=== PATIENT | female | born 1945 | race Caucasian/White ===

== ENCOUNTER 2017-11-27 10:54 | Inpatient (IN) | payer MEDICARE, MEDICAID ==
[2017-11-27] MEDS ORDERED: IPRATROPIUM/ALBUTEROL 0.5-2.5 MG/3 ML AMPUL NEB ONE (11:25)
--- NOTE | 2017-11-27 11:29 | ER Document Report ---
ED Respiratory Problem - General Chief Complaint: Breathing Difficulty Stated Complaint: TROUBLE BREATHING Time Seen by Provider: 11/27/17 11:10 Mode of Arrival: Ambulatory Information source: Patient Notes: HPI-72 years old female with a history of smoking in the past quit 7 years ago, presents today with difficulty in breathing wheezing coughing up yellow sputum for the last 1 week. Denies any chest pain left arm numbness tingling sensation nausea vomiting palpitation or diaphoresis. Denies any dysuria frequency urgency. REVIEW OF SYSTEMS: CONSTITUTIONAL : Denies fever, chills, or sweats. Denies recent illness. EENT: Denies eye, ear, throat, or mouth pain or symptoms. Denies nasal or sinus congestion or discharge. Denies throat, tongue, or mouth swelling or difficulty swallowing. CARDIOVASCULAR: Denies chest pain. Denies palpitations or racing or irregular heart beat. Denies ankle edema. RESPIRATORY: GASTROINTESTINAL: Denies abdominal pain or distention. Denies nausea, vomiting , or diarrhea. Denies blood in vomitus, stools, or per rectum. Denies black, tarry stools. Denies constipation. GENITOURINARY: Denies difficulty urinating, painful urination, burning, frequency, blood in urine, or discharge. FEMALE GENITOURINARY: Denies vaginal bleeding, heavy or abnormal periods, irregular periods. Denies vaginal discharge or odor. MUSCULOSKELETAL: Denies back or neck pain or stiffness. Denies joint pain or swelling. SKIN: Denies rash, lesions or sores. HEMATOLOGIC : Denies easy bruising or bleeding. LYMPHATIC: Denies swollen, enlarged glands. NEUROLOGICAL: Denies confusion or altered mental status. Denies passing out or loss of consciousness. Denies dizziness or lightheadedness. Denies headache. Denies weakness or paralysis or loss of use of either side. Denies problems with gait or speech. Denies sensory loss, numbness, or tingling. Denies seizures. PSYCHIATRIC: Denies anxiety or stress. Denies depression, suicidal ideation, or homicidal ideation. ALL OTHER SYSTEMS REVIEWED AND NEGATIVE. PHYSICAL EXAMINATION: GENERAL: Well-appearing, well-nourished and not in any respiratory distress. HEAD: Atraumatic, normocephalic. EYES: Pupils equal round and reactive to light, extraocular movements intact, conjunctiva are normal. ENT: Nares patent, oropharynx clear without exudates. Moist mucous membranes. NECK: Normal range of motion, supple without lymphadenopathy LUNGS: Bilaterally decreased breath sounds, scattered expiratory wheeze. No rales HEART: Regular rate and rhythm without murmurs ABDOMEN: Soft, nontender, nondistended abdomen. No guarding, no rebound. No masses appreciated. Female : deferred Musculoskeletal: Normal range of motion, no pitting or edema. No cyanosis. NEUROLOGICAL: Cranial nerves grossly intact. Normal speech, normal gait. Normal sensory, motor exams PSYCH: Normal mood, normal affect. SKIN: Warm, Dry, normal turgor, no rashes or lesions noted. Dictation was performed using [employer] voice recognition softwareHPI- TRAVEL OUTSIDE OF THE [place] IN LAST 30 DAYS: No - Related Data Allergies/Adverse Reactions: amoxicillin trihydrate [From Augmentin] Allergy (Verified 11/21/14 11:49) meperidine HCl [From Demerol] Allergy (Verified 10/21/14 12:59) Potassium Clavulanate * [From Augmentin] Allergy (Verified 11/21/14 11:49) Past Medical History - General Information source: Patient - Social History Smoking Status: Former Smoker Cigarette use (# per day): No Chew tobacco use (# tins/day): No Smoking Education Provided: No Frequency of alcohol use: Rare Drug Abuse: None Lives with: Family Family History: Reviewed & Not Pertinent Patient has suicidal ideation: No Patient has homicidal ideation: No - Past Medical History Cardiac Medical History: Reports: Hx Congestive Heart Failure, Hx Hypercholesterolemia, Hx Hypertension Denies: Hx Heart Attack Pulmonary Medical History: Reports: Hx COPD, Hx Pneumonia Denies: Hx Asthma Neurological Medical History: Reports: Hx Seizures - WITH DEMEROL. Denies: Hx Cerebrovascular Accident GI Medical History: Denies: Hx Hepatitis, Hx Hiatal Hernia, Hx Ulcer Psychiatric Medical History: Denies: Hx Depression Infectious Medical History: Denies: Hx Hepatitis Past Surgical History: Reports: Hx Cardiac Catheterization, Hx Section , Hx Open Heart Surgery - 1949, Hx Pacemaker - February. Denies: Hx Mastectomy - Immunizations Hx Diphtheria, Pertussis, Tetanus Vaccination: Yes Review of Systems - Review of Systems Notes: Dictated above Physical Exam - Vital signs Vitals: Temp Pulse Resp BP Pulse Ox 98.0 F 72 24 H 148/60 H 95 11/27/17 11:03 11/27/17 11:03 11/27/17 11:03 11/27/17 11:03 11/27/17 11:03 Course - Re-evaluation Re-evalutation: 11/27/17 13:13 Patient was reexamined still wheezing bilaterally. - Vital Signs Vital signs: Temp Pulse Resp BP Pulse Ox 98.0 F 102 H 26 H 107/56 L 99 11/27/17 11:03 11/27/17 11:29 11/27/17 13:01 11/27/17 13:01 11/27/17 13:01 - Laboratory Result Diagrams: 11/27/17 11:15 11/27/17 11:15 Laboratory results interpreted by me: 11/27/17 11/27/17 11:15 11:15 WBC 10.8 H Chloride 97 L Carbon Dioxide 39 H BUN 24 H Glucose 120 H Calcium 10.3 H - Diagnostic Test Radiology reviewed: Reports reviewed - No new infiltration effusion or pneumothorax Discharge - Discharge Clinical Impression: Acute exacerbation of COPD with asthma Condition: Fair Disposition: ADMITTED INPATIENT Admitting Provider: Hospitalist Unit Admitted: Telemetry
[2017-11-27 11:48] LABS: ABSOLUTE BASOPHILS # (AUTO) 0.1 10^3/uL (0.0-0.2); ABSOLUTE EOSINOPHILS # (AUTO) 0.6 10^3/uL (0.0-0.6); ABSOLUTE MONOCYTES (AUTO) 0.8 10^3/uL (0.1-1.4); ABSOLUTE NEUT (AUTO) 6.3 10^3/uL (1.7-8.2); BASOPHILS % (AUTO) 0.7 % (0-2); EOSINOPHILS % (AUTO) 5.7 % (0-6); HEMATOCRIT 40.7 % (36.0-47.0); HEMOGLOBIN 13.2 g/dL (12.0-15.5); LYMPHOCYTES % (AUTO) 27.7 % (13-45); MEAN CORPUSCULAR HEMOGLOBIN 28.7 pg (27.0-33.4); MEAN CORPUSCULAR HGB CONC 32.5 g/dL (32.0-36.0); MEAN CORPUSCULAR VOLUME 88 fl (80-97); PLATELET COUNT 238 10^3/uL (150-450); RED BLOOD COUNT 4.62 10^6/uL (3.72-5.28); RED CELL DISTRIBUTION WIDTH 13.7 % (11.5-14.0); SEGMENTED NEUTROPHILS % (AUTO) 58.9 % (42-78); TOTAL CELLS COUNTED % (AUTO) 100 %; WHITE BLOOD COUNT 10.8 10^3/uL (4.0-10.5)
--- NOTE | 2017-11-27 11:49 | RADIOLOGY REPORT (SQ) ---
EXAM DESCRIPTION: CHEST SINGLE VIEW COMPLETED DATE/TIME: 11/27/2017 11:41 am REASON FOR STUDY: Cough COMPARISON: 11/20/2015 EXAM PARAMETERS: NUMBER OF VIEWS: One view. TECHNIQUE: Single frontal radiographic view of the chest acquired. RADIATION DOSE: NA LIMITATIONS: None. FINDINGS: LUNGS AND PLEURA: Chronic basilar changes. COPD. Stable. MEDIASTINUM AND HILAR STRUCTURES: No masses. Contour normal. HEART AND VASCULAR STRUCTURES: Heart normal in size. Normal vasculature. BONES: No acute findings. HARDWARE: Cardiac hardware unchanged. OTHER: No other significant finding. IMPRESSION: Stable appearance. COPD with basilar changes. TECHNICAL DOCUMENTATION: JOB ID: [id number] [employer]- All Rights Reserved Reading location - IP/workstation name: [email or web address]
[2017-11-27 12:00] LABS: ALANINE AMINOTRANSFERASE 24 U/L (9-52); ALBUMIN 4.5 g/dL (3.5-5.0); ALKALINE PHOSPHATASE 89 U/L (38-126); ASPARTATE AMINO TRANSFERASE 26 U/L (14-36); BILIRUBIN,DIRECT 0.3 mg/dL (0.0-0.4); BILIRUBIN,TOTAL 0.3 mg/dL (0.2-1.3); BLOOD UREA NITROGEN 24 mg/dL (7-20); CALCIUM 10.3 mg/dL (8.4-10.2); CHLORIDE 97 mmol/L (98-107); GLUCOSE 120 mg/dL (75-110); POTASSIUM 4.5 mmol/L (3.6-5.0); SODIUM 143.6 mmol/L (137-145); TOTAL PROTEIN 7.8 g/dL (6.3-8.2)
[2017-11-27 12:06] LABS: ANION GAP 8 (5-19); CARBON DIOXIDE 39 mmol/L (22-30)
[2017-11-27 12:11] LABS: NT PRO BNP 139 pg/mL (5-900)
[2017-11-27 12:12] LABS: TROPONIN I < 0.012 ng/mL
[2017-11-27 13:25] LABS: APPEARANCE,URINE CLEAR; BILIRUBIN,URINE NEGATIVE (NEGATIVE); COLOR,URINE YELLOW; GLUCOSE, URINE NEGATIVE (NEGATIVE); KETONES,URINE NEGATIVE (NEGATIVE); LEUKOCYTE ESTERASE,URINE TRACE (NEGATIVE); NITRITE,URINE NEGATIVE (NEGATIVE); PROTEIN,URINE NEGATIVE (NEGATIVE); URINE SPECIFIC GRAVITY 1.019
[2017-11-27] MEDS ORDERED: ONDANSETRON HCL INJ/PF 4 MG/2 ML SDV IV PRN (14:14)
[2017-11-27] MEDS ORDERED: NORMAL SALINE 1000 ML 1,000 ML IV PRN (14:14)
[2017-11-27] MEDS ORDERED: ACETAMINOPHEN 325 MG TABLET PO PRN (14:14)
[2017-11-27] MEDS ORDERED: FUROSEMIDE 20 MG TABLET PO PRN (15:19)
[2017-11-27] MEDS ORDERED: (PENDING PHARMACY ID) (Ranitidine Hcl [Zantac] 300 MG) PO PRN (15:19)
--- NOTE | 2017-11-27 15:27 | PDOC H&P ---
History of Present Illness Admission Date/PCP: 11/27/17 13:17 OMA MARCOS MD Patient complains of: Shortness of breath History of Present Illness: CHRISTOS MULTANI is a 72 year old female resents to the hospital with complaint of shortness of breath for the last couple weeks. Patient states her breathing worsened last night. Patient states that she is having a yellowish brown productive cough. Patient denies any fever however reports that she did feel warm to touch. Patient states that she has been wheezing for the last several days. Patient states that she normally wears 2 L at home at rest and 3 L with exertion. Patient reports that she has had to keep her oxygen turned up to 3 L on a regular basis. Patient states that she has not had chest pain nausea vomiting or decreased appetite. Patient does admit to having back pain. Past Medical History Cardiac Medical History: Reports: Congestive Heart Failure, Hyperlipidema, Hypertension Denies: Myocardial Infarction Pulmonary Medical History: Reports: Chronic Obstructive Pulmonary Disease (COPD) , Pneumonia Denies: Asthma Neurological Medical History: Reports: Seizures - WITH DEMEROL GI Medical History: Denies: Hepatitis, Hiatal Hernia Psychiatric Medical History: Denies: Depression Hematology: Denies: Anemia, Sickle Cell Disease Past Surgical History Past Surgical History: Reports: Cardiac Catheterization, Section, Pacemaker - February Denies: Amputation, Mastectomy Social History Information Source: Patient Lives with: Family Smoking Status: Former Smoker Frequency of Alcohol Use: None Hx Recreational Drug Use: No Hx Prescription Drug Abuse: No - Advance Directive Resuscitation Status: Full Code Family History Family History: Reviewed & Not Pertinent Parental Family History Reviewed: Yes Children Family History Reviewed: Yes Sibling(s) Family History Reviewed.: Yes Medication/Allergy Home Medications: Albuterol Sulfate [Ventolin Hfa] 2 puff IH Q4HP PRN 11/27/17 Aspirin [Adult Low Dose Aspirin EC] 81 mg PO DAILY 11/27/17 Budesonide/Formoterol Fumarate [Symbicort HFA 160-4.5 mcg Inhaler 6 gm] 2 puff IH BID 11/27/17 Cyclobenzaprine HCl [Flexeril 10 mg Tablet] 10 mg PO DAILY 11/27/17 Furosemide [Lasix 20 mg Tablet] 20 mg PO DAILYP PRN 11/27/17 Losartan Potassium [Cozaar 25 mg Tablet] 25 mg PO DAILY 11/27/17 Metoprolol Succinate [Toprol Xl 25 mg Tab.sr] 25 mg PO DAILY 11/27/17 Oxycodone HCl [Oxy-Ir 5 mg Tablet] 5 mg PO Q4HP PRN 11/27/17 Pravastatin Sodium [Pravachol] 10 mg PO QHS 11/27/17 Ranitidine HCl [Zantac] 300 mg PO BIDP PRN 11/27/17 Allergies/Adverse Reactions: amoxicillin trihydrate [From Augmentin] Allergy (Verified 11/21/14 11:49) meperidine HCl [From Demerol] Allergy (Verified 10/21/14 12:59) Potassium Clavulanate * [From Augmentin] Allergy (Verified 11/21/14 11:49) Review of Systems Constitutional: PRESENT: weakness. ABSENT: chills, fever(s), headache(s), weight gain, weight loss Eyes: ABSENT: visual disturbances Ears: ABSENT: hearing changes Cardiovascular: ABSENT: chest pain, dyspnea on exertion, edema, orthropnea, palpitations Respiratory: PRESENT: cough, dyspnea, sputum Gastrointestinal: ABSENT: abdominal pain, constipation, diarrhea, hematemesis, hematochezia, nausea, vomiting Genitourinary: ABSENT: dysuria, hematuria Musculoskeletal: ABSENT: joint swelling Integumentary: ABSENT: rash, wounds Neurological: ABSENT: abnormal gait, abnormal speech, confusion, dizziness, focal weakness, syncope Psychiatric: ABSENT: anxiety, depression, homidical ideation, suicidal ideation Endocrine: ABSENT: cold intolerance, heat intolerance, polydipsia, polyuria Hematologic/Lymphatic: ABSENT: easy bleeding, easy bruising Physical Exam Vital Signs: Temp Pulse Resp BP Pulse Ox 98.0 F 102 H 20 110/66 97 11/27/17 11:03 11/27/17 11:29 11/27/17 14:01 11/27/17 14:01 11/27/17 14:01 General appearance: PRESENT: no acute distress, well-developed, well-nourished Head exam: PRESENT: atraumatic, normocephalic Eye exam: PRESENT: conjunctiva pink, EOMI. ABSENT: scleral icterus Ear exam: PRESENT: normal external ear exam Mouth exam: PRESENT: moist, tongue midline Neck exam: ABSENT: carotid bruit, JVD, lymphadenopathy, thyromegaly Respiratory exam: PRESENT: accessory muscle use, decreased breath sounds, prolonged expiratory phas, wheezes Cardiovascular exam: PRESENT: RRR. ABSENT: diastolic murmur, rubs, systolic murmur Pulses: PRESENT: normal dorsalis pedis pul Vascular exam: PRESENT: normal capillary refill GI/Abdominal exam: PRESENT: normal bowel sounds, soft. ABSENT: distended, guarding, mass, organolmegaly, rebound, tenderness Rectal exam: PRESENT: deferred Extremities exam: PRESENT: full ROM. ABSENT: calf tenderness, clubbing, pedal edema Musculoskeletal exam: PRESENT: full ROM Neurological exam: PRESENT: alert, awake, oriented to person, oriented to place , oriented to time, oriented to situation, CN II-XII grossly intact. ABSENT: motor sensory deficit Psychiatric exam: PRESENT: appropriate affect, normal mood. ABSENT: homicidal ideation, suicidal ideation Skin exam: PRESENT: dry, intact, warm. ABSENT: cyanosis, rash Results Impressions: Chest X-Ray 11/27/17 11:24 IMPRESSION: Stable appearance. COPD with basilar changes. Assessment & Plan - Diagnosis (1) Acute and chronic respiratory failure with hypoxia Is this a current diagnosis for this admission?: Yes Plan: Secondary to COPD exacerbation: Placed patient on steroids, breathing treatments , and antibiotics. Will check ABG. Will check CTA of chest to evalulate for PE. Pt has Emphysema. (2) Acute exacerbation of chronic obstructive pulmonary disease (COPD) Is this a current diagnosis for this admission?: Yes Plan: We will place patient on steroids, breathing treatments, and antibiotics. (3) Hypercalcemia Is this a current diagnosis for this admission?: Yes Plan: We will give IV fluids for hydration. Will check calcium in a.m. (4) Leukocytosis Is this a current diagnosis for this admission?: Yes Plan: Secondary to respiratory distress: Will monitor. (5) Tachypnea Is this a current diagnosis for this admission?: Yes Plan: Secondary to COPD exacerbation: We will continue with breathing treatments, steroids, and antibiotics. (6) Alkalosis Is this a current diagnosis for this admission?: Yes Plan: Seocondary to Respiratory Failure: Will check ABG. (7) Hyperlipidemia Is this a current diagnosis for this admission?: Yes Plan: Will continue statin. (8) Hypertension Is this a current diagnosis for this admission?: Yes Plan: Metoprolol and Lasix. Will hold Losartan (9) DVT prophylaxis Is this a current diagnosis for this admission?: Yes Plan: scds - Time Time Spent: 30 to 50 Minutes
[2017-11-27] MEDS ORDERED: FAMOTIDINE 20 MG TABLET PO PRN (15:38)
--- NOTE | 2017-11-27 16:24 | EKG REPORT ---
SEVERITY:- ABNORMAL ECG - ATRIAL-SENSED VENTRICULAR-PACED COMPLEXES NONSPECIFIC IVCD WITH LAD VPCs : Confirmed by: Leyla Grossman 27-Nov-2017 16:24:03
--- NOTE | 2017-11-27 16:29 | RADIOLOGY REPORT (SQ) ---
EXAM DESCRIPTION: CTA CHEST COMPLETED DATE/TIME: 11/27/2017 4:07 pm REASON FOR STUDY: Shortness of breath COMPARISON: None. TECHNIQUE: CT scan of the chest performed using helical scanning technique with dynamic intravenous contrast injection. Images reviewed with lung, soft tissue and bone windows. Reconstructed coronal and sagittal MPR images reviewed. Additional 3 dimensional post-processing performed to develop Maximal Intensity Projection images (AZ P). All images stored on PACS. All CT scanners at this facility use dose modulation, iterative reconstruction, and/or weight based d osing when appropriate to reduce radiation dose to as low as reasonably achievable (ALARA). [facility]: Dose Right [facility]: CareDose [facility]: Dose Right [facility]: Teradose 4D [facility]: [employer] Appraisals CONTRAST TYPE AND DOSE: contrast/concentration: Isovue 370.00 mg/ml; Total Contrast Delivered: 63.0 ml; Total Saline Delivered: 100.0 ml Contrast bolus optimized for the pulmonary arteries. Not diagnostic for the aorta. RENAL FUNCTION: GFR > 60. RADIATION DOSE: CT Rad equipment meets quality standard of care and radiation dose reduction techniq ues were employed. CTDIvol: 16.5 - 18.5 mGy. DLP: 655 mGy-cm. . LIMITATIONS: None. FINDINGS: LUNGS AND PLEURA: Mild diffuse centrilobular emphysema. Patchy right lower lobe airspace disease. No consolidation, pleural effusion, or pneumothorax. AORTA AND GREAT VESSELS: Focal ectasia involving of the aortic arch measuring up to 3 cm without evid ence of acute injury. Contrast bolus not optimized for the aorta. HEART: No pericardial effusion. Moderate to marked coronary artery calcifications. PULMONARY ARTERIES: No emboli visualized in the main pulmonary arteries or the segmental branches. HILAR AND MEDIASTINAL STRUCTURES: No identified masses or abnormal nodes. HARDWARE: Cardiac pacer. UPPER ABDOMEN: No significant findings. Limited exam. THYROID AND OTHER SOFT TISSUES: No masses. No adenopathy. BONES: No acute or significant finding. 3D MIPS: Confirm above findings. OTHER: No other significant finding. IMPRESSION: NO PULMONARY EMBOLI. PATCHY RIGHT LOWER LOBE AIRSPACE DISEASE COMPATIBLE WITH INFECTIOUS OR INFLAMMATORY PNEUMONITIS. CORONARY ARTERY CALCIFICATIONS. COMMENT: Quality ID # [id number]: Final reports with documentation of one or more dose reduction techniques (e.g., Automated exposure control, adjustment of the mA and/or kV according to patient size, use of iterative reconstruction technique) TECHNICAL DOCUMENTATION: JOB ID: [id number] [employer]- All Rights Reserved Reading location - IP/workstation name: [email or web address]
[2017-11-27] MEDS: IPRATROPIUM/ALBUTEROL 0.5-2.5 MG/3 ML AMPUL NEB SCH ×2 (16:36→20:05)
[2017-11-27 17:19] LABS: ARTERIAL BLOOD BASE EXCESS 9.6 mmol/L; ARTERIAL BLOOD FIO2 3L; ARTERIAL BLOOD H2CO3 1.94 mmol/L (1.05-1.35); ARTERIAL BLOOD HCO3 36.9 mmol/L (20-26); ARTERIAL BLOOD O2 SATURATION 96.5 % (94-98); ARTERIAL BLOOD PCO2 64.6 mmHg (35-45); ARTERIAL BLOOD PH 7.38 (7.35-7.45); ARTERIAL BLOOD PO2 90.7 mmHg (80-100); ARTERIAL BLOOD TOTAL CO2 38.9 mmol/L (21-25)
[2017-11-27] MEDS: OXYCODONE HCL IR 5 MG TABLET PO PRN (17:25)
[2017-11-27] MEDS ORDERED: BUDESONIDE/FORMOTEROL 160-4.5 MCG 60 PUFF/6 GM MDI IH ONE (17:35)
[2017-11-27] MEDS: BUDESONIDE/FORMOTEROL 160-4.5 MCG 60 PUFF/6 GM MDI IH SCH (17:52)
[2017-11-27] MEDS ORDERED: DOXYCYCLINE HYCLATE INJ 100 MG VIAL ONE (22:20)
[2017-11-27] MEDS: DOXYCYCLINE HYCLATE 100 MG in DEXTROSE 5%-WATER 250 ML IV SCH (22:31)
[2017-11-27] MEDS: ATORVASTATIN CALCIUM 10 MG TABLET PO SCH (22:31)
[2017-11-27] MEDS: METHYLPREDNISOLONE INJ 125 MG/2 ML SDV IV SCH (22:35)
[2017-11-28] MEDS: LANSOPRAZOLE 30 MG TAB.RAP.DR PO SCH (05:25)
[2017-11-28] MEDS: METHYLPREDNISOLONE INJ 125 MG/2 ML SDV IV SCH ×3 (05:26→20:40)
[2017-11-28 05:29] LABS: ABSOLUTE BASOPHILS # (AUTO) 0.1 10^3/uL (0.0-0.2); ABSOLUTE LYMPHOCYTES (AUTO) 0.9 10^3/uL (0.5-4.7); ABSOLUTE MONOCYTES (AUTO) 0.1 10^3/uL (0.1-1.4); ABSOLUTE NEUT (AUTO) 7.1 10^3/uL (1.7-8.2); BASOPHILS % (AUTO) 0.7 % (0-2); EOSINOPHILS % (AUTO) 0.1 % (0-6); HEMATOCRIT 34.2 % (36.0-47.0); LYMPHOCYTES % (AUTO) 11.2 % (13-45); MEAN CORPUSCULAR HEMOGLOBIN 28.5 pg (27.0-33.4); MEAN CORPUSCULAR HGB CONC 32.4 g/dL (32.0-36.0); MEAN CORPUSCULAR VOLUME 88 fl (80-97); MONOCYTES % (AUTO) 0.8 % (3-13); PLATELET COUNT 199 10^3/uL (150-450); RED BLOOD COUNT 3.88 10^6/uL (3.72-5.28); RED CELL DISTRIBUTION WIDTH 13.4 % (11.5-14.0); SEGMENTED NEUTROPHILS % (AUTO) 87.2 % (42-78); TOTAL CELLS COUNTED % (AUTO) 100 %; WHITE BLOOD COUNT 8.1 10^3/uL (4.0-10.5)
[2017-11-28 05:30] LABS: HEMOGLOBIN 11.1 g/dL (12.0-15.5)
[2017-11-28 05:52] LABS: ALANINE AMINOTRANSFERASE 23 U/L (9-52); ALBUMIN 3.6 g/dL (3.5-5.0); ALKALINE PHOSPHATASE 68 U/L (38-126); ASPARTATE AMINO TRANSFERASE 22 U/L (14-36); BILIRUBIN,DIRECT 0.2 mg/dL (0.0-0.4); BILIRUBIN,TOTAL 0.2 mg/dL (0.2-1.3); BLOOD UREA NITROGEN 22 mg/dL (7-20); CALCIUM 9.6 mg/dL (8.4-10.2); CARBON DIOXIDE 31 mmol/L (22-30); CHLORIDE 102 mmol/L (98-107); CHOLESTEROL 154.42 mg/dL (0-200); GLUCOSE 162 mg/dL (75-110); POTASSIUM 4.4 mmol/L (3.6-5.0); TOTAL PROTEIN 6.4 g/dL (6.3-8.2); TRIGLYCERIDES 55 mg/dL (<150)
[2017-11-28 05:58] LABS: ANION GAP 7 (5-19); SODIUM 140.2 mmol/L (137-145)
[2017-11-28 06:02] LABS: DIRECT LDL 94 mg/dL (<100)
[2017-11-28] MEDS: IPRATROPIUM/ALBUTEROL 0.5-2.5 MG/3 ML AMPUL NEB SCH ×4 (08:27→20:36)
[2017-11-28] MEDS: ASPIRIN 81 MG TABLET, ENT COATED PO SCH (09:59)
[2017-11-28] MEDS: DOXYCYCLINE HYCLATE 100 MG in DEXTROSE 5%-WATER 250 ML IV SCH ×2 (10:00→22:52)
[2017-11-28] MEDS: METOPROLOL SUCCINATE 25 MG TAB.SR.24H PO SCH (10:00)
[2017-11-28] MEDS: BUDESONIDE/FORMOTEROL 160-4.5 MCG 60 PUFF/6 GM MDI IH SCH ×2 (10:00→17:18)
[2017-11-28] MEDS: CYCLOBENZAPRINE HCL 10 MG TABLET PO SCH (10:00)
--- NOTE | 2017-11-28 13:17 | PDOC PROGRESS REPORT ---
Subjective Progress Note for:: 11/28/17 Subjective:: Pt states that her breathing is slightly better. Pt states that she was able to cough up phlegm. Pt states that she is still wheezing. Reason For Visit: ACUTE ON CHRONIC HYPOXIC RESPIRATORY FAILURE Physical Exam Vital Signs: Temp Pulse Resp BP Pulse Ox 98.9 F 101 H 18 131/66 H 98 11/28/17 08:22 11/28/17 12:51 11/28/17 12:51 11/28/17 08:22 11/28/17 12:51 Intake & Output 11/27/17 11/28/17 11/29/17 06:59 06:59 06:59 Intake Total 1397 Output Total 200 Balance 1197 Weight 66.3 kg General appearance: PRESENT: mild distress, well-developed, well-nourished Head exam: PRESENT: atraumatic, normocephalic Eye exam: PRESENT: conjunctiva pink, EOMI. ABSENT: scleral icterus Ear exam: PRESENT: normal external ear exam Mouth exam: PRESENT: moist, tongue midline Neck exam: ABSENT: carotid bruit, JVD, lymphadenopathy, thyromegaly Respiratory exam: PRESENT: accessory muscle use, decreased breath sounds, prolonged expiratory phas, wheezes. ABSENT: rales, rhonchi Cardiovascular exam: PRESENT: RRR. ABSENT: diastolic murmur, rubs, systolic murmur Pulses: PRESENT: normal dorsalis pedis pul Vascular exam: PRESENT: normal capillary refill GI/Abdominal exam: PRESENT: normal bowel sounds, soft. ABSENT: distended, guarding, mass, organolmegaly, rebound, tenderness Rectal exam: PRESENT: deferred Extremities exam: PRESENT: full ROM. ABSENT: calf tenderness, clubbing, pedal edema Musculoskeletal exam: PRESENT: full ROM Neurological exam: PRESENT: alert, awake, oriented to person, oriented to place , oriented to time, oriented to situation, CN II-XII grossly intact. ABSENT: motor sensory deficit Psychiatric exam: PRESENT: appropriate affect, normal mood. ABSENT: homicidal ideation, suicidal ideation Skin exam: PRESENT: dry, intact, warm. ABSENT: cyanosis, rash Results Laboratory Results: 11/28/17 05:04 11/28/17 05:04 11/27/17 11/28/17 11/28/17 16:11 05:04 05:04 WBC 8.1 RBC 3.88 Hgb 11.1 L D Hct 34.2 L MCV 88 MCH 28.5 MCHC 32.4 RDW 13.4 Plt Count 199 Seg Neutrophils % 87.2 H Lymphocytes % 11.2 L Monocytes % 0.8 L Eosinophils % 0.1 Basophils % 0.7 Absolute Neutrophils 7.1 Absolute Lymphocytes 0.9 Absolute Monocytes 0.1 Absolute Eosinophils 0.0 Absolute Basophils 0.1 Carbonic Acid 1.94 H HCO3/H2CO3 Ratio 19:1 ABG pH 7.38 ABG pCO2 64.6 H ABG pO2 90.7 ABG HCO3 36.9 H ABG O2 Saturation 96.5 ABG Base Excess 9.6 FiO2 3L Sodium 140.2 Potassium 4.4 Chloride 102 Carbon Dioxide 31 H Anion Gap 7 BUN 22 H Creatinine 0.63 Est GFR ( Amer) > 60 Est GFR (Non-Af Amer) > 60 Glucose 162 H Calcium 9.6 Total Bilirubin 0.2 AST 22 ALT 23 Alkaline Phosphatase 68 Total Protein 6.4 Albumin 3.6 Triglycerides 55 Cholesterol 154.42 LDL Cholesterol Direct 94 VLDL Cholesterol 11.0 HDL Cholesterol 51 11/27/17 11/27/17 11/28/17 16:55 23:04 05:04 Troponin I < 0.012 < 0.012 < 0.012 Impressions: Chest/Abdomen CTA 11/27/17 00:00 IMPRESSION: NO PULMONARY EMBOLI. PATCHY RIGHT LOWER LOBE AIRSPACE DISEASE COMPATIBLE WITH INFECTIOUS OR INFLAMMATORY PNEUMONITIS. CORONARY ARTERY CALCIFICATIONS. Chest X-Ray 11/27/17 11:24 IMPRESSION: Stable appearance. COPD with basilar changes. Assessment & Plan - Diagnosis (1) Acute and chronic respiratory failure with hypoxia Is this a current diagnosis for this admission?: Yes Plan: Secondary to COPD exacerbation: Placed patient on steroids, breathing treatments , and antibiotics. (2) Acute exacerbation of chronic obstructive pulmonary disease (COPD) Is this a current diagnosis for this admission?: Yes Plan: Will continue patient on steroids, breathing treatments, and antibiotics. (3) Hypercalcemia Is this a current diagnosis for this admission?: Yes Plan: Resolved. (4) Leukocytosis Is this a current diagnosis for this admission?: Yes Plan: Secondary to respiratory distress: Will monitor. (5) Tachypnea Is this a current diagnosis for this admission?: Yes Plan: Secondary to COPD exacerbation: We will continue with breathing treatments, steroids, and antibiotics. (6) Alkalosis Is this a current diagnosis for this admission?: Yes Plan: Seocondary to Respiratory Failure: will monitor. (7) Hyperlipidemia Is this a current diagnosis for this admission?: Yes Plan: Will continue statin. (8) Hypertension Is this a current diagnosis for this admission?: Yes Plan: Metoprolol and Lasix. Will hold Losartan (9) DVT prophylaxis Is this a current diagnosis for this admission?: Yes Plan: scds - Time Time Spent with patient: 15-24 minutes
[2017-11-28] MEDS: BENZONATATE 100 MG CAPSULE PO PRN (14:23)
[2017-11-28] MEDS: OXYCODONE HCL IR 5 MG TABLET PO PRN (20:40)
[2017-11-28] MEDS: ATORVASTATIN CALCIUM 10 MG TABLET PO SCH (20:40)
[2017-11-29] MEDS: OXYCODONE HCL IR 5 MG TABLET PO PRN ×5 (03:36→23:01)
[2017-11-29] MEDS: METHYLPREDNISOLONE INJ 125 MG/2 ML SDV IV SCH (06:15)
[2017-11-29] MEDS: LANSOPRAZOLE 30 MG TAB.RAP.DR PO SCH (06:17)
[2017-11-29 06:41] LABS: ABSOLUTE LYMPHOCYTES (AUTO) 1.2 10^3/uL (0.5-4.7); ABSOLUTE MONOCYTES (AUTO) 0.7 10^3/uL (0.1-1.4); BASOPHILS % (AUTO) 0.1 % (0-2); LYMPHOCYTES % (AUTO) 7.3 % (13-45); MEAN CORPUSCULAR HEMOGLOBIN 28.4 pg (27.0-33.4); MEAN CORPUSCULAR HGB CONC 32.4 g/dL (32.0-36.0); MEAN CORPUSCULAR VOLUME 88 fl (80-97); MONOCYTES % (AUTO) 4.6 % (3-13); PLATELET COUNT 213 10^3/uL (150-450); RED BLOOD COUNT 3.88 10^6/uL (3.72-5.28); RED CELL DISTRIBUTION WIDTH 13.6 % (11.5-14.0); TOTAL CELLS COUNTED % (AUTO) 100 %; WHITE BLOOD COUNT 15.9 10^3/uL (4.0-10.5)
[2017-11-29] MEDS: BENZONATATE 100 MG CAPSULE PO PRN (06:56)
[2017-11-29 07:12] LABS: ALANINE AMINOTRANSFERASE 24 U/L (9-52); ALBUMIN 3.7 g/dL (3.5-5.0); ALKALINE PHOSPHATASE 73 U/L (38-126); ANION GAP 6 (5-19); ASPARTATE AMINO TRANSFERASE 20 U/L (14-36); BLOOD UREA NITROGEN 20 mg/dL (7-20); CALCIUM 9.9 mg/dL (8.4-10.2); CARBON DIOXIDE 33 mmol/L (22-30); CHLORIDE 103 mmol/L (98-107); GLUCOSE 157 mg/dL (75-110); POTASSIUM 4.2 mmol/L (3.6-5.0); SODIUM 142.2 mmol/L (137-145); TOTAL PROTEIN 6.5 g/dL (6.3-8.2)
[2017-11-29 07:17] LABS: BILIRUBIN,TOTAL < 0.1 mg/dL (0.2-1.3)
[2017-11-29] MEDS: IPRATROPIUM/ALBUTEROL 0.5-2.5 MG/3 ML AMPUL NEB SCH ×4 (08:40→20:05)
[2017-11-29] MEDS ORDERED: METHYLPREDNISOLONE INJ 125 MG/2 ML SDV IV SCH (09:21)
[2017-11-29] MEDS: LIDOCAINE 5% (700 MG) TRANSDERMAL ADH..PATCH TP SCH (09:45)
[2017-11-29] MEDS: DOXYCYCLINE HYCLATE 100 MG TABLET PO SCH ×2 (09:45→23:01)
[2017-11-29] MEDS: CYCLOBENZAPRINE HCL 10 MG TABLET PO SCH (09:45)
[2017-11-29] MEDS: METOPROLOL SUCCINATE 25 MG TAB.SR.24H PO SCH (09:45)
[2017-11-29] MEDS: ASPIRIN 81 MG TABLET, ENT COATED PO SCH (09:45)
[2017-11-29] MEDS: BUDESONIDE/FORMOTEROL 160-4.5 MCG 60 PUFF/6 GM MDI IH SCH ×2 (09:59→17:24)
[2017-11-29] MEDS ORDERED: METHYLPREDNISOLONE INJ 40 MG/1 ML SDV IV SCH (14:00)
--- NOTE | 2017-11-29 15:06 | PDOC PROGRESS REPORT ---
Subjective Progress Note for:: 11/29/17 Subjective:: 72 yr old female p/w COPD exacerbation and cough. Feels better today. Stopped IV fluids. Ambulate, taper steroids. Reason For Visit: ACUTE ON CHRONIC HYPOXIC RESPIRATORY FAILURE Physical Exam Vital Signs: Temp Pulse Resp BP Pulse Ox 98.5 F 93 20 134/53 H 92 11/29/17 08:10 11/29/17 08:10 11/29/17 08:10 11/29/17 08:10 11/29/17 08:10 Intake & Output 11/28/17 11/29/17 11/30/17 06:59 06:59 06:59 Intake Total 1397 2696 Output Total 200 Balance 1197 2696 Weight 66.3 kg 66.8 kg General appearance: PRESENT: obese Head exam: PRESENT: atraumatic Respiratory exam: PRESENT: clear to auscultation tyrone, symmetrical, unlabored Cardiovascular exam: PRESENT: RRR GI/Abdominal exam: PRESENT: normal bowel sounds, soft. ABSENT: guarding, tenderness Results Laboratory Results: 11/29/17 06:01 11/29/17 06:01 11/29/17 11/29/17 06:01 06:01 WBC 15.9 H RBC 3.88 Hgb 11.0 L Hct 34.0 L MCV 88 MCH 28.4 MCHC 32.4 RDW 13.6 Plt Count 213 Seg Neutrophils % 88.0 H Lymphocytes % 7.3 L Monocytes % 4.6 Eosinophils % 0.0 Basophils % 0.1 Absolute Neutrophils 14.0 H Absolute Lymphocytes 1.2 Absolute Monocytes 0.7 Absolute Eosinophils 0.0 Absolute Basophils 0.0 Sodium 142.2 Potassium 4.2 Chloride 103 Carbon Dioxide 33 H Anion Gap 6 BUN 20 Creatinine 0.64 Est GFR ( Amer) > 60 Est GFR (Non-Af Amer) > 60 Glucose 157 H Calcium 9.9 Magnesium 2.0 Total Bilirubin < 0.1 L AST 20 ALT 24 Alkaline Phosphatase 73 Total Protein 6.5 Albumin 3.7 11/28/17 10:14 Sputum Gram Stain - Final 11/28/17 10:14 Sputum Sputum Culture - Final 11/27/17 11/27/17 11/28/17 16:55 23:04 05:04 Troponin I < 0.012 < 0.012 < 0.012 Impressions: Chest/Abdomen CTA 11/27/17 00:00 IMPRESSION: NO PULMONARY EMBOLI. PATCHY RIGHT LOWER LOBE AIRSPACE DISEASE COMPATIBLE WITH INFECTIOUS OR INFLAMMATORY PNEUMONITIS. CORONARY ARTERY CALCIFICATIONS. Chest X-Ray 11/27/17 11:24 IMPRESSION: Stable appearance. COPD with basilar changes. Assessment & Plan - Diagnosis (1) Acute and chronic respiratory failure with hypoxia Is this a current diagnosis for this admission?: Yes Plan: Improving. See below (2) Acute exacerbation of chronic obstructive pulmonary disease (COPD) Is this a current diagnosis for this admission?: Yes Plan: Improving. Taper steroids only. Continue inhalers. Day 3 of doxycycline. (3) Hypercalcemia Is this a current diagnosis for this admission?: Yes Plan: Resolved. (4) Leukocytosis Is this a current diagnosis for this admission?: Yes Plan: Secondary to steroids. (5) Hyperlipidemia Is this a current diagnosis for this admission?: Yes Plan: Continue atorvastatin. (6) Hypertension Is this a current diagnosis for this admission?: Yes Plan: Able. Continue outpatient medications. - Time Time Spent with patient: 25-34 minutes
[2017-11-29] MEDS: ATORVASTATIN CALCIUM 10 MG TABLET PO SCH (23:01)
[2017-11-29] MEDS: METHYLPREDNISOLONE INJ 40 MG/1 ML SDV IV SCH (23:01)
[2017-11-30] MEDS: OXYCODONE HCL IR 5 MG TABLET PO PRN ×2 (03:17→06:42)
[2017-11-30] MEDS: LANSOPRAZOLE 30 MG TAB.RAP.DR PO SCH (06:42)
[2017-11-30] MEDS: METHYLPREDNISOLONE INJ 40 MG/1 ML SDV IV SCH ×2 (06:42→13:33)
[2017-11-30] MEDS: IPRATROPIUM/ALBUTEROL 0.5-2.5 MG/3 ML AMPUL NEB SCH ×2 (08:10→12:17)
[2017-11-30] MEDS: METOPROLOL SUCCINATE 25 MG TAB.SR.24H PO SCH (09:39)
[2017-11-30] MEDS: ASPIRIN 81 MG TABLET, ENT COATED PO SCH (09:39)
[2017-11-30] MEDS: BENZONATATE 100 MG CAPSULE PO PRN (09:39)
[2017-11-30] MEDS: DOXYCYCLINE HYCLATE 100 MG TABLET PO SCH (09:39)
[2017-11-30] MEDS: BUDESONIDE/FORMOTEROL 160-4.5 MCG 60 PUFF/6 GM MDI IH SCH (09:40)
[2017-11-30] MEDS: LIDOCAINE 5% (700 MG) TRANSDERMAL ADH..PATCH TP SCH (09:40)
[2017-11-30] MEDS: CYCLOBENZAPRINE HCL 10 MG TABLET PO SCH (09:40)
[2017-11-30] MEDS ORDERED: LOSARTAN POTASSIUM 25 MG TABLET PO SCH (10:00)
[2017-11-30 13:30] VITALS: BP 103/50
--- NOTE | 2017-11-30 15:47 | PDOC DISCHARGE SUMMARY ---
General - Admit/Disc Date/PCP Admission Date/Primary Care Provider: 11/27/17 13:17 OMA MARCOS MD Discharge Date: 11/30/17 - Discharge Diagnosis (1) Acute and chronic respiratory failure with hypoxia Is this a current diagnosis for this admission?: Yes (2) Acute exacerbation of chronic obstructive pulmonary disease (COPD) Is this a current diagnosis for this admission?: Yes (3) Hypercalcemia Is this a current diagnosis for this admission?: Yes (4) Leukocytosis Is this a current diagnosis for this admission?: Yes (5) Hyperlipidemia Is this a current diagnosis for this admission?: Yes (6) Hypertension Is this a current diagnosis for this admission?: Yes - Additional Information Resuscitation Status: Full Code Discharge Diet: Cardiac Discharge Activity: Activity As Tolerated, Balance Activity w/Rest Prescriptions: Benzonatate [Tessalon Perles 100 mg Capsule] 100 mg PO Q8HP PRN 5 Days #20 capsule PRN Reason: Doxycycline Hyclate [Vibramycin 100 mg Tablet] 100 mg PO Q12 5 Days #10 tablet Prednisone [Deltasone 20 mg Tablet] 40 mg PO DAILY #7 tablet Home Medications: Albuterol Sulfate [Ventolin Hfa] 2 puff IH Q4HP PRN 11/27/17 Aspirin [Adult Low Dose Aspirin EC] 81 mg PO DAILY 11/27/17 Budesonide/Formoterol Fumarate [Symbicort HFA 160-4.5 mcg Inhaler 6 gm] 2 puff IH BID 11/27/17 Cyclobenzaprine HCl [Flexeril 10 mg Tablet] 10 mg PO DAILY 11/27/17 Furosemide [Lasix 20 mg Tablet] 20 mg PO DAILYP PRN 11/27/17 Losartan Potassium [Cozaar 25 mg Tablet] 25 mg PO DAILY 11/27/17 Metoprolol Succinate [Toprol Xl 25 mg Tab.sr] 25 mg PO DAILY 11/27/17 Oxycodone HCl [Oxy-Ir 5 mg Tablet] 5 mg PO Q4HP PRN 11/27/17 Pravastatin Sodium [Pravachol] 10 mg PO QHS 11/27/17 Ranitidine HCl [Zantac] 300 mg PO BIDP PRN 11/27/17 Benzonatate [Tessalon Perles 100 mg Capsule] 100 mg PO Q8HP PRN 5 Days #20 capsule 11/30/17 Doxycycline Hyclate [Vibramycin 100 mg Tablet] 100 mg PO Q12 5 Days #10 tablet 11/30/17 Prednisone [Deltasone 20 mg Tablet] 40 mg PO DAILY #7 tablet 11/30/17 History of Present Illness History of Present Illness: CHRISTOS MULTANI is a 72 year old female with past medical history of COPD hypertension and hyperlipidemia who presented to the hospital on November 27 with shortness of breath for approximately 2 weeks which worsened on the night prior to admission. This was associated with productive cough and wheezing. Patient uses 2 L of oxygen at home at rest and 3 L with exertion. She was admitted with a diagnosis of Acute on chronic hypoxic respiratory failure due to COPD exacerbation. She was also found to have an elevated calcium and this was treated with IV fluids and resolved. Hospital Course Hospital Course: Steroids were gradually tapered. She was treated with doxycycline and nebulizer treatments. Her symptoms are much improved and she is ready for discharge back home with her family. Physical Exam Vital Signs: Temp Pulse Resp BP Pulse Ox 98.2 F 79 16 103/50 L 93 11/30/17 13:26 11/30/17 13:26 11/30/17 13:26 11/30/17 13:26 11/30/17 13:26 Intake & Output 11/29/17 11/30/17 12/01/17 06:59 06:59 06:59 Intake Total 2696 2127 Output Total 1 Balance 2696 2126 Weight 66.8 kg 68.6 kg General appearance: PRESENT: no acute distress Neck exam: ABSENT: tracheal deviation Respiratory exam: PRESENT: clear to auscultation tyrone, symmetrical, unlabored GI/Abdominal exam: PRESENT: soft. ABSENT: tenderness Results Laboratory Results: 11/29/17 06:01 11/29/17 06:01 11/27/17 11/27/17 11/28/17 16:55 23:04 05:04 Troponin I < 0.012 < 0.012 < 0.012 Impressions: Chest/Abdomen CTA 11/27/17 00:00 IMPRESSION: NO PULMONARY EMBOLI. PATCHY RIGHT LOWER LOBE AIRSPACE DISEASE COMPATIBLE WITH INFECTIOUS OR INFLAMMATORY PNEUMONITIS. CORONARY ARTERY CALCIFICATIONS. Chest X-Ray 11/27/17 11:24 IMPRESSION: Stable appearance. COPD with basilar changes. Qualifiers - * PATEINT BEING DISCHARGED WITH ANY OF THE FOLLOWING DIAGNOSIS?: No
== END 2017-11-30 14:37 | disposition home or self-care (01) | DRG 190 ==
LOC: ER 10:54 → EH 13:17 → UNDOADMIN 13:17 → 3W 16:30
PROVIDERS: ADMIT Emergency Medicine; ATTEND Emergency Medicine
PROC: 3E0F73Z Introduction of Anti-inflammatory into Respiratory Tract, Via Natural or Artificial Opening (ICD-10-PCS; principal; 2017-11-27)
DX: J44.1 Chronic obstructive pulmonary disease with (acute) exacerbation (principal); J96.21 Acute and chronic respiratory failure with hypoxia; E83.52 Hypercalcemia; E78.00 Pure hypercholesterolemia, unspecified; I11.0 Hypertensive heart disease with heart failure; I50.9 Heart failure, unspecified; Z99.81 Dependence on supplemental oxygen; Z79.82 Long term (current) use of aspirin; Z79.899 Other long term (current) drug therapy; Z95.0 Presence of cardiac pacemaker; Z87.891 Personal history of nicotine dependence; Z88.1 Allergy status to other antibiotic agents
CPT/HCPCS: 36415; 71045; 71275; 80053; 80061; 81001; 82803; 83036; 83735; 83880; 84484; 85025; 87040; 87205; 93005; 93010; 94640; 99285; G8978-GP; G8979-GP; G8987-GO; G8988-GO; G8989-GO; J2920; J2930; J3490; J7030; J7060; J7620

== ENCOUNTER → 2017-12-14 | Outpatient (CLI) | payer MEDICARE, MEDICAID ==
[2017-12-14 12:00] LABS: ABSOLUTE BASOPHILS # (AUTO) 0.1 10^3/uL (0.0-0.2); ABSOLUTE EOSINOPHILS # (AUTO) 0.4 10^3/uL (0.0-0.6); ABSOLUTE LYMPHOCYTES (AUTO) 1.9 10^3/uL (0.5-4.7); ABSOLUTE MONOCYTES (AUTO) 0.9 10^3/uL (0.1-1.4); ABSOLUTE NEUT (AUTO) 6.8 10^3/uL (1.7-8.2); BASOPHILS % (AUTO) 0.6 % (0-2); EOSINOPHILS % (AUTO) 4.1 % (0-6); HEMATOCRIT 38.3 % (36.0-47.0); HEMOGLOBIN 12.3 g/dL (12.0-15.5); MEAN CORPUSCULAR HEMOGLOBIN 28.3 pg (27.0-33.4); MEAN CORPUSCULAR HGB CONC 32.1 g/dL (32.0-36.0); MEAN CORPUSCULAR VOLUME 88 fl (80-97); MONOCYTES % (AUTO) 9.3 % (3-13); PLATELET COUNT 195 10^3/uL (150-450); RED BLOOD COUNT 4.33 10^6/uL (3.72-5.28); RED CELL DISTRIBUTION WIDTH 13.6 % (11.5-14.0); TOTAL CELLS COUNTED % (AUTO) 100 %; WHITE BLOOD COUNT 10.2 10^3/uL (4.0-10.5)
--- NOTE | 2017-12-14 12:06 | RADIOLOGY REPORT (SQ) ---
EXAM DESCRIPTION: CHEST PA/LATERAL COMPLETED DATE/TIME: 12/14/2017 11:57 am REASON FOR STUDY: PNEUMONIA, UNSPECIFIED ORGANISM,COPD COMPARISON: CT angio chest 11/27/2017 Chest films 11/27/2017, 11/19/2016, 10/23/2014 EXAM PARAMETERS: NUMBER OF VIEWS: two views TECHNIQUE: Digital Frontal and Lateral radiographic views of the chest acquired. RADIATION DOSE: NA LIMITATIONS: none FINDINGS: LUNGS AND PLEURA: Lungs are hyperlucent from obstructive disease. Mild flattening of the hemidiaphragms. No acute infiltrates. No pleural effusion or pneumothorax. MEDIASTINUM AND HILAR STRUCTURES: No masses or contour abnormalities. HEART AND VASCULAR STRUCTURES: Heart normal size. No evidence for failure. BONES: Osteoporotic with stable mild T6 compression deformity HARDWARE: None in the chest. OTHER: No other significant finding. IMPRESSION: NO SIGNIFICANT RADIOGRAPHIC FINDING IN THE CHEST. TECHNICAL DOCUMENTATION: JOB ID: [id number] [employer]- All Rights Reserved Reading location - IP/workstation name: [email or web address]
[2017-12-14 12:22] LABS: ALANINE AMINOTRANSFERASE 24 U/L (9-52); ALBUMIN 3.9 g/dL (3.5-5.0); ALKALINE PHOSPHATASE 88 U/L (38-126); ASPARTATE AMINO TRANSFERASE 22 U/L (14-36); BILIRUBIN,DIRECT 0.4 mg/dL (0.0-0.4); BILIRUBIN,TOTAL 0.4 mg/dL (0.2-1.3); BLOOD UREA NITROGEN 29 mg/dL (7-20); CALCIUM 9.9 mg/dL (8.4-10.2); CHLORIDE 96 mmol/L (98-107); GLUCOSE 121 mg/dL (75-110); POTASSIUM 4.4 mmol/L (3.6-5.0); SODIUM 143.8 mmol/L (137-145); TOTAL PROTEIN 6.8 g/dL (6.3-8.2)
[2017-12-14 12:30] LABS: ANION GAP 11 (5-19); CARBON DIOXIDE 37 mmol/L (22-30)
== END ==
LOC: OD 10:57
PROVIDERS: ATTEND Obstetrics & Gynecology
DX: J18.9 Pneumonia, unspecified organism (principal); J44.9 Chronic obstructive pulmonary disease, unspecified; I10 Essential (primary) hypertension; Z51.81 Encounter for therapeutic drug level monitoring; Z79.899 Other long term (current) drug therapy
CPT/HCPCS: 36415; 71046; 80053; 85025

== ENCOUNTER → 2017-12-24 | Outpatient (CLI) | payer MEDICARE, MEDICAID | LOC: OD 08:58 | PROVIDERS: ATTEND Obstetrics & Gynecology | DX: I50.9 Heart failure, unspecified (principal); J44.9 Chronic obstructive pulmonary disease, unspecified; R06.02 Shortness of breath | CPT/HCPCS: 36415; 83880 ==

== ENCOUNTER 2018-12-11 13:58 | Inpatient (IN) | payer MEDICARE, MEDICAID ==
--- NOTE | 2018-12-11 14:57 | ER Document Report ---
ED Medical Screen (RME) - General Chief Complaint: Shortness Of Breath Stated Complaint: BREATHING CONCERN Time Seen by Provider: 12/11/18 14:48 Primary Care Provider: OMA MARCOS MD [Primary Care Provider] - Follow up as needed Mode of Arrival: Wheelchair Information source: Patient Notes: Patient is a 73-year-old female with history of COPD who presents to the em ergency department with difficulty breathing. Patient reports increased work of breathing over the last 3 weeks, worsening today. Patient states 3 weeks ago she was given a shot of steroids and placed on doxycycline for an upper respiratory infection. Patient reports she has not fully recovered from this. Patient usually wears 2 L of oxygen at home. Exam: Lung sounds clear bilaterally, diminished bases. Patient alert, answering all questions. I have greeted and performed a rapid initial assessment of this patient. A comprehensive ED assessment and evaluation of the patient, analysis of test results and completion of the medical decision making process will be conducted by additional ED providers. Dictation of this chart was performed using voice recognition software; therefore, there may be some unintended grammatical errors. TRAVEL OUTSIDE OF THE [place] IN LAST 30 DAYS: No - Related Data Allergies/Adverse Reactions: amoxicillin trihydrate [From Augmentin] Allergy (Verified 12/11/18 14:10) meperidine HCl [From Demerol] Allergy (Verified 12/11/18 14:10) Potassium Clavulanate * [From Augmentin] Allergy (Verified 12/11/18 14:10) Past Medical History - Past Medical History Cardiac Medical History: Reports: Hx Congestive Heart Failure, Hx Hypercholesterolemia, Hx Hypertension Denies: Hx Heart Attack Pulmonary Medical History: Reports: Hx COPD, Hx Pneumonia Denies: Hx Asthma Neurological Medical History: Reports: Hx Seizures - WITH DEMEROL. Denies: Hx Cerebrovascular Accident Renal/ Medical History: Denies: Hx Peritoneal Dialysis GI Medical History: Denies: Hx Hepatitis, Hx Hiatal Hernia, Hx Ulcer Psychiatric Medical History: Denies: Hx Depression Infectious Medical History: Denies: Hx Hepatitis Past Surgical History: Reports: Hx Cardiac Catheterization, Hx Section, Hx Open Heart Surgery - 1949, Hx Pacemaker - February. Denies: Hx Mastectomy - Immunizations Hx Diphtheria, Pertussis, Tetanus Vaccination: Yes History of Influenza Vaccine for 06/2017 - 11/2017 Season: Yes Influenza Administration Date for 06/2017 - 11/2017 Season: 05/06/17 Physical Exam - Vital signs Vitals: Temp Pulse Resp BP Pulse Ox 98.7 F 84 16 124/40 L 95 12/11/18 14:12 12/11/18 14:12 12/11/18 14:12 12/11/18 14:12 12/11/18 14:12 Course - Vital Signs Vital signs: Temp Pulse Resp BP Pulse Ox 98.7 F 84 16 124/40 L 95 12/11/18 14:12 12/11/18 14:12 12/11/18 14:12 12/11/18 14:12 12/11/18 14:12 Doctor's Discharge - Discharge Referrals: OMA MARCOS MD [Primary Care Provider] - Follow up as needed
[2018-12-11 15:50] LABS: ABSOLUTE EOSINOPHILS # (AUTO) 0.3 10^3/uL (0.0-0.6); ABSOLUTE LYMPHOCYTES (AUTO) 1.9 10^3/uL (0.5-4.7); ABSOLUTE MONOCYTES (AUTO) 0.8 10^3/uL (0.1-1.4); ABSOLUTE NEUT (AUTO) 5.7 10^3/uL (1.7-8.2); BASOPHILS % (AUTO) 0.5 % (0-2); HEMOGLOBIN 11.5 g/dL (12.0-15.5); LYMPHOCYTES % (AUTO) 21.4 % (13-45); MEAN CORPUSCULAR HEMOGLOBIN 29.1 pg (27.0-33.4); MEAN CORPUSCULAR HGB CONC 32.8 g/dL (32.0-36.0); MEAN CORPUSCULAR VOLUME 89 fl (80-97); MONOCYTES % (AUTO) 9.6 % (3-13); PLATELET COUNT 222 10^3/uL (150-450); RED BLOOD COUNT 3.95 10^6/uL (3.72-5.28); RED CELL DISTRIBUTION WIDTH 14.4 % (11.5-14.0); SEGMENTED NEUTROPHILS % (AUTO) 65.5 % (42-78); TOTAL CELLS COUNTED % (AUTO) 100 %; WHITE BLOOD COUNT 8.8 10^3/uL (4.0-10.5)
[2018-12-11 16:08] LABS: ALANINE AMINOTRANSFERASE 30 U/L (9-52); ALBUMIN 3.9 g/dL (3.5-5.0); ALKALINE PHOSPHATASE 69 U/L (38-126); ASPARTATE AMINO TRANSFERASE 29 U/L (14-36); BILIRUBIN,DIRECT 0.3 mg/dL (0.0-0.4); BILIRUBIN,TOTAL 0.5 mg/dL (0.2-1.3); BLOOD UREA NITROGEN 22 mg/dL (7-20); CALCIUM 10.1 mg/dL (8.4-10.2); CHLORIDE 91 mmol/L (98-107); GLUCOSE 132 mg/dL (75-110); POTASSIUM 3.8 mmol/L (3.6-5.0); SODIUM 142.5 mmol/L (137-145); TOTAL PROTEIN 7.2 g/dL (6.3-8.2)
--- NOTE | 2018-12-11 16:10 | RADIOLOGY REPORT (SQ) ---
EXAM DESCRIPTION: CHEST SINGLE VIEW COMPLETED DATE/TIME: 12/11/2018 3:45 pm REASON FOR STUDY: shortness of breath, hx of COPD COMPARISON: 11/21/2014 EXAM PARAMETERS: NUMBER OF VIEWS: One view. TECHNIQUE: Single frontal radiographic view of the chest acquired. RADIATION DOSE: NA LIMITATIONS: None. FINDINGS: LUNGS AND PLEURA: Hyperexpansion of the lungs. No infiltrate, effusion, or mass. No sign ificant interval change in the appearance of the chest. MEDIASTINUM AND HILAR STRUCTURES: No masses. Contour normal. HEART AND VASCULAR STRUCTURES: Heart normal in size. Normal vasculature. BONES: No acute findings. HARDWARE: Pacemaker/defibrillator. OTHER: No other significant finding. IMPRESSION: Chronic lung changes with no acute cardiopulmonary findings. TECHNICAL DOCUMENTATION: JOB ID: [id number] [employer]- All Rights Reserved Reading location - IP/workstation name: [email or web address]
[2018-12-11 16:18] LABS: ANION GAP 7 (5-19)
[2018-12-11 16:20] LABS: CARBON DIOXIDE 45 mmol/L (22-30); NT PRO BNP 3570 pg/mL (5-900)
[2018-12-11 16:21] LABS: TROPONIN I < 0.012 ng/mL
[2018-12-11] MEDS ORDERED: IPRATROPIUM/ALBUTEROL 0.5-2.5 MG/3 ML AMPUL NEB ONE ×2 (18:03→19:15)
--- NOTE | 2018-12-11 18:21 | ER Document Report ---
ED General - General Chief Complaint: Shortness Of Breath Stated Complaint: BREATHING CONCERN Time Seen by Provider: 12/11/18 14:48 Primary Care Provider: OMA MARCOS MD [Primary Care Provider] - Follow up as needed Mode of Arrival: Wheelchair Notes: Patient is a 74-year-old female who presents the emergency department with a chief complaint of shortness of breath. She states that she has had shortness of breath since Tuesday. She denies any chest pain. She has been using her nebulizer treatments at home for the past few days, but has had little relief. Nothing makes the shortness of breath better. About a month ago, she was seen by her primary care provider, given steroids and doxycycline, but has not had any relief of symptoms. She has a past medical history of open heart surgery from when she was 5 years old, and states, "I had a hole in my heart and it was fixed." She could not remember what defect she had. She is on 2 L nasal cannula at home. She also has a pacemaker/defibrillator, that was placed 5 years ago. Past medical history includes COPD, CHF, and 3 C-sections. She is a former smoker, does not currently smoke. TRAVEL OUTSIDE OF THE [place] IN LAST 30 DAYS: No - Related Data Allergies/Adverse Reactions: amoxicillin trihydrate [From Augmentin] Allergy (Verified 12/11/18 14:10) meperidine HCl [From Demerol] Allergy (Verified 12/11/18 14:10) Potassium Clavulanate * [From Augmentin] Allergy (Verified 12/11/18 14:10) Past Medical History - General Information source: Patient - Social History Smoking Status: Never Smoker Chew tobacco use (# tins/day): No Frequency of alcohol use: None Drug Abuse: Bath salts Family History: Reviewed & Not Pertinent Patient has suicidal ideation: No Patient has homicidal ideation: No - Past Medical History Cardiac Medical History: Reports: Hx Congestive Heart Failure, Hx Hypercholesterolemia, Hx Hypertension Denies: Hx Heart Attack Pulmonary Medical History: Reports: Hx COPD, Hx Pneumonia Denies: Hx Asthma Neurological Medical History: Reports: Hx Seizures - WITH DEMEROL. Denies: Hx Cerebrovascular Accident Renal/ Medical History: Denies: Hx Peritoneal Dialysis GI Medical History: Denies: Hx Hepatitis, Hx Hiatal Hernia, Hx Ulcer Psychiatric Medical History: Denies: Hx Depression Infectious Medical History: Denies: Hx Hepatitis Past Surgical History: Reports: Hx Cardiac Catheterization, Hx Cardiac Surgery - Pacemaker/Defibrillator, Hx Section, Hx Open Heart Surgery - 1949, Hx Pacemaker - February. Denies: Hx Mastectomy - Immunizations Hx Diphtheria, Pertussis, Tetanus Vaccination: Yes Hx Pneumococcal Vaccination: 07/06/17 Review of Systems - Review of Systems Notes: REVIEW OF SYSTEMS: CONSTITUTIONAL : Denies recent illness. Denies recent unintentional weight loss. Denies fever, chills, or sweats. EENT: Denies eye, ear, throat, or mouth pain, discharge, or symptoms. Denies nasal or sinus congestion. CARDIOVASCULAR: Denies chest pain. RESPIRATORY: See HPI. GASTROINTESTINAL: Denies nausea, vomiting, and diarrhea. Denies abdominal pain. Denies constipation. GENITOURINARY: Denies difficulty urinating, burning, blood in urine, urgency or frequency. MUSCULOSKELETAL: Denies neck and back pain. Denies joint pain or swelling. SKIN: Denies rash, itchiness, or lesions HEMATOLOGIC : Denies easy bruising or bleeding. LYMPHATIC: Denies swollen, painful, enlarged glands. NEUROLOGICAL: Denies no numbness or tingling denies weakness. Denies headache. Denies altered mental status. Denies alteration in speech. PSYCHIATRIC: Denies stress, anxiety, alteration in sleep patterns, or depression. All other systems reviewed and negative. Physical Exam - Vital signs Vitals: Temp Pulse Resp BP Pulse Ox 98.7 F 84 16 124/40 L 95 12/11/18 14:12 12/11/18 14:12 12/11/18 14:12 12/11/18 14:12 12/11/18 14:12 - Notes Notes: PHYSICAL EXAMINATION: GENERAL: Appears well, healthy, well-nourished, no acute distress. HEAD: Normocephalic, atraumatic. EYES: PERRL, conjunctiva normal, all extraocular movements intact, sclera nonicteric ENT: Moist mucous membranes. NECK: Supple, no noticeable swelling, redness, rash. Normal range of motion. LUNGS: Equal breath sounds bilaterally and expiratory wheezes noted to auscultation. No rhonchi noted. CARDIOVASCULAR: S1-S2, regular rate, regular rhythm. Radial pulses 2+, normal. ABDOMEN: Normoactive bowel sounds. Soft, nontender, no guarding, no rebound tenderness, and no masses palpated. EXTREMITIES: Normal strength and range of motion, no pitting or edema. No cyanosis. NEUROLOGICAL: Moves all extremities upon command. Strength 5/5 in all extremities. PSYCH: Normal mood, normal affect. SKIN: Warm, dry. No rash, lesions, ulcerations noted. Normal skin turgor. Course - Re-evaluation Re-evalutation: 12/11/18 18:21 Patient's physical exam is most consistent with a COPD exacerbation. Her CO2 on chemistry was 45. A venous blood gas will be drawn to get an accurate depiction of what her true CO2 is. Her chest x-ray is negative for pulmonary edema or pneumonia. Hematology is unremarkable. 12/11/18 19:55 Due to shift change, VBG has not been drawn. Still awaiting urinalysis. 12/11/18 20:21 Patient now has rales noted to bilateral lung lopez. Due to her being tachypneic, I would suggest that the patient needs to be admitted for CHF and COPD management. I spoke with Dr. Nolasco, the patient will be admitted to the telemetry unit under the hospitalist service - Vital Signs Vital signs: Temp Pulse Resp BP Pulse Ox 98.7 F 84 25 H 126/52 H 100 12/11/18 14:12 12/11/18 14:12 12/11/18 19:04 12/11/18 19:04 12/11/18 19:04 - Laboratory Result Diagrams: 12/11/18 15:29 12/11/18 15:29 Laboratory results interpreted by me: 12/11/18 12/11/18 12/11/18 15:29 15:29 15:29 Hgb 11.5 L Hct 35.0 L RDW 14.4 H Chloride 91 L Carbon Dioxide 45 H* BUN 22 H Glucose 132 H NT-Pro-B Natriuret Pep 3570 H Discharge - Discharge Clinical Impression: Acute exacerbation of chronic obstructive pulmonary disease (COPD), Tachypnea CHF (congestive heart failure) Qualifiers: Heart failure type: unspecified Heart failure chronicity: acute on chronic Qualified Code(s): I50.9 - Heart failure, unspecified Condition: Fair Disposition: ADMITTED INPATIENT Admitting Provider: Gaurav (Hospitalist) Unit Admitted: Telemetry
[2018-12-11] MEDS ORDERED: METHYLPREDNISOLONE INJ 125 MG/2 ML SDV IV ONE (19:39)
[2018-12-11] MEDS ORDERED: FUROSEMIDE INJ/PF 20 MG/2 ML SDV IV ONE (19:56)
[2018-12-11] MEDS: MAGNESIUM SULFATE/D5W 1 GM/100 ML RTUPB IV SCH ×2 (20:04→20:39)
[2018-12-11] MEDS ORDERED: MAGNESIUM HYDROXIDE SUSP 30 ML UDCUP PO PRN (20:33)
[2018-12-11] MEDS ORDERED: ONDANSETRON HCL INJ/PF 4 MG/2 ML SDV IV PRN (20:33)
[2018-12-11] MEDS ORDERED: MAG HYDROX/AL HYDROX/SIMETH SUSP 30 ML UDCUP PO PRN (20:33)
[2018-12-11] MEDS ORDERED: ZOLPIDEM TARTRATE 5 MG TABLET PO PRN (20:33)
[2018-12-11] MEDS ORDERED: ACETAMINOPHEN 325 MG TABLET PO PRN (20:33)
[2018-12-11] MEDS ORDERED: OXYCODONE HCL IR 5 MG TABLET PO PRN (20:46)
[2018-12-11] MEDS ORDERED: BENZONATATE 100 MG CAPSULE PO PRN (20:46)
[2018-12-11] MEDS ORDERED: (PENDING PHARMACY ID) (Ranitidine Hcl [Zantac] 300 MG) PO PRN (20:46)
--- NOTE | 2018-12-11 20:49 | EKG REPORT ---
SEVERITY:- ABNORMAL ECG - SINUS RHYTHM PROBABLE LEFT ATRIAL ABNORMALITY NONSPECIFIC IVCD WITH LAD LEFT VENTRICULAR HYPERTROPHY INFERIOR INFARCT, AGE INDETERMINATE : Confirmed by: Leyla Grossman 11-Dec-2018 20:47:44
[2018-12-11] MEDS ORDERED: AZITHROMYCIN INJ 500 MG VIAL IV SCH (21:00)
[2018-12-11] MEDS ORDERED: CEFTRIAXONE 1 GM/D5W RTU 1 GM/50 ML RTUPB IV SCH (21:00)
[2018-12-11] MEDS ORDERED: FAMOTIDINE 20 MG TABLET PO PRN (21:06)
[2018-12-11] MEDS: IPRATROPIUM/ALBUTEROL 0.5-2.5 MG/3 ML AMPUL NEB SCH (21:27)
[2018-12-11 21:47] LABS: APPEARANCE,URINE CLEAR; BILIRUBIN,URINE NEGATIVE (NEGATIVE); COLOR,URINE STRAW; GLUCOSE, URINE NEGATIVE (NEGATIVE); KETONES,URINE NEGATIVE (NEGATIVE); LEUKOCYTE ESTERASE,URINE TRACE (NEGATIVE); NITRITE,URINE NEGATIVE (NEGATIVE); PROTEIN,URINE NEGATIVE (NEGATIVE); URINE SPECIFIC GRAVITY 1.008
--- NOTE | 2018-12-11 21:59 | PDOC H&P ---
History of Present Illness Admission Date/PCP: 12/11/18 20:33 OMA MARCOS MD Patient complains of: Shortness of breath History of Present Illness: CHRISTOS MULTANI is a 73 year old female with history of multiple medical problems that will be mentioned below who presented to the emergency room with acute onset of worsening dyspnea with associated cough productive of yellowish sputum as well as wheezing since Tuesday. She has been feeling lethargic and having no much appetite for the last few weeks. She admitted to tactile fever and chills over the last few days. She denies any chest pain or palpitations. No headache or dizziness or blurred vision. No nausea or vomiting or abdominal pain. Upon presentation to the emergency room her blood pressure was 124/40 with a pulse of 84 respiratory rate of 16 temperature 98.7 and pulse oximetry was 95% on room air and 100% on 2 L O2 by nasal cannula. Labs revealed mild anemia with hemoglobin of 11.5 and hematocrit 35 and her CMP was remarkable for a CO2 45 with chloride of 91 BUN of 22. Her proBNP was 3570 and troponin I less than 0.0 12. Her portable chest x-ray revealed chronic lung changes with no acute cardiopulmonary disease. Her EKG showed normal sinus rhythm with a rate of 74 with suspected left atrial enlargement and LVH with Q waves inferiorly and poor R wave progression with likely intraventricular conduction delay. The patient was given 20 g of IV Lasix as well as DuoNeb's twice, IV magnesium sulfate and IV Solu-Medrol. She will be admitted to a telemetry bed for further evaluation and management. Past Medical History Cardiac Medical History: Reports: Congestive Heart Failure, Hyperlipidema, Hypertension Denies: Myocardial Infarction Pulmonary Medical History: Reports: Chronic Obstructive Pulmonary Disease (COPD), Pneumonia Denies: Asthma Neurological Medical History: Reports: Seizures - WITH DEMEROL GI Medical History: Denies: Hepatitis, Hiatal Hernia Psychiatric Medical History: Denies: Depression Hematology: Denies: Anemia, Sickle Cell Disease Past Surgical History Past Surgical History: Reports: Cardiac Catheterization, Section, Sergey newell - February Denies: Amputation, Mastectomy Social History Smoking Status: Never Smoker Frequency of Alcohol Use: None Hx Recreational Drug Use: No Hx Prescription Drug Abuse: No Family History Family History: No reported history of heart failure COPD. Parental Family History Reviewed: Yes Children Family History Reviewed: Yes Sibling(s) Family History Reviewed.: Yes Medication/Allergy Home Medications: Albuterol Sulfate [Ventolin Hfa] 2 puff IH Q4HP PRN 11/27/17 Aspirin [Adult Low Dose Aspirin EC] 81 mg PO DAILY 11/27/17 Budesonide/Formoterol Fumarate [Symbicort HFA 160-4.5 mcg Inhaler 6 gm] 2 puff IH BID 11/27/17 Furosemide [Lasix 20 mg Tablet] 20 mg PO DAILYP PRN 11/27/17 Metoprolol Succinate [Toprol Xl 25 mg Tab.sr] 25 mg PO DAILY 11/27/17 Pravastatin Sodium [Pravachol] 10 mg PO QHS 11/27/17 Cetirizine HCl [Zyrtec 10 mg Tablet] 10 mg PO DAILY 12/11/18 Allergies/Adverse Reactions: amoxicillin trihydrate [From Augmentin] Allergy (Verified 12/11/18 14:10) meperidine HCl [From Demerol] Allergy (Verified 12/11/18 14:10) Potassium Clavulanate * [From Augmentin] Allergy (Verified 12/11/18 14:10) Review of Systems Review of Systems: As per history of present illness. All pertinent systems were reviewed above. Co nstitutional, HEENT, cardiovascular, respiratory, GI, , musculoskeletal, neuro, psychiatric, endocrine, integumentary and hematologic systems were reviewed and are otherwise negative/unremarkable except for positive findings mentioned above in the HPI. Physical Exam Vital Signs: Temp Pulse Resp BP Pulse Ox 98.7 F 84 20 113/97 H 100 12/11/18 14:12 12/11/18 14:12 12/11/18 21:01 12/11/18 21:01 12/11/18 21:01 Intake & Output 12/10/18 12/11/18 12/12/18 06:59 06:59 06:59 Intake Total 100 Balance 100 Weight 58.06 kg Exam: Generally:Pleasant elderly female well with mild to moderate respiratory distress with conversational dyspnea Vital signs-as listed Head - atraumatic, normocephalic. Pupils - equal, round and reactive to light and accommodation. Extraocular movements are intact. No scleral icterus. Oropharynx - moist mucous membranes and tongue. No pharyngeal erythema or exudate. Neck - supple. No JVD. Carotid pulses 2+ bilaterally. No carotid bruits. No palpable thyromegaly or lymphadenopathy. Cardiovascular - regular rate and rhythm. Normal S1 and S2. No murmurs, gallops or rubs. Lungs -diminished bibasilar breath sounds with bibasilar rales and expiratory wheezes with slightly tight expiratory airflow and harsh vesicular breathing. Abdomen - soft and nontender. Positive bowel sounds. No palpable organomegaly or masses. Extremities - no pitting edema, clubbing or cyanosis. Neuro - grossly non-focal. Skin - no rashes. Breast, pelvic and rectal - deferred Results Laboratory Results: 12/11/18 15:29 12/11/18 15:29 12/11/18 12/11/18 15:29 15:29 WBC 8.8 RBC 3.95 Hgb 11.5 L Hct 35.0 L MCV 89 MCH 29.1 MCHC 32.8 RDW 14.4 H Plt Count 222 Seg Neutrophils % 65.5 Lymphocytes % 21.4 Monocytes % 9.6 Eosinophils % 3.0 Basophils % 0.5 Absolute Neutrophils 5.7 Absolute Lymphocytes 1.9 Absolute Monocytes 0.8 Absolute Eosinophils 0.3 Absolute Basophils 0.0 Sodium 142.5 Potassium 3.8 Chloride 91 L Carbon Dioxide 45 H* Anion Gap 7 BUN 22 H Creatinine 0.75 Est GFR ( Amer) > 60 Est GFR (Non-Af Amer) > 60 Glucose 132 H Calcium 10.1 Total Bilirubin 0.5 AST 29 ALT 30 Alkaline Phosphatase 69 Total Protein 7.2 Albumin 3.9 12/11/18 15:29 Troponin I < 0.012 NT-Pro-B Natriuret Pep 3570 H Impressions: Chest X-Ray 12/11/18 14:54 IMPRESSION: Chronic lung changes with no acute cardiopulmonary findings. Assessment and Plan - Diagnosis (1) Acute exacerbation of chronic obstructive pulmonary disease (COPD) Is this a current diagnosis for this admission?: Yes Plan: The patient will be placed on IV steroid therapy with IV Solu-Medrol as well as nebulized bronchodilator therapy with duonebs q.i.d. and q.4 hours p.r.n., mucolytic therapy with Mucinex and antibiotic therapy with IV Rocephin and Zithromax. Sputum Gram stain culture and sensitivity will be obtained. O2 protocol will be followed. (2) Acute on chronic diastolic CHF (congestive heart failure) Is this a current diagnosis for this admission?: Yes Plan: The patient will be admitted to a telemetry bed and will be diuresed with IV Lasix. Will follow serial cardiac enzymes. Will obtain a 2D echoand a cardiology consultation in a.m. (3) Acute and chronic respiratory failure with hypoxia Is this a current diagnosis for this admission?: Yes Plan: O2 protocol will be followed. She is currently on 3 L of O2 by nasal cannula. (4) Dyslipidemia Is this a current diagnosis for this admission?: Yes Plan: Continue statin therapy (5) Hypertension Is this a current diagnosis for this admission?: Yes Plan: We will continue Toprol-XL (6) DVT prophylaxis Is this a current diagnosis for this admission?: Yes Plan: Subcutaneous Lovenox - Time Within: within 72 hours - Inpatient Certification Medical Necessity: Need Close Monitoring Due to Risk of Patient Decompensation, Need For Continuous Telemetry Monitoring, Need for Nebulizer Therapy and Monitoring of Response, Risk of Complication if Not Cared For in Hospital - Plan Summary Plan Summary: The plan of care was discussed in details with the patient. I answered all questions. The patient agreed to proceed with the above-mentioned plan. The patient is presumably full code. This note was created by [email or web address] and may contain typo errors that may have not been proofread.
[2018-12-11] MEDS ORDERED: SIMVASTATIN 10 MG TABLET PO SCH (22:00)
[2018-12-11 22:09] LABS: VENOUS BLOOD BASE EXCESS 15.1 mmol/L; VENOUS BLOOD HCO3 44.9 mmol/L (20-32); VENOUS BLOOD PH 7.32 (7.30-7.42)
[2018-12-11 22:16] LABS: VENOUS BLOOD PCO2 89.6 mmHg (35-63)
[2018-12-11] MEDS: ENOXAPARIN SODIUM INJ 40 MG/0.4 ML DISP.SYRIN SUBCUT SCH (22:16)
[2018-12-11] MEDS: AZITHROMYCIN 500 MG in DEXTROSE 5%-WATER 250 ML IV SCH (22:16)
[2018-12-11 22:26] LABS: CREATINE KINASE MB 0.66 ng/mL (<4.55)
[2018-12-11 22:34] LABS: TROPONIN I < 0.012 ng/mL
[2018-12-12] MEDS: CEFTRIAXONE SODIUM 1,000 MG in NORMAL SALINE 50 ML IV SCH ×2 (00:06→22:07)
[2018-12-12 04:12] LABS: ABSOLUTE LYMPHOCYTES (AUTO) 0.9 10^3/uL (0.5-4.7); ABSOLUTE MONOCYTES (AUTO) 0.1 10^3/uL (0.1-1.4); ABSOLUTE NEUT (AUTO) 6.8 10^3/uL (1.7-8.2); BASOPHILS % (AUTO) 0.4 % (0-2); EOSINOPHILS % (AUTO) 0.1 % (0-6); HEMATOCRIT 36.6 % (36.0-47.0); HEMOGLOBIN 11.8 g/dL (12.0-15.5); LYMPHOCYTES % (AUTO) 11.7 % (13-45); MEAN CORPUSCULAR HEMOGLOBIN 28.7 pg (27.0-33.4); MEAN CORPUSCULAR HGB CONC 32.3 g/dL (32.0-36.0); MEAN CORPUSCULAR VOLUME 89 fl (80-97); MONOCYTES % (AUTO) 1.2 % (3-13); PLATELET COUNT 199 10^3/uL (150-450); RED BLOOD COUNT 4.11 10^6/uL (3.72-5.28); RED CELL DISTRIBUTION WIDTH 14.1 % (11.5-14.0); SEGMENTED NEUTROPHILS % (AUTO) 86.6 % (42-78); TOTAL CELLS COUNTED % (AUTO) 100 %; WHITE BLOOD COUNT 7.9 10^3/uL (4.0-10.5)
[2018-12-12 04:46] LABS: BLOOD UREA NITROGEN 22 mg/dL (7-20); CALCIUM 9.7 mg/dL (8.4-10.2); CHLORIDE 92 mmol/L (98-107); GLUCOSE 166 mg/dL (75-110); POTASSIUM 4.1 mmol/L (3.6-5.0); SODIUM 141.7 mmol/L (137-145)
[2018-12-12 04:59] LABS: ANION GAP 9 (5-19)
[2018-12-12 05:01] LABS: CARBON DIOXIDE 41 mmol/L (22-30)
[2018-12-12] MEDS: METHYLPREDNISOLONE INJ 40 MG/1 ML SDV IV SCH ×3 (05:40→22:07)
[2018-12-12 05:54] LABS: TROPONIN I < 0.012 ng/mL
[2018-12-12] MEDS: IPRATROPIUM/ALBUTEROL 0.5-2.5 MG/3 ML AMPUL NEB SCH ×4 (08:24→19:18)
[2018-12-12] MEDS: CYCLOBENZAPRINE HCL 10 MG TABLET PO SCH ×2 (09:41→10:58)
[2018-12-12] MEDS: METOPROLOL SUCCINATE 25 MG TAB.SR.24H PO SCH (09:42)
[2018-12-12] MEDS: LOSARTAN POTASSIUM 25 MG TABLET PO SCH (09:42)
[2018-12-12] MEDS: ASPIRIN 81 MG TABLET, ENT COATED PO SCH (09:42)
[2018-12-12] MEDS ORDERED: FUROSEMIDE INJ/PF 40 MG/4 ML SDV IV SCH (10:00)
[2018-12-12] MEDS ORDERED: METOPROLOL SUCCINATE 25 MG TAB.SR.24H PO SCH (10:00)
[2018-12-12] MEDS: ENOXAPARIN SODIUM INJ 40 MG/0.4 ML DISP.SYRIN SUBCUT SCH (10:47)
[2018-12-12 12:19] LABS: CREATINE KINASE MB 0.76 ng/mL (<4.55)
[2018-12-12 12:21] LABS: TROPONIN I < 0.012 ng/mL
[2018-12-12] MEDS ORDERED: FUROSEMIDE 20 MG TABLET PO PRN (17:03)
--- NOTE | 2018-12-12 17:05 | PDOC PROGRESS REPORT ---
Subjective Progress Note for:: 12/12/18 Subjective:: This is a 73 yr old female with a PMH of COPD, hypertension, personal history of CHF, and prior pacemaker placement who presented with productive cough, wheezing and worsening SOB. She was admitted for COPD exacerbation. she was started on IV steroids, antibiotics and breathing treatments. No acute event overnight. This morning, she says her SOB has improved from last night. She is currently saturating well on 3 lpm via NC. She has PVCs on tele. She denies chest pain or palpitations. Reason For Visit: ACUTE CHF, COPD EXACERBATION Physical Exam Vital Signs: Temp Pulse Resp BP Pulse Ox 98.4 F 81 16 114/52 L 91 L 12/12/18 15:00 12/12/18 16:02 12/12/18 16:02 12/12/18 15:00 12/12/18 16:02 Intake & Output 12/11/18 12/12/18 12/13/18 06:59 06:59 06:59 Intake Total 500 Output Total 150 Balance 350 Weight 125 lb 0.034 oz General appearance: PRESENT: no acute distress, well-developed, well-nourished Head exam: PRESENT: atraumatic, normocephalic Eye exam: PRESENT: conjunctiva pink, EOMI, PERRLA. ABSENT: scleral icterus Ear exam: PRESENT: normal external ear exam Mouth exam: PRESENT: moist, tongue midline Neck exam: ABSENT: carotid bruit, JVD, lymphadenopathy, thyromegaly Respiratory exam: PRESENT: rhonchi, wheezes. ABSENT: rales Cardiovascular exam: PRESENT: RRR. ABSENT: diastolic murmur, rubs, systolic murmur Pulses: PRESENT: normal dorsalis pedis pul GI/Abdominal exam: PRESENT: normal bowel sounds, soft. ABSENT: distended, guarding, mass, organolmegaly, rebound, tenderness Rectal exam: PRESENT: deferred Neurological exam: PRESENT: alert, awake, oriented to person, oriented to place, oriented to time, oriented to situation, CN II-XII grossly intact. ABSENT: motor sensory deficit Results Laboratory Results: 12/12/18 03:45 12/12/18 03:45 12/11/18 12/11/18 12/11/18 21:15 21:35 21:35 WBC RBC Hgb Hct MCV MCH MCHC RDW Plt Count Seg Neutrophils % Lymphocytes % Monocytes % Eosinophils % Basophils % Absolute Neutrophils Absolute Lymphocytes Absolute Monocytes Absolute Eosinophils Absolute Basophils VBG pH 7.32 VBG pCO2 89.6 H* VBG HCO3 44.9 H VBG Base Excess 15.1 Sodium Potassium Chloride Carbon Dioxide Anion Gap BUN Creatinine Est GFR ( Amer) Est GFR (Non-Af Amer) Glucose Calcium Magnesium TSH 1.83 Urine Color STRAW Urine Appearance CLEAR Urine pH 7.0 Ur Specific Mulga 1.008 Urine Protein NEGATIVE Urine Glucose (UA) NEGATIVE Urine Ketones NEGATIVE Urine Blood NEGATIVE Urine Nitrite NEGATIVE Ur Leukocyte Esterase TRACE H Urine WBC (Auto) 10 Urine RBC (Auto) 0 12/12/18 12/12/18 03:45 03:45 WBC 7.9 RBC 4.11 Hgb 11.8 L Hct 36.6 MCV 89 MCH 28.7 MCHC 32.3 RDW 14.1 H Plt Count 199 Seg Neutrophils % 86.6 H Lymphocytes % 11.7 L Monocytes % 1.2 L Eosinophils % 0.1 Basophils % 0.4 Absolute Neutrophils 6.8 Absolute Lymphocytes 0.9 Absolute Monocytes 0.1 Absolute Eosinophils 0.0 Absolute Basophils 0.0 VBG pH VBG pCO2 VBG HCO3 VBG Base Excess Sodium 141.7 Potassium 4.1 Chloride 92 L Carbon Dioxide 41 H* Anion Gap 9 BUN 22 H Creatinine 0.65 Est GFR ( Amer) > 60 Est GFR (Non-Af Amer) > 60 Glucose 166 H Calcium 9.7 Magnesium 2.7 H TSH Urine Color Urine Appearance Urine pH Ur Specific Mulga Urine Protein Urine Glucose (UA) Urine Ketones Urine Blood Urine Nitrite Ur Leukocyte Esterase Urine WBC (Auto) Urine RBC (Auto) 12/11/18 12/11/18 12/11/18 15:29 21:35 21:35 Creatine Kinase 26 L CK-MB (CK-2) 0.66 Troponin I < 0.012 < 0.012 NT-Pro-B Natriuret Pep 3570 H 12/12/18 12/12/18 12/12/18 03:45 03:45 11:27 Creatine Kinase 27 L 26 L CK-MB (CK-2) 0.70 Troponin I < 0.012 NT-Pro-B Natriuret Pep 12/12/18 11:27 Creatine Kinase CK-MB (CK-2) 0.76 Troponin I < 0.012 NT-Pro-B Natriuret Pep Impressions: Chest X-Ray 12/11/18 14:54 IMPRESSION: Chronic lung changes with no acute cardiopulmonary findings. Assessment and Plan - Diagnosis (1) Acute exacerbation of chronic obstructive pulmonary disease (COPD) Is this a current diagnosis for this admission?: Yes Plan: Continue IV steroids, antibiotics and breathing treatments. (2) Hypertension Is this a current diagnosis for this admission?: Yes Plan: Controlled. Continue losartan and metoprolol. Discontinue IV Lasix. - Time Time Spent with patient: 15-24 minutes
[2018-12-12] MEDS ORDERED: FUROSEMIDE 20 MG TABLET PO SCH (17:15)
[2018-12-12] MEDS ORDERED: METOPROLOL TARTRATE 25 MG TABLET PO ONE (20:34)
[2018-12-12] MEDS ORDERED: AZITHROMYCIN INJ 500 MG VIAL IV ONE (23:30)
[2018-12-13] MEDS: AZITHROMYCIN 500 MG in DEXTROSE 5%-WATER 250 ML IV SCH (00:03)
--- NOTE | 2018-12-13 00:05 | EKG REPORT ---
SEVERITY:- ABNORMAL ECG - ATRIAL-SENSED VENTRICULAR-PACED COMPLEXES NONSPECIFIC INTRAVENTRICULAR CONDUCTION DELAY NONSPECIFIC ST DEPRESSION VENTRICULAR BIGEMINI : Confirmed by: Leyla Grossman 13-Dec-2018 00:04:52
[2018-12-13 05:11] LABS: ABSOLUTE LYMPHOCYTES (AUTO) 1.1 10^3/uL (0.5-4.7); ABSOLUTE MONOCYTES (AUTO) 0.3 10^3/uL (0.1-1.4); ABSOLUTE NEUT (AUTO) 11.1 10^3/uL (1.7-8.2); BASOPHILS % (AUTO) 0.3 % (0-2); HEMOGLOBIN 10.6 g/dL (12.0-15.5); LYMPHOCYTES % (AUTO) 8.7 % (13-45); MEAN CORPUSCULAR HEMOGLOBIN 28.3 pg (27.0-33.4); MEAN CORPUSCULAR HGB CONC 32.2 g/dL (32.0-36.0); MEAN CORPUSCULAR VOLUME 88 fl (80-97); MONOCYTES % (AUTO) 2.3 % (3-13); PLATELET COUNT 195 10^3/uL (150-450); RED BLOOD COUNT 3.75 10^6/uL (3.72-5.28); RED CELL DISTRIBUTION WIDTH 14.3 % (11.5-14.0); SEGMENTED NEUTROPHILS % (AUTO) 88.7 % (42-78); TOTAL CELLS COUNTED % (AUTO) 100 %; WHITE BLOOD COUNT 12.5 10^3/uL (4.0-10.5)
[2018-12-13 05:31] LABS: ANION GAP 8 (5-19); BLOOD UREA NITROGEN 36 mg/dL (7-20); CALCIUM 9.4 mg/dL (8.4-10.2); CARBON DIOXIDE 39 mmol/L (22-30); CHLORIDE 91 mmol/L (98-107); GLUCOSE 180 mg/dL (75-110); POTASSIUM 4.4 mmol/L (3.6-5.0); SODIUM 137.8 mmol/L (137-145)
[2018-12-13] MEDS: METHYLPREDNISOLONE INJ 40 MG/1 ML SDV IV SCH ×2 (05:53→13:54)
[2018-12-13] MEDS: IPRATROPIUM/ALBUTEROL 0.5-2.5 MG/3 ML AMPUL NEB SCH ×4 (08:57→19:47)
[2018-12-13] MEDS: CYCLOBENZAPRINE HCL 10 MG TABLET PO SCH (10:40)
[2018-12-13] MEDS: METOPROLOL SUCCINATE 25 MG TAB.SR.24H PO SCH (10:41)
[2018-12-13] MEDS: LOSARTAN POTASSIUM 25 MG TABLET PO SCH (10:42)
[2018-12-13] MEDS: ASPIRIN 81 MG TABLET, ENT COATED PO SCH (10:42)
[2018-12-13] MEDS: ENOXAPARIN SODIUM INJ 40 MG/0.4 ML DISP.SYRIN SUBCUT SCH (10:42)
--- NOTE | 2018-12-13 14:24 | PDOC PROGRESS REPORT ---
Subjective Progress Note for:: 12/13/18 Subjective:: This is a 73 yr old female with a PMH of COPD, hypertension, personal history of CHF, and prior pacemaker placement who presented with productive cough, wheezing and worsening SOB. She was admitted for COPD exacerbation. she was started on IV steroids, antibiotics and breathing treatments. 12/12: This morning, she says her SOB has improved from last night. She is cur rently saturating well on 3 lpm via NC. She has PVCs on tele. She denies chest pain or palpitations. 12/13: No acute event overnight. Her SOB continues to improve and she says feels better today but not at baseline yet. Denies chest pain. Wheezing has significantly improve and is minimal this morning. Reason For Visit: ACUTE CHF, COPD EXACERBATION Physical Exam Vital Signs: Temp Pulse Resp BP Pulse Ox 98.6 F 72 16 103/40 L 95 12/13/18 12:00 12/13/18 12:48 12/13/18 12:48 12/13/18 12:00 12/13/18 12:48 Intake & Output 12/12/18 12/13/18 12/14/18 06:59 06:59 06:59 Intake Total 500 1829 Output Total 150 760 Balance 350 1069 Weight 125 lb 0.034 oz 126 lb 1.671 oz General appearance: PRESENT: no acute distress, well-developed, well-nourished Head exam: PRESENT: atraumatic, normocephalic Eye exam: PRESENT: conjunctiva pink, EOMI, PERRLA. ABSENT: scleral icterus Ear exam: PRESENT: normal external ear exam Mouth exam: PRESENT: moist, tongue midline Neck exam: ABSENT: carotid bruit, JVD, lymphadenopathy, thyromegaly Respiratory exam: PRESENT: wheezes. ABSENT: rales, rhonchi Cardiovascular exam: PRESENT: RRR. ABSENT: diastolic murmur, rubs, systolic mu rmur Pulses: PRESENT: normal dorsalis pedis pul GI/Abdominal exam: PRESENT: normal bowel sounds, soft. ABSENT: distended, guarding, mass, organolmegaly, rebound, tenderness Rectal exam: PRESENT: deferred Neurological exam: PRESENT: alert, awake, oriented to person, oriented to place, oriented to time, oriented to situation, CN II-XII grossly intact. ABSENT: motor sensory deficit Results Laboratory Results: 12/13/18 04:08 12/13/18 04:08 12/13/18 12/13/18 04:08 04:08 WBC 12.5 H RBC 3.75 Hgb 10.6 L Hct 33.0 L MCV 88 MCH 28.3 MCHC 32.2 RDW 14.3 H Plt Count 195 Seg Neutrophils % 88.7 H Lymphocytes % 8.7 L Monocytes % 2.3 L Eosinophils % 0.0 Basophils % 0.3 Absolute Neutrophils 11.1 H Absolute Lymphocytes 1.1 Absolute Monocytes 0.3 Absolute Eosinophils 0.0 Absolute Basophils 0.0 Sodium 137.8 Potassium 4.4 Chloride 91 L Carbon Dioxide 39 H Anion Gap 8 BUN 36 H Creatinine 0.66 Est GFR ( Amer) > 60 Est GFR (Non-Af Amer) > 60 Glucose 180 H Calcium 9.4 12/11/18 12/11/18 12/11/18 15:29 21:35 21:35 Creatine Kinase 26 L CK-MB (CK-2) 0.66 Troponin I < 0.012 < 0.012 NT-Pro-B Natriuret Pep 3570 H 12/12/18 12/12/18 12/12/18 03:45 03:45 11:27 Creatine Kinase 27 L 26 L CK-MB (CK-2) 0.70 Troponin I < 0.012 NT-Pro-B Natriuret Pep 12/12/18 11:27 Creatine Kinase CK-MB (CK-2) 0.76 Troponin I < 0.012 NT-Pro-B Natriuret Pep Impressions: Chest X-Ray 12/11/18 14:54 IMPRESSION: Chronic lung changes with no acute cardiopulmonary findings. Assessment and Plan - Diagnosis (1) Acute exacerbation of chronic obstructive pulmonary disease (COPD) Is this a current diagnosis for this admission?: Yes Plan: Continue IV steroids, antibiotics and breathing treatments. 12/13: Switch IV steroids to PO. (2) Hypertension Is this a current diagnosis for this admission?: Yes Plan: Controlled. Continue losartan and metoprolol. Discontinue IV Lasix. 12/13: Blood pressures on the low end. Hold Losartan for now. Continue metop rolol. - Time Time Spent with patient: 15-24 minutes
[2018-12-13] MEDS: PREDNISONE 20 MG TABLET PO SCH (17:19)
[2018-12-13] MEDS ORDERED: AZITHROMYCIN 250 MG TABLET ONE (20:57)
[2018-12-13] MEDS: CEFTRIAXONE SODIUM 1,000 MG in NORMAL SALINE 50 ML IV SCH (20:58)
[2018-12-13] MEDS: AZITHROMYCIN 250 MG TABLET PO SCH (21:02)
[2018-12-14 05:01] LABS: ABSOLUTE LYMPHOCYTES (AUTO) 1.8 10^3/uL (0.5-4.7); ABSOLUTE MONOCYTES (AUTO) 1.1 10^3/uL (0.1-1.4); ABSOLUTE NEUT (AUTO) 10.3 10^3/uL (1.7-8.2); HEMATOCRIT 31.7 % (36.0-47.0); HEMOGLOBIN 10.3 g/dL (12.0-15.5); LYMPHOCYTES % (AUTO) 13.5 % (13-45); MEAN CORPUSCULAR HEMOGLOBIN 28.4 pg (27.0-33.4); MEAN CORPUSCULAR HGB CONC 32.4 g/dL (32.0-36.0); MEAN CORPUSCULAR VOLUME 88 fl (80-97); PLATELET COUNT 218 10^3/uL (150-450); RED BLOOD COUNT 3.63 10^6/uL (3.72-5.28); RED CELL DISTRIBUTION WIDTH 14.5 % (11.5-14.0); SEGMENTED NEUTROPHILS % (AUTO) 78.5 % (42-78); TOTAL CELLS COUNTED % (AUTO) 100 %; WHITE BLOOD COUNT 13.1 10^3/uL (4.0-10.5)
[2018-12-14 05:25] LABS: BLOOD UREA NITROGEN 34 mg/dL (7-20); CALCIUM 9.2 mg/dL (8.4-10.2); CHLORIDE 93 mmol/L (98-107); GLUCOSE 127 mg/dL (75-110); POTASSIUM 4.5 mmol/L (3.6-5.0); SODIUM 137.6 mmol/L (137-145)
[2018-12-14 05:31] LABS: ANION GAP 5 (5-19)
[2018-12-14 05:39] LABS: CARBON DIOXIDE 40 mmol/L (22-30)
[2018-12-14] MEDS: IPRATROPIUM/ALBUTEROL 0.5-2.5 MG/3 ML AMPUL NEB SCH ×4 (08:02→20:49)
[2018-12-14] MEDS ORDERED: ONDANSETRON HCL INJ/PF 4 MG/2 ML SDV IV PRN (09:00)
[2018-12-14] MEDS ORDERED: POLYETHYLENE GLYCOL 3350 POWDER 17 GM/1 PACKET PO PRN (09:11)
[2018-12-14] MEDS: PREDNISONE 20 MG TABLET PO SCH (10:40)
[2018-12-14] MEDS: CYCLOBENZAPRINE HCL 10 MG TABLET PO SCH (10:40)
[2018-12-14] MEDS: METOPROLOL SUCCINATE 25 MG TAB.SR.24H PO SCH (10:40)
[2018-12-14] MEDS: ASPIRIN 81 MG TABLET, ENT COATED PO SCH (10:40)
[2018-12-14] MEDS: ENOXAPARIN SODIUM INJ 40 MG/0.4 ML DISP.SYRIN SUBCUT SCH (10:41)
--- NOTE | 2018-12-14 11:06 | EKG REPORT ---
SEVERITY:- ABNORMAL ECG - ATRIAL-SENSED VENTRICULAR-PACED RHYTHM : Confirmed by: Leyla Grossman 14-Dec-2018 11:05:49
--- NOTE | 2018-12-14 17:26 | PDOC PROGRESS REPORT ---
Subjective Progress Note for:: 12/14/18 Subjective:: This is a 73 yr old female with a PMH of COPD, hypertension, nonischemic cardiomyopathy with prior EF of 15% and prior pacemaker placement who presented with productive cough, wheezing and worsening SOB. She was admitted for COPD exacerbation. she was started on IV steroids, antibiotics and breathing treatments. 12/12: This morning, she says her SOB has improved from last night. She is currently saturating well on 3 lpm via NC. She has PVCs on tele. She denies ches t pain or palpitations. 12/13: Her SOB continues to improve and she says feels better today but not at baseline yet. Denies chest pain. Wheezing has significantly improve and is minimal this morning. 12/14: No acute event overnight. IV steroids were switched to PO last night and patient had recurrence of significant wheezing this morning. She says her breathing is still not at baseline. Will switch back to IV steroids today. Reason For Visit: ACUTE CHF, COPD EXACERBATION Physical Exam Vital Signs: Temp Pulse Resp BP Pulse Ox 97.9 F 87 16 109/46 L 97 12/14/18 16:00 12/14/18 16:00 12/14/18 16:00 12/14/18 16:00 12/14/18 16:00 Intake & Output 12/13/18 12/14/18 12/15/18 06:59 06:59 06:59 Intake Total 1829 637 354 Output Total 760 400 Balance 1069 637 -46 Weight 126 lb 1.671 oz 136 lb 10.986 oz General appearance: PRESENT: no acute distress, well-developed, well-nourished Head exam: PRESENT: atraumatic, normocephalic Eye exam: PRESENT: conjunctiva pink, EOMI, PERRLA. ABSENT: scleral icterus Ear exam: PRESENT: normal external ear exam Mouth exam: PRESENT: moist, tongue midline Neck exam: ABSENT: carotid bruit, JVD, lymphadenopathy, thyromegaly Respiratory exam: PRESENT: rhonchi, wheezes. ABSENT: rales Cardiovascular exam: PRESENT: RRR. ABSENT: diastolic murmur, rubs, systolic murmur Pulses: PRESENT: normal dorsalis pedis pul GI/Abdominal exam: PRESENT: normal bowel sounds, soft. ABSENT: distended, guarding, mass, organolmegaly, rebound, tenderness Rectal exam: PRESENT: deferred Neurological exam: PRESENT: alert, awake, oriented to person, oriented to place, oriented to time, oriented to situation, CN II-XII grossly intact. ABSENT: motor sensory deficit Results Laboratory Results: 12/14/18 03:55 12/14/18 03:55 12/14/18 12/14/18 03:55 03:55 WBC 13.1 H RBC 3.63 L Hgb 10.3 L Hct 31.7 L MCV 88 MCH 28.4 MCHC 32.4 RDW 14.5 H Plt Count 218 Seg Neutrophils % 78.5 H Lymphocytes % 13.5 Monocytes % 8.0 Eosinophils % 0.0 Basophils % 0.0 Absolute Neutrophils 10.3 H Absolute Lymphocytes 1.8 Absolute Monocytes 1.1 Absolute Eosinophils 0.0 Absolute Basophils 0.0 Sodium 137.6 Potassium 4.5 Chloride 93 L Carbon Dioxide 40 H* Anion Gap 5 BUN 34 H Creatinine 0.77 Est GFR ( Amer) > 60 Est GFR (Non-Af Amer) > 60 Glucose 127 H Calcium 9.2 12/11/18 12/11/18 12/11/18 15:29 21:35 21:35 Creatine Kinase 26 L CK-MB (CK-2) 0.66 Troponin I < 0.012 < 0.012 NT-Pro-B Natriuret Pep 3570 H 12/12/18 12/12/18 12/12/18 03:45 03:45 11:27 Creatine Kinase 27 L 26 L CK-MB (CK-2) 0.70 Troponin I < 0.012 NT-Pro-B Natriuret Pep 12/12/18 11:27 Creatine Kinase CK-MB (CK-2) 0.76 Troponin I < 0.012 NT-Pro-B Natriuret Pep Impressions: Chest X-Ray 12/11/18 14:54 IMPRESSION: Chronic lung changes with no acute cardiopulmonary findings. Assessment and Plan - Diagnosis (1) Acute exacerbation of chronic obstructive pulmonary disease (COPD) Is this a current diagnosis for this admission?: Yes Plan: Continue IV steroids, antibiotics and breathing treatments. 12/13: Switch IV steroids to PO. 12/14: IV steroids were switched to PO last night and patient had recurrence of significant wheezing this morning. She says her breathing is still not at seline. Will switch back to IV steroids today. (2) Hypertension Is this a current diagnosis for this admission?: Yes Plan: Controlled. Continue losartan and metoprolol. Discontinue IV Lasix. 12/13: Blood pressures on the low end. Hold Losartan for now. Continue metoprolol. (3) Nonischemic cardiomyopathy Is this a current diagnosis for this admission?: Yes - Time Time Spent with patient: 15-24 minutes
[2018-12-14] MEDS: AZITHROMYCIN 250 MG TABLET PO SCH (21:11)
[2018-12-14] MEDS: METHYLPREDNISOLONE INJ 40 MG/1 ML SDV IV SCH (21:12)
[2018-12-14] MEDS: CEFTRIAXONE SODIUM 1,000 MG in NORMAL SALINE 50 ML IV SCH (21:13)
[2018-12-14] MEDS: FLUTICASONE/UMECLIDIN/VILANTER 100-62.5-25 MCG/DOSE IH SCH (21:50)
[2018-12-14] MEDS ORDERED: TIOTROPIUM BROMIDE DPI 5 CAP/KIT (18 MCG/CAP) IH SCH (22:00)
--- NOTE | 2018-12-14 22:39 | XCELERA REPORT ---
[address] [address] Transthoracic Echocardiogram Report Name: CHRISTOS MULTANI Age: 73 yrs Gender: Female : 1945 Patient Status: [facility] Date: 12/12/2018 09:55 AM Height: 67 in Weight: 128 lb BSA: 1.7 m2 Procedure: A two-dimensional transthoracic echocardiogram with color flow and Doppler was performed. The study was technically difficult with many images being suboptimal in quality. Reason For Study: ACUTE CHF History: CHF. Ordering Physician: MACIEJ TIRADO Performed By: Marlon Ulrich Interpretation Summary The left ventricle is normal in size, thickness and function. There is normal left ventricular wall thickness. LV EF is 55% to 60% The left ventricular ejection fraction is within normal limits. Doppler measurements suggest normal left ventricular diastolic function : By tissue dopplers. There is subtle hypokinesis of the Interventricular septum The right ventricle is grossly normal size. There is a pacemaker lead in the right ventricle. The right atrium is normal. The left atrial size is normal. Probably no ASD,VSD , or PFO. There is no evidence of mitral valve prolapse. There is no vegetation seen on the mitral valve. There is no mitral valve stenosis. There is a trace amount of mitral regurgitation There is no aortic valve stenosis There is no LVOT obstruction. No aortic regurgitation is present. There is no tricuspid stenosis. There is a mild amount of tricuspid regurgitation There is mild to moderate pulmonary hypertension by echo RVSP is 46 to 51 mm of Hg , with RA mean of 5 to 10. There is no pulmonic valvular stenosis. There is a trace amount of pulmonic regurgitation The aortic root is not well visualized but is probably normal size. The inferior vena cava appeared normal and decreased > 50% with respiration (RAP 5-10 mmHg) There is no pericardial effusion. MMode/2D Measurements & Calculations RVDd: 2.8 cm LVIDd: 5.3 cm FS: 33.3 % Ao root diam: 2.7 cm IVSd: 0.77 cm LVIDs: 3.5 cm EDV(Teich): Ao root area: LVPWd: 0.93 cm 135.4 ml 5.6 cm2 ESV(Teich): 52.1 mlLA dimension: 3.8 cm EF(Teich): 61.5 % LVLd ap4: 7.4 cm SV(MOD-sp4): EDV(MOD-sp4): 60.0 ml 98.0 ml LVLs ap4: 6.3 cm ESV(MOD-sp4): 38.0 ml EF(MOD-sp4): 61.2 % Doppler Measurements & Calculations MV E max diana: MV P1/2t max diana: Ao V2 max: LV V1 max P.4 cm/sec 82.8 cm/sec 137.9 cm/sec 3.4 mmHg MV A max diana: MV P1/2t: 94.0 msec Ao max PG: LV V1 max: 86.7 cm/sec MVA(P1/2t): 2.3 cm2 7.6 mmHg 92.6 cm/sec MV E/A: 0.98 MV dec slope: LV dP/dt: 258.1 cm/sec2 826.0 mmHg/s MV dec time: 0.24 sec PA V2 max: PI end-d diana: TR max diana: MV P1/2t-pr_phl: 106.8 cm/sec 102.8 cm/sec 319.7 cm/sec 94.0 msec PA max PG: TR max P.6 mmHg 40.9 mmHg Left Ventricle The left ventricle is normal in size, thickness and function. There is normal left ventricular wall thickness. LV EF is 55% to 60%. The left ventricular ejection fraction is within normal limits. Doppler measurements suggest normal left ventricular diastolic function. : By tissue dopplers. There is subtle hypokinesis of the Interventricular septum. Right Ventricle The right ventricle is grossly normal size. There is a pacemaker lead in the right ventricle. Atria The right atrium is normal. The left atrial size is normal. Probably no ASD,VSD , or PFO. Mitral Valve There is no evidence of mitral valve prolapse. There is no vegetation seen on the mitral valve. There is no mitral valve stenosis. There is a trace amount of mitral regurgitation. Aortic Valve There is no aortic valvular vegetation. There is no aortic valve stenosis. There is no LVOT obstruction. No aortic regurgitation is present. Tricuspid Valve There is no tricuspid stenosis. There is a mild amount of tricuspid regurgitation. There is mild to moderate pulmonary hypertension by echo. RVSP is 46 to 51 mm of Hg , with RA mean of 5 to 10. Pulmonic Valve There is no pulmonic valvular stenosis. There is a trace amount of pulmonic regurgitation. Great Vessels The aortic root is not well visualized but is probably normal size. The inferior vena cava appeared normal and decreased > 50% with respiration (RAP 5-10 mmHg). Effusions There is no pericardial effusion. : MACIEJ TIRADO Lakshmi
[2018-12-15] MEDS: IPRATROPIUM/ALBUTEROL 0.5-2.5 MG/3 ML AMPUL NEB SCH ×4 (07:42→19:49)
[2018-12-15] MEDS: ASPIRIN 81 MG TABLET, ENT COATED PO SCH (10:49)
[2018-12-15] MEDS: CYCLOBENZAPRINE HCL 10 MG TABLET PO SCH (10:54)
[2018-12-15] MEDS: METHYLPREDNISOLONE INJ 40 MG/1 ML SDV IV SCH ×2 (10:54→21:45)
[2018-12-15] MEDS: METOPROLOL SUCCINATE 25 MG TAB.SR.24H PO SCH (11:17)
[2018-12-15] MEDS: FLUTICASONE/UMECLIDIN/VILANTER 100-62.5-25 MCG/DOSE IH SCH (11:18)
[2018-12-15] MEDS: ENOXAPARIN SODIUM INJ 40 MG/0.4 ML DISP.SYRIN SUBCUT SCH (11:20)
--- NOTE | 2018-12-15 13:24 | PDOC PROGRESS REPORT ---
Subjective Progress Note for:: 12/15/18 Subjective:: This is a 73 yr old female with a PMH of COPD, hypertension, nonischemic cardiomyopathy with prior EF of 15% and prior pacemaker placement who presented with productive cough, wheezing and worsening SOB. She was admitted for COPD exacerbation. she was started on IV steroids, antibiotics and breathing treatments. 12/12: This morning, she says her SOB has improved from last night. She is currently saturating well on 3 lpm via NC. She has PVCs on tele. She denies ches t pain or palpitations. 12/13: Her SOB continues to improve and she says feels better today but not at baseline yet. Denies chest pain. Wheezing has significantly improve and is minimal this morning. 12/14: IV steroids were switched to PO last night and patient had recurrence of significant wheezing this morning. She says her breathing is still not at baseline. Will switch back to IV steroids today. 12/15: No acute event overnight. Wheezing has significantly improve this morning after switching back to IV steroids. She says she feels better today. Denies chest pain. Will decrease IV steroids today before switching to PO. Reason For Visit: ACUTE CHF, COPD EXACERBATION Physical Exam Vital Signs: Temp Pulse Resp BP Pulse Ox 97.4 F 78 14 130/39 H 96 12/15/18 07:43 12/15/18 11:56 12/15/18 11:56 12/15/18 07:43 12/15/18 11:56 Intake & Output 12/14/18 12/15/18 12/16/18 06:59 06:59 06:59 Intake Total 637 1022 Output Total 1480 Balance 637 -458 Weight 136 lb 10.986 oz 133 lb 6.075 oz General appearance: PRESENT: no acute distress, well-developed, well-nourished Head exam: PRESENT: atraumatic, normocephalic Eye exam: PRESENT: conjunctiva pink, EOMI, PERRLA. ABSENT: scleral icterus Ear exam: PRESENT: normal external ear exam Mouth exam: PRESENT: moist, tongue midline Neck exam: ABSENT: carotid bruit, JVD, lymphadenopathy, thyromegaly Respiratory exam: PRESENT: wheezes - mild wheezes on the bases. ABSENT: rales, rhonchi Cardiovascular exam: PRESENT: RRR. ABSENT: diastolic murmur, rubs, systolic murmur Pulses: PRESENT: normal dorsalis pedis pul GI/Abdominal exam: PRESENT: normal bowel sounds, soft. ABSENT: distended, guarding, mass, organolmegaly, rebound, tenderness Rectal exam: PRESENT: deferred Neurological exam: PRESENT: alert, awake, oriented to person, oriented to place, oriented to time, oriented to situation, CN II-XII grossly intact. ABSENT: motor sensory deficit Results Laboratory Results: 12/14/18 03:55 12/14/18 03:55 12/11/18 12/11/18 12/11/18 15:29 21:35 21:35 Creatine Kinase 26 L CK-MB (CK-2) 0.66 Troponin I < 0.012 < 0.012 NT-Pro-B Natriuret Pep 3570 H 12/12/18 12/12/18 12/12/18 03:45 03:45 11:27 Creatine Kinase 27 L 26 L CK-MB (CK-2) 0.70 Troponin I < 0.012 NT-Pro-B Natriuret Pep 12/12/18 11:27 Creatine Kinase CK-MB (CK-2) 0.76 Troponin I < 0.012 NT-Pro-B Natriuret Pep Impressions: Chest X-Ray 12/11/18 14:54 IMPRESSION: Chronic lung changes with no acute cardiopulmonary findings. Assessment and Plan - Diagnosis (1) Acute exacerbation of chronic obstructive pulmonary disease (COPD) Is this a current diagnosis for this admission?: Yes Plan: On IV steroids, antibiotics and breathing treatments. 12/13: Switch IV steroids to PO. 12/14: IV steroids were switched to PO last night and patient had recurrence of significant wheezing this morning. She says her breathing is still not at baseline. Will switch back to IV steroids today. 12/15: Wheezing has significantly improve this morning after switching back to IV steroids. Will decrease IV steroids today before switching to PO. Discontinue antibiotics. (2) Hypertension Is this a current diagnosis for this admission?: Yes Plan: Controlled. Continue losartan and metoprolol. Discontinue IV Lasix. 12/13: Blood pressures on the low end. Hold Losartan for now. Continue metoprolol. (3) Nonischemic cardiomyopathy Is this a current diagnosis for this admission?: Yes Plan: S/P pacemaker placement. Continue metoprolol. - Time Time Spent with patient: 15-24 minutes
[2018-12-15] MEDS ORDERED: LEVOFLOXACIN 500 MG TABLET PO ONE (22:45)
[2018-12-16] MEDS ORDERED: LEVOFLOXACIN 500 MG TABLET PO ONE (01:15)
--- NOTE | 2018-12-16 06:59 | PROGRESS NOTE E ---
Progress Note NAME: CHRISTOS MULTANI : 1945 AGE: 73Y DATE: 12/15/2018 ROOM: 533 SUBJECTIVE: The patient is a 73-year-old female who was admitted for severe COPD exacerbation. The patient feels slightly better. Denies any fever, chills. Still coughing mostly clear. No hemoptysis. No chest pain. The patient was started on Trelegy inhaler last night. Still taking Lasix, Solu-Medrol IV. Completed Rocephin and ceftriaxone. No nausea, vomiting. OBJECTIVE: GENERAL: The patient is awake, alert, coherent, oriented x3, slightly dyspneic. VITAL SIGNS: A blood pressure of 129/83, temperature is 97.5 with a T-max of 98.8, heart rate was 97, respiratory rate of 16, saturation is 95% on 2 L. EYES: No jaundice or pallor. EARS, NOSE, AND THROAT: No ear drainage. No nasal discharge. CHEST AND LUNGS: Some wheezing bibasilarly. No coarse crackles. Fine rales bibasilarly. CARDIOVASCULAR: S1, S2 distinct. Normal rate. Regular rhythm. ABDOMEN: Flabby. Positive bowel sounds. Soft, nondistended, nontender. EXTREMITIES: No joint swelling. No cellulitis. LABORATORY: CBC done today showed white count of 13.1, hemoglobin is 10.3, hematocrit is 31.7, platelet count is 218. CBC done yesterday, 12/14/2018. ASSESSMENT: 1. COPD IN ACUTE EXACERBATION, MILD. 2. PNEUMONIA, BIBASILARLY, PROBABLY MORE ON THE RIGHT SIDE ON CHEST X-RAY DONE 12/11/2018. PLAN/RECOMMENDATIONS: 1. Continue Trelegy inhaler 1 puff once daily. 2. Taper prednisone to oral with 10 mg daily and slow taper. 3. Recommend antibiotics. The patient is not yet adequately treated for respiratory infection, possibly pneumonic process. Chest x-ray done on 12/11/2018 showed some infiltrates in the right lung base. Currently off IV Rocephin and azithromycin. Recommend Levaquin 500 mg tablet p.o. daily. Will sign off tonight. If you have any questions, please feel free to call me. Recommend pulmonary clinic followup in 2-3 days following hospital discharge. DICTATING PHYSICIAN: MONAE PEARSON MD,INDY,MPH [id number] [id number] ID: [id number] JOB#: [id number] ACCT: [id number] cc: > MTDD
[2018-12-16] MEDS: IPRATROPIUM/ALBUTEROL 0.5-2.5 MG/3 ML AMPUL NEB SCH ×3 (07:53→16:44)
[2018-12-16] MEDS: METHYLPREDNISOLONE INJ 40 MG/1 ML SDV IV SCH ×2 (10:08→10:23)
[2018-12-16] MEDS: CYCLOBENZAPRINE HCL 10 MG TABLET PO SCH (10:08)
[2018-12-16] MEDS: METOPROLOL SUCCINATE 25 MG TAB.SR.24H PO SCH (10:09)
[2018-12-16] MEDS: ENOXAPARIN SODIUM INJ 40 MG/0.4 ML DISP.SYRIN SUBCUT SCH (10:17)
[2018-12-16] MEDS: ASPIRIN 81 MG TABLET, ENT COATED PO SCH (10:18)
[2018-12-16] MEDS: FLUTICASONE/UMECLIDIN/VILANTER 100-62.5-25 MCG/DOSE IH SCH (10:19)
[2018-12-16] MEDS: PREDNISONE 20 MG TABLET PO SCH ×2 (13:16→17:13)
[2018-12-16 16:40] VITALS: BP 117/67
--- NOTE | 2018-12-16 16:48 | PDOC DISCHARGE SUMMARY ---
General - Admit/Disc Date/PCP Admission Date/Primary Care Provider: 12/11/18 20:33 OMA MARCOS MD Discharge Date: 12/16/18 - Discharge Diagnosis (1) Acute exacerbation of chronic obstructive pulmonary disease (COPD) Is this a current diagnosis for this admission?: Yes (2) Hypertension Is this a current diagnosis for this admission?: Yes (3) Nonischemic cardiomyopathy Is this a current diagnosis for this admission?: Yes - Additional Information Discharge Diet: Cardiac Discharge Activity: Activity As Tolerated, Balance Activity w/Rest, Weigh Daily Prescriptions: Fluticasone/Umeclidin/Vilanter [Trelegy 100-62.5-25 Mcg Ellipta 14 Dose/Dpi] 1 inh IH DAILY #1 inhaler Levofloxacin [Levaquin 500 mg Tablet] 500 mg PO QHS 3 Days #3 tablet Metoprolol Succinate [Toprol Xl 25 mg Tab.sr] 25 mg PO DAILY #30 tab.sr.24h Prednisone [Deltasone 20 mg Tablet] 40 mg PO BID 5 Days #10 tablet Home Medications: Albuterol Sulfate [Ventolin Hfa] 2 puff IH Q4HP PRN 11/27/17 Aspirin [Adult Low Dose Aspirin EC] 81 mg PO DAILY 11/27/17 Furosemide [Lasix 20 mg Tablet] 20 mg PO DAILYP PRN 11/27/17 Pravastatin Sodium [Pravachol] 10 mg PO QHS 11/27/17 Cetirizine HCl [Zyrtec 10 mg Tablet] 10 mg PO DAILY 12/11/18 Fluticasone/Umeclidin/Vilanter [Trelegy 100-62.5-25 Mcg Ellipta 14 Dose/Dpi] 1 inh IH DAILY #1 inhaler 12/16/18 Levofloxacin [Levaquin 500 mg Tablet] 500 mg PO QHS 3 Days #3 tablet 12/16/18 Metoprolol Succinate [Toprol Xl 25 mg Tab.sr] 25 mg PO DAILY #30 tab.sr.24h 12/16/18 Prednisone [Deltasone 20 mg Tablet] 40 mg PO BID 5 Days #10 tablet 12/16/18 History of Present Illness History of Present Illness: Admitting hospitalist's H&P: CHRISTOS MULTANI is a 73 year old female with history of multiple medical problems that will be mentioned below who presented to the emergency room with acute onset of worsening dyspnea with associated cough productive of yellowish sputum as well as wheezing since Tuesday. She has been feeling lethargic and having no much appetite for the last few weeks. She admitted to tactile fever and chills over the last few days. She denies any chest pain or palpitations. No headache or dizziness or blurred vision. No nausea or vomiting or abdominal pain. Upon presentation to the emergency room her blood pressure was 124/40 with a pulse of 84 respiratory rate of 16 temperature 98.7 and pulse oximetry was 95% on room air and 100% on 2 L O2 by nasal cannula. Labs revealed mild anemia with hemoglobin of 11.5 and hematocrit 35 and her CMP was remarkable for a CO2 45 with chloride of 91 BUN of 22. Her proBNP was 3570 and troponin I less than 0.0 12. Her portable chest x-ray revealed chronic lung changes with no acute cardiopulmonary disease. Her EKG showed normal sinus rhythm with a rate of 74 with suspected left atrial enlargement and LVH with Q waves inferiorly and poor R wave progression with likely intraventricular conduction delay. Hospital Course Hospital Course: This is a 73 yr old female with a PMH of COPD on home O2, hypertension, nonischemic cardiomyopathy with prior EF of 15% and prior pacemaker placement who presented with productive cough, wheezing and worsening SOB. She was admitted for COPD exacerbation. She was started on IV steroids, antibiotics and breathing treatments. 12/12: This morning, she says her SOB has improved from last night. She is currently saturating well on 3 lpm via NC. She has PVCs on tele. She denies chest pain or palpitations. 12/13: Her SOB continues to improve and she says feels better today but not at baseline yet. Denies chest pain. Wheezing has significantly improve and is minimal this morning. Patient had gradual improvement of her exacerbation. Wheezing also significantly improved. On day of discharge, she was switched to oral steroids and she did fine. She was ambulated on the hallway with no acute issues. She is at her baseline. Her Symbicort was switched to Trelegy by pulmonology. Losartan was held on discharge as her blood pressures were running in the low normal end. This will be reevaluated on ff-up with PCP and cardiology who will reassess need to restart Losartan for her NICM. She will complete 5 more days for prednisone and 3 more days of Levaquin. She had PVCs during this course but has been completely asymptomatic. Discussed with cardiology, Dr. Watts who has recommended close ff-up with patient's relationship counselor regarding her PVCs. Sheis already on metoprolol with heart rate optimally controlled in the 70-80s. Physical Exam Vital Signs: Temp Pulse Resp BP Pulse Ox 97.2 F 89 16 116/43 L 99 12/16/18 11:45 12/16/18 14:00 12/16/18 12:29 12/16/18 11:45 12/16/18 12:29 Intake & Output 12/15/18 12/16/18 12/17/18 06:59 06:59 06:59 Intake Total 1022 355 Output Total 1480 Balance -458 355 Weight 133 lb 6.075 oz 131 lb 13.383 oz General appearance: PRESENT: no acute distress, well-developed, well-nourished Head exam: PRESENT: atraumatic, normocephalic Eye exam: PRESENT: conjunctiva pink, EOMI, PERRLA. ABSENT: scleral icterus Ear exam: PRESENT: normal external ear exam Mouth exam: PRESENT: moist, tongue midline Neck exam: ABSENT: carotid bruit, JVD, lymphadenopathy, thyromegaly Respiratory exam: PRESENT: clear to auscultation tyrone. ABSENT: rales, rhonchi, wheezes Cardiovascular exam: PRESENT: RRR. ABSENT: diastolic murmur, rubs, systolic murmur Pulses: PRESENT: normal dorsalis pedis pul GI/Abdominal exam: PRESENT: normal bowel sounds, soft. ABSENT: distended, guarding, mass, organolmegaly, rebound, tenderness Rectal exam: PRESENT: deferred Neurological exam: PRESENT: alert, awake, oriented to person, oriented to place, oriented to time, oriented to situation, CN II-XII grossly intact. ABSENT: motor sensory deficit Results Laboratory Results: 12/14/18 03:55 12/14/18 03:55 12/11/18 12/11/18 12/11/18 15:29 21:35 21:35 Creatine Kinase 26 L CK-MB (CK-2) 0.66 Troponin I < 0.012 < 0.012 NT-Pro-B Natriuret Pep 3570 H 12/12/18 12/12/18 12/12/18 03:45 03:45 11:27 Creatine Kinase 27 L 26 L CK-MB (CK-2) 0.70 Troponin I < 0.012 NT-Pro-B Natriuret Pep 12/12/18 11:27 Creatine Kinase CK-MB (CK-2) 0.76 Troponin I < 0.012 NT-Pro-B Natriuret Pep Impressions: Chest X-Ray 12/11/18 14:54 IMPRESSION: Chronic lung changes with no acute cardiopulmonary findings. Qualifiers - * PATIENT BEING DISCHARGED WITH ANY OF THE FOLLOWING DIAGNOSIS: No
[2018-12-16] MEDS ORDERED: LEVOFLOXACIN 500 MG TABLET PO SCH (22:00)
--- NOTE | 2018-12-18 09:02 | CONSULTATION REPORT E ---
Consultation Report NAME: CHRISTOS MULTANI : 1945 AGE: 73Y DATE: 12/14/2018 533 A TO: MONEA PEARSON M.D. FROM: MACIEJ TIRADO M.D. Requesting Physician HISTORY OF PRESENT ILLNESS: The patient is a 73-year-old female who came in with increased cough with purulent sputum production and increased shortness of breath, treated for pneumonia and cleared for pneumonia and COPD exacerbation. Claims that she is feeling a lot better today than when she was admitted. Still coughing some sputum, but this time is less purulent than in the last few days. Denies any fever, chills, nausea, vomiting, diarrhea. The patient was given azithromycin, Rocephin IV, and patient was also given Duoneb nebulizer treatment, IV steroids, and Pepcid. Denies any hemoptysis or chest pain or chest tightness. Denies any worsening dyspnea, fever and chills. PAST MEDICAL HISTORY: Significant for: 1. Congestive heart failure. 2. Hyperlipidemia. 3. Hypertension. 4. History of COPD. 5. History of seizures . PAST SURGICAL HISTORY: 1. Cardiac cath. 2. History of section. 3. Pacemaker in February of 2015. 4. Left heart surgery for a hole in her heart when she was younger. SOCIAL HISTORY: The patient used to smoke about a pack to 1-1/2 pack a day for about 50 years and quit about 12 years ago. Denies any alcohol use or illicit drug use. FAMILY HISTORY: No reported family history of heart failure, COPD. HOME MEDICATIONS: Include: 1. Albuterol inhaler. 2. Aspirin. 3. Symbicort 160. 4. Lasix. 5. Metoprolol. 6. Atorvastatin. 7. Zyrtec. MEDICATIONS IN THE HOSPITAL: Include: 1. Tylenol. 2. Aspirin 81. 3. Azithromycin IV 500 mg p.o. daily. 4. Rocephin 1 g daily. 5. Cyclobenzaprine. 6. Lovenox. 7. Pepcid 40 mg b.i.d. 8. Lasix 20 mg daily. 9. Duoneb nebulizer every 6 hours. 10. Losartan. 11. Magnesium 100 p.r.n. 12. Solu-Medrol 40 mg q. 12. 13. Metoprolol 25 mg p.o. daily. 14. Zofran. 15. Oxycodone. 16. . ALLERGIES: 1. AUGMENTIN. 2. DEMEROL. REVIEW OF SYSTEMS: CONSTITUTIONAL: No fever, chills. EYES: No jaundice or pallor. EARS, NOSE AND THROAT: No ear drainage. No nasal discharge. CHEST AND LUNGS: Increased shortness of breath. Increased coughing and purulent sputum production on day of admission with . CARDIAC: No history of angina or recent arrhythmia. ABDOMEN: No nausea, vomiting. No diarrhea. GENITOURINARY: No dysuria, hematuria. Positive . EXTREMITIES: No joint swelling, no cellulitis. PHYSICAL EXAMINATION: GENERAL: The patient is awake, alert, coherent, oriented x3. VITAL SIGNS: Temperature is 98.3, heart rate of 58, blood pressure is 109/50, respirations 17, saturation 97% on nasal cannula 2.5 L. EYES: No jaundice or pallor. EARS, NOSE, THROAT: No ear drainage noted, no nasal discharge. CHEST AND LUNGS: Slight wheezing bibasilarly, but no coarse crackles. CARDIOVASCULAR: S1, S2 distinct. Normal rate, regular rhythm. ABDOMEN: Flabby. Positive bowel sounds. Soft, nondistended. EXTREMITIES: No joint swelling, no cellulitis. LABORATORY DATA: CBC done today showed white count 13.1, hemoglobin of 10.3, and hematocrit was 31.7, the platelet count is 218. No bands noted. Chemistry done today showed sodium is 137.6, potassium is 4.5, chloride 93, CO2 is 40, BUN is 34, creatinine is 0.77, glucose is 137, calcium is 9.2. Chest x-ray done on 12/11/2018 showed no infiltrate involving the right lung base, possibly infectious process or pneumonic process. Underlying malignancy cannot be completely excluded. ASSESSMENT: 1. COPD acute severe exacerbation, currently improving. Patient still with some intermittent wheezing, but good air entry is noted in both lungs. 2. Pneumonia, appears to be improving right lung base. 3. History of heavy smoking. PLAN/RECOMMENDATIONS: 1. Will start patient with trilogy inhaler 1 puff once daily. 2. Continue antibiotics. May consider discontinuing Rocephin in a few days if continues to do well, and continue azithromycin 500 mg daily for the next 10 days. 3. May change the IV fluids to prednisone 20 mg daily and taper over the last few days starting tomorrow. 4. Continue Duoneb nebulizer treatment every 6 hours as needed. May prescribe patient with nebulizer solution and nebulizer machine if not available. 5. Will do a sputum culture tomorrow morning. 6. Recommend pulmonary clinic followup upon hospital discharge. The patient may need a repeat chest x-ray to evaluate right lower lobe infiltrate. Another density in the right lower lobe, possibly inflammatory process, but malignancy cannot be completely excluded. The patient may require chest CT scan in the next few weeks after having a repeat x-ray in the next 2 weeks. DICTATING PHYSICIAN: MONAE PEARSON M.D. [id number] PHY#: [id number] ID: [id number] JOB#: [id number] ACCT: [id number] cc:MONAE PEARSON M.D. >
== END 2018-12-16 18:10 | disposition home health service (06) | DRG 190 ==
LOC: ER 13:58 → EH 20:33 → 5 23:13
PROVIDERS: ADMIT Family Medicine; ATTEND Family Medicine
PROC: 3E0F73Z Introduction of Anti-inflammatory into Respiratory Tract, Via Natural or Artificial Opening (ICD-10-PCS; principal; 2018-12-12)
DX: J44.1 Chronic obstructive pulmonary disease with (acute) exacerbation (principal); I50.33 Acute on chronic diastolic (congestive) heart failure; J96.21 Acute and chronic respiratory failure with hypoxia; I42.9 Cardiomyopathy, unspecified; Z95.810 Presence of automatic (implantable) cardiac defibrillator; I11.0 Hypertensive heart disease with heart failure; D64.9 Anemia, unspecified; E78.5 Hyperlipidemia, unspecified; G40.909 Epilepsy, unspecified, not intractable, without status epilepticus; I49.3 Ventricular premature depolarization; Z79.82 Long term (current) use of aspirin; Z88.0 Allergy status to penicillin; Z99.81 Dependence on supplemental oxygen; Z87.891 Personal history of nicotine dependence; Z79.51 Long term (current) use of inhaled steroids; Z88.8 Allergy status to other drugs, medicaments and biological substances
CPT/HCPCS: 36415; 71045; 80048; 80053; 81001; 82550; 82553; 82803; 83735; 83880; 84443; 84484; 85025; 87040; 87070; 87205; 93005; 93010; 93306; 94640; 96365; 96375; 99285; J0456; J0696; J1650; J1940; J2920; J2930; J3475; J3490; J7060; J7512; J7620

== ENCOUNTER 2018-12-18 07:28 | Inpatient (IN) | payer MEDICARE, MEDICAID ==
[2018-12-18] MEDS ORDERED: ALBUTEROL SULFATE 0.083% NEB 2.5 MG/3 ML AMPUL NEB ONE (07:38)
--- NOTE | 2018-12-18 07:41 | ER Document Report ---
ED General - General Stated Complaint: SHORTNESS OF BREATH Time Seen by Provider: 12/18/18 07:31 Primary Care Provider: OMA MARCOS MD [Primary Care Provider] - Follow up as needed TRAVEL OUTSIDE OF THE [place] IN LAST 30 DAYS: No - HPI Notes: Patient is a 73-year-old female that presents to the emergency department for chief complaint of shortness of breath. Patient reports being discharged from the hospital recently after being here for 1 week for CHF and COPD exacerbation. She states she started to feel short of breath yesterday but did not want to come back to the hospital. Today her family noticed her increased work of breathing and insisted on her coming to the ER. EMS was called by family. EMS gave patient 125 mg of Solu-Medrol and one DuoNeb in route which she states has given her minimal relief. She does wear 2 L of oxygen daily. She denies any associated fever, cough and chest pain. She has been taking the steroid prescribed at discharge and states she is tapering down off of them. She has been using her home albuterol. Past Medical History: COPD, CHF Past Surgical History: Reviewed in chart Social History: Reviewed in chart Family History: Reviewed and noncontributory for presenting illness Allergies: Reviewed, see documented allergy list. REVIEW OF SYSTEMS: CONSTITUTIONAL : No fever No chills No diaphoresis No recent illness EENT: No vision changes No congestion No sore throat CARDIOVASCULAR: No chest pain No palpitations RESPIRATORY: shortness of breath No cough difficulty breathing GASTROINTESTINAL: No abdominal pain No nausea No vomiting No diarrhea GENITOURINARY: No dysuria No hematuria No difficulty urinating MUSCULOSKELETAL: No back pain No leg pain No arm pain SKIN: No rashes No lesions LYMPHATIC: No swollen, enlarged glands. NEUROLOGICAL: No lightheadedness No headache No weakness No paresthesias PSYCHIATRIC: No anxiety No depression PHYSICAL EXAMINATION: Vital signs reviewed, nursing noted reviewed. GENERAL: Appears uncomfortable, well-nourished and in moderate acute distress. HEAD: Atraumatic, normocephalic. EYES: Eyes appear normal, extraocular movements intact, sclera anicteric, conjunctiva are normal. ENT: nares patent, oropharynx clear without exudates. Moist mucous membranes. NECK: Normal range of motion, supple without lymphadenopathy LUNGS: Tachypnea with accessory muscle use and pursed lipped breathing, tripoding, diminished lung sounds diffusely with expiratory wheezing HEART: Tachycardic rate and regular rhythm without murmurs ABDOMEN: Soft, nontender, normoactive bowel sounds. No rebound, guarding, or rigidity. No masses appreciated. EXTREMITIES: Nontender, good range of motion, no pitting or edema. NEUROLOGICAL: No focal neurological deficits. Moves all extremities spontaneously Motor and sensory grossly intact on exam. PSYCH: Normal mood, normal affect. SKIN: Warm, Dry, normal turgor, no rashes or lesions noted on exposed skin - Related Data Allergies/Adverse Reactions: amoxicillin trihydrate [From Augmentin] Allergy (Verified 12/11/18 14:10) meperidine HCl [From Demerol] Allergy (Verified 12/11/18 14:10) Potassium Clavulanate * [From Augmentin] Allergy (Verified 12/11/18 14:10) Past Medical History - Social History Smoking Status: Former Smoker Family History: Reviewed & Not Pertinent - Past Medical History Cardiac Medical History: Reports: Hx Congestive Heart Failure, Hx Hypercholesterolemia, Hx Hypertension Denies: Hx Heart Attack Pulmonary Medical History: Reports: Hx COPD, Hx Pneumonia Denies: Hx Asthma Neurological Medical History: Reports: Hx Seizures - WITH DEMEROL. Denies: Hx C erebrovascular Accident Renal/ Medical History: Denies: Hx Peritoneal Dialysis GI Medical History: Denies: Hx Hepatitis, Hx Hiatal Hernia, Hx Ulcer Psychiatric Medical History: Denies: Hx Depression Infectious Medical History: Denies: Hx Hepatitis Past Surgical History: Reports: Hx Cardiac Catheterization, Hx Cardiac Surgery - Pacemaker/Defibrillator, Hx Section, Hx Open Heart Surgery - 1949, Hx Pacemaker - February. Denies: Hx Mastectomy - Immunizations Hx Diphtheria, Pertussis, Tetanus Vaccination: Yes Hx Pneumococcal Vaccination: 07/06/17 Physical Exam - Vital signs Vitals: Pulse Ox 95 12/18/18 07:30 Course - Re-evaluation Re-evalutation: 12/18/18 07:41 Vitals reviewed. Nursing notes reviewed. Patient is working hard to breathe but mentating normally. She will be placed on BiPAP for increased work of breathing. She was ordered more albuterol to help with her COPD exacerbation. She did receive Solu-Medrol and DuoNeb prior to arrival by EMS. 12/18/18 08:44 Patient's EKG appears different than on 12/13/18, the EKG was reviewed with Dr. Ugalde who feels this is related to the COPD exacerbation and PVCs, he does not have any further recommendations regarding her EKG currently. 12/18/18 09:59 Patient is tolerating BiPAP well. She is hypercapnic with mild acidosis on ABG. Chest x-ray shows no new pneumonia. Her lab work shows a new elevation in creatinine at 1.3. Patient will be admitted to the hospital for further management of her acute COPD exacerbation. She is improved at time of admission. Case discussed with Dr. Mendiola. Laboratory 12/18/18 12/18/18 12/18/18 07:59 07:59 07:59 WBC 16.6 H RBC 4.91 Hgb 14.1 Hct 43.4 MCV 88 MCH 28.7 MCHC 32.5 RDW 15.2 H Plt Count 257 Seg Neutrophils % 83.1 H Lymphocytes % 15.3 Monocytes % 1.5 L Eosinophils % 0.0 Basophils % 0.1 Absolute Neutrophils 13.8 H Absolute Lymphocytes 2.6 Absolute Monocytes 0.3 Absolute Eosinophils 0.0 Absolute Basophils 0.0 Carbonic Acid HCO3/H2CO3 Ratio ABG pH ABG pCO2 ABG pO2 ABG HCO3 ABG Total CO2 ABG O2 Saturation ABG Base Excess FiO2 Sodium 136.8 L Potassium 5.1 H Chloride 92 L Carbon Dioxide 33 H Anion Gap 12 BUN 52 H Creatinine 1.30 H Est GFR ( Amer) 48 L Est GFR (Non-Af Amer) 40 L Glucose 223 H Calcium 10.5 H Magnesium 2.1 Total Bilirubin 1.1 Direct Bilirubin 0.4 Neonat Total Bilirubin Not Reportable Neonat Direct Bilirubin Not Reportable Neonat Indirect Bili Not Reportable AST 20 ALT 20 Alkaline Phosphatase 62 Troponin I 0.012 Total Protein 7.1 Albumin 4.1 12/18/18 08:30 WBC RBC Hgb Hct MCV MCH MCHC RDW Plt Count Seg Neutrophils % Lymphocytes % Monocytes % Eosinophils % Basophils % Absolute Neutrophils Absolute Lymphocytes Absolute Monocytes Absolute Eosinophils Absolute Basophils Carbonic Acid 1.81 H HCO3/H2CO3 Ratio 17:1 ABG pH 7.34 L ABG pCO2 60.1 H ABG pO2 70.3 L ABG HCO3 31.6 H ABG Total CO2 33.4 H ABG O2 Saturation 92.7 L ABG Base Excess 4.0 FiO2 40% Sodium Potassium Chloride Carbon Dioxide Anion Gap BUN Creatinine Est GFR ( Amer) Est GFR (Non-Af Amer) Glucose Calcium Magnesium Total Bilirubin Direct Bilirubin Neonat Total Bilirubin Neonat Direct Bilirubin Neonat Indirect Bili AST ALT Alkaline Phosphatase Troponin I Total Protein Albumin Chest X-Ray 12/18/18 07:30 IMPRESSION: 1. Stable bibasilar atelectasis or scar. No acute pulmonary consolidation. - Vital Signs Vital signs: Temp Pulse Resp BP Pulse Ox 95 12/18/18 07:30 - Laboratory Result Diagrams: 12/18/18 07:59 12/18/18 07:59 Laboratory results interpreted by me: 12/18/18 12/18/18 12/18/18 07:59 07:59 08:30 WBC 16.6 H RDW 15.2 H Seg Neutrophils % 83.1 H Monocytes % 1.5 L Absolute Neutrophils 13.8 H Carbonic Acid 1.81 H ABG pH 7.34 L ABG pCO2 60.1 H ABG pO2 70.3 L ABG HCO3 31.6 H ABG Total CO2 33.4 H ABG O2 Saturation 92.7 L Sodium 136.8 L Potassium 5.1 H Chloride 92 L Carbon Dioxide 33 H BUN 52 H Creatinine 1.30 H Est GFR ( Amer) 48 L Est GFR (Non-Af Amer) 40 L Glucose 223 H Calcium 10.5 H - EKG Interpretation by Me Additional EKG results interpreted by me: 12/18/18 08:44 Interpreted by myself 0741: Atrially sensed ventricularly paced rhythm, rate 113, PVCs Critical Care Note - Critical Care Note Total time excluding time spent on procedures (mins): 40 Comments: Critical care time 40 exclusive from separate billable procedures for a patient requiring complex medical decision making, and high potential for clinical deterioration. Time spent obtaining history from patient or surrogate, discussions with consultants, development of treatment plan with patient or surrogate, evaluation of patient's response to treatment, examination of patient, ordering and performing treatments and interventions, ordering and review of laboratory studies, re-evaluation of patient's condition, ordering and review of radiographic studies and review of old charts Discharge - Discharge Clinical Impression: LAURO (acute kidney injury) Respiratory failure with hypercapnia Qualifiers: Chronicity: acute on chronic Qualified Code(s): J96.22 - Acute and chronic respiratory failure with hypercapnia Condition: Stable Disposition: ADMITTED INPATIENT Admitting Provider: Marlena (Hospitalist) Unit Admitted: [facility]
[2018-12-18] MEDS: MAGNESIUM SULFATE/D5W 1 GM/100 ML RTUPB IV SCH ×2 (08:08→08:28)
--- NOTE | 2018-12-18 08:12 | RADIOLOGY REPORT (SQ) ---
EXAM DESCRIPTION: CHEST SINGLE VIEW COMPLETED DATE/TIME: 12/18/2018 7:56 am REASON FOR STUDY: bed 3 sob COMPARISON: 12/11/2018 EXAM PARAMETERS: NUMBER OF VIEWS: One view. TECHNIQUE: Single frontal radiographic view of the chest acquired. RADIATION DOSE: NA LIMITATIONS: None. FINDINGS: LUNGS AND PLEURA: Stable mild bibasilar scar or atelectasis. No acute pulmonary consolid ation. No pneumothorax or pleural effusion. MEDIASTINUM AND HILAR STRUCTURES: No masses. Contour normal. HEART AND VASCULAR STRUCTURES: Heart normal in size. Normal vasculature. BONES: No acute findings. HARDWARE: Cardiac pacemaker, stable finding. OTHER: No other significant finding. IMPRESSION: 1. Stable bibasilar atelectasis or scar. No acute pulmonary consolidation. TECHNICAL DOCUMENTATION: JOB ID: [id number] [employer]- All Rights Reserved Reading location - IP/workstation name: [email or web address]
[2018-12-18 08:22] LABS: ABSOLUTE LYMPHOCYTES (AUTO) 2.6 10^3/uL (0.5-4.7); ABSOLUTE MONOCYTES (AUTO) 0.3 10^3/uL (0.1-1.4); ABSOLUTE NEUT (AUTO) 13.8 10^3/uL (1.7-8.2); BASOPHILS % (AUTO) 0.1 % (0-2); HEMATOCRIT 43.4 % (36.0-47.0); HEMOGLOBIN 14.1 g/dL (12.0-15.5); LYMPHOCYTES % (AUTO) 15.3 % (13-45); MEAN CORPUSCULAR HEMOGLOBIN 28.7 pg (27.0-33.4); MEAN CORPUSCULAR HGB CONC 32.5 g/dL (32.0-36.0); MEAN CORPUSCULAR VOLUME 88 fl (80-97); MONOCYTES % (AUTO) 1.5 % (3-13); PLATELET COUNT 257 10^3/uL (150-450); RED BLOOD COUNT 4.91 10^6/uL (3.72-5.28); RED CELL DISTRIBUTION WIDTH 15.2 % (11.5-14.0); SEGMENTED NEUTROPHILS % (AUTO) 83.1 % (42-78); TOTAL CELLS COUNTED % (AUTO) 100 %; WHITE BLOOD COUNT 16.6 10^3/uL (4.0-10.5)
[2018-12-18 08:50] LABS: ALANINE AMINOTRANSFERASE 20 U/L (9-52); ALBUMIN 4.1 g/dL (3.5-5.0); ALKALINE PHOSPHATASE 62 U/L (38-126); ANION GAP 12 (5-19); ASPARTATE AMINO TRANSFERASE 20 U/L (14-36); BILIRUBIN,DIRECT 0.4 mg/dL (0.0-0.4); BILIRUBIN,TOTAL 1.1 mg/dL (0.2-1.3); BLOOD UREA NITROGEN 52 mg/dL (7-20); CALCIUM 10.5 mg/dL (8.4-10.2); CARBON DIOXIDE 33 mmol/L (22-30); CHLORIDE 92 mmol/L (98-107); GLUCOSE 223 mg/dL (75-110); POTASSIUM 5.1 mmol/L (3.6-5.0); SODIUM 136.8 mmol/L (137-145); TOTAL PROTEIN 7.1 g/dL (6.3-8.2)
[2018-12-18 09:03] LABS: ARTERIAL BLOOD H2CO3 1.81 mmol/L (1.05-1.35); ARTERIAL BLOOD HCO3 31.6 mmol/L (20-24); ARTERIAL BLOOD O2 SATURATION 92.7 % (94-98); ARTERIAL BLOOD PCO2 60.1 mmHg (35-45); ARTERIAL BLOOD PH 7.34 (7.35-7.45); ARTERIAL BLOOD PO2 70.3 mmHg (80-100); ARTERIAL BLOOD TOTAL CO2 33.4 mmol/L (21-25)
[2018-12-18 09:04] LABS: ARTERIAL BLOOD FIO2 40%
[2018-12-18] MEDS ORDERED: MORPHINE SULFATE 10 MG/ML INJ IV ONE (09:57)
[2018-12-18] MEDS ORDERED: GLUCAGON,HUMAN RECOMB 1 MG INJ IM PRN (11:40)
[2018-12-18] MEDS ORDERED: DEXTROSE 50%-WATER 25 GM/50 ML DISP.SYRIN IV PRN ×2 (11:40)
[2018-12-18] MEDS ORDERED: DEXTROSE 40% GEL 15 GM TUBE PO PRN ×2 (11:40)
[2018-12-18] MEDS ORDERED: ACETAMINOPHEN 325 MG TABLET PO PRN (13:32)
[2018-12-18] MEDS: MORPHINE SULFATE 10 MG/ML INJ IV PRN ×2 (14:17→21:31)
[2018-12-18] MEDS: PANTOPRAZOLE SODIUM 40 MG VIAL IV SCH (14:18)
[2018-12-18] MEDS: METHYLPREDNISOLONE INJ 40 MG/1 ML SDV IV SCH ×2 (14:18→21:31)
[2018-12-18] MEDS: IPRATROPIUM/ALBUTEROL 0.5-2.5 MG/3 ML AMPUL NEB SCH ×2 (14:19→19:59)
[2018-12-18] MEDS ORDERED: NORMAL SALINE 1000 ML 1,000 ML IV PRN (16:22)
[2018-12-18] MEDS: INSULIN LISPRO 100 UNIT/ML 3 ML VIAL SUBCUT SCH ×2 (16:25→21:31)
--- NOTE | 2018-12-18 17:44 | PDOC H&P ---
History of Present Illness Admission Date/PCP: 12/18/18 10:17 OMA MARCOS MD Patient complains of: wheezing, SOB History of Present Illness: CHRISTOS MULTANI is a 73 year old female with a PMH of nonischemic cardiomyopathy, prior ACID placement, severe COPD and hypertension, recently admitted for COPD exacerbation and pneumonia who is presenting with recurrence of wheezing and SOB. This provider discharged this patient 2 days ago. She initially presented with w heezing and SOB and was started on IV steroids and breathing treatments. She had a chest CTA which ruled out a PE. She had a prolonged course here as attempt to switch solumedrol to prednisone during her stay resulted to recurrence of wheezing. She did eventually improve and was switched to prednisone and ambulated well on the hallways on day of discharge. She was seen by pulmonoogy and her Advair was switched to Trelegy. She was discharged on high dose prednisone and 3 more days of Levaquin. She says that when she was discharged home, she had mild increasing SOB again. Last night, this continued to worsen and she developed more wheezing and presented again to the ER thsi morning where she was noted to have bilateral wheezing. ABG also shows elevated PCO2 in the 60s. She also was initially hypoxic in the high 80s. She is currently saturating at 94-95% on BIPAP. Past Medical History Cardiac Medical History: Reports: Congestive Heart Failure, Hyperlipidema, Hypertension Denies: Myocardial Infarction Pulmonary Medical History: Reports: Chronic Obstructive Pulmonary Disease (COPD), Pneumonia Denies: Asthma Neurological Medical History: Reports: Seizures - WITH DEMEROL GI Medical History: Denies: Hepatitis, Hiatal Hernia Psychiatric Medical History: Denies: Depression Hematology: Denies: Anemia, Sickle Cell Disease Past Surgical History Past Surgical History: Reports: Cardiac Catheterization, Section, Pacemaker - February Denies: Amputation, Mastectomy Social History Smoking Status: Former Smoker Frequency of Alcohol Use: None Hx Recreational Drug Use: No Drugs: None Hx Prescription Drug Abuse: No Family History Family History: Reviewed & Not Pertinent Parental Family History Reviewed: Yes - no premature CAD Children Family History Reviewed: No Sibling(s) Family History Reviewed.: No Medication/Allergy Home Medications: Albuterol Sulfate [Ventolin Hfa] 2 puff IH Q4HP PRN 11/27/17 Aspirin [Adult Low Dose Aspirin EC] 81 mg PO DAILY 11/27/17 Furosemide [Lasix 20 mg Tablet] 20 mg PO DAILYP PRN 11/27/17 Pravastatin Sodium [Pravachol] 10 mg PO QHS 11/27/17 Cetirizine HCl [Zyrtec 10 mg Tablet] 10 mg PO DAILY 12/11/18 Fluticasone/Umeclidin/Vilanter [Trelegy 100-62.5-25 Mcg Ellipta 14 Dose/Dpi] 1 inh IH DAILY #1 inhaler 12/16/18 Levofloxacin [Levaquin 500 mg Tablet] 500 mg PO QHS 3 Days #3 tablet MDD filled 12/16 for 3 day supply 12/16/18 Metoprolol Succinate [Toprol Xl 25 mg Tab.sr] 25 mg PO DAILY #30 tab.sr.24h 12/16/18 Prednisone [Deltasone 20 mg Tablet] 40 mg PO BID 5 Days #10 tablet MDD filled 12/16 for 5 day supply 12/16/18 Ranitidine HCl [Zantac 150 mg Tablet] 300 mg PO BID 12/18/18 Allergies/Adverse Reactions: amoxicillin trihydrate [From Augmentin] Allergy (Verified 12/11/18 14:10) meperidine HCl [From Demerol] Allergy (Verified 12/11/18 14:10) Potassium Clavulanate * [From Augmentin] Allergy (Verified 12/11/18 14:10) Review of Systems All systems: reviewed and no additional remarkable complaints except as stated - as mentioned in HPI Physical Exam Vital Signs: Temp Pulse Resp BP Pulse Ox 30 H 96 12/18/18 07:38 12/18/18 07:38 Intake & Output 12/17/18 12/18/18 12/19/18 06:59 06:59 06:59 Intake Total 200 Balance 200 Weight 128 lb General appearance: PRESENT: no acute distress, well-developed, well-nourished Head exam: PRESENT: atraumatic, normocephalic Eye exam: PRESENT: conjunctiva pink, EOMI, PERRLA. ABSENT: scleral icterus Ear exam: PRESENT: normal external ear exam Mouth exam: PRESENT: moist, tongue midline Neck exam: ABSENT: carotid bruit, JVD, lymphadenopathy, thyromegaly Respiratory exam: PRESENT: wheezes. ABSENT: rales, rhonchi Cardiovascular exam: PRESENT: RRR. ABSENT: diastolic murmur, rubs Pulses: PRESENT: normal dorsalis pedis pul GI/Abdominal exam: PRESENT: normal bowel sounds, soft. ABSENT: distended, guarding, mass, organolmegaly, rebound, tenderness Rectal exam: PRESENT: deferred Neurological exam: PRESENT: alert, awake, oriented to person, oriented to place, oriented to time, oriented to situation, CN II-XII grossly intact. ABSENT: motor sensory deficit Results Laboratory Results: 12/18/18 07:59 12/18/18 07:59 12/18/18 12/18/18 12/18/18 07:59 07:59 08:30 WBC 16.6 H RBC 4.91 Hgb 14.1 Hct 43.4 MCV 88 MCH 28.7 MCHC 32.5 RDW 15.2 H Plt Count 257 Seg Neutrophils % 83.1 H Lymphocytes % 15.3 Monocytes % 1.5 L Eosinophils % 0.0 Basophils % 0.1 Absolute Neutrophils 13.8 H Absolute Lymphocytes 2.6 Absolute Monocytes 0.3 Absolute Eosinophils 0.0 Absolute Basophils 0.0 Carbonic Acid 1.81 H HCO3/H2CO3 Ratio 17:1 ABG pH 7.34 L ABG pCO2 60.1 H ABG pO2 70.3 L ABG HCO3 31.6 H ABG O2 Saturation 92.7 L ABG Base Excess 4.0 FiO2 40% Sodium 136.8 L Potassium 5.1 H Chloride 92 L Carbon Dioxide 33 H Anion Gap 12 BUN 52 H Creatinine 1.30 H Est GFR ( Amer) 48 L Est GFR (Non-Af Amer) 40 L Glucose 223 H Calcium 10.5 H Magnesium 2.1 Total Bilirubin 1.1 AST 20 ALT 20 Alkaline Phosphatase 62 Total Protein 7.1 Albumin 4.1 12/18/18 12/18/18 07:59 07:59 Troponin I 0.012 NT-Pro-B Natriuret Pep 6430 H Impressions: Chest X-Ray 12/18/18 07:30 IMPRESSION: 1. Stable bibasilar atelectasis or scar. No acute pulmonary consolidation. Assessment and Plan - Diagnosis (1) Acute respiratory failure with hypoxia and hypercapnia Is this a current diagnosis for this admission?: Yes Plan: Secondary to COPD exacerbation. Currently requiring BIPAP. (2) Acute exacerbation of chronic obstructive pulmonary disease (COPD) Is this a current diagnosis for this admission?: Yes Plan: Cotninue solumedrol 40 mg IV q8h. Scheduled breathing treatments. Continue Levaquin, renally dosed due to LAURO. (3) Acute kidney injury Is this a current diagnosis for this admission?: Yes Plan: She was diuresed initially on her recent admission as there was initial impression, she was in CHF exacerbation on admission. Repeat BMP. Normal saline at 50 cc/hr due to poor EF. Repeat BMP tomorrow. (4) Nonischemic cardiomyopathy Is this a current diagnosis for this admission?: Yes Plan: S/P AICD placement. She had a prior EF of <25%. Recent echo shows recovered EF of 60%. - Time Time Spent with patient: 25-34 minutes
--- NOTE | 2018-12-18 18:00 | ADVANCED CARE ---
- Diagnosis (1) Acute respiratory failure with hypoxia and hypercapnia Diagnosis Current: Yes (2) Acute exacerbation of chronic obstructive pulmonary disease (COPD) Diagnosis Current: Yes (3) Acute kidney injury Diagnosis Current: Yes (4) Nonischemic cardiomyopathy Diagnosis Current: Yes Resuscitation Status: Full Code Discussion: Patient says she does want us to try to "revive" her if her heart stops. Clarified this will include chest compressions and defibrillation. She also says she does not want to be on intermediate frame tender or prolonged ventilation if she ended up being intubated. Her daughter, Anna, is her surrogate decision maker.
--- NOTE | 2018-12-18 20:04 | EKG REPORT ---
SEVERITY:- ABNORMAL ECG - ATRIAL-SENSED VENTRICULAR-PACED COMPLEXES NONSPECIFIC INTRAVENTRICULAR CONDUCTION DELAY NONSPECIFIC ST DEPRESSION PVC 's : Confirmed by: Yessi Ugalde MD 18-Dec-2018 20:04:08
[2018-12-18] MEDS: HEPARIN SOD (PORCINE) 5,000 UNIT/ML 1 ML SYRINGE SUBCUT SCH (21:33)
[2018-12-18] MEDS ORDERED: LACTULOSE SYRUP 20 GM/30 ML UDCUP PO ONE (23:45)
[2018-12-19 00:13] LABS: ALANINE AMINOTRANSFERASE 29 U/L (9-52); ALKALINE PHOSPHATASE 45 U/L (38-126); ANION GAP 8 (5-19); ASPARTATE AMINO TRANSFERASE 25 U/L (14-36); BILIRUBIN,DIRECT 0.4 mg/dL (0.0-0.4); BILIRUBIN,TOTAL 0.5 mg/dL (0.2-1.3); BLOOD UREA NITROGEN 68 mg/dL (7-20); CALCIUM 9.1 mg/dL (8.4-10.2); CARBON DIOXIDE 34 mmol/L (22-30); CHLORIDE 92 mmol/L (98-107); GLUCOSE 224 mg/dL (75-110); POTASSIUM 5.2 mmol/L (3.6-5.0); SODIUM 133.5 mmol/L (137-145); TOTAL PROTEIN 5.6 g/dL (6.3-8.2)
[2018-12-19] MEDS ORDERED: NA PHOS,M-B/NA PHOS,DI-BA (ADULT) 133 ML ENEMA PR ONE (01:00)
[2018-12-19] MEDS: MORPHINE SULFATE 10 MG/ML INJ IV PRN ×2 (01:59→16:24)
[2018-12-19] MEDS ORDERED: NORMAL SALINE 500 ML IV ONE (02:00)
[2018-12-19] MEDS: IPRATROPIUM/ALBUTEROL 0.5-2.5 MG/3 ML AMPUL NEB SCH ×3 (02:34→13:20)
[2018-12-19 03:26] LABS: ANION GAP 10 (5-19); BLOOD UREA NITROGEN 70 mg/dL (7-20); CALCIUM 9.3 mg/dL (8.4-10.2); CARBON DIOXIDE 29 mmol/L (22-30); CHLORIDE 97 mmol/L (98-107); GLUCOSE 196 mg/dL (75-110); SODIUM 135.6 mmol/L (137-145)
[2018-12-19] MEDS: METHYLPREDNISOLONE INJ 40 MG/1 ML SDV IV SCH ×2 (05:11→13:12)
[2018-12-19 05:17] LABS: ARTERIAL BLOOD BASE EXCESS 2.1 mmol/L; ARTERIAL BLOOD HCO3 29.6 mmol/L (20-24); ARTERIAL BLOOD O2 SATURATION 92.3 % (94-98); ARTERIAL BLOOD PCO2 59.7 mmHg (35-45); ARTERIAL BLOOD PH 7.31 (7.35-7.45); ARTERIAL BLOOD PO2 70.2 mmHg (80-100); ARTERIAL BLOOD TOTAL CO2 31.4 mmol/L (21-25)
[2018-12-19 05:19] LABS: ARTERIAL BLOOD FIO2 40%
[2018-12-19] MEDS ORDERED: LACTULOSE SYRUP 20 GM/30 ML UDCUP PR ONE (06:15)
[2018-12-19] MEDS ORDERED: LACTULOSE SYRUP 20 GM/30 ML UDCUP ONE (06:24)
[2018-12-19] MEDS ORDERED: FUROSEMIDE INJ/PF 40 MG/4 ML SDV IV ONE (08:28)
[2018-12-19] MEDS: INSULIN LISPRO 100 UNIT/ML 3 ML VIAL SUBCUT SCH ×3 (08:36→17:17)
--- NOTE | 2018-12-19 08:59 | RADIOLOGY REPORT (SQ) ---
EXAM DESCRIPTION: CHEST SINGLE VIEW COMPLETED DATE/TIME: 12/19/2018 8:49 am REASON FOR STUDY: dyspnea. COMPARISON: 12/18/2018. EXAM PARAMETERS: NUMBER OF VIEWS: One view. TECHNIQUE: Single frontal radiographic view of the chest acquired. RADIATION DOSE: NA LIMITATIONS: None. FINDINGS: LUNGS AND PLEURA: Stable mild basilar atelectasis/scarring. No focal infiltrates, masses or pneumothorax. No pleural effusion. MEDIASTINUM AND HILAR STRUCTURES: No masses. Contour normal. HEART AND VASCULAR STRUCTURES: Heart upper normal in size. Normal vasculature. BONES: No acute findings. HARDWARE: Defibrillator. OTHER: No other significant finding. IMPRESSION: STABLE APPEARANCE. NO ACUTE RADIOGRAPHIC FINDING IN THE CHEST. TECHNICAL DOCUMENTATION: JOB ID: [id number] [employer]- All Rights Reserved Reading location - IP/workstation name: [email or web address]
[2018-12-19] MEDS ORDERED: FUROSEMIDE 20 MG TABLET PO PRN (10:36)
--- NOTE | 2018-12-19 10:36 | PDOC PROGRESS REPORT ---
Subjective Progress Note for:: 12/19/18 Subjective:: CHRISTOS MULTANI is a 73 year old female admitted for a COPD and CHF exacerbation. She has a PMH of nonischemic cardiomyopathy, prior ACID placement (V paced) severe COPD and hypertension, recently admitted (12/11/2018) for COPD exacerbation and pneumonia. The patient was discharged home 12/16/2018 and, according to family, experienced worsening dyspnea which prompted her return to the ER on 12/18/2018. The patient was seen this morning on rounds, she is resting in bed on BiPAP. She appears uncomfortable, breathing 25-50 breaths per minute. ABG done at 0400 this morning showed partially compensated respiratory acidosis, superimposed on (likely) chronic hypercapnia. STAT CXR this morning shows pulmonary vascular congestion, possible small pleural effusion (as evidenced by blunting of the costophrenic angle). Administered Lasix 40 mg IV in hopes of improving her respiratory status. The patient's renal function remains worse than her baseline. Today her crea tinine is 2.0, normally she is <1.0. Noted on telemetry tracing that the patient has been experiencing frequent PVCs as well as runs of VTACH. She is otherwise V paced. Does not appear to have good capture. Family reported that the patient was "due to have her pacemaker checked" prior to next social professionals visit. Potassium this AM is down to 5.0 (previously 5.2), plan to check Mag/Phos levels this morning. Due to complexity of patient's medical history as well as her deteriorating clinical picture, plan to upgrade to ICU. Reason For Visit: ACUTE HYPERCAPNIC/ RESPIRATORY FAILURE Physical Exam Vital Signs: Temp Pulse Resp BP Pulse Ox 98.3 F 55 L 26 H 127/60 H 96 12/19/18 08:22 12/19/18 08:22 12/19/18 08:22 12/19/18 08:22 12/19/18 08:22 Intake & Output 12/18/18 12/19/18 12/20/18 06:59 06:59 06:59 Intake Total 700 Output Total 0 Balance 700 Weight 59 kg General appearance: PRESENT: well-developed, well-nourished, other - MODERATE DISTRESS Eye exam: PRESENT: conjunctiva pink, PERRLA Mouth exam: PRESENT: dry mucosa Neck exam: PRESENT: full ROM Respiratory exam: PRESENT: decreased breath sounds, symmetrical, other - REQUIRING SUPPLEMENTAL O2 VIA BIPAP. ABSENT: retraction, rhonchi, unlabored, wheezes Cardiovascular exam: PRESENT: irregular rhythm, other - V PACED. FREQUENT PVCs. INFREQUENT RUNS OF VTACH Pulses: PRESENT: normal radial pulses, +1 pedal pulses bilateral Vascular exam: PRESENT: pallor GI/Abdominal exam: PRESENT: soft. ABSENT: distended Rectal exam: PRESENT: deferred Extremities exam: PRESENT: pedal edema - TRACE Musculoskeletal exam: ABSENT: ambulatory Neurological exam: PRESENT: awake, oriented to person, oriented to situation. ABSENT: alert Psychiatric exam: PRESENT: appropriate affect Skin exam: PRESENT: dry, intact, pallor, warm Results Laboratory Results: 12/18/18 07:59 12/19/18 02:35 12/18/18 12/18/18 12/19/18 15:45 23:45 02:35 Carbonic Acid HCO3/H2CO3 Ratio ABG pH ABG pCO2 ABG pO2 ABG HCO3 ABG O2 Saturation ABG Base Excess FiO2 Sodium 133.5 L 135.6 L Potassium 5.2 H 5.0 Chloride 92 L 97 L Carbon Dioxide 34 H 29 Anion Gap 8 10 BUN 68 H 70 H Creatinine 2.15 H 2.03 H Est GFR ( Amer) 27 L 29 L Est GFR (Non-Af Amer) 22 L 24 L Glucose 224 H 196 H Calcium 9.1 9.3 Magnesium 3.1 H D Total Bilirubin 0.5 AST 25 ALT 29 Alkaline Phosphatase 45 Total Protein 5.6 L Albumin 3.0 L Urine Color Cancelled Urine Appearance Cancelled Urine pH Cancelled Ur Specific [place] Cancelled Urine Protein Cancelled Urine Glucose (UA) Cancelled Urine Ketones Cancelled Urine Blood Cancelled Urine Nitrite Cancelled Ur Leukocyte Esterase Cancelled Urine WBC (Auto) Cancelled Urine RBC (Auto) Cancelled 12/19/18 04:59 Carbonic Acid 1.80 H HCO3/H2CO3 Ratio 16:1 ABG pH 7.31 L ABG pCO2 59.7 H ABG pO2 70.2 L ABG HCO3 29.6 H ABG O2 Saturation 92.3 L ABG Base Excess 2.1 FiO2 40% Sodium Potassium Chloride Carbon Dioxide Anion Gap BUN Creatinine Est GFR ( Amer) Est GFR (Non-Af Amer) Glucose Calcium Magnesium Total Bilirubin AST ALT Alkaline Phosphatase Total Protein Albumin Urine Color Urine Appearance Urine pH Ur Specific [place] Urine Protein Urine Glucose (UA) Urine Ketones Urine Blood Urine Nitrite Ur Leukocyte Esterase Urine WBC (Auto) Urine RBC (Auto) 12/18/18 12/18/18 07:59 07:59 Troponin I 0.012 NT-Pro-B Natriuret Pep 6430 H Impressions: Chest X-Ray 12/19/18 08:29 IMPRESSION: STABLE APPEARANCE. NO ACUTE RADIOGRAPHIC FINDING IN THE CHEST. Status: Imported from PACS Assessment and Plan - Diagnosis (1) Acute respiratory failure with hypoxia and hypercapnia Is this a current diagnosis for this admission?: Yes Plan: Secondary to COPD exacerbation, possible CHF exacerbation Requiring supplemental O2 via BiPAP ABG this a.m. reveals acute respiratory acidosis, superimposed on chronic hypercapnia CXR today reveals mild pulmonary vascular congestion, possible small bilateral pleural effusion Previously hospitalized earlier this month for COPD exacerbation, completed course of Levaquin. No abx at this time Currently receiving scheduled nebulizer treatments & scheduled IV steroids (2) Acute exacerbation of chronic obstructive pulmonary disease (COPD) Is this a current diagnosis for this admission?: Yes Plan: Plan as above (3) Acute kidney injury Is this a current diagnosis for this admission?: Yes Plan: Creatinine 2.0, baseline < 1.0 Uremia worsening BUN 52-->70 Likely prerenal Was diuresed during previous hospitalization No need for dialysis at this time (4) Acute on chronic diastolic CHF (congestive heart failure) Is this a current diagnosis for this admission?: Yes Plan: History of nonischemic cardiomyopathy s/p AICD placement Prior LVEF <25%, ECHO from previous hospitalization shows recovered LVEF of 60% Continue home dose Toprol XL, Lasix and aspirin (5) Nonischemic cardiomyopathy Is this a current diagnosis for this admission?: Yes Plan: plan as above (6) Pacemaker Is this a current diagnosis for this admission?: Yes Plan: s/p AICD placement V paced Frequent PVCs Poor capture Family state it is "time to get the pacemaker checked" during next social professionals visit (7) Full cardiopulmonary resuscitation status Is this a current diagnosis for this admission?: Yes Plan: Previous provider discussed code status with patient and daughter Verified that patient wished to remain a full code - Time Time Spent with patient: 25-34 minutes Total Critical Time (Minutes): 15 Medications reviewed and adjusted accordingly: Yes Anticipated discharge: Home - Inpatient Certification Based on my medical assessment, after consideration of the patient's comorbidities, presenting symptoms, or acuity I expect that the services needed warrant INPATIENT care.: Yes I certify that my determination is in accordance with my understanding of Medicare's requirements for reasonable and necessary INPATIENT services [42 CFR 412.3e].: Yes Medical Necessity: Need Close Monitoring Due to Risk of Patient Decompensation, Risk of Complication if Not Cared For in Hospital - Plan Summary Plan Summary: UPGRADE TO ICU
[2018-12-19] MEDS: HEPARIN SOD (PORCINE) 5,000 UNIT/ML 1 ML SYRINGE SUBCUT SCH ×2 (11:02→22:43)
[2018-12-19] MEDS: ASPIRIN 81 MG TABLET, ENT COATED PO SCH (11:02)
[2018-12-19 11:39] LABS: HEMATOCRIT 37.9 % (36.0-47.0); HEMOGLOBIN 12.3 g/dL (12.0-15.5); MEAN CORPUSCULAR HEMOGLOBIN 28.6 pg (27.0-33.4); MEAN CORPUSCULAR HGB CONC 32.5 g/dL (32.0-36.0); MEAN CORPUSCULAR VOLUME 88 fl (80-97); RED BLOOD COUNT 4.31 10^6/uL (3.72-5.28); RED CELL DISTRIBUTION WIDTH 15.2 % (11.5-14.0); WHITE BLOOD COUNT 17.9 10^3/uL (4.0-10.5)
--- NOTE | 2018-12-19 11:50 | RADIOLOGY REPORT (SQ) ---
EXAM DESCRIPTION: KUB/ABDOMEN (SINGLE VIEW) COMPLETED DATE/TIME: 12/19/2018 11:14 am REASON FOR STUDY: Abdo pain, distention COMPARISON: None. NUMBER OF VIEWS: One view. TECHNIQUE: Supine radiographic image of the abdomen acquired. LIMITATIONS: None. FINDINGS: BOWEL GAS PATTERN: Nonobstructive gas pattern. Considerable stool. CALCIFICATIONS: No suspicious calcifications. SOFT TISSUES: No gross mass or suggestion of organomegaly. HARDWARE: None in the abdomen. BONES: No acute fracture. No worrisome bone lesions. OTHER: No other significant finding. IMPRESSION: Constipation. TECHNICAL DOCUMENTATION: JOB ID: [id number] [employer]- All Rights Reserved Reading location - IP/workstation name: [email or web address]
[2018-12-19 11:52] LABS: PHOSPHORUS 9.6 mg/dL (2.5-4.5)
[2018-12-19 12:00] LABS: ABSOLUTE LYMPHOCYTES# (MANUAL) 0.4 10^3/uL (0.5-4.7); ABSOLUTE NEUTROPHILS# (MANUAL) 17.5 10^3/uL (1.7-8.2); BASOPHILS % (MANUAL) 0 % (0-2); EOSINOPHILS % (MANUAL) 0 % (0-6); LYMPHOCYTES % (MANUAL) 2 % (13-45); MONOCYTES % (MANUAL) 0 % (3-13); SEGMENTED NEUTROPHILS % (MAN) 79 % (42-78); TOTAL CELLS COUNTED 100
[2018-12-19 12:04] LABS: TOXIC VACUOLATION PRESENT
--- NOTE | 2018-12-19 12:04 | PDOC PROGRESS REPORT ---
Subjective Progress Note for:: 12/19/18 Subjective:: Patient is received and transferred to the ICU from [facility] for increasing respiratory distress Reason For Visit: ACUTE HYPERCAPNIC/ RESPIRATORY FAILURE Physical Exam Vital Signs: Temp Pulse Resp BP Pulse Ox 98.8 F 107 H 24 H 127/81 H 100 12/19/18 10:06 12/19/18 10:06 12/19/18 10:06 12/19/18 10:06 12/19/18 10:06 Intake & Output 12/18/18 12/19/18 12/20/18 06:59 06:59 06:59 Intake Total 700 Output Total 0 Balance 700 Weight 59 kg General appearance: PRESENT: cooperative, mild distress - Mild to moderate distress. Currently on BiPAP., well-developed - Developed but frail-appearing 73-year-old patient resting in bed. Head exam: PRESENT: atraumatic, normocephalic Eye exam: PRESENT: conjunctiva pink. ABSENT: scleral icterus Ear exam: PRESENT: normal external ear exam Mouth exam: PRESENT: other - BiPAP in place Respiratory exam: PRESENT: decreased breath sounds - At bases, prolonged expiratory phas, symmetrical. ABSENT: rales, wheezes Cardiovascular exam: PRESENT: RRR - Exhibiting atrial paced rhythm, +S1, +S2, other - Distant heart sounds GI/Abdominal exam: PRESENT: distended, guarding, hypoactive bowel sounds, te nderness - Especially across the upper abdomen Rectal exam: PRESENT: deferred Extremities exam: ABSENT: pedal edema Musculoskeletal exam: PRESENT: other - Decreased muscle mass Neurological exam: PRESENT: alert, awake, oriented to person, oriented to place, oriented to situation Psychiatric exam: PRESENT: anxious, appropriate affect. ABSENT: agitated Focused psych exam: ABSENT: delusional, restlessness Skin exam: PRESENT: dry, warm. ABSENT: rash Results Laboratory Results: 12/19/18 02:35 12/18/18 12/18/18 12/19/18 15:45 23:45 02:35 Carbonic Acid HCO3/H2CO3 Ratio ABG pH ABG pCO2 ABG pO2 ABG HCO3 ABG O2 Saturation ABG Base Excess FiO2 Sodium 133.5 L 135.6 L Potassium 5.2 H 5.0 Chloride 92 L 97 L Carbon Dioxide 34 H 29 Anion Gap 8 10 BUN 68 H 70 H Creatinine 2.15 H 2.03 H Est GFR ( Amer) 27 L 29 L Est GFR (Non-Af Amer) 22 L 24 L Glucose 224 H 196 H Calcium 9.1 9.3 Magnesium 3.1 H D Total Bilirubin 0.5 AST 25 ALT 29 Alkaline Phosphatase 45 Total Protein 5.6 L Albumin 3.0 L Urine Color Cancelled Urine Appearance Cancelled Urine pH Cancelled Ur Specific [place] Cancelled Urine Protein Cancelled Urine Glucose (UA) Cancelled Urine Ketones Cancelled Urine Blood Cancelled Urine Nitrite Cancelled Ur Leukocyte Esterase Cancelled Urine WBC (Auto) Cancelled Urine RBC (Auto) Cancelled 12/19/18 04:59 Carbonic Acid 1.80 H HCO3/H2CO3 Ratio 16:1 ABG pH 7.31 L ABG pCO2 59.7 H ABG pO2 70.2 L ABG HCO3 29.6 H ABG O2 Saturation 92.3 L ABG Base Excess 2.1 FiO2 40% Sodium Potassium Chloride Carbon Dioxide Anion Gap BUN Creatinine Est GFR ( Amer) Est GFR (Non-Af Amer) Glucose Calcium Magnesium Total Bilirubin AST ALT Alkaline Phosphatase Total Protein Albumin Urine Color Urine Appearance Urine pH Ur Specific [place] Urine Protein Urine Glucose (UA) Urine Ketones Urine Blood Urine Nitrite Ur Leukocyte Esterase Urine WBC (Auto) Urine RBC (Auto) 12/18/18 12/18/18 07:59 07:59 Troponin I 0.012 NT-Pro-B Natriuret Pep 6430 H Impressions: Chest X-Ray 12/19/18 08:29 IMPRESSION: STABLE APPEARANCE. NO ACUTE RADIOGRAPHIC FINDING IN THE CHEST. Assessment and Plan - Diagnosis (1) Acute on chronic respiratory failure Qualifiers: Respiratory failure complication: hypoxia and hypercapnia Qualified Co de(s): J96.21 - Acute and chronic respiratory failure with hypoxia; J96.22 - Acute and chronic respiratory failure with hypercapnia Is this a current diagnosis for this admission?: Yes Plan: 12/19/2018-the patient has a history of chronic obstructive pulmonary disease dating back many years. She in fact was just discharged from this hospital on December 16. She was readmitted yesterday December 18. On IMCU she was requiring BiPAP but became tachypneic. There is a question of increased vascular congestion (history of CHF) as well as pleural effusion. The patient was discharged on levofloxacin and prednisone. She is currently on intravenous Solu-Medrol and she will complete her levofloxacin therapy. She was quite tachypneic earlier. She was retaining CO2. Pulmonology has seen the patient as well. The patient did wish to change her CODE STATUS. Please see note below. Intubation is still something that she requests if needed. Because she was tachycardic we will use Xopenex for the time being for bronchodilation. She will remain on BiPAP. We will treat aggressively and try to avoid intubation. (2) Acute exacerbation of chronic obstructive pulmonary disease (COPD) Is this a current diagnosis for this admission?: Yes Plan: 12/19/2018-as above. We will continue to monitor. Pulmonology has been consulted. Nebulizer therapy as above. When tolerated we will reinstitute inhaler therapy (3) Acute kidney injury Is this a current diagnosis for this admission?: Yes Plan: 12/19/2018-serum creatinine was 1.3 on admission. Prior to this admission serum creatinine had been normal. She increased to 2.15 and this morning is down to 2.03. We will continue to monitor and be judicious about fluid versus diuresis. (4) Acute on chronic diastolic CHF (congestive heart failure) Is this a current diagnosis for this admission?: Yes Plan: At her jenaa her ejection fraction was less than 25%. Most recent echoc ardiogram reveals an ejection fraction of 60%. I will resume her metoprolol but change to the tartrate 12.5 mg twice daily for the time being before resuming her succinate 25 mg daily dose. Continue aspirin and adjust furosemide based on her clinical condition as well as fluid balance. (5) Nonischemic cardiomyopathy Is this a current diagnosis for this admission?: Yes Plan: As noted above she has recovered ejection fraction. We will continue to monitor. She does have an AICD/pacemaker in place. (6) Abdominal pain, bilateral upper quadrant Is this a current diagnosis for this admission?: Yes Plan: Patient is quite tender and distended. Her pain is mostly across the upper abdomen. I did order a KUB film and this reveals heavy burden of stool. Will monitor closely. She has already received multiple doses of stool softeners/laxatives. If bowel movements do not relieve the abdominal discomfort then we may proceed to a CT scan. Will consult surgery if indicated. (7) Pacemaker Is this a current diagnosis for this admission?: Yes Plan: We will interrogate the pacemaker. The patient's pacemaker has not been interrogated for years. Currently she is mostly in a paced rhythm. The patient beats reveal a palpable pulse. The non-paced beats are difficult to palpate. Cardiac sounds are somewhat distant and difficult to auscultate. We will interrogate pacemaker and then discuss with cardiology. (8) DNR (do not resuscitate) discussion Is this a current diagnosis for this admission?: Yes Plan: See separate advance care planning note. - Time Total Critical Time (Minutes): 40 Medications reviewed and adjusted accordingly: Yes
[2018-12-19 12:05] LABS: PLATELET CLUMPS PRESENT; POIKILOCYTOSIS SLIGHT; POLYCHROMASIA SLIGHT; SCHISTOCYTES SLIGHT
--- NOTE | 2018-12-19 12:07 | ADVANCED CARE ---
- Diagnosis (1) Acute on chronic respiratory failure Diagnosis Current: Yes (2) Acute exacerbation of chronic obstructive pulmonary disease (COPD) Diagnosis Current: Yes (3) Acute kidney injury Diagnosis Current: Yes (4) Acute on chronic diastolic CHF (congestive heart failure) Diagnosis Current: Yes (5) Nonischemic cardiomyopathy Diagnosis Current: Yes (6) Abdominal pain, bilateral upper quadrant Diagnosis Current: Yes (7) Pacemaker Diagnosis Current: Yes (8) DNR (do not resuscitate) discussion Diagnosis Current: Yes Attendance: The patient requested discussion regarding her CODE STATUS. She had mentioned to the staff, and I believe family, about changing from full code. Resuscitation Status: Other - The patient does not want cardiac resuscitation but will allow intubation if needed. Discussion: The patient is quite familiar with discussions regarding CODE STATUS. She indicated that she would not want cardiac compressions or defibrillation but would allow intubation if required. Clearly in the circumstance of worsening condition we will review this with the patient considering her long history of COPD and cardiac issues. Care Planning Goals: The goal of changing her current status to a new status limited to intubation only was achieved Document(s) Completed: Orders placed but no formal documentation completed. Can discuss with family Time Spent: 25 minutes
[2018-12-19 12:09] LABS: BAND NEUTROPHILS % (MANUAL) 19 % (3-5); PLATELET COMMENT ADEQUATE; PLATELET COUNT 183 10^3/uL (150-450)
[2018-12-19] MEDS: PANTOPRAZOLE SODIUM 40 MG VIAL IV SCH (13:12)
[2018-12-19 13:58] LABS: ARTERIAL BLOOD BASE EXCESS 4.9 mmol/L; ARTERIAL BLOOD H2CO3 1.86 mmol/L (1.05-1.35); ARTERIAL BLOOD HCO3 32.3 mmol/L (20-24); ARTERIAL BLOOD PCO2 61.9 mmHg (35-45); ARTERIAL BLOOD PH 7.34 (7.35-7.45); ARTERIAL BLOOD TOTAL CO2 34.2 mmol/L (21-25)
[2018-12-19] MEDS ORDERED: ROCURONIUM BROMIDE INJ 50 MG/5 ML VIAL IV ONE (14:48)
[2018-12-19] MEDS ORDERED: SUCCINYLCHOLINE CHLORIDE INJ 200 MG/10 ML VIAL ONE (14:48)
[2018-12-19] MEDS ORDERED: PHENYLEPHRINE HCL INJ/PF 10 MG/1 ML SDV ONE (14:48)
[2018-12-19 14:49] LABS: ARTERIAL BLOOD FIO2 50%
--- NOTE | 2018-12-19 17:56 | RADIOLOGY REPORT (SQ) ---
EXAM DESCRIPTION: CT ABD/PELVIS NO ORAL OR IV COMPLETED DATE/TIME: 12/19/2018 5:06 pm REASON FOR STUDY: Severe abdominal pain COMPARISON: None. TECHNIQUE: CT scan of the abdomen and pelvis performed without intravenous or oral contrast. Images reviewed with lung, soft tissue, and bone windows. Reconstructed coronal and sagittal MPR images revi ewed. All images stored on PACS. All CT scanners at this facility use dose modulation, iterative reconstruction, and/or weight based d osing when appropriate to reduce radiation dose to as low as reasonably achievable (ALARA). [facility]: Dose Right [facility]: CareDose [facility]: Dose Right [facility]: Teradose 4D [facility]: Smart [email or web address] RADIATION DOSE: CT Rad equipment meets quality standard of care and radiation dose reduction techniq ues were employed. CTDIvol: 9.3 mGy. DLP: 476 mGy-cm.mGy. LIMITATIONS: None. FINDINGS: LOWER CHEST: Subsegmental atelectasis in the lower lobes. NON-CONTRASTED LIVER, SPLEEN, ADRENALS: Evaluation limited by lack of IV contrast. No identified sign ificant masses. PANCREAS: No masses. No peripancreatic inflammatory changes. GALLBLADDER: No identified stones by CT criteria. No inflammatory changes to suggest cholecystitis. RIGHT KIDNEY AND URETER: No suspicious masses. Assessment limited by lack of IV contrast. No signif icant calcifications. No hydronephrosis or hydroureter. LEFT KIDNEY AND URETER: No suspicious masses. Assessment limited by lack of IV contrast. No signifi cant calcifications. No hydronephrosis or hydroureter. AORTA AND RETROPERITONEUM: There is mild aneurysmal dilatation of the infrarenal abdominal aorta with maximum diameter of 30 mm. BOWEL AND PERITONEAL CAVITY: Considerable stool. Sigmoid diverticulosis. Mild mesenteric stranding in the left lower quadrant. Small amount of free fluid along the colic gutter and adjacent to the sp soraya. Small amount of free air. APPENDIX: Surgically absent. PELVIS, BLADDER, AND ABDOMINAL WALL:A catheter is in the urinary bladder. BONES: Anterolisthesis of L5 on S1, grade 2. Loss of height of multiple vertebral bodies. No acute fracture is appreciated. OTHER: No other significant finding. IMPRESSION: Sigmoid diverticulosis. Mesenteric inflammatory changes in the left lower quadrant. Sm all amount of free air and amount of free fluid. Cannot exclude sigmoid diverticulitis with perforat ion. COMMENT: Quality ID # [id number]: Final reports with documentation of one or more dose reduction techniques (e.g., Automated exposure control, adjustment of the mA and/or kV according to patient size, use of iterative reconstruction technique) TECHNICAL DOCUMENTATION: JOB ID: [id number] [employer]- All Rights Reserved Reading location - IP/workstation name: [email or web address]
[2018-12-19] MEDS ORDERED: PREDNISONE 20 MG TABLET PO SCH (18:00)
[2018-12-19] MEDS ORDERED: VANCOMYCIN HCL 0 MG in DEXTROSE 5%-WATER 250 ML IV NR (19:15)
[2018-12-19] MEDS ORDERED: CEFEPIME 1 GM/D5W RTU 1 GM/50 ML RTUPB IV SCH ×2 (19:30→20:00)
--- NOTE | 2018-12-19 20:06 | PDOC CONSULTATION ---
Consultation Consult Date: 12/19/18 Consult reason:: Acute abdomen History of Present Illness Admission Date/PCP: 12/18/18 10:17 OMA MARCOS MD Patient complains of: Abdominal pain, shortness of breath History of Present Illness: CHRISTOS MULTANI is a 73 year old female admitted with COPD exacerbation and respiratory distress. She began having progressive abdominal pain and distention. A CT scan was performed showing free intra-abdominal air. The patient complains of extreme abdominal pain and shortness of breath. Her pain is all over the abdomen. She cannot describe its quality. Nothing makes it better. Palpation makes it worse. She appears to be in respiratory distress at the moment. She is wearing BiPAP. She is slightly confused. She denies chest pain, headache, fevers, or chills. Past Medical History Cardiac Medical History: Reports: Congestive Heart Failure, Hyperlipidema, Hypertension Denies: Myocardial Infarction Pulmonary Medical History: Reports: Chronic Obstructive Pulmonary Disease (COPD), Pneumonia Denies: Asthma Neurological Medical History: Reports: Seizures - WITH DEMEROL GI Medical History: Denies: Hepatitis, Hiatal Hernia Psychiatric Medical History: Denies: Depression Hematology: Denies: Anemia, Sickle Cell Disease Past Surgical History Past Surgical History: Reports: Cardiac Catheterization, Section, Pacemaker - February Denies: Amputation, Mastectomy Social History Smoking Status: Former Smoker Frequency of Alcohol Use: None Hx Recreational Drug Use: No Drugs: None Hx Prescription Drug Abuse: No - Advance Directive Resuscitation Status: Other - The patient does not want cardiac resuscitation but will allow intubation if needed. Family History Family History: Reviewed & Not Pertinent Parental Family History Reviewed: Yes Children Family History Reviewed: Yes Sibling(s) Family History Reviewed.: Yes Medication/Allergy Home Medications: Albuterol Sulfate [Ventolin Hfa] 2 puff IH Q4HP PRN 11/27/17 Aspirin [Adult Low Dose Aspirin EC] 81 mg PO DAILY 11/27/17 Furosemide [Lasix 20 mg Tablet] 20 mg PO DAILYP PRN 11/27/17 Pravastatin Sodium [Pravachol] 10 mg PO QHS 11/27/17 Cetirizine HCl [Zyrtec 10 mg Tablet] 10 mg PO DAILY 12/11/18 Fluticasone/Umeclidin/Vilanter [Trelegy 100-62.5-25 Mcg Ellipta 14 Dose/Dpi] 1 inh IH DAILY #1 inhaler 04/13/19 Levofloxacin [Levaquin 500 mg Tablet] 500 mg PO QHS 3 Days #3 tablet MDD filled 12/16 for 3 day supply 12/16/18 Metoprolol Succinate [Toprol Xl 25 mg Tab.sr] 25 mg PO DAILY #30 tab.sr.24h 12/16/18 Prednisone [Deltasone 20 mg Tablet] 40 mg PO BID 5 Days #10 tablet MDD filled 12/16 for 5 day supply 12/16/18 Ranitidine HCl [Zantac 150 mg Tablet] 300 mg PO BID 12/18/18 Allergies/Adverse Reactions: amoxicillin trihydrate [From Augmentin] Allergy (Verified 12/11/18 14:10) meperidine HCl [From Demerol] Allergy (Verified 12/11/18 14:10) Potassium Clavulanate * [From Augmentin] Allergy (Verified 12/11/18 14:10) Review of Systems Constitutional: ABSENT: anorexia, chills, fatigue Eyes: ABSENT: visual disturbances Ears: ABSENT: hearing changes Nose, Mouth, and Throat: ABSENT: mouth pain, sore throat Cardiovascular: PRESENT: dyspnea on exertion. ABSENT: chest pain Respiratory: PRESENT: dyspnea. ABSENT: hemoptysis Gastrointestinal: PRESENT: abdominal pain, bloating, constipation Musculoskeletal: ABSENT: back pain Integumentary: PRESENT: diaphoresis. ABSENT: pruritus, rash Neurological: PRESENT: confusion - Mild Psychiatric: PRESENT: anxiety. ABSENT: depression Endocrine: ABSENT: cold intolerance, heat intolerance Hematologic/Lymphatic: ABSENT: easy bleeding, easy bruising Physical Exam Vital Signs: Temp Pulse Resp BP Pulse Ox 98.8 F 104 H 18 141/48 H 99 12/19/18 18:00 12/19/18 18:00 12/19/18 18:09 12/19/18 18:09 12/19/18 18:09 Intake & Output 12/18/18 12/19/18 12/20/18 06:59 06:59 06:59 Intake Total 700 Output Total 0 650 Balance 700 -650 Weight 59 kg General appearance: PRESENT: severe distress Head exam: PRESENT: atraumatic, normocephalic Eye exam: PRESENT: EOMI, PERRLA. ABSENT: scleral icterus Mouth exam: PRESENT: moist, neck supple Neck exam: ABSENT: meningismus, tenderness, thyromegaly, tracheal deviation Respiratory exam: PRESENT: crackles, retraction, rhonchi, tachypnea. ABSENT: chest wall tenderness, unlabored Cardiovascular exam: PRESENT: tachycardia Pulses: PRESENT: normal radial pulses Vascular exam: PRESENT: pallor GI/Abdominal exam: PRESENT: distended, guarding - Involuntary guarding, rebound, rigid, tenderness, other - Acute abdomen. ABSENT: soft Rectal exam: PRESENT: deferred Extremities exam: ABSENT: clubbing Musculoskeletal exam: ABSENT: deformity Neurological exam: PRESENT: alert, awake, oriented to person, oriented to place. ABSENT: oriented to time, oriented to situation Psychiatric exam: PRESENT: anxious. ABSENT: depressed Focused psych exam: ABSENT: delusional Skin exam: ABSENT: erythema, jaundice Results Laboratory Results: 12/19/18 11:03 12/19/18 02:35 12/18/18 12/19/18 12/19/18 23:45 02:35 04:59 WBC RBC Hgb Hct MCV MCH MCHC RDW Plt Count Seg Neutrophils % Lymphocytes % Monocytes % Eosinophils % Basophils % Absolute Neutrophils Absolute Lymphocytes Absolute Monocytes Absolute Eosinophils Absolute Basophils Carbonic Acid 1.80 H HCO3/H2CO3 Ratio 16:1 ABG pH 7.31 L ABG pCO2 59.7 H ABG pO2 70.2 L ABG HCO3 29.6 H ABG O2 Saturation 92.3 L ABG Base Excess 2.1 FiO2 40% Sodium 133.5 L 135.6 L Potassium 5.2 H 5.0 Chloride 92 L 97 L Carbon Dioxide 34 H 29 Anion Gap 8 10 BUN 68 H 70 H Creatinine 2.15 H 2.03 H Est GFR ( Amer) 27 L 29 L Est GFR (Non-Af Amer) 22 L 24 L Glucose 224 H 196 H Calcium 9.1 9.3 Phosphorus Magnesium 3.1 H D Total Bilirubin 0.5 AST 25 ALT 29 Alkaline Phosphatase 45 Total Protein 5.6 L Albumin 3.0 L 12/19/18 12/19/18 12/19/18 11:03 11:03 13:38 WBC 17.9 H RBC 4.31 Hgb 12.3 Hct 37.9 MCV 88 MCH 28.6 MCHC 32.5 RDW 15.2 H Plt Count 183 Seg Neutrophils % Not Reportable Lymphocytes % Not Reportable Monocytes % Not Reportable Eosinophils % Not Reportable Basophils % Not Reportable Absolute Neutrophils Not Reportable Absolute Lymphocytes Not Reportable Absolute Monocytes Not Reportable Absolute Eosinophils Not Reportable Absolute Basophils Not Reportable Carbonic Acid 1.86 H HCO3/H2CO3 Ratio 17:1 ABG pH 7.34 L ABG pCO2 61.9 H ABG pO2 ABG HCO3 32.3 H ABG O2 Saturation Not Reportable ABG Base Excess 4.9 FiO2 50% Sodium Potassium Chloride Carbon Dioxide Anion Gap BUN Creatinine Est GFR ( Amer) Est GFR (Non-Af Amer) Glucose Calcium Phosphorus 9.6 H Magnesium 3.2 H Total Bilirubin AST ALT Alkaline Phosphatase Total Protein Albumin 12/18/18 12/18/18 12/19/18 07:59 07:59 11:03 Troponin I 0.012 NT-Pro-B Natriuret Pep 6430 H 2470 H Impressions: KUB X-Ray 12/19/18 00:00 IMPRESSION: Constipation. Chest X-Ray 12/19/18 08:29 IMPRESSION: STABLE APPEARANCE. NO ACUTE RADIOGRAPHIC FINDING IN THE CHEST. Abdomen/Pelvis CT 12/19/18 16:50 IMPRESSION: Sigmoid diverticulosis. Mesenteric inflammatory changes in the left lower quadrant. Small amount of free air and amount of free fluid. Cannot exclude sigmoid diverticulitis with perforation. Assessment & Plan - Diagnosis (1) Acute abdomen Is this a current diagnosis for this admission?: Yes (2) Free intraperitoneal air Is this a current diagnosis for this admission?: Yes - Plan Summary Plan Summary: This is a 73-year-old female admitted with a COPD exacerbation and respiratory distress. The patient has developed an acute abdomen over the last [address] scan was performed showing free intestinal air. Patient is in obvious respiratory distress. She has involuntary guarding and an acute abdomen on exam. I have discussed the case with the patient who is slightly confused. I also discussed the situation with the patient's daughter (surrogate). The patient's daughter is requesting exploratory surgery to identify and treat the problem. Without surgery, patient will likely succumb to overwhelming sepsis. Because of her recent steroid use and multiple medical comorbidities her prognosis is guarded. This is been discussed with the patient and her daughter. Plan for exploratory laparotomy, possible bowel resection, possible ostomy. Risks/benefits discussed, informed consent obtained, and all questions answered.
[2018-12-19] MEDS ORDERED: PROPOFOL INJ 200 MG/20 ML VIAL IV ONE (20:20)
[2018-12-19] MEDS ORDERED: ONDANSETRON HCL INJ/PF 4 MG/2 ML SDV ONE (20:20)
[2018-12-19] MEDS ORDERED: FENTANYL CITRATE INJ/PF 100 MCG/2 ML AMPUL ONE (20:20)
[2018-12-19] MEDS ORDERED: MIDAZOLAM 2 MG/2 ML INJ ONE (20:20)
[2018-12-19] MEDS ORDERED: DEXAMETHASONE SOD PHOSPHATE INJ 4 MG/1 ML VIAL ONE (20:20)
[2018-12-19] MEDS ORDERED: MORPHINE SULFATE 10 MG/ML INJ ONE (20:20)
[2018-12-19] MEDS ORDERED: ACETAMINOPHEN 1,000 MG/100 ML RTUPB IV ONE (20:20)
[2018-12-19] MEDS ORDERED: EPHEDRINE SULFATE INJ 50 MG/1 ML AMPULE ONE (20:20)
[2018-12-19] MEDS ORDERED: BUPIVACAINE HCL 0.25 % INJ/PF (2.5 MG/1 ML) 30 ML VIAL ONE (21:01)
[2018-12-19] MEDS ORDERED: METRONIDAZOLE 500 MG/NS RTU 500 MG/100 ML RTUPB IV ONE (21:43)
[2018-12-19] MEDS ORDERED: ESMOLOL HCL INJ/PF 100 MG/10 ML SDV IV ONE (21:49)
[2018-12-19] MEDS ORDERED: METOPROLOL TARTRATE PF/INJ 5 MG/5 ML SDV IV ONE (21:49)
[2018-12-19] MEDS ORDERED: VANCOMYCIN HCL 1,000 MG in DEXTROSE 5%-WATER 250 ML IV SCH (22:00)
[2018-12-19] MEDS ORDERED: LEVOFLOXACIN 500 MG TABLET PO SCH (22:00)
[2018-12-19] MEDS ORDERED: METOPROLOL TARTRATE 25 MG TABLET PO SCH (22:00)
[2018-12-19] MEDS ORDERED: SIMVASTATIN 10 MG TABLET PO SCH (22:00)
[2018-12-19] MEDS ORDERED: ONDANSETRON HCL INJ/PF 4 MG/2 ML SDV IV PRN (22:17)
[2018-12-19] MEDS ORDERED: DIPHENHYDRAMINE HCL 50 MG/ML VIAL IV PRN (22:17)
[2018-12-19] MEDS ORDERED: OXYCODONE-ACETAMINOPHEN 5-325 MG TABLET PO PRN ×2 (22:17)
[2018-12-19] MEDS ORDERED: MORPHINE SULFATE 10 MG/ML INJ IV PRN (22:17)
[2018-12-19] MEDS ORDERED: FENTANYL CITRATE INJ/PF 100 MCG/2 ML AMPUL IV PRN ×3 (22:17)
[2018-12-19] MEDS ORDERED: PROMETHAZINE HCL INJ 25 MG/1 ML VIAL IV PRN ×2 (22:17)
[2018-12-20] MEDS ORDERED: PHARMACY COMMUNICATION ORDER MC NR (00:15)
[2018-12-20] MEDS ORDERED: OXYCODONE-ACETAMINOPHEN 5-325 MG TABLET NG PRN ×2 (00:30)
[2018-12-20] MEDS ORDERED: FUROSEMIDE 20 MG TABLET NG PRN (00:30)
[2018-12-20] MEDS: INSULIN LISPRO 100 UNIT/ML 3 ML VIAL SUBCUT SCH ×5 (00:49→21:57)
[2018-12-20] MEDS: METHYLPREDNISOLONE INJ 40 MG/1 ML SDV IV SCH ×4 (00:49→21:33)
[2018-12-20] MEDS: METRONIDAZOLE 500 MG/NS RTU 500 MG/100 ML RTUPB IV SCH ×5 (00:49→23:12)
--- NOTE | 2018-12-20 01:19 | Operative Report ---
Nonrecallable Operative Report DATE OF SURGERY: 12/19/18 PREOPERATIVE DIAGNOSIS: 1. Acute abdomen. 2. Free intraperitoneal air POSTOPERATIVE DIAGNOSIS: 1. Acute abdomen. 2. Sigmoid colon perforation with feculent peritonitis OPERATION: 1. Exploratory laparotomy. 2. Sigmoid colon resection with end descending/sigmoid colostomy (Bipin procedure). 3. Mobilization of the splenic flexure. SURGEON: ALICIA ARREGUIN ANESTHESIA: GA TISSUE REMOVED OR ALTERED: Sigmoid colon COMPLICATIONS: None apparent ESTIMATED BLOOD LOSS: 100 cc PROCEDURE: Drains/implants: 15 [place] round Sony drain in the pelvis. Procedure in detail: After informed consent was obtained, the patient was brought to the operating room and laid in the supine position. The area of the abdomen was prepped and draped in a normal sterile fashion. An incision was created in the midline. Dissection was carried through the subcutaneous tissue using sharp and blunt dissection. The linea alba fascia was incised sharply, the abdomen was entered sharply. Upon entry into the abdomen there was a large amount of feculent material present. This was suctioned. Irrigation was used to clear the feculent material from the peritoneal cavity. There was a dense inflammatory reaction in the pelvis, and after some examination a gross perforat ion was identified in the sigmoid colon. Sigmoid colon was freed from the pelvic sidewall using sharp dissection and blunt dissection. The RENNY 75 stapler was then used proximally and distally across the bowel. The sigmoid colon was then removed from its mesentery using the LigaSure device. During this maneuver, please note that the ureter was identified and spared from injury. The rectal stump was then marked with 0 Prolene suture x2. Next attention was turned to inspection of the abdomen and irrigation of all the feculent material. The abdomen was serially examined in the left upper qu adrant, right upper quadrant, and right lower quadrant. No obvious defects could be found in these areas. The liver, spleen, stomach, and cecum appeared normal. The small bowel was run from the ligament of Treitz to the ileocecal valve, and appeared normal. The lesser sac was entered. The posterior stomach was palpated and appeared normal. There was no bile staining in the lesser sac. The pancreas appeared normal. After this was confirmed, attention was turned to freeing of the sigmoid colon. The sigmoid and descending colon were freed from the white line of Toldt using blunt dissection and electrocautery. It was felt that mobilization of the splenic flexure would be necessary in order to facilitate colostomy placement. The splenic flexure was freed using a mixture of blunt dissection and electrocautery. The omentum was freed from the distal transverse colon to complete the maneuver. Once adequate mobilization was achieved, an appropriate place was found in the left lower quadrant for a sigmoid/descending colostomy. A 2 cm area of skin was excised. Blunt dissection was used through the subcutaneous fat. The fascia was scored in a cruciate fashion. The sigmoid and descending colon were pulled through the rectus muscle. The colon appeared pink and healthy. A 15 [place] round Sony drain was placed through a stab incision in the right lower quadrant. The drain was placed in the cul-de-sac, in the pelvis. It was sutured to the skin using 2-0 nylon suture. The abdomen was again copiously irrigated and suctioned until the effluent was clear. The midline fascia was closed using #1 double-stranded looped PDS suture in simple running fashion. The overlying skin was loosely approximated with skin sherin, and packed with Xeroform gauze. A cover was placed over the incision, and attention was turned to maturing the colostomy. The left lower quadrant colostomy was matured in Twila fashion with 3-0 Vicryl suture circumferentially. An appliance was placed. A dressing was placed over the midline. The procedure was at this time concluded. All sponge, instrument, and needle counts were correct x2. Condition: Critical to ICU.
[2018-12-20] MEDS: MORPHINE SULFATE 10 MG/ML INJ IV PRN ×7 (01:21→21:48)
--- NOTE | 2018-12-20 01:58 | RADIOLOGY REPORT (SQ) ---
EXAM DESCRIPTION: XR CHEST 1 VIEW COMPLETED DATE/TME: 12/20/2018 00:05 CLINICAL HISTORY: 73 years, Female, Check Placement of NG Tube COMPARISON: Prior chest x-ray from today's date NUMBER OF VIEWS: 1 TECHNIQUE: Portable chest LIMITATIONS: None. FINDINGS: Heart size normal. Atheromatous change thoracic aorta. Left-sided pacing device. Endotracheal tube with the tip approximately 2.9 cm above the michaela. Enteric tube with the tip likely in the stomach. No pneumothorax. Osteopenia. Coarse interstitial changes bilaterally. Patchy airspace opacity right lung base. IMPRESSION: Interval intubation and placement of an enteric tube. Other findings are grossly stable copyright 2010 [employer]- All Rights Reserved
[2018-12-20] MEDS: IPRATROPIUM/ALBUTEROL 0.5-2.5 MG/3 ML AMPUL NEB SCH ×5 (02:02→20:44)
[2018-12-20] MEDS: MIDAZOLAM 2 MG/2 ML INJ IV PRN ×4 (02:19→12:03)
[2018-12-20 03:18] LABS: HEMATOCRIT 33.4 % (36.0-47.0); MEAN CORPUSCULAR HEMOGLOBIN 28.5 pg (27.0-33.4); MEAN CORPUSCULAR HGB CONC 32.8 g/dL (32.0-36.0); MEAN CORPUSCULAR VOLUME 87 fl (80-97); PLATELET COUNT 149 10^3/uL (150-450); RED BLOOD COUNT 3.85 10^6/uL (3.72-5.28); RED CELL DISTRIBUTION WIDTH 15.2 % (11.5-14.0)
[2018-12-20 03:41] LABS: ALBUMIN 2.3 g/dL (3.5-5.0); BILIRUBIN,DIRECT 0.4 mg/dL (0.0-0.4); BILIRUBIN,TOTAL 0.5 mg/dL (0.2-1.3); BLOOD UREA NITROGEN 75 mg/dL (7-20); CHLORIDE 102 mmol/L (98-107); TOTAL PROTEIN 4.6 g/dL (6.3-8.2)
[2018-12-20 05:24] LABS: ALANINE AMINOTRANSFERASE 52 U/L (9-52); ALKALINE PHOSPHATASE 45 U/L (38-126); ANION GAP 7 (5-19); ASPARTATE AMINO TRANSFERASE 68 U/L (14-36); CALCIUM 8.3 mg/dL (8.4-10.2); CARBON DIOXIDE 27 mmol/L (22-30); GLUCOSE 250 mg/dL (75-110)
[2018-12-20 05:33] LABS: PHOSPHORUS 5.4 mg/dL (2.5-4.5)
[2018-12-20 06:51] LABS: ARTERIAL BLOOD BASE EXCESS 4.7 mmol/L; ARTERIAL BLOOD H2CO3 1.64 mmol/L (1.05-1.35); ARTERIAL BLOOD O2 SATURATION 90.7 % (94-98); ARTERIAL BLOOD PCO2 54.4 mmHg (35-45); ARTERIAL BLOOD PH 7.37 (7.35-7.45); ARTERIAL BLOOD PO2 61.8 mmHg (80-100); ARTERIAL BLOOD TOTAL CO2 32.6 mmol/L (21-25)
[2018-12-20 06:53] LABS: ARTERIAL BLOOD FIO2 40%
--- NOTE | 2018-12-20 08:22 | RADIOLOGY REPORT (SQ) ---
EXAM DESCRIPTION: CHEST SINGLE VIEW COMPLETED DATE/TIME: 12/20/2018 6:07 am REASON FOR STUDY: resp failure COMPARISON: 12/20/2018 EXAM PARAMETERS: NUMBER OF VIEWS: One view. TECHNIQUE: Single frontal radiographic view of the chest acquired. RADIATION DOSE: NA LIMITATIONS: None. FINDINGS: LUNGS AND PLEURA: Airspace disease, pleural effusion or pneumothorax. Mildly improved rig ht basilar aeration. MEDIASTINUM AND HILAR STRUCTURES: Stable. HEART AND VASCULAR STRUCTURES: Normal heart size. Aortic atherosclerosis. BONES: Osteopenia. No acute findings. HARDWARE: Endotracheal tube tip overlies midthoracic trachea. Enteric tube tip overlies gastric body . Left sided cardiac pacer, unchanged. OTHER: No other significant finding. IMPRESSION: Mildly improved right basilar aeration. No new cardiopulmonary process. Stable support lines and tubes as above. TECHNICAL DOCUMENTATION: JOB ID: [id number] [employer]- All Rights Reserved Reading location - IP/workstation name: [email or web address]
[2018-12-20] MEDS: METOPROLOL TARTRATE 25 MG TABLET NG SCH ×2 (09:23→21:33)
[2018-12-20] MEDS: PANTOPRAZOLE SODIUM 40 MG VIAL IV SCH (09:23)
[2018-12-20] MEDS: ASPIRIN 81 MG TABLET, ENT COATED PO SCH (09:25)
[2018-12-20] MEDS ORDERED: METOPROLOL SUCCINATE 25 MG TAB.SR.24H PO SCH (10:00)
[2018-12-20] MEDS: VANCOMYCIN HCL 750 MG in DEXTROSE 5%-WATER 250 ML IV SCH (10:20)
[2018-12-20 11:21] LABS: PATH REVIEW PATHOLOGIST REVIEWED
[2018-12-20] MEDS: HEPARIN SOD (PORCINE) 5,000 UNIT/ML 1 ML SYRINGE SUBCUT SCH ×2 (11:56→21:36)
--- NOTE | 2018-12-20 20:42 | PDOC PROGRESS REPORT ---
Subjective Progress Note for:: 12/20/18 Subjective:: The patient required laparotomy with sigmoid colectomy and colostomy formation last night. She remains intubated and sedated this morning. Reason For Visit: ACUTE HYPERCAPNIC/ RESPIRATORY FAILURE Physical Exam Vital Signs: Temp Pulse Resp BP Pulse Ox 99.3 F 109 H 12 117/45 L 95 12/20/18 20:00 12/20/18 18:00 12/20/18 18:00 12/20/18 18:00 12/20/18 18:00 Intake & Output 12/19/18 12/20/18 12/21/18 06:59 06:59 06:59 Intake Total 700 250 100 Output Total 0 1050 575 Balance 700 -800 -475 Weight 59 kg 60.4 kg 60.4 kg General appearance: PRESENT: no acute distress, other - Intubated and sedated Head exam: PRESENT: atraumatic, normocephalic Eye exam: PRESENT: conjunctiva pale. ABSENT: scleral icterus Ear exam: PRESENT: normal external ear exam Mouth exam: PRESENT: other - Endotracheal tube in place Respiratory exam: PRESENT: clear to auscultation tyrone - Anteriorly, symmetrical. ABSENT: rales, rhonchi, tachypnea, wheezes Cardiovascular exam: PRESENT: RRR, +S1, +S2 GI/Abdominal exam: PRESENT: hypoactive bowel sounds, soft, other - New colostomy in place. ABSENT: distended Rectal exam: PRESENT: deferred Gentrourinary exam: PRESENT: indwelling catheter Extremities exam: ABSENT: pedal edema Neurological exam: ABSENT: awake Psychiatric exam: ABSENT: agitated Focused psych exam: ABSENT: restlessness Results Laboratory Results: 12/20/18 03:09 12/20/18 03:09 12/20/18 12/20/18 12/20/18 03:09 03:09 03:09 WBC 12.0 H RBC 3.85 Hgb 11.0 L Hct 33.4 L MCV 87 MCH 28.5 MCHC 32.8 RDW 15.2 H Plt Count 149 L Carbonic Acid HCO3/H2CO3 Ratio ABG pH ABG pCO2 ABG pO2 ABG HCO3 ABG O2 Saturation ABG Base Excess FiO2 Sodium 136.0 L Potassium 5.0 Chloride 102 Carbon Dioxide 27 Anion Gap 7 BUN 75 H Creatinine 1.39 H Est GFR ( Amer) 45 L Est GFR (Non-Af Amer) 37 L Glucose 250 H Lactic Acid 1.3 Calcium 8.3 L Phosphorus 5.4 H D Magnesium 2.8 H Total Bilirubin 0.5 AST 68 H ALT 52 Alkaline Phosphatase 45 Total Protein 4.6 L Albumin 2.3 L 12/20/18 06:41 WBC RBC Hgb Hct MCV MCH MCHC RDW Plt Count Carbonic Acid 1.64 H HCO3/H2CO3 Ratio 18:1 ABG pH 7.37 ABG pCO2 54.4 H ABG pO2 61.8 L ABG HCO3 31.0 H ABG O2 Saturation 90.7 L ABG Base Excess 4.7 FiO2 40% Sodium Potassium Chloride Carbon Dioxide Anion Gap BUN Creatinine Est GFR ( Amer) Est GFR (Non-Af Amer) Glucose Lactic Acid Calcium Phosphorus Magnesium Total Bilirubin AST ALT Alkaline Phosphatase Total Protein Albumin 12/18/18 12/18/18 12/19/18 07:59 07:59 11:03 Troponin I 0.012 NT-Pro-B Natriuret Pep 6430 H 2470 H 12/20/18 03:09 Troponin I NT-Pro-B Natriuret Pep 1130 H Impressions: KUB X-Ray 12/19/18 00:00 IMPRESSION: Constipation. Abdomen/Pelvis CT 12/19/18 16:50 IMPRESSION: Sigmoid diverticulosis. Mesenteric inflammatory changes in the left lower quadrant. Small amount of free air and amount of free fluid. Cannot exclude sigmoid diverticulitis with perforation. Chest X-Ray 12/20/18 06:00 IMPRESSION: Mildly improved right basilar aeration. No new cardiopulmonary process. Stable support lines and tubes as above. Assessment and Plan - Diagnosis (1) Acute on chronic respiratory failure Qualifiers: Respiratory failure complication: hypoxia and hypercapnia Qualified Code(s): J96.21 - Acute and chronic respiratory failure with hypoxia; J96.22 - Acute and chronic respiratory failure with hypercapnia Is this a current diagnosis for this admission?: Yes Plan: 12/19/2018-the patient has a history of chronic obstructive pulmonary disease dating back many years. She in fact was just discharged from this hospital on December 16. She was readmitted yesterday December 18. On IMCU she was requiring BiPAP but became tachypneic. There is a question of increased vascular congestion (history of CHF) as well as pleural effusion. The patient was discharged on levofloxacin and prednisone. She is currently on intravenous Solu-Medrol and she will complete her levofloxacin therapy. She was quite tachypneic earlier. She was retaining CO2. Pulmonology has seen the patient as well. The patient did wish to change her CODE STATUS. Please see note below. Intubation is still something that she requests if needed. Because she was tachycardic we will use Xopenex for the time being for bronchodilation. She will remain on BiPAP. We will treat aggressively and try to avoid intubation. 12/20/2018-the patient is now intubated postoperatively. She will continue on nebulizer treatments and we will attempt weaning as tolerated. It appears the worsening respiratory status yesterday was due to the acute abdomen. (2) Acute exacerbation of chronic obstructive pulmonary disease (COPD) Is this a current diagnosis for this admission?: Yes Plan: 12/19/2018-as above. We will continue to monitor. Pulmonology has been consulted. Nebulizer therapy as above. When tolerated we will reinstitute inhaler therapy 12/20/2018-currently intubated. Continue nebulizer treatments. I will continue to taper the steroids was not to impede healing of her surgery. (3) Acute kidney injury Is this a current diagnosis for this admission?: Yes Plan: 12/20/2018-still with a decreased GFR. This is likely secondary to her acute abdomen. Continue to use fluids judiciously and monitor renal function. Dose m edications accordingly. (4) Acute on chronic diastolic CHF (congestive heart failure) Is this a current diagnosis for this admission?: Yes Plan: 12/19/2018-at her jeana her ejection fraction was less than 25%. Most recent echocardiogram reveals an ejection fraction of 60%. I will resume her metoprolol but change to the tartrate 12.5 mg twice daily for the time being before resuming her succinate 25 mg daily dose. Continue aspirin and adjust furosemide based on her clinical condition as well as fluid balance. 12/20/2018-we will monitor I's and O's. Heart failure appears to be stable. (5) Nonischemic cardiomyopathy Is this a current diagnosis for this admission?: Yes Plan: As noted above she has recovered ejection fraction. We will continue to monitor . She does have an AICD/pacemaker in place. (6) Abdominal pain, bilateral upper quadrant Is this a current diagnosis for this admission?: Yes Plan: Patient is quite tender and distended. Her pain is mostly across the upper abdomen. I did order a KUB film and this reveals heavy burden of stool. Will monitor closely. She has already received multiple doses of stool softeners/laxatives. If bowel movements do not relieve the abdominal discomfort then we may proceed to a CT scan. Will consult surgery if indicated. 12/20/2018-as noted above the patient had a perforation in the sigmoid colon requiring sigmoid colectomy and colostomy formation. Appreciate Dr. Trimble's intervention. The patient now has a colostomy. Currently on triple antibiotic therapy. (7) Pacemaker Is this a current diagnosis for this admission?: Yes Plan: We will interrogate the pacemaker. The patient's pacemaker has not been interrogated for years. Currently she is mostly in a paced rhythm. The patient beats reveal a palpable pulse. The non-paced beats are difficult to palpate. Cardiac sounds are somewhat distant and difficult to auscultate. We will interrogate pacemaker and then discuss with cardiology. 12/20/2018-pacemaker interrogated. See report in the patient's chart. (8) DNR (do not resuscitate) discussion Is this a current diagnosis for this admission?: Yes Plan: See separate advance care planning note. 12/20/2018-as noted yesterday the patient did not want cardiac resuscitation but did allow intubation. Postoperatively she remains intubated. The patient's family was concerned regarding her decision however nursing explained to them the difference between DO NOT RESUSCITATE and comfort only. The nurse reports that the family felt better knowing that all aggressive measures will be taken up to cardiac arrest. (9) Perforated sigmoid colon Is this a current diagnosis for this admission?: Yes Plan: 12/20/2018-the patient had a perforation of the sigmoid colon with fecal material in the abdominal cavity causing peritonitis. She had a sigmoid colectomy and colostomy was formed. She is currently on triple antibiotic therapy, vancomycin, cefepime and metronidazole. Please also see the surgical note. - Time Time Spent with patient: 35 or more minutes Medications reviewed and adjusted accordingly: Yes - Inpatient Certification Based on my medical assessment, after consideration of the patient's comorbidities, presenting symptoms, or acuity I expect that the services needed warrant INPATIENT care.: Yes I certify that my determination is in accordance with my understanding of Medicare's requirements for reasonable and necessary INPATIENT services [42 CFR 412.3e].: Yes
[2018-12-20] MEDS: CEFEPIME HCL 2 GM in DEXTROSE 5%-WATER 50 ML IV SCH (21:33)
[2018-12-20] MEDS: SIMVASTATIN 10 MG TABLET NG SCH (21:34)
[2018-12-21] MEDS: MIDAZOLAM 2 MG/2 ML INJ IV PRN ×3 (00:37→23:37)
[2018-12-21] MEDS: MORPHINE SULFATE 10 MG/ML INJ IV PRN ×4 (01:13→21:08)
--- NOTE | 2018-12-21 01:29 | PDOC PROGRESS REPORT ---
Subjective Progress Note for:: 12/21/18 Subjective:: Patient intubated and sedated Reason For Visit: ACUTE HYPERCAPNIC/ RESPIRATORY FAILURE Physical Exam Vital Signs: Temp Pulse Resp BP Pulse Ox 98.6 F 106 H 12 99/44 L 94 12/21/18 01:16 12/20/18 22:00 12/20/18 23:36 12/20/18 23:36 12/20/18 23:36 Intake & Output 12/19/18 12/20/18 12/21/18 06:59 06:59 06:59 Intake Total 700 250 350 Output Total 0 1050 725 Balance 700 -800 -375 Weight 59 kg 60.4 kg 60.4 kg Exam: Still intubated on small doses of sedation. She is a DNR Colostomy viable not functioning yet. Wound Dressing is dry Results Laboratory Results: 12/20/18 03:09 12/20/18 03:09 12/20/18 12/20/18 12/20/18 03:09 03:09 03:09 WBC 12.0 H RBC 3.85 Hgb 11.0 L Hct 33.4 L MCV 87 MCH 28.5 MCHC 32.8 RDW 15.2 H Plt Count 149 L Carbonic Acid HCO3/H2CO3 Ratio ABG pH ABG pCO2 ABG pO2 ABG HCO3 ABG O2 Saturation ABG Base Excess FiO2 Sodium 136.0 L Potassium 5.0 Chloride 102 Carbon Dioxide 27 Anion Gap 7 BUN 75 H Creatinine 1.39 H Est GFR ( Amer) 45 L Est GFR (Non-Af Amer) 37 L Glucose 250 H Lactic Acid 1.3 Calcium 8.3 L Phosphorus 5.4 H D Magnesium 2.8 H Total Bilirubin 0.5 AST 68 H ALT 52 Alkaline Phosphatase 45 Total Protein 4.6 L Albumin 2.3 L 12/20/18 06:41 WBC RBC Hgb Hct MCV MCH MCHC RDW Plt Count Carbonic Acid 1.64 H HCO3/H2CO3 Ratio 18:1 ABG pH 7.37 ABG pCO2 54.4 H ABG pO2 61.8 L ABG HCO3 31.0 H ABG O2 Saturation 90.7 L ABG Base Excess 4.7 FiO2 40% Sodium Potassium Chloride Carbon Dioxide Anion Gap BUN Creatinine Est GFR ( Amer) Est GFR (Non-Af Amer) Glucose Lactic Acid Calcium Phosphorus Magnesium Total Bilirubin AST ALT Alkaline Phosphatase Total Protein Albumin 12/18/18 12/18/18 12/19/18 07:59 07:59 11:03 Troponin I 0.012 NT-Pro-B Natriuret Pep 6430 H 2470 H 12/20/18 03:09 Troponin I NT-Pro-B Natriuret Pep 1130 H Impressions: KUB X-Ray 12/19/18 00:00 IMPRESSION: Constipation. Abdomen/Pelvis CT 12/19/18 16:50 IMPRESSION: Sigmoid diverticulosis. Mesenteric inflammatory changes in the left lower quadrant. Small amount of free air and amount of free fluid. Cannot exclude sigmoid diverticulitis with perforation. Chest X-Ray 12/20/18 06:00 IMPRESSION: Mildly improved right basilar aeration. No new cardiopulmonary process. Stable support lines and tubes as above. Assessment & Plan - Time Time Spent with patient: 15-24 minutes - Plan Summary Plan Summary: Endotracheal/Ventilation mx per Pulmonology Fairly stable Await extubation.
[2018-12-21] MEDS: IPRATROPIUM/ALBUTEROL 0.5-2.5 MG/3 ML AMPUL NEB SCH ×4 (02:32→20:33)
[2018-12-21 04:28] LABS: ARTERIAL BLOOD BASE EXCESS 6.1 mmol/L; ARTERIAL BLOOD H2CO3 1.56 mmol/L (1.05-1.35); ARTERIAL BLOOD HCO3 31.6 mmol/L (20-24); ARTERIAL BLOOD O2 SATURATION 96.3 % (94-98); ARTERIAL BLOOD PCO2 51.8 mmHg (35-45); ARTERIAL BLOOD TOTAL CO2 33.2 mmol/L (21-25)
[2018-12-21 04:29] LABS: ARTERIAL BLOOD FIO2 50%
[2018-12-21 05:01] LABS: HEMATOCRIT 28.3 % (36.0-47.0); HEMOGLOBIN 9.2 g/dL (12.0-15.5); MEAN CORPUSCULAR HEMOGLOBIN 28.4 pg (27.0-33.4); MEAN CORPUSCULAR HGB CONC 32.6 g/dL (32.0-36.0); MEAN CORPUSCULAR VOLUME 87 fl (80-97); PLATELET COUNT 139 10^3/uL (150-450); RED BLOOD COUNT 3.25 10^6/uL (3.72-5.28); RED CELL DISTRIBUTION WIDTH 15.2 % (11.5-14.0); WHITE BLOOD COUNT 14.6 10^3/uL (4.0-10.5)
[2018-12-21] MEDS: METRONIDAZOLE 500 MG/NS RTU 500 MG/100 ML RTUPB IV SCH ×4 (05:17→23:31)
[2018-12-21 05:41] LABS: ALANINE AMINOTRANSFERASE 41 U/L (9-52); ALBUMIN 2.3 g/dL (3.5-5.0); ALKALINE PHOSPHATASE 49 U/L (38-126); ANION GAP 7 (5-19); ASPARTATE AMINO TRANSFERASE 35 U/L (14-36); BILIRUBIN,DIRECT 0.4 mg/dL (0.0-0.4); BILIRUBIN,TOTAL 0.4 mg/dL (0.2-1.3); BLOOD UREA NITROGEN 68 mg/dL (7-20); CALCIUM 8.8 mg/dL (8.4-10.2); CARBON DIOXIDE 28 mmol/L (22-30); CHLORIDE 104 mmol/L (98-107); GLUCOSE 192 mg/dL (75-110); PHOSPHORUS 3.6 mg/dL (2.5-4.5); POTASSIUM 4.8 mmol/L (3.6-5.0); SODIUM 139.3 mmol/L (137-145); TOTAL PROTEIN 4.5 g/dL (6.3-8.2)
[2018-12-21] MEDS: VANCOMYCIN HCL 750 MG in DEXTROSE 5%-WATER 250 ML IV SCH (09:10)
[2018-12-21] MEDS: INSULIN LISPRO 100 UNIT/ML 3 ML VIAL SUBCUT SCH ×4 (09:10→21:16)
[2018-12-21] MEDS: PANTOPRAZOLE SODIUM 40 MG VIAL IV SCH (09:17)
[2018-12-21] MEDS: METOPROLOL TARTRATE 25 MG TABLET NG SCH (09:17)
[2018-12-21] MEDS: METHYLPREDNISOLONE INJ 40 MG/1 ML SDV IV SCH ×2 (09:19→21:09)
[2018-12-21] MEDS: ASPIRIN 81 MG TABLET, ENT COATED PO SCH (09:19)
[2018-12-21] MEDS: HEPARIN SOD (PORCINE) 5,000 UNIT/ML 1 ML SYRINGE SUBCUT SCH ×2 (09:19→21:04)
--- NOTE | 2018-12-21 13:39 | RADIOLOGY REPORT (SQ) ---
EXAM DESCRIPTION: CHEST SINGLE VIEW COMPLETED DATE/TIME: 12/21/2018 12:41 pm REASON FOR STUDY: Respiratory failure COMPARISON: 12/20/2018 EXAM PARAMETERS: NUMBER OF VIEWS: One view. TECHNIQUE: Single frontal radiographic view of the chest acquired. RADIATION DOSE: NA LIMITATIONS: None. FINDINGS: LUNGS AND PLEURA: Mild pulmonary vascular congestion. No prieto pulmonary edema. Bibasila r opacification. MEDIASTINUM AND HILAR STRUCTURES: No masses. Contour normal. HEART AND VASCULAR STRUCTURES: Heart size is borderline. BONES: No acute findings. HARDWARE: Pacemaker/defibrillator. An endotracheal tube has its tip 2 cm above the michaela. An NG tu be extends to the stomach. OTHER: No other significant finding. IMPRESSION: Borderline heart size with pulmonary vascular congestion but no prieto pulmonary edema. Bibasilar opacification suggests airspace disease, atelectasis versus pneumonia. TECHNICAL DOCUMENTATION: JOB ID: [id number] [employer]- All Rights Reserved Reading location - IP/workstation name: [email or web address]
[2018-12-21] MEDS: CEFEPIME HCL 2 GM in DEXTROSE 5%-WATER 50 ML IV SCH (21:03)
[2018-12-21] MEDS: SIMVASTATIN 10 MG TABLET NG SCH (21:07)
[2018-12-21] MEDS ORDERED: METOPROLOL TARTRATE 25 MG TABLET NG SCH (22:00)
[2018-12-22] MEDS: IPRATROPIUM/ALBUTEROL 0.5-2.5 MG/3 ML AMPUL NEB SCH ×4 (02:23→20:35)
[2018-12-22] MEDS: MORPHINE SULFATE 10 MG/ML INJ IV PRN ×3 (03:50→21:44)
[2018-12-22] MEDS ORDERED: NORMAL SALINE 500 ML IV ONE (04:00)
[2018-12-22 04:46] LABS: HEMATOCRIT 27.1 % (36.0-47.0); HEMOGLOBIN 8.8 g/dL (12.0-15.5); MEAN CORPUSCULAR HEMOGLOBIN 28.2 pg (27.0-33.4); MEAN CORPUSCULAR HGB CONC 32.3 g/dL (32.0-36.0); MEAN CORPUSCULAR VOLUME 87 fl (80-97); PLATELET COUNT 150 10^3/uL (150-450); RED BLOOD COUNT 3.11 10^6/uL (3.72-5.28); RED CELL DISTRIBUTION WIDTH 15.5 % (11.5-14.0)
[2018-12-22 05:02] LABS: ALANINE AMINOTRANSFERASE 41 U/L (9-52); ALBUMIN 2.3 g/dL (3.5-5.0); ALKALINE PHOSPHATASE 50 U/L (38-126); ASPARTATE AMINO TRANSFERASE 33 U/L (14-36); BILIRUBIN,DIRECT 0.3 mg/dL (0.0-0.4); BILIRUBIN,TOTAL 0.4 mg/dL (0.2-1.3); BLOOD UREA NITROGEN 56 mg/dL (7-20); CALCIUM 8.9 mg/dL (8.4-10.2); CARBON DIOXIDE 31 mmol/L (22-30); CHLORIDE 107 mmol/L (98-107); GLUCOSE 157 mg/dL (75-110); PHOSPHORUS 3.4 mg/dL (2.5-4.5); POTASSIUM 4.6 mmol/L (3.6-5.0); TOTAL PROTEIN 4.6 g/dL (6.3-8.2)
[2018-12-22 05:07] LABS: SODIUM 141.7 mmol/L (137-145)
[2018-12-22 05:11] LABS: ANION GAP 4 (5-19)
[2018-12-22] MEDS: METRONIDAZOLE 500 MG/NS RTU 500 MG/100 ML RTUPB IV SCH ×4 (05:16→23:29)
[2018-12-22] MEDS: METOPROLOL TARTRATE PF/INJ 5 MG/5 ML SDV IV PRN (07:35)
[2018-12-22] MEDS: INSULIN LISPRO 100 UNIT/ML 3 ML VIAL SUBCUT SCH ×4 (07:45→21:37)
--- NOTE | 2018-12-22 08:42 | PDOC PROGRESS REPORT ---
Subjective Progress Note for:: 12/21/18 Subjective:: Awake and alert. Answers all questions appropriately by nodding her head. Reason For Visit: ACUTE HYPERCAPNIC/ RESPIRATORY FAILURE Physical Exam Vital Signs: Temp Pulse Resp BP Pulse Ox 98.4 F 103 H 11 L 119/41 L 97 12/21/18 08:00 12/21/18 10:00 12/21/18 10:00 12/21/18 10:00 12/21/18 11:02 Intake & Output 12/20/18 12/21/18 12/22/18 06:59 06:59 06:59 Intake Total 250 600 Output Total 1050 895 150 Balance -800 -295 -150 Weight 60.4 kg 59.6 kg General appearance: PRESENT: no acute distress, cooperative, well-developed Head exam: PRESENT: atraumatic, normocephalic Eye exam: PRESENT: conjunctiva pale. ABSENT: scleral icterus Ear exam: PRESENT: normal external ear exam Mouth exam: PRESENT: other - Endotracheal tube in place Respiratory exam: PRESENT: clear to auscultation tyrone, symmetrical. ABSENT: rales, rhonchi, wheezes Cardiovascular exam: PRESENT: +S1, +S2, tachycardia - The patient has been exhibiting episodes of tachycardia. GI/Abdominal exam: PRESENT: normal bowel sounds, soft, tenderness - Mild tenderness., other - Large abdominal dressing in place. Colostomy left lower quadrant. The stoma appears pink and healthy. Rectal exam: PRESENT: deferred, other - There is liquid stool in the colostomy bag. Gentrourinary exam: PRESENT: indwelling catheter Extremities exam: ABSENT: pedal edema Musculoskeletal exam: PRESENT: normal inspection Neurological exam: PRESENT: alert, awake, other - Intubated so unable to communicate other than with head nodding. Answers seem appropriate. Psychiatric exam: PRESENT: flat affect. ABSENT: agitated, anxious Focused psych exam: ABSENT: restlessness Results Laboratory Results: 12/21/18 04:04 12/21/18 04:04 12/21/18 12/21/18 12/21/18 04:04 04:04 04:18 WBC 14.6 H RBC 3.25 L Hgb 9.2 L Hct 28.3 L MCV 87 MCH 28.4 MCHC 32.6 RDW 15.2 H Plt Count 139 L Carbonic Acid 1.56 H HCO3/H2CO3 Ratio 20:1 ABG pH 7.40 ABG pCO2 51.8 H ABG pO2 85.0 ABG HCO3 31.6 H ABG O2 Saturation 96.3 ABG Base Excess 6.1 FiO2 50% Sodium 139.3 Potassium 4.8 Chloride 104 Carbon Dioxide 28 Anion Gap 7 BUN 68 H Creatinine 1.06 Est GFR ( Amer) > 60 Est GFR (Non-Af Amer) 51 L Glucose 192 H Calcium 8.8 Phosphorus 3.6 Magnesium 3.1 H Total Bilirubin 0.4 AST 35 ALT 41 Alkaline Phosphatase 49 Total Protein 4.5 L Albumin 2.3 L 12/18/18 12/18/18 12/19/18 07:59 07:59 11:03 Troponin I 0.012 NT-Pro-B Natriuret Pep 6430 H 2470 H 12/20/18 12/21/18 03:09 04:04 Troponin I NT-Pro-B Natriuret Pep 1130 H 409 Impressions: KUB X-Ray 12/19/18 00:00 IMPRESSION: Constipation. Abdomen/Pelvis CT 12/19/18 16:50 IMPRESSION: Sigmoid diverticulosis. Mesenteric inflammatory changes in the left lower quadrant. Small amount of free air and amount of free fluid. Cannot exclude sigmoid diverticulitis with perforation. Chest X-Ray 12/20/18 06:00 IMPRESSION: Mildly improved right basilar aeration. No new cardiopulmonary process. Stable support lines and tubes as above. Assessment and Plan - Diagnosis (1) Acute on chronic respiratory failure Qualifiers: Respiratory failure complication: hypoxia and hypercapnia Qualified Code(s): J96.21 - Acute and chronic respiratory failure with hypoxia; J96.22 - Acute and chronic respiratory failure with hypercapnia Is this a current diagnosis for this admission?: Yes Plan: 12/22/2018-the patient was intubated for surgery. She is recovering nicely. She is awake and alert and answers questions appropriately by nodding her head. She is tolerating weaning. We will extubate and place the patient on BiPAP. (2) Acute exacerbation of chronic obstructive pulmonary disease (COPD) Is this a current diagnosis for this admission?: Yes Plan: 12/19/2018-as above. We will continue to monitor. Pulmonology has been consulted. Nebulizer therapy as above. When tolerated we will reinstitute inhaler therapy 12/20/2018-currently intubated. Continue nebulizer treatments. I will continue to taper the steroids was not to impede healing of her surgery. 12/21/2018-the patient is doing well. Her breathing appears comfortable. The plan is for extubation today. Continue steroid taper and nebulizer treatments. Transition to a scheduled inhaler regimen for outpatient use over the next several days. (3) Acute kidney injury Is this a current diagnosis for this admission?: Yes Plan: 12/20/2018-still with a decreased GFR. This is likely secondary to her acute abdomen. Continue to use fluids judiciously and monitor renal function. Dose medications accordingly. 12/21/2018-acute kidney injury resolved. (4) Acute on chronic diastolic CHF (congestive heart failure) Is this a current diagnosis for this admission?: Yes Plan: 12/19/2018-at her jeana her ejection fraction was less than 25%. Most recent echocardiogram reveals an ejection fraction of 60%. I will resume her metoprolol but change to the tartrate 12.5 mg twice daily for the time being before resuming her succinate 25 mg daily dose. Continue aspirin and adjust furosemide based on her clinical condition as well as fluid balance. 12/20/2018-we will monitor I's and O's. Heart failure appears to be stable. 12/21/2018-appears to be resolved. BNP was only 500. She is still in a slight negative fluid balance. Continue furosemide as ordered. (5) Nonischemic cardiomyopathy Is this a current diagnosis for this admission?: Yes Plan: As noted above she has recovered ejection fraction. We will continue to monitor. She does have an AICD/pacemaker in place. 12/21/2018-continue current regimen (6) Abdominal pain, bilateral upper quadrant Is this a current diagnosis for this admission?: Yes Plan: Patient is quite tender and distended. Her pain is mostly across the upper abdomen. I did order a KUB film and this reveals heavy burden of stool. Will monitor closely. She has already received multiple doses of stool softeners/lax atives. If bowel movements do not relieve the abdominal discomfort then we may proceed to a CT scan. Will consult surgery if indicated. 12/20/2018-as noted above the patient had a perforation in the sigmoid colon requiring sigmoid colectomy and colostomy formation. Appreciate Dr. Trimble's intervention. The patient now has a colostomy. Currently on triple antibiotic therapy. 12/21/2018-still with some discomfort in the abdomen postoperatively. Now that perforated viscus has been removed abdominal pain should resolve. (7) Pacemaker Is this a current diagnosis for this admission?: Yes Plan: We will interrogate the pacemaker. The patient's pacemaker has not been interrogated for years. Currently she is mostly in a paced rhythm. The patient beats reveal a palpable pulse. The non-paced beats are difficult to palpate. Cardiac sounds are somewhat distant and difficult to auscultate. We will interrogate pacemaker and then discuss with cardiology. 12/20/2018-pacemaker interrogated. See report in the patient's chart. 12/21/2018-the patient still has intermittent episodes of tachycardia. I have increased her metoprolol and she will have metoprolol available by IV as needed. (8) DNR (do not resuscitate) discussion Is this a current diagnosis for this admission?: Yes Plan: See separate advance care planning note. 12/20/2018-as noted yesterday the patient did not want cardiac resuscitation but did allow intubation. Postoperatively she remains intubated. The patient's family was concerned regarding her decision however nursing explained to them the difference between DO NOT RESUSCITATE and comfort only. The nurse reports that the family felt better knowing that all aggressive measures will be taken up to cardiac arrest. 12/21/2018-the patient has been successfully extubated. She will remain as intubation only. (9) Perforated sigmoid colon Is this a current diagnosis for this admission?: Yes - Time Time Spent with patient: 25-34 minutes Medications reviewed and adjusted accordingly: Yes
[2018-12-22] MEDS ORDERED: NORMAL SALINE 1000 ML 1,000 ML IV PRN (09:17)
--- NOTE | 2018-12-22 09:48 | PDOC PROGRESS REPORT ---
Subjective Progress Note for:: 12/22/18 Subjective:: Patient is resting comfortably. She is successfully extubated. She has very dry mouth. She reports limited abdominal pain. Reason For Visit: ACUTE HYPERCAPNIC/ RESPIRATORY FAILURE Physical Exam Vital Signs: Temp Pulse Resp BP Pulse Ox 98.6 F 80 16 138/66 H 94 12/22/18 08:00 12/22/18 08:49 12/22/18 08:49 12/22/18 08:00 12/22/18 08:49 Intake & Output 12/21/18 12/22/18 12/23/18 06:59 06:59 06:59 Intake Total 700 350 Output Total 895 945 100 Balance -195 -595 -100 Weight 59.6 kg 59.4 kg General appearance: PRESENT: cooperative, mild distress Head exam: PRESENT: atraumatic, normocephalic Eye exam: PRESENT: conjunctiva pale. ABSENT: scleral icterus Ear exam: PRESENT: normal external ear exam Mouth exam: PRESENT: dry mucosa, tongue midline Neck exam: ABSENT: carotid bruit, JVD, lymphadenopathy Respiratory exam: PRESENT: rhonchi - Bilateral expiratory coarse breath sounds., symmetrical, unlabored. ABSENT: accessory muscle use, rales, tachypnea, wheezes Cardiovascular exam: PRESENT: RRR, +S1, +S2 GI/Abdominal exam: PRESENT: normal bowel sounds, soft, tenderness - Slight tenderness near the incision, other - Colostomy left lower quadrant. Bulky dressing over midline incision.. ABSENT: distended Rectal exam: PRESENT: deferred Gentrourinary exam: PRESENT: indwelling catheter Extremities exam: ABSENT: calf tenderness, pedal edema Musculoskeletal exam: PRESENT: normal inspection Neurological exam: PRESENT: alert, awake, oriented to person, oriented to place, oriented to situation Psychiatric exam: PRESENT: flat affect. ABSENT: agitated, anxious Focused psych exam: ABSENT: delusional, restlessness Results Laboratory Results: 12/22/18 04:10 12/22/18 04:10 12/22/18 12/22/18 04:10 04:10 WBC 20.0 H RBC 3.11 L Hgb 8.8 L Hct 27.1 L MCV 87 MCH 28.2 MCHC 32.3 RDW 15.5 H Plt Count 150 Sodium 141.7 Potassium 4.6 Chloride 107 Carbon Dioxide 31 H Anion Gap 4 L BUN 56 H Creatinine 0.85 Est GFR ( Amer) > 60 Est GFR (Non-Af Amer) > 60 Glucose 157 H Calcium 8.9 Phosphorus 3.4 Magnesium 3.0 H Total Bilirubin 0.4 AST 33 ALT 41 Alkaline Phosphatase 50 Total Protein 4.6 L Albumin 2.3 L 12/18/18 12/18/18 12/19/18 07:59 07:59 11:03 Troponin I 0.012 NT-Pro-B Natriuret Pep 6430 H 2470 H 12/20/18 12/21/18 12/22/18 03:09 04:04 04:10 Troponin I NT-Pro-B Natriuret Pep 1130 H 409 517 Impressions: KUB X-Ray 12/19/18 00:00 IMPRESSION: Constipation. Abdomen/Pelvis CT 12/19/18 16:50 IMPRESSION: Sigmoid diverticulosis. Mesenteric inflammatory changes in the left lower quadrant. Small amount of free air and amount of free fluid. Cannot exclude sigmoid diverticulitis with perforation. Chest X-Ray 12/21/18 00:00 IMPRESSION: Borderline heart size with pulmonary vascular congestion but no prieto pulmonary edema. Bibasilar opacification suggests airspace disease, atelectasis versus pneumonia. Assessment and Plan - Diagnosis (1) Acute on chronic respiratory failure Qualifiers: Respiratory failure complication: hypoxia and hypercapnia Qualified Code(s): J96.21 - Acute and chronic respiratory failure with hypoxia; J96.22 - Acute and chronic respiratory failure with hypercapnia Is this a current diagnosis for this admission?: Yes Plan: 12/21/2018-the patient was intubated for surgery. She is recovering nicely. She is awake and alert and answers questions appropriately by nodding her head. She is tolerating weaning. We will extubate and place the patient on BiPAP. 12/22/2018-the patient was successfully extubated yesterday. She is on BiPAP at night. She is breathing comfortably this morning. I will decrease her neb ulizer treatments to every 6 hours scheduled. I am also going to decrease her steroids to once daily Solu-Medrol. (2) Acute exacerbation of chronic obstructive pulmonary disease (COPD) Is this a current diagnosis for this admission?: Yes Plan: 12/19/2018-as above. We will continue to monitor. Pulmonology has been consulted. Nebulizer therapy as above. When tolerated we will reinstitute inhaler therapy 12/20/2018-currently intubated. Continue nebulizer treatments. I will continue to taper the steroids was not to impede healing of her surgery. 12/21/2018-the patient is doing well. Her breathing appears comfortable. The plan is for extubation today. Continue steroid taper and nebulizer treatments. Transition to a scheduled inhaler regimen for outpatient use over the next several days. 12/22/2018-as noted previously the acute abdomen is what most likely exacerbated her breathing issue. She has been successfully extubated. Treatment plan as noted above. (3) Acute kidney injury Is this a current diagnosis for this admission?: Yes Plan: 12/20/2018-still with a decreased GFR. This is likely secondary to her acute abdomen. Continue to use fluids judiciously and monitor renal function. Dose medications accordingly. 12/21/2018-acute kidney injury resolved. 12/22/2018-the acute kidney injury resolved but she still appears to be hypovolemic. Anticipate oral intake today but I will give IV fluid anyway. (4) Acute on chronic diastolic CHF (congestive heart failure) Is this a current diagnosis for this admission?: Yes Plan: 12/19/2018-at her jeana her ejection fraction was less than 25%. Most recent echocardiogram reveals an ejection fraction of 60%. I will resume her m etoprolol but change to the tartrate 12.5 mg twice daily for the time being before resuming her succinate 25 mg daily dose. Continue aspirin and adjust furosemide based on her clinical condition as well as fluid balance. 12/20/2018-we will monitor I's and O's. Heart failure appears to be stable. 12/21/2018-appears to be resolved. BNP was only 500. She is still in a slight negative fluid balance. Continue furosemide as ordered. 12/22/2018-the patient is actually hypovolemic this morning. Going to give IV fluid. I will hold on the Lasix. We will continue to monitor intake and output as well. (5) Nonischemic cardiomyopathy Is this a current diagnosis for this admission?: Yes Plan: As noted above she has recovered ejection fraction. We will continue to monitor. She does have an AICD/pacemaker in place. 12/21/2018-continue current regimen 12/22/2018-I am going to resume IV fluids until she is able to catch up with oral fluids. Will monitor closely for failure. She has regained significant amount of ejection fraction from previously. (6) Abdominal pain, bilateral upper quadrant Is this a current diagnosis for this admission?: Yes Plan: Patient is quite tender and distended. Her pain is mostly across the upper abdomen. I did order a KUB film and this reveals heavy burden of stool. Will monitor closely. She has already received multiple doses of stool softeners/laxatives. If bowel movements do not relieve the abdominal discomfort then we may proceed to a CT scan. Will consult surgery if indicated. 12/20/2018-as noted above the patient had a perforation in the sigmoid colon requiring sigmoid colectomy and colostomy formation. Appreciate Dr. Trimble's intervention. The patient now has a colostomy. Currently on triple antibiotic therapy. 12/21/2018-still with some discomfort in the abdomen postoperatively. Now that perforated viscus has been removed abdominal pain should resolve. 12/22/2018-the patient reports minimal abdominal discomfort. She is, I feel a very stoic patient. Continue symptomatic care. (7) Pacemaker Is this a current diagnosis for this admission?: Yes Plan: We will interrogate the pacemaker. The patient's pacemaker has not been inter rogated for years. Currently she is mostly in a paced rhythm. The patient beats reveal a palpable pulse. The non-paced beats are difficult to palpate. Cardiac sounds are somewhat distant and difficult to auscultate. We will interrogate pacemaker and then discuss with cardiology. 12/20/2018-pacemaker interrogated. See report in the patient's chart. 12/21/2018-the patient still has intermittent episodes of tachycardia. I have increased her metoprolol and she will have metoprolol available by IV as needed. 12/22/2018-still with intermittent tachycardia. She also has occasional PVCs. I have increased her metoprolol to 25 mg twice daily. She has as needed Lopressor available as well. Continue to monitor on telemetry. (8) DNR (do not resuscitate) discussion Is this a current diagnosis for this admission?: Yes Plan: See separate advance care planning note. 12/20/2018-as noted yesterday the patient did not want cardiac resuscitation but did allow intubation. Postoperatively she remains intubated. The patient's family was concerned regarding her decision however nursing explained to them the difference between DO NOT RESUSCITATE and comfort only. The nurse reports that the family felt better knowing that all aggressive measures will be taken up to cardiac arrest. 12/21/2018-the patient has been successfully extubated. She will remain as intubation only. 12/22/2018-as above (9) Perforated sigmoid colon Is this a current diagnosis for this admission?: Yes Plan: 12/20/2018-the patient had a perforation of the sigmoid colon with fecal material in the abdominal cavity causing peritonitis. She had a sigmoid colectomy and colostomy was formed. She is currently on triple antibiotic therapy, vancomycin, cefepime and metronidazole. Please also see the surgical note. 12/21/2018-the patient is doing well. Sigmoid colectomy performed with co lostomy. Abdominal pain is improved. Continue antibiotics for peritonitis. 12/22/2018-the patient appears to be recovering quite nicely. Please also see surgical note. - Time Time Spent with patient: 25-34 minutes Medications reviewed and adjusted accordingly: Yes
[2018-12-22] MEDS: ASPIRIN 81 MG TABLET, ENT COATED PO SCH (10:10)
[2018-12-22] MEDS: METOPROLOL TARTRATE 25 MG TABLET PO SCH ×2 (10:10→21:25)
[2018-12-22] MEDS: VANCOMYCIN HCL 750 MG in DEXTROSE 5%-WATER 250 ML IV SCH (10:11)
[2018-12-22] MEDS: HEPARIN SOD (PORCINE) 5,000 UNIT/ML 1 ML SYRINGE SUBCUT SCH ×2 (10:12→21:25)
[2018-12-22] MEDS: PANTOPRAZOLE SODIUM 40 MG VIAL IV SCH (10:12)
[2018-12-22] MEDS: METHYLPREDNISOLONE INJ 40 MG/1 ML SDV IV SCH (10:13)
[2018-12-22] MEDS: NORMAL SALINE 1000 ML 1,000 ML IV PRN ×2 (10:22→17:37)
[2018-12-22] MEDS: CEFEPIME HCL 2 GM in DEXTROSE 5%-WATER 50 ML IV SCH (19:43)
--- NOTE | 2018-12-22 21:06 | PDOC PROGRESS REPORT ---
Subjective Progress Note for:: 12/22/18 Subjective:: feeling better extubated, taking clear liqids Reason For Visit: ACUTE HYPERCAPNIC/ RESPIRATORY FAILURE Physical Exam Vital Signs: Temp Pulse Resp BP Pulse Ox 99.0 F 74 18 136/61 H 96 12/22/18 18:00 12/22/18 20:41 12/22/18 20:35 12/22/18 18:00 12/22/18 20:35 Intake & Output 12/21/18 12/22/18 12/23/18 06:59 06:59 06:59 Intake Total 867 657 7915 Output Total 895 945 615 Balance -195 -245 391 Weight 59.6 kg 59.4 kg General appearance: PRESENT: no acute distress Head exam: PRESENT: normocephalic Eye exam: PRESENT: EOMI Mouth exam: PRESENT: moist Neck exam: PRESENT: full ROM Respiratory exam: PRESENT: clear to auscultation tyrone Cardiovascular exam: PRESENT: RRR Pulses: PRESENT: normal radial pulses, normal femoral pulses GI/Abdominal exam: PRESENT: other - abd soft, dressing dry, kentrell iwth min op stoma pink, not yet productive Extremities exam: PRESENT: full ROM Musculoskeletal exam: PRESENT: full ROM Neurological exam: PRESENT: alert, awake Skin exam: PRESENT: dry Results Laboratory Results: 12/22/18 04:10 12/22/18 04:10 12/22/18 12/22/18 04:10 04:10 WBC 20.0 H RBC 3.11 L Hgb 8.8 L Hct 27.1 L MCV 87 MCH 28.2 MCHC 32.3 RDW 15.5 H Plt Count 150 Sodium 141.7 Potassium 4.6 Chloride 107 Carbon Dioxide 31 H Anion Gap 4 L BUN 56 H Creatinine 0.85 Est GFR ( Amer) > 60 Est GFR (Non-Af Amer) > 60 Glucose 157 H Calcium 8.9 Phosphorus 3.4 Magnesium 3.0 H Total Bilirubin 0.4 AST 33 ALT 41 Alkaline Phosphatase 50 Total Protein 4.6 L Albumin 2.3 L 12/18/18 12/18/18 12/19/18 07:59 07:59 11:03 Troponin I 0.012 NT-Pro-B Natriuret Pep 6430 H 2470 H 12/20/18 12/21/18 12/22/18 03:09 04:04 04:10 Troponin I NT-Pro-B Natriuret Pep 1130 H 409 517 Impressions: KUB X-Ray 12/19/18 00:00 IMPRESSION: Constipation. Abdomen/Pelvis CT 12/19/18 16:50 IMPRESSION: Sigmoid diverticulosis. Mesenteric inflammatory changes in the left lower quadrant. Small amount of free air and amount of free fluid. Cannot exclude sigmoid diverticulitis with perforation. Chest X-Ray 12/21/18 00:00 IMPRESSION: Borderline heart size with pulmonary vascular congestion but no prieto pulmonary edema. Bibasilar opacification suggests airspace disease, atelectasis versus pneumonia. Assessment & Plan - Plan Summary Plan Summary: s/p exploratory laparotomy with sigmoid colectomy and descending colostomy recent extubation, yesterday now doing better, started on clears liquids this am luis well still no op via stoma wbc up to 20k today pt receiving steroids for copd she is afeb vss, pulse 72 and no peritoneal irritation on exam will trend wbc, cont iv abx.
[2018-12-22] MEDS: SIMVASTATIN 10 MG TABLET NG SCH (21:25)
[2018-12-23] MEDS: IPRATROPIUM/ALBUTEROL 0.5-2.5 MG/3 ML AMPUL NEB SCH ×4 (01:53→21:01)
[2018-12-23] MEDS: MORPHINE SULFATE 10 MG/ML INJ IV PRN ×2 (03:51→19:14)
[2018-12-23 03:52] LABS: HEMATOCRIT 25.4 % (36.0-47.0); HEMOGLOBIN 8.4 g/dL (12.0-15.5); MEAN CORPUSCULAR HEMOGLOBIN 28.8 pg (27.0-33.4); MEAN CORPUSCULAR HGB CONC 32.9 g/dL (32.0-36.0); MEAN CORPUSCULAR VOLUME 87 fl (80-97); PLATELET COUNT 152 10^3/uL (150-450); RED BLOOD COUNT 2.91 10^6/uL (3.72-5.28); RED CELL DISTRIBUTION WIDTH 15.3 % (11.5-14.0); WHITE BLOOD COUNT 13.4 10^3/uL (4.0-10.5)
[2018-12-23 04:12] LABS: ABSOLUTE LYMPHOCYTES# (MANUAL) 0.5 10^3/uL (0.5-4.7); ABSOLUTE MONOCYTES # (MANUAL) 0.7 10^3/uL (0.1-1.4); ABSOLUTE NEUTROPHILS# (MANUAL) 12.2 10^3/uL (1.7-8.2); BASOPHILS % (MANUAL) 0 % (0-2); EOSINOPHILS % (MANUAL) 0 % (0-6); LYMPHOCYTES % (MANUAL) 4 % (13-45); MONOCYTES % (MANUAL) 5 % (3-13); SEGMENTED NEUTROPHILS % (MAN) 91 % (42-78); TOTAL CELLS COUNTED 100
[2018-12-23 04:13] LABS: ANISOCYTOSIS SLIGHT; BLOOD UREA NITROGEN 47 mg/dL (7-20); CALCIUM 8.5 mg/dL (8.4-10.2); CARBON DIOXIDE 30 mmol/L (22-30); GLUCOSE 118 mg/dL (75-110); OVALOCYTES 1+; POIKILOCYTOSIS 1+; TEAR DROP CELLS SLIGHT; TOXIC GRANULATION 1+
[2018-12-23 04:14] LABS: PLATELET COMMENT ADEQUATE
[2018-12-23 04:16] LABS: POTASSIUM 4.6 mmol/L (3.6-5.0)
[2018-12-23 04:19] LABS: CHLORIDE 108 mmol/L (98-107)
[2018-12-23 04:24] LABS: ANION GAP 3 (5-19)
[2018-12-23] MEDS: METRONIDAZOLE 500 MG/NS RTU 500 MG/100 ML RTUPB IV SCH ×3 (05:05→19:00)
--- NOTE | 2018-12-23 07:33 | RADIOLOGY REPORT (SQ) ---
EXAM DESCRIPTION: X-ray single view chest. CLINICAL HISTORY: 73 years Female, Acute respiratory failure COMPARISON: 12/20/2018. The prior chest x-ray from 418 was not available for review. TECHNIQUE: Single portable x-ray view of the chest performed on 12/23/2018 at 6:28 AM FINDINGS: The lungs are well expanded. There is mild bibasilar opacification likely reflecting atelectasis or fibrosis. Inflammatory changes are not excluded. Small bilateral pleural effusions are not excluded. No dense airspace consolidation is identified There is no evidence of a pneumothorax. The cardiac silhouette is stable and mildly prominent. There are atherosclerotic calcifications along the thoracic aorta. The mediastinal contours are normal. No acute osseous abnormality is identified. No focal soft tissue abnormalities are seen. Lines and tubes: There has been interval removal of the endotracheal tube and feeding tube. There is a stable multi lead left subclavian AICD. IMPRESSION: 1. Mild patchy bibasilar opacification which may be due to fibrosis and/or atelectasis. Underlying inflammatory changes and small effusions are not excluded. 2. Interval removal of the endotracheal tube and feeding tube. 3. Stable multi lead left subclavian AICD.
[2018-12-23] MEDS: INSULIN LISPRO 100 UNIT/ML 3 ML VIAL SUBCUT SCH ×4 (09:06→22:45)
[2018-12-23] MEDS: VANCOMYCIN HCL 750 MG in DEXTROSE 5%-WATER 250 ML IV SCH (10:36)
[2018-12-23] MEDS: PANTOPRAZOLE SODIUM 40 MG VIAL IV SCH (10:37)
[2018-12-23 10:38] LABS: VANCOMYCIN,TROUGH 9.4 ug/mL (5.0-20.0)
[2018-12-23] MEDS: HEPARIN SOD (PORCINE) 5,000 UNIT/ML 1 ML SYRINGE SUBCUT SCH ×2 (10:38→22:39)
[2018-12-23] MEDS: METHYLPREDNISOLONE INJ 40 MG/1 ML SDV IV SCH (10:38)
[2018-12-23] MEDS: METOPROLOL TARTRATE 25 MG TABLET PO SCH ×2 (10:40→22:39)
[2018-12-23] MEDS: ASPIRIN 81 MG TABLET, ENT COATED PO SCH (10:40)
--- NOTE | 2018-12-23 12:12 | PDOC PROGRESS REPORT ---
Subjective Progress Note for:: 12/23/18 Reason For Visit: ACUTE HYPERCAPNIC/ RESPIRATORY FAILURE Physical Exam Vital Signs: Temp Pulse Resp BP Pulse Ox 98.8 F 73 18 115/58 L 98 12/23/18 10:00 12/23/18 10:00 12/23/18 10:00 12/23/18 10:00 12/23/18 10:00 Intake & Output 12/22/18 12/23/18 12/24/18 06:59 06:59 06:59 Intake Total 700 1506 400 Output Total 945 1085 240 Balance -245 421 160 Weight 59.4 kg 61 kg Results Laboratory Results: 12/23/18 03:37 12/23/18 03:37 12/23/18 12/23/18 03:37 03:37 WBC 13.4 H RBC 2.91 L Hgb 8.4 L Hct 25.4 L MCV 87 MCH 28.8 MCHC 32.9 RDW 15.3 H Plt Count 152 Seg Neutrophils % Not Reportable Lymphocytes % Not Reportable Monocytes % Not Reportable Eosinophils % Not Reportable Basophils % Not Reportable Absolute Neutrophils Not Reportable Absolute Lymphocytes Not Reportable Absolute Monocytes Not Reportable Absolute Eosinophils Not Reportable Absolute Basophils Not Reportable Sodium 141.0 Potassium 4.6 Chloride 108 H Carbon Dioxide 30 Anion Gap 3 L BUN 47 H Creatinine 0.66 Est GFR ( Amer) > 60 Est GFR (Non-Af Amer) > 60 Glucose 118 H Calcium 8.5 Magnesium 2.5 H 12/18/18 12/18/18 12/19/18 07:59 07:59 11:03 Troponin I 0.012 NT-Pro-B Natriuret Pep 6430 H 2470 H 12/20/18 12/21/18 12/22/18 03:09 04:04 04:10 Troponin I NT-Pro-B Natriuret Pep 1130 H 409 517 Impressions: KUB X-Ray 12/19/18 00:00 IMPRESSION: Constipation. Abdomen/Pelvis CT 12/19/18 16:50 IMPRESSION: Sigmoid diverticulosis. Mesenteric inflammatory changes in the left lower quadrant. Small amount of free air and amount of free fluid. Cannot exclude sigmoid diverticulitis with perforation. Chest X-Ray 12/23/18 08:00 IMPRESSION: 1. Mild patchy bibasilar opacification which may be due to fibrosis and/or atelectasis. Underlying inflammatory changes and small effusions are not excluded. 2. Interval removal of the endotracheal tube and feeding tube. 3. Stable multi lead left subclavian AICD. Assessment & Plan - Diagnosis (1) Acute abdomen Is this a current diagnosis for this admission?: Yes (2) Free intraperitoneal air Is this a current diagnosis for this admission?: Yes (3) Diverticulitis of colon with perforation Qualifiers: Diverticulitis bleeding: without bleeding Qualified Code(s): K57.20 - Diverticulitis of large intestine with perforation and abscess without bleeding Is this a current diagnosis for this admission?: Yes - Plan Summary Plan Summary: This is a 73-year-old female with perforated, Hinchey 4 diverticulitis. The patient underwent Ernandez's procedure. Currently, she is extubated and breathing on her own without the assistance of BiPAP. She complains of midline incisional pain. Her colostomy is pink, without production of stool (yet). Her midline incision is without signs of infection. Encouraged mobilization. PT/OT. Pulmonary toilet. Change midline dressing daily. Awaiting bowel function.
[2018-12-23] MEDS: METOPROLOL TARTRATE PF/INJ 5 MG/5 ML SDV IV PRN (13:56)
[2018-12-23] MEDS: CEFEPIME HCL 2 GM in DEXTROSE 5%-WATER 50 ML IV SCH (22:38)
[2018-12-23] MEDS: SIMVASTATIN 10 MG TABLET NG SCH (22:40)
[2018-12-23] MEDS: MIDAZOLAM 2 MG/2 ML INJ IV PRN (22:46)
[2018-12-24] MEDS: METRONIDAZOLE 500 MG/NS RTU 500 MG/100 ML RTUPB IV SCH ×4 (01:00→17:50)
[2018-12-24] MEDS: IPRATROPIUM/ALBUTEROL 0.5-2.5 MG/3 ML AMPUL NEB SCH ×4 (02:09→20:22)
[2018-12-24 04:40] LABS: ABSOLUTE RETICS # 0.035 10^6/uL (0.028-0.122); HEMOGLOBIN 9.7 g/dL (12.0-15.5); MEAN CORPUSCULAR HGB CONC 32.4 g/dL (32.0-36.0); MEAN CORPUSCULAR VOLUME 86 fl (80-97); PLATELET COUNT 194 10^3/uL (150-450); RED BLOOD COUNT 3.47 10^6/uL (3.72-5.28); RED CELL DISTRIBUTION WIDTH 15.5 % (11.5-14.0); WHITE BLOOD COUNT 12.5 10^3/uL (4.0-10.5)
[2018-12-24 05:07] LABS: ABSOLUTE LYMPHOCYTES# (MANUAL) 0.4 10^3/uL (0.5-4.7); ABSOLUTE MONOCYTES # (MANUAL) 0.6 10^3/uL (0.1-1.4); ABSOLUTE NEUTROPHILS# (MANUAL) 11.5 10^3/uL (1.7-8.2); BAND NEUTROPHILS % (MANUAL) 1 % (3-5); BASOPHILS % (MANUAL) 0 % (0-2); EOSINOPHILS % (MANUAL) 0 % (0-6); LYMPHOCYTES % (MANUAL) 3 % (13-45); MONOCYTES % (MANUAL) 5 % (3-13); NUCLEATED RED BLOOD CELLS 1 /100 WBC (0); SEGMENTED NEUTROPHILS % (MAN) 88 % (42-78); TOTAL CELLS COUNTED 100
[2018-12-24 05:09] LABS: PLATELET COMMENT ADEQUATE
[2018-12-24 05:12] LABS: ANISOCYTOSIS SLIGHT; HYPOCHROMASIA 1+; OVALOCYTES SLIGHT; TARGET CELLS 1+
[2018-12-24 05:13] LABS: POLYCHROMASIA SLIGHT
[2018-12-24 05:14] LABS: MYELOCYTES % (MANUAL) 3 % (0)
[2018-12-24 05:28] LABS: BLOOD UREA NITROGEN 41 mg/dL (7-20); CALCIUM 8.9 mg/dL (8.4-10.2); CARBON DIOXIDE 33 mmol/L (22-30); CHLORIDE 104 mmol/L (98-107); GLUCOSE 176 mg/dL (75-110); IRON(TIBC) 47.8 ug/dL (37-170); POTASSIUM 4.8 mmol/L (3.6-5.0); SODIUM 139.5 mmol/L (137-145)
[2018-12-24 05:29] LABS: ANION GAP 3 (5-19)
[2018-12-24] MEDS: INSULIN LISPRO 100 UNIT/ML 3 ML VIAL SUBCUT SCH ×4 (08:42→23:36)
--- NOTE | 2018-12-24 10:58 | PDOC PROGRESS REPORT ---
Subjective Progress Note for:: 12/24/18 Reason For Visit: ACUTE HYPERCAPNIC/ RESPIRATORY FAILURE Physical Exam Vital Signs: Temp Pulse Resp BP Pulse Ox 98.4 F 91 16 136/66 H 96 12/24/18 04:00 12/24/18 08:38 12/24/18 10:00 12/24/18 09:48 12/24/18 10:00 Intake & Output 12/23/18 12/24/18 12/25/18 06:59 06:59 06:59 Intake Total 1606 1300 Output Total 1085 1275 115 Balance 521 25 -115 Weight 61 kg 61.2 kg Results Laboratory Results: 12/24/18 03:32 12/24/18 03:32 12/24/18 12/24/18 03:32 03:32 WBC 12.5 H RBC 3.47 L Hgb 9.7 L Hct 30.0 L MCV 86 MCH 28.0 MCHC 32.4 RDW 15.5 H Plt Count 194 Seg Neutrophils % Not Reportable Lymphocytes % Not Reportable Monocytes % Not Reportable Eosinophils % Not Reportable Basophils % Not Reportable Absolute Neutrophils Not Reportable Absolute Lymphocytes Not Reportable Absolute Monocytes Not Reportable Absolute Eosinophils Not Reportable Absolute Basophils Not Reportable Retic Count (auto) 1.00 Absolute Retic 0.035 Sodium 139.5 Potassium 4.8 Chloride 104 Carbon Dioxide 33 H Anion Gap 3 L BUN 41 H Creatinine 0.61 Est GFR ( Amer) > 60 Est GFR (Non-Af Amer) > 60 Glucose 176 H Calcium 8.9 Iron 47.8 TIBC 298 % Saturation 16 Ferritin 633.00 H Vitamin B12 883.0 Folate 11.90 12/18/18 12/18/18 12/19/18 07:59 07:59 11:03 Troponin I 0.012 NT-Pro-B Natriuret Pep 6430 H 2470 H 12/20/18 12/21/18 12/22/18 03:09 04:04 04:10 Troponin I NT-Pro-B Natriuret Pep 1130 H 409 517 Impressions: KUB X-Ray 12/19/18 00:00 IMPRESSION: Constipation. Abdomen/Pelvis CT 12/19/18 16:50 IMPRESSION: Sigmoid diverticulosis. Mesenteric inflammatory changes in the lef t lower quadrant. Small amount of free air and amount of free fluid. Cannot exclude sigmoid diverticulitis with perforation. Chest X-Ray 12/23/18 08:00 IMPRESSION: 1. Mild patchy bibasilar opacification which may be due to fibrosis and/or atelectasis. Underlying inflammatory changes and small effusions are not excluded. 2. Interval removal of the endotracheal tube and feeding tube. 3. Stable multi lead left subclavian AICD. Assessment & Plan - Diagnosis (1) Acute abdomen Is this a current diagnosis for this admission?: Yes (2) Free intraperitoneal air Is this a current diagnosis for this admission?: Yes (3) Diverticulitis of colon with perforation Qualifiers: Diverticulitis bleeding: without bleeding Qualified Code(s): K57.20 - Diverticulitis of large intestine with perforation and abscess without bleeding Is this a current diagnosis for this admission?: Yes - Plan Summary Plan Summary: This is a 73-year-old female with perforated, Hinchey 4 diverticulitis. The patient underwent Ernandez's procedure. Currently, she is extubated and breathing on her own without the assistance of BiPAP. She denies pain today. Her colostomy is pink, with production of air. Her midline incision is without signs of infection. Encouraged mobilization. PT/OT. Pulmonary toilet. Change midline dressing daily. Advance to full liquids.
[2018-12-24] MEDS ORDERED: AMLODIPINE BESYLATE 5 MG TABLET PO SCH (11:00)
[2018-12-24] MEDS: VANCOMYCIN HCL 1,000 MG in DEXTROSE 5%-WATER 250 ML IV SCH (12:02)
[2018-12-24] MEDS: PANTOPRAZOLE SODIUM 40 MG VIAL IV SCH (12:07)
[2018-12-24] MEDS: METHYLPREDNISOLONE INJ 40 MG/1 ML SDV IV SCH (12:07)
[2018-12-24] MEDS: METOPROLOL TARTRATE 25 MG TABLET PO SCH ×2 (12:08→17:30)
[2018-12-24] MEDS: FUROSEMIDE 20 MG TABLET PO SCH (12:08)
[2018-12-24] MEDS: ASPIRIN 81 MG TABLET, ENT COATED PO SCH (12:08)
[2018-12-24] MEDS: HEPARIN SOD (PORCINE) 5,000 UNIT/ML 1 ML SYRINGE SUBCUT SCH ×2 (12:09→23:27)
--- NOTE | 2018-12-24 14:38 | PDOC PROGRESS REPORT ---
Subjective Progress Note for:: 12/24/18 Subjective:: Complains of incisional pain, but improving. She is passing gas. Denies fever or chills, no nausea or vomiting. No chest pain or shortness of breath or palpitations. Reason For Visit: ACUTE HYPERCAPNIC/ RESPIRATORY FAILURE Physical Exam Vital Signs: Temp Pulse Resp BP Pulse Ox 98.4 F 91 18 141/62 H 96 12/24/18 04:00 12/24/18 08:38 12/24/18 08:38 12/24/18 07:48 12/24/18 08:38 Intake & Output 12/23/18 12/24/18 12/25/18 06:59 06:59 06:59 Intake Total 1606 1300 Output Total 1085 1275 115 Balance 521 25 -115 Weight 61 kg 61.2 kg GENERAL: Well-developed, no acute distress HEENT: Normocephalic/atraumatic NECK supple, no JVD CARDIOVASCULAR: RRR, normal S1-S2 LUNGS: CTA bilaterally ABDOMEN: Soft, slight tenderness near incision area, greenish liquid in colostomy bag, bowel sounds present EXTREMITIES: No edema, clubbing, cyanosis NEUROLOGICAL: Alert, oriented x 3, no acute weakness Results Laboratory Results: 12/24/18 03:32 12/24/18 03:32 12/24/18 12/24/18 03:32 03:32 WBC 12.5 H RBC 3.47 L Hgb 9.7 L Hct 30.0 L MCV 86 MCH 28.0 MCHC 32.4 RDW 15.5 H Plt Count 194 Seg Neutrophils % Not Reportable Lymphocytes % Not Reportable Monocytes % Not Reportable Eosinophils % Not Reportable Basophils % Not Reportable Absolute Neutrophils Not Reportable Absolute Lymphocytes Not Reportable Absolute Monocytes Not Reportable Absolute Eosinophils Not Reportable Absolute Basophils Not Reportable Retic Count (auto) 1.00 Absolute Retic 0.035 Sodium 139.5 Potassium 4.8 Chloride 104 Carbon Dioxide 33 H Anion Gap 3 L BUN 41 H Creatinine 0.61 Est GFR ( Amer) > 60 Est GFR (Non-Af Amer) > 60 Glucose 176 H Calcium 8.9 Iron 47.8 TIBC 298 % Saturation 16 Ferritin 633.00 H Vitamin B12 883.0 Folate 11.90 12/18/18 12/18/18 12/19/18 07:59 07:59 11:03 Troponin I 0.012 NT-Pro-B Natriuret Pep 6430 H 2470 H 12/20/18 12/21/18 12/22/18 03:09 04:04 04:10 Troponin I NT-Pro-B Natriuret Pep 1130 H 409 517 Impressions: KUB X-Ray 12/19/18 00:00 IMPRESSION: Constipation. Abdomen/Pelvis CT 12/19/18 16:50 IMPRESSION: Sigmoid diverticulosis. Mesenteric inflammatory changes in the left lower quadrant. Small amount of free air and amount of free fluid. Cannot exclude sigmoid diverticulitis with perforation. Chest X-Ray 12/23/18 08:00 IMPRESSION: 1. Mild patchy bibasilar opacification which may be due to fibrosis and/or atelectasis. Underlying inflammatory changes and small effusions are not excluded. 2. Interval removal of the endotracheal tube and feeding tube. 3. Stable multi lead left subclavian AICD. Assessment and Plan - Diagnosis (1) Acute on chronic respiratory failure Qualifiers: Respiratory failure complication: hypoxia and hypercapnia Qualified Code(s): J96.21 - Acute and chronic respiratory failure with hypoxia; J96.22 - Acute and chronic respiratory failure with hypercapnia Is this a current diagnosis for this admission?: Yes Plan: Status post extubation and doing well. Using BiPAP at night. Change Medrol to prednisone once taking in p.o.'s. (2) Acute kidney injury Is this a current diagnosis for this admission?: Yes Plan: Improved. Continue to monitor creatinine. (3) Diverticulitis of colon with perforation Qualifiers: Diverticulitis bleeding: without bleeding Qualified Code(s): K57.20 - Diverticulitis of large intestine with perforation and abscess without bleeding Is this a current diagnosis for this admission?: Yes Plan: Status post perforated, Hinchey 4 diverticulitis. She is status post Ernandez's procedure with colostomy. Continue broad-spectrum antibiotics for now. Surgical follow-up appreciated. (4) Acute exacerbation of chronic obstructive pulmonary disease (COPD) Is this a current diagnosis for this admission?: Yes Plan: Continue IV Solu-Medrol for now, nebulizers. (5) Acute on chronic diastolic CHF (congestive heart failure) Is this a current diagnosis for this admission?: Yes Plan: Lasix on hold at this time due to hypovolemia at this time. Continue to monitor patient. Consider resuming Lasix after she starts taking in p.o.'s. (6) Pacemaker Is this a current diagnosis for this admission?: Yes Plan: Stable. Heart rate improved. - Plan Summary Plan Summary: Doing better. Transfer to [facility] when bed available.
[2018-12-24] MEDS: MORPHINE SULFATE 10 MG/ML INJ IV PRN ×2 (18:04→23:00)
[2018-12-24] MEDS ORDERED: METOPROLOL TARTRATE 25 MG TABLET PO SCH (22:00)
[2018-12-24] MEDS: METOPROLOL TARTRATE PF/INJ 5 MG/5 ML SDV IV PRN (22:53)
[2018-12-24] MEDS ORDERED: DIGOXIN INJ 0.5 MG/2 ML AMPULE ONE ×2 (23:07→23:09)
[2018-12-24] MEDS: MIDAZOLAM 2 MG/2 ML INJ IV PRN (23:23)
[2018-12-24] MEDS: SIMVASTATIN 10 MG TABLET NG SCH (23:24)
[2018-12-24] MEDS: CEFEPIME HCL 2 GM in DEXTROSE 5%-WATER 50 ML IV SCH (23:27)
[2018-12-24] MEDS ORDERED: DIGOXIN INJ 0.5 MG/2 ML AMPULE IV ONE (23:30)
[2018-12-24 23:46] LABS: ANION GAP 5 (5-19); BLOOD UREA NITROGEN 35 mg/dL (7-20); CALCIUM 8.9 mg/dL (8.4-10.2); CARBON DIOXIDE 29 mmol/L (22-30); CHLORIDE 103 mmol/L (98-107); CREATINE KINASE 89 U/L (30-135); GLUCOSE 228 mg/dL (75-110); POTASSIUM 4.7 mmol/L (3.6-5.0); SODIUM 136.7 mmol/L (137-145)
[2018-12-25 00:06] LABS: CREATINE KINASE MB 1.04 ng/mL (<4.55)
[2018-12-25 00:08] LABS: TROPONIN I < 0.012 ng/mL
[2018-12-25] MEDS: METOPROLOL TARTRATE 25 MG TABLET PO SCH ×3 (01:15→21:38)
[2018-12-25] MEDS: METRONIDAZOLE 500 MG/NS RTU 500 MG/100 ML RTUPB IV SCH ×5 (01:17→23:24)
[2018-12-25] MEDS: IPRATROPIUM/ALBUTEROL 0.5-2.5 MG/3 ML AMPUL NEB SCH ×4 (02:49→21:08)
[2018-12-25 06:43] LABS: HEMATOCRIT 28.5 % (36.0-47.0); HEMOGLOBIN 9.3 g/dL (12.0-15.5); MEAN CORPUSCULAR HEMOGLOBIN 28.2 pg (27.0-33.4); MEAN CORPUSCULAR HGB CONC 32.7 g/dL (32.0-36.0); MEAN CORPUSCULAR VOLUME 86 fl (80-97); PLATELET COUNT 208 10^3/uL (150-450); RED BLOOD COUNT 3.32 10^6/uL (3.72-5.28); RED CELL DISTRIBUTION WIDTH 15.4 % (11.5-14.0); WHITE BLOOD COUNT 15.2 10^3/uL (4.0-10.5)
[2018-12-25 07:01] LABS: BLOOD UREA NITROGEN 32 mg/dL (7-20); CALCIUM 8.7 mg/dL (8.4-10.2); GLUCOSE 110 mg/dL (75-110)
[2018-12-25 07:02] LABS: POTASSIUM 4.7 mmol/L (3.6-5.0)
[2018-12-25 07:05] LABS: ABSOLUTE LYMPHOCYTES# (MANUAL) 0.8 10^3/uL (0.5-4.7); ABSOLUTE MONOCYTES # (MANUAL) 0.5 10^3/uL (0.1-1.4); ABSOLUTE NEUTROPHILS# (MANUAL) 13.8 10^3/uL (1.7-8.2); BAND NEUTROPHILS % (MANUAL) 2 % (3-5); BASOPHILS % (MANUAL) 0 % (0-2); EOSINOPHILS % (MANUAL) 1 % (0-6); LYMPHOCYTES % (MANUAL) 5 % (13-45); MONOCYTES % (MANUAL) 3 % (3-13); MYELOCYTES % (MANUAL) 1 % (0); NUCLEATED RED BLOOD CELLS 1 /100 WBC (0); PLATELET CLUMPS PRESENT; SEGMENTED NEUTROPHILS % (MAN) 88 % (42-78); TOTAL CELLS COUNTED 100
[2018-12-25 07:06] LABS: TOXIC GRANULATION SLIGHT; TOXIC VACUOLATION PRESENT
[2018-12-25 07:07] LABS: CARBON DIOXIDE 34 mmol/L (22-30); CHLORIDE 104 mmol/L (98-107); SODIUM 138.7 mmol/L (137-145)
[2018-12-25 07:09] LABS: ANISOCYTOSIS 1+; HYPOCHROMASIA SLIGHT; POIKILOCYTOSIS SLIGHT; TARGET CELLS SLIGHT
[2018-12-25 07:22] LABS: ANION GAP 1 (5-19)
--- NOTE | 2018-12-25 07:25 | EKG REPORT ---
SEVERITY:- ABNORMAL ECG - A-V DUAL-PACED COMPLEXES W/ SOME INHIBITION : Confirmed by: Alex Alvarez MD 25-Dec-2018 07:24:01
--- NOTE | 2018-12-25 08:20 | PDOC PROGRESS REPORT ---
Subjective Progress Note for:: 12/25/18 Subjective:: Looks well, feels well, tolerating full liquids, still in ICU, got up out of bed standing, Horne catheter still in. Ostomy functioning. Reason For Visit: ACUTE HYPERCAPNIC/ RESPIRATORY FAILURE Physical Exam Vital Signs: Temp Pulse Resp BP Pulse Ox 98.1 F 78 15 129/80 H 98 12/25/18 03:56 12/25/18 02:49 12/25/18 04:18 12/25/18 02:28 12/25/18 04:18 Intake & Output 12/24/18 12/25/18 12/26/18 06:59 06:59 06:59 Intake Total 1300 700 Output Total 1275 1065 Balance 25 -365 Weight 61.2 kg 63.8 kg General appearance: PRESENT: no acute distress GI/Abdominal exam: PRESENT: other - : Ostomy edematous; midline incision approximated with open areas without drainage. Abdominal binder in position Results Laboratory Results: 12/25/18 06:16 12/25/18 06:16 12/24/18 12/25/18 12/25/18 23:20 06:16 06:16 WBC 15.2 H RBC 3.32 L Hgb 9.3 L Hct 28.5 L MCV 86 MCH 28.2 MCHC 32.7 RDW 15.4 H Plt Count 208 Seg Neutrophils % Not Reportable Lymphocytes % Not Reportable Monocytes % Not Reportable Eosinophils % Not Reportable Basophils % Not Reportable Absolute Neutrophils Not Reportable Absolute Lymphocytes Not Reportable Absolute Monocytes Not Reportable Absolute Eosinophils Not Reportable Absolute Basophils Not Reportable Sodium 136.7 L 138.7 Potassium 4.7 4.7 Chloride 103 104 Carbon Dioxide 29 34 H Anion Gap 5 1 L BUN 35 H 32 H Creatinine 0.51 L 0.51 L Est GFR ( Amer) > 60 > 60 Est GFR (Non-Af Amer) > 60 > 60 Glucose 228 H 110 Calcium 8.9 8.7 Magnesium 2.0 12/18/18 12/18/18 12/19/18 07:59 07:59 11:03 Creatine Kinase CK-MB (CK-2) Troponin I 0.012 NT-Pro-B Natriuret Pep 6430 H 2470 H 12/20/18 12/21/18 12/22/18 03:09 04:04 04:10 Creatine Kinase CK-MB (CK-2) Troponin I NT-Pro-B Natriuret Pep 1130 H 409 517 12/24/18 12/24/18 23:20 23:20 Creatine Kinase 89 CK-MB (CK-2) 1.04 Troponin I < 0.012 NT-Pro-B Natriuret Pep Impressions: KUB X-Ray 12/19/18 00:00 IMPRESSION: Constipation. Abdomen/Pelvis CT 12/19/18 16:50 IMPRESSION: Sigmoid diverticulosis. Mesenteric inflammatory changes in the left lower quadrant. Small amount of free air and amount of free fluid. Cannot exclude sigmoid diverticulitis with perforation. Chest X-Ray 12/23/18 08:00 IMPRESSION: 1. Mild patchy bibasilar opacification which may be due to fibrosis and/or atelectasis. Underlying inflammatory changes and small effusions are not excluded. 2. Interval removal of the endotracheal tube and feeding tube. 3. Stable multi lead left subclavian AICD. Assessment & Plan - Diagnosis (1) Diverticulitis of colon with perforation Qualifiers: Diverticulitis bleeding: without bleeding Qualified Code(s): K57.20 - Diverticulitis of large intestine with perforation and abscess without bleeding Is this a current diagnosis for this admission?: Yes Plan: Impression: Patient now postoperative day 6 status post exploratory laparotomy, sigmoid colectomy, colostomy, Ernandez's procedure, doing well, no complications; tolerating a diet; ostomy functioning satisfactorily; suspect leukocytosis secondary to steroid effect. Recommendations: 1. Advance diet 2. Out of bed to chair; consider DC Horne later today 3. To new pulmonary toilet 4. Consider transfer to floor.
[2018-12-25] MEDS: INSULIN LISPRO 100 UNIT/ML 3 ML VIAL SUBCUT SCH ×4 (08:50→21:37)
[2018-12-25] MEDS: ASPIRIN 81 MG TABLET, ENT COATED PO SCH (09:52)
[2018-12-25] MEDS: FUROSEMIDE 20 MG TABLET PO SCH (09:52)
[2018-12-25] MEDS: VANCOMYCIN HCL 1,000 MG in DEXTROSE 5%-WATER 250 ML IV SCH (09:53)
[2018-12-25] MEDS: HEPARIN SOD (PORCINE) 5,000 UNIT/ML 1 ML SYRINGE SUBCUT SCH ×2 (09:57→21:37)
[2018-12-25] MEDS: METHYLPREDNISOLONE INJ 40 MG/1 ML SDV IV SCH (09:57)
[2018-12-25] MEDS: PANTOPRAZOLE SODIUM 40 MG VIAL IV SCH (09:58)
[2018-12-25] MEDS: MORPHINE SULFATE 10 MG/ML INJ IV PRN ×3 (11:12→21:40)
[2018-12-25 13:37] LABS: PATH REVIEW PATHOLOGIST REVIEWED
--- NOTE | 2018-12-25 14:43 | Progress Note ---
Provider Note Provider Note: ID Consult Note- I have reviewed the patient's chart, including the operative note and the follow up progress notes. Patient 6 days s/p sigmoid colectomy and colostomy for treatment of diverticulitis. She is currently receiving vancomycin, cefepime, and metronidazole. She has a persistent elevation of the WBC, but she has been receiving high dose steroids for treatment of COPD. She is currently receiving 40 mg daily of Solu-Medrol. WBC 15K with left shift. I suspect that the leukocytosis is related to high-dose steroids. Progress notes indicate that she is clinically improved. She has received an adequate course of antibiotics given that she has had adequate source control since her surgery. Recommendations: 1. Discontinue all antibiotics (vancomycin, cefepime, and metronidazole). 2. Try to continue to wean steroid dose. Shola Alvarado MD Pager: [phone]
--- NOTE | 2018-12-25 15:53 | PDOC PROGRESS REPORT ---
Subjective Progress Note for:: 12/25/18 Subjective:: Patient continues to improve. She is passing gas and moving her bowels. Tolerating oral intake. Denies fever or chills, no nausea or vomiting. No chest pain or shortness of breath or palpitations. Reason For Visit: ACUTE HYPERCAPNIC/ RESPIRATORY FAILURE Physical Exam Vital Signs: Temp Pulse Resp BP Pulse Ox 99.3 F 71 17 140/66 H 97 12/25/18 12:00 12/25/18 14:06 12/25/18 14:06 12/25/18 13:29 12/25/18 14:06 Intake & Output 12/24/18 12/25/18 12/26/18 06:59 06:59 06:59 Intake Total 1300 700 450 Output Total 1275 1065 400 Balance 25 -365 50 Weight 61.2 kg 63.8 kg GENERAL: Well-developed, no acute distress HEENT: Normocephalic/atraumatic NECK supple, no JVD CARDIOVASCULAR: RRR, normal S1-S2 LUNGS: CTA bilaterally ABDOMEN: Soft, slight tenderness near incision area, liquid stool in colostomy bag, bowel sounds present EXTREMITIES: No edema, clubbing, cyanosis NEUROLOGICAL: Alert, oriented x 3, no acute weakness Results Laboratory Results: 12/25/18 06:16 12/25/18 06:16 12/24/18 12/25/18 12/25/18 23:20 06:16 06:16 WBC 15.2 H RBC 3.32 L Hgb 9.3 L Hct 28.5 L MCV 86 MCH 28.2 MCHC 32.7 RDW 15.4 H Plt Count 208 Seg Neutrophils % Not Reportable Lymphocytes % Not Reportable Monocytes % Not Reportable Eosinophils % Not Reportable Basophils % Not Reportable Absolute Neutrophils Not Reportable Absolute Lymphocytes Not Reportable Absolute Monocytes Not Reportable Absolute Eosinophils Not Reportable Absolute Basophils Not Reportable Sodium 136.7 L 138.7 Potassium 4.7 4.7 Chloride 103 104 Carbon Dioxide 29 34 H Anion Gap 5 1 L BUN 35 H 32 H Creatinine 0.51 L 0.51 L Est GFR ( Amer) > 60 > 60 Est GFR (Non-Af Amer) > 60 > 60 Glucose 228 H 110 Calcium 8.9 8.7 Magnesium 2.0 12/18/18 12/18/18 12/19/18 07:59 07:59 11:03 Creatine Kinase CK-MB (CK-2) Troponin I 0.012 NT-Pro-B Natriuret Pep 6430 H 2470 H 12/20/18 12/21/18 12/22/18 03:09 04:04 04:10 Creatine Kinase CK-MB (CK-2) Troponin I NT-Pro-B Natriuret Pep 1130 H 409 517 12/24/18 12/24/18 23:20 23:20 Creatine Kinase 89 CK-MB (CK-2) 1.04 Troponin I < 0.012 NT-Pro-B Natriuret Pep Impressions: KUB X-Ray 12/19/18 00:00 IMPRESSION: Constipation. Abdomen/Pelvis CT 12/19/18 16:50 IMPRESSION: Sigmoid diverticulosis. Mesenteric inflammatory changes in the left lower quadrant. Small amount of free air and amount of free fluid. Cannot exclude sigmoid diverticulitis with perforation. Chest X-Ray 12/23/18 08:00 IMPRESSION: 1. Mild patchy bibasilar opacification which may be due to fibrosis and/or atelectasis. Underlying inflammatory changes and small effusions are not excluded. 2. Interval removal of the endotracheal tube and feeding tube. 3. Stable multi lead left subclavian AICD. Assessment and Plan - Diagnosis (1) Acute on chronic respiratory failure Qualifiers: Respiratory failure complication: hypoxia and hypercapnia Qualified Code(s): J96.21 - Acute and chronic respiratory failure with hypoxia; J96.22 - Acute and chronic respiratory failure with hypercapnia Is this a current diagnosis for this admission?: Yes Plan: Status post extubation and continuing to do well. Using BiPAP at night. Change Medrol to prednisone 20 mg daily. Consider discontinuing in the next couple of days if remains stable. (2) Acute kidney injury Is this a current diagnosis for this admission?: Yes Plan: Improved. Continue to monitor creatinine. (3) Diverticulitis of colon with perforation Qualifiers: Diverticulitis bleeding: without bleeding Qualified Code(s): K57.20 - Diverticulitis of large intestine with perforation and abscess without bleeding Is this a current diagnosis for this admission?: Yes Plan: Status post perforated diverticulitis. She is status post Ernandez's procedure w ith colostomy. I have consulted [facility] ID and recommendation appreciated. Will discontinue all antibiotics per ID recommendation. Surgical follow-up appreciated. (4) Acute exacerbation of chronic obstructive pulmonary disease (COPD) Is this a current diagnosis for this admission?: Yes Plan: De-escalating steroids, continue nebulizers. (5) Acute on chronic diastolic CHF (congestive heart failure) Is this a current diagnosis for this admission?: Yes Plan: Lasix on hold at this time due to hypovolemia. Continue to monitor patient. Consider resuming Lasix if she starts to reacumulate fluids as she is now taking in p.o.'s. (6) Pacemaker Is this a current diagnosis for this admission?: Yes Plan: Stable. Heart rate improved. Continue to monitor.
[2018-12-25] MEDS: CEFEPIME HCL 2 GM in DEXTROSE 5%-WATER 50 ML IV SCH (20:51)
[2018-12-25] MEDS: SIMVASTATIN 10 MG TABLET NG SCH (21:37)
[2018-12-26] MEDS: IPRATROPIUM/ALBUTEROL 0.5-2.5 MG/3 ML AMPUL NEB SCH ×4 (02:16→20:08)
[2018-12-26] MEDS: MORPHINE SULFATE 10 MG/ML INJ IV PRN ×2 (02:39→09:22)
[2018-12-26] MEDS: METRONIDAZOLE 500 MG/NS RTU 500 MG/100 ML RTUPB IV SCH (05:13)
[2018-12-26 05:28] LABS: HEMATOCRIT 30.3 % (36.0-47.0); HEMOGLOBIN 9.9 g/dL (12.0-15.5); MEAN CORPUSCULAR HEMOGLOBIN 28.2 pg (27.0-33.4); MEAN CORPUSCULAR HGB CONC 32.6 g/dL (32.0-36.0); MEAN CORPUSCULAR VOLUME 86 fl (80-97); PLATELET COUNT 209 10^3/uL (150-450); RED BLOOD COUNT 3.51 10^6/uL (3.72-5.28); WHITE BLOOD COUNT 17.2 10^3/uL (4.0-10.5)
[2018-12-26 05:44] LABS: ABSOLUTE LYMPHOCYTES# (MANUAL) 1.5 10^3/uL (0.5-4.7); ABSOLUTE MONOCYTES # (MANUAL) 1.2 10^3/uL (0.1-1.4); ABSOLUTE NEUTROPHILS# (MANUAL) 14.4 10^3/uL (1.7-8.2); BAND NEUTROPHILS % (MANUAL) 5 % (3-5); BASOPHILS % (MANUAL) 0 % (0-2); EOSINOPHILS % (MANUAL) 0 % (0-6); LYMPHOCYTES % (MANUAL) 9 % (13-45); MONOCYTES % (MANUAL) 7 % (3-13); SEGMENTED NEUTROPHILS % (MAN) 79 % (42-78); TOTAL CELLS COUNTED 100
[2018-12-26 05:45] LABS: ANISOCYTOSIS 1+; OVALOCYTES SLIGHT; PLATELET COMMENT ADEQUATE; POIKILOCYTOSIS SLIGHT; TOXIC GRANULATION SLIGHT; TOXIC VACUOLATION PRESENT
[2018-12-26 05:48] LABS: BLOOD UREA NITROGEN 35 mg/dL (7-20); CALCIUM 9.1 mg/dL (8.4-10.2); GLUCOSE 140 mg/dL (75-110)
[2018-12-26] MEDS ORDERED: ALBUTEROL SULFATE HFA (90 MCG/PUFF) 200 PUFF/8.5 GM MDI IH PRN (08:14)
[2018-12-26 08:22] LABS: ANION GAP 7 (5-19); CARBON DIOXIDE 32 mmol/L (22-30); CHLORIDE 103 mmol/L (98-107); POTASSIUM 4.6 mmol/L (3.6-5.0); SODIUM 142.2 mmol/L (137-145)
[2018-12-26] MEDS: INSULIN LISPRO 100 UNIT/ML 3 ML VIAL SUBCUT SCH ×4 (08:26→21:46)
[2018-12-26] MEDS: HEPARIN SOD (PORCINE) 5,000 UNIT/ML 1 ML SYRINGE SUBCUT SCH ×2 (09:23→21:37)
[2018-12-26] MEDS: CETIRIZINE 10 MG TABLET PO SCH (09:24)
[2018-12-26] MEDS: PREDNISONE 20 MG TABLET PO SCH (09:24)
[2018-12-26] MEDS: ASPIRIN 81 MG TABLET, ENT COATED PO SCH (09:24)
[2018-12-26] MEDS: VANCOMYCIN HCL 1,000 MG in DEXTROSE 5%-WATER 250 ML IV SCH (09:24)
[2018-12-26] MEDS: METOPROLOL TARTRATE 25 MG TABLET PO SCH ×2 (09:24→21:36)
[2018-12-26] MEDS: FUROSEMIDE 20 MG TABLET PO SCH (09:24)
[2018-12-26] MEDS: FLUTICASONE/UMECLIDIN/VILANTER 100-62.5-25 MCG/DOSE IH SCH (09:58)
[2018-12-26] MEDS: PANTOPRAZOLE SODIUM 40 MG VIAL IV SCH (09:59)
--- NOTE | 2018-12-26 10:43 | PDOC PROGRESS REPORT ---
Subjective Progress Note for:: 12/26/18 Subjective:: 73-year-old female admitted for acute respiratory failure status post intubation and extubation. Patient doing really well. Pulse ox is 98% comfortably in the bed communicating well. Physical therapy consult was requested. CODE STATUS is DNR/DNI. Patient has AICD is firing once in a while and patient is asymptomatic those episodes. Reason For Visit: ACUTE HYPERCAPNIC/ RESPIRATORY FAILURE Physical Exam Vital Signs: Temp Pulse Resp BP Pulse Ox 98.4 F 79 17 123/62 96 12/26/18 08:00 12/26/18 08:17 12/26/18 10:00 12/26/18 09:29 12/26/18 10:00 Intake & Output 12/25/18 12/26/18 12/27/18 06:59 06:59 06:59 Intake Total 700 1050 150 Output Total 1065 1110 100 Balance -365 -60 50 Weight 63.8 kg 62.9 kg General appearance: PRESENT: no acute distress Head exam: PRESENT: atraumatic Eye exam: PRESENT: PERRLA Neck exam: ABSENT: carotid bruit, JVD, lymphadenopathy, thyromegaly Respiratory exam: PRESENT: decreased breath sounds Cardiovascular exam: PRESENT: RRR. ABSENT: diastolic murmur, rubs, systolic murmur GI/Abdominal exam: PRESENT: normal bowel sounds, other - Colostomy bag present. Rectal exam: PRESENT: deferred Extremities exam: PRESENT: full ROM. ABSENT: calf tenderness, clubbing, pedal e terry Neurological exam: PRESENT: alert, awake, oriented to person, oriented to place, oriented to time, oriented to situation, CN II-XII grossly intact. ABSENT: motor sensory deficit Psychiatric exam: PRESENT: appropriate affect, normal mood. ABSENT: homicidal ideation, suicidal ideation Results Laboratory Results: 12/26/18 04:20 12/26/18 04:20 12/26/18 12/26/18 04:20 04:20 WBC 17.2 H RBC 3.51 L Hgb 9.9 L Hct 30.3 L MCV 86 MCH 28.2 MCHC 32.6 RDW 15.0 H Plt Count 209 Seg Neutrophils % Not Reportable Lymphocytes % Not Reportable Monocytes % Not Reportable Eosinophils % Not Reportable Basophils % Not Reportable Absolute Neutrophils Not Reportable Absolute Lymphocytes Not Reportable Absolute Monocytes Not Reportable Absolute Eosinophils Not Reportable Absolute Basophils Not Reportable Sodium 142.2 Potassium 4.6 Chloride 103 Carbon Dioxide 32 H Anion Gap 7 BUN 35 H Creatinine 0.54 Est GFR ( Amer) > 60 Est GFR (Non-Af Amer) > 60 Glucose 140 H Calcium 9.1 12/18/18 12/18/18 12/19/18 07:59 07:59 11:03 Creatine Kinase CK-MB (CK-2) Troponin I 0.012 NT-Pro-B Natriuret Pep 6430 H 2470 H 12/20/18 12/21/18 12/22/18 03:09 04:04 04:10 Creatine Kinase CK-MB (CK-2) Troponin I NT-Pro-B Natriuret Pep 1130 H 409 517 12/24/18 12/24/18 23:20 23:20 Creatine Kinase 89 CK-MB (CK-2) 1.04 Troponin I < 0.012 NT-Pro-B Natriuret Pep Impressions: KUB X-Ray 12/19/18 00:00 IMPRESSION: Constipation. Abdomen/Pelvis CT 12/19/18 16:50 IMPRESSION: Sigmoid diverticulosis. Mesenteric inflammatory changes in the left lower quadrant. Small amount of free air and amount of free fluid. Cannot exclude sigmoid diverticulitis with perforation. Chest X-Ray 12/23/18 08:00 IMPRESSION: 1. Mild patchy bibasilar opacification which may be due to fibrosis and/or atelectasis. Underlying inflammatory changes and small effusions are not excluded. 2. Interval removal of the endotracheal tube and feeding tube. 3. Stable multi lead left subclavian AICD. Assessment and Plan - Diagnosis (1) Acute on chronic respiratory failure Qualifiers: Respiratory failure complication: hypoxia and hypercapnia Qualified Code(s): J96.21 - Acute and chronic respiratory failure with hypoxia; J96.22 - Acute and chronic respiratory failure with hypercapnia Is this a current diagnosis for this admission?: Yes Plan: Status post extubation and continuing to do well. Using BiPAP at night. Change Medrol to prednisone 20 mg daily. Consider discontinuing in the next couple of days if remains stable. [id number]-old female admitted for it and chronic respiratory failure. Status post intubation and extubation. Yesterday she is on BiPAP today she is on oxygen 2 L nasal cannula pulse ox is 98%. Receiving prednisone 20 mg p.o. daily. She is also on nebulizer treatments. Patient is going to be downgraded to the medical floor. (2) Abdominal pain, bilateral upper quadrant Is this a current diagnosis for this admission?: Yes Plan: Patient is quite tender and distended. Her pain is mostly across the upper abdomen. I did order a KUB film and this reveals heavy burden of stool. Will monitor closely. She has already received multiple doses of stool soften ers/laxatives. If bowel movements do not relieve the abdominal discomfort then we may proceed to a CT scan. Will consult surgery if indicated. 12/20/2018-as noted above the patient had a perforation in the sigmoid colon requiring sigmoid colectomy and colostomy formation. Appreciate Dr. Trimble's i ntervention. The patient now has a colostomy. Currently on triple antibiotic therapy. 12/21/2018-still with some discomfort in the abdomen postoperatively. Now that perforated viscus has been removed abdominal pain should resolve. 12/22/2018-the patient reports minimal abdominal discomfort. She is, I feel a very stoic patient. Continue symptomatic care. 12/26/2018-patient is found to have a perforation of the sigmoid colon requiring sigmoid colectomy and colostomy. She is has a few liquidy bowel movements. On examination bowel sounds are sluggish. No abdominal tenderness no abdominal dis comfort no guarding no rigidity. Patient is on oral diet. (3) Acute kidney injury Is this a current diagnosis for this admission?: Yes Plan: Improved. Continue to monitor creatinine. 12/26/2018-patient's creatinine today is 0.54, on 12/18/2018 creatinine is 2.14. Acute kidney injury most likely secondary to poor oral intake. LAURO is resolved now. (4) Anemia following surgery Is this a current diagnosis for this admission?: Yes Plan: 12/26/2018-patient's hemoglobin is 9.9. Admission it was 14.1. Significant drop in hemoglobin most likely secondary to surgery and perioperative blood loss. (5) DNR (do not resuscitate) discussion Is this a current diagnosis for this admission?: Yes Plan: See separate advance care planning note. 12/20/2018-as noted yesterday the patient did not want cardiac resuscitation but did allow intubation. Postoperatively she remains intubated. The patient's family was concerned regarding her decision however nursing explained to them the difference between DO NOT RESUSCITATE and comfort only. The nurse reports that the family felt better knowing that all aggressive measures will be taken up to cardiac arrest. 12/21/2018-the patient has been successfully extubated. She will remain as intubation only. 12/22/2018-as above (6) Diverticulitis of colon with perforation Qualifiers: Diverticulitis bleeding: without bleeding Qualified Code(s): K57.20 - Diverticulitis of large intestine with perforation and abscess without bleeding Is this a current diagnosis for this admission?: Yes Plan: Status post perforated diverticulitis. She is status post Ernandez's procedure with colostomy. I have consulted [facility] ID and recommendation appreciated. Will discontinue all antibiotics per ID recommendation. Surgical follow-up appreciated. 12/26/2018-patient has perforation of the sigmoid colon status post colectomy. And with colostomy bag placement. All the antibiotics are discontinued as per the ID recommendations. WBC still 17,000. May be secondary to steroid therapy. pt is afebrile. - Time Time Spent with patient: 25-34 minutes Medications reviewed and adjusted accordingly: Yes Anticipated discharge: SNF
--- NOTE | 2018-12-26 11:22 | PDOC PROGRESS REPORT ---
Subjective Progress Note for:: 12/26/18 Subjective:: No complaints. Tolerating a diet well. Reason For Visit: ACUTE HYPERCAPNIC/ RESPIRATORY FAILURE Physical Exam Vital Signs: Temp Pulse Resp BP Pulse Ox 98.4 F 79 17 123/62 96 12/26/18 08:00 12/26/18 08:17 12/26/18 10:00 12/26/18 09:29 12/26/18 10:00 Intake & Output 12/25/18 12/26/18 12/27/18 06:59 06:59 06:59 Intake Total 700 1050 400 Output Total 1065 1110 100 Balance -365 -60 300 Weight 63.8 kg 62.9 kg General appearance: PRESENT: no acute distress, cooperative Respiratory exam: PRESENT: clear to auscultation tyrone Cardiovascular exam: PRESENT: RRR GI/Abdominal exam: PRESENT: soft - Soft, nondistended, nontender to palpation. Ostomy bag with liquid. Stoma is mildly edematous and with mild prolapse. No evidence of ischemia. Results Laboratory Results: 12/26/18 04:20 12/26/18 04:20 12/26/18 12/26/18 04:20 04:20 WBC 17.2 H RBC 3.51 L Hgb 9.9 L Hct 30.3 L MCV 86 MCH 28.2 MCHC 32.6 RDW 15.0 H Plt Count 209 Seg Neutrophils % Not Reportable Lymphocytes % Not Reportable Monocytes % Not Reportable Eosinophils % Not Reportable Basophils % Not Reportable Absolute Neutrophils Not Reportable Absolute Lymphocytes Not Reportable Absolute Monocytes Not Reportable Absolute Eosinophils Not Reportable Absolute Basophils Not Reportable Sodium 142.2 Potassium 4.6 Chloride 103 Carbon Dioxide 32 H Anion Gap 7 BUN 35 H Creatinine 0.54 Est GFR ( Amer) > 60 Est GFR (Non-Af Amer) > 60 Glucose 140 H Calcium 9.1 12/18/18 12/18/18 12/19/18 07:59 07:59 11:03 Creatine Kinase CK-MB (CK-2) Troponin I 0.012 NT-Pro-B Natriuret Pep 6430 H 2470 H 12/20/18 12/21/18 12/22/18 03:09 04:04 04:10 Creatine Kinase CK-MB (CK-2) Troponin I NT-Pro-B Natriuret Pep 1130 H 409 517 12/24/18 12/24/18 23:20 23:20 Creatine Kinase 89 CK-MB (CK-2) 1.04 Troponin I < 0.012 NT-Pro-B Natriuret Pep Impressions: KUB X-Ray 12/19/18 00:00 IMPRESSION: Constipation. Abdomen/Pelvis CT 12/19/18 16:50 IMPRESSION: Sigmoid diverticulosis. Mesenteric inflammatory changes in the left lower quadrant. Small amount of free air and amount of free fluid. Cannot exclude sigmoid diverticulitis with perforation. Chest X-Ray 12/23/18 08:00 IMPRESSION: 1. Mild patchy bibasilar opacification which may be due to fibrosis and/or atelectasis. Underlying inflammatory changes and small effusions are not excluded. 2. Interval removal of the endotracheal tube and feeding tube. 3. Stable multi lead left subclavian AICD. Assessment & Plan - Diagnosis (1) Diverticulitis of colon with perforation Qualifiers: Diverticulitis bleeding: without bleeding Qualified Code(s): K57.20 - Diver ticulitis of large intestine with perforation and abscess without bleeding Is this a current diagnosis for this admission?: Yes Plan: Status post Ernandez's procedure. Patient looks reasonably well. Need physical therapy and rehab. Pending transfer to the floor. Need to start working on discharge planning. Will DC abdominal drain.
[2018-12-26] MEDS: PANTOPRAZOLE SODIUM 40 MG TABLET.DR PO SCH (16:20)
[2018-12-26] MEDS ORDERED: MORPHINE SULFATE 10 MG/ML INJ IV PRN (21:29)
[2018-12-26] MEDS ORDERED: MIDAZOLAM 2 MG/2 ML INJ IV PRN (21:29)
[2018-12-26] MEDS: SIMVASTATIN 10 MG TABLET NG SCH (21:36)
[2018-12-26] MEDS ORDERED: CEFEPIME HCL 2 GM in DEXTROSE 5%-WATER 50 ML IV SCH (22:00)
[2018-12-27] MEDS: IPRATROPIUM/ALBUTEROL 0.5-2.5 MG/3 ML AMPUL NEB SCH ×4 (02:03→20:55)
[2018-12-27] MEDS: PANTOPRAZOLE SODIUM 40 MG TABLET.DR PO SCH (05:34)
[2018-12-27 05:49] LABS: HEMATOCRIT 30.6 % (36.0-47.0); MEAN CORPUSCULAR HEMOGLOBIN 27.9 pg (27.0-33.4); MEAN CORPUSCULAR HGB CONC 32.7 g/dL (32.0-36.0); MEAN CORPUSCULAR VOLUME 85 fl (80-97); PLATELET COUNT 226 10^3/uL (150-450); RED BLOOD COUNT 3.58 10^6/uL (3.72-5.28); WHITE BLOOD COUNT 16.1 10^3/uL (4.0-10.5)
[2018-12-27 06:10] LABS: ALANINE AMINOTRANSFERASE 33 U/L (9-52); ALBUMIN 2.3 g/dL (3.5-5.0); ALKALINE PHOSPHATASE 47 U/L (38-126); ASPARTATE AMINO TRANSFERASE 17 U/L (14-36); BILIRUBIN,DIRECT 0.2 mg/dL (0.0-0.4); BILIRUBIN,TOTAL 0.5 mg/dL (0.2-1.3); BLOOD UREA NITROGEN 24 mg/dL (7-20); CALCIUM 8.7 mg/dL (8.4-10.2); GLUCOSE 105 mg/dL (75-110); TOTAL PROTEIN 4.6 g/dL (6.3-8.2)
[2018-12-27 06:32] LABS: ABSOLUTE LYMPHOCYTES# (MANUAL) 1.4 10^3/uL (0.5-4.7); ABSOLUTE MONOCYTES # (MANUAL) 0.5 10^3/uL (0.1-1.4); ABSOLUTE NEUTROPHILS# (MANUAL) 14.2 10^3/uL (1.7-8.2); BAND NEUTROPHILS % (MANUAL) 1 % (3-5); BASOPHILS % (MANUAL) 0 % (0-2); EOSINOPHILS % (MANUAL) 0 % (0-6); LYMPHOCYTES % (MANUAL) 9 % (13-45); MONOCYTES % (MANUAL) 3 % (3-13); SEGMENTED NEUTROPHILS % (MAN) 87 % (42-78); TOTAL CELLS COUNTED 100
[2018-12-27 06:34] LABS: OVALOCYTES SLIGHT; PLATELET COMMENT ADEQUATE; POIKILOCYTOSIS SLIGHT; POLYCHROMASIA SLIGHT
[2018-12-27 06:35] LABS: CARBON DIOXIDE 38 mmol/L (22-30); CHLORIDE 97 mmol/L (98-107); POTASSIUM 4.1 mmol/L (3.6-5.0); SODIUM 135.7 mmol/L (137-145)
[2018-12-27 06:37] LABS: ANION GAP 1 (5-19)
[2018-12-27] MEDS: INSULIN LISPRO 100 UNIT/ML 3 ML VIAL SUBCUT SCH ×4 (08:35→23:16)
--- NOTE | 2018-12-27 09:02 | PDOC PROGRESS REPORT ---
Subjective Progress Note for:: 12/27/18 Subjective:: feels well luis reg diet Reason For Visit: ACUTE HYPERCAPNIC/ RESPIRATORY FAILURE Physical Exam Vital Signs: Temp Pulse Resp BP Pulse Ox 97.9 F 88 12 137/61 H 98 12/27/18 07:00 12/27/18 02:06 12/27/18 07:00 12/27/18 07:00 12/27/18 07:00 Intake & Output 12/26/18 12/27/18 12/28/18 06:59 06:59 06:59 Intake Total 1050 400 Output Total 1110 1380 Balance -60 -980 Weight 62.9 kg 59.6 kg General appearance: PRESENT: no acute distress Head exam: PRESENT: normocephalic Eye exam: PRESENT: EOMI Mouth exam: PRESENT: moist Neck exam: PRESENT: full ROM Respiratory exam: PRESENT: clear to auscultation tyrone Cardiovascular exam: PRESENT: RRR Pulses: PRESENT: normal radial pulses, normal femoral pulses, +2 pedal pulses bilateral Vascular exam: PRESENT: normal capillary refill GI/Abdominal exam: PRESENT: soft, other - wound clean, sherin intact, 2-3 area are open, clean with min drainage Rectal exam: PRESENT: deferred Extremities exam: PRESENT: full ROM Musculoskeletal exam: PRESENT: full ROM Neurological exam: PRESENT: alert, awake, oriented to person, oriented to place Skin exam: PRESENT: dry - pt doing better, no luis reg food stoma pink wound clean, kentrell has been removed pt still has not been out of bed will cont to work with pt , increase mobilization tx to regular floor. Results Laboratory Results: 12/27/18 05:35 12/27/18 05:35 12/27/18 12/27/18 05:35 05:35 WBC 16.1 H RBC 3.58 L Hgb 10.0 L Hct 30.6 L MCV 85 MCH 27.9 MCHC 32.7 RDW 15.0 H Plt Count 226 Seg Neutrophils % Not Reportable Lymphocytes % Not Reportable Monocytes % Not Reportable Eosinophils % Not Reportable Basophils % Not Reportable Absolute Neutrophils Not Reportable Absolute Lymphocytes Not Reportable Absolute Monocytes Not Reportable Absolute Eosinophils Not Reportable Absolute Basophils Not Reportable Sodium 135.7 L Potassium 4.1 Chloride 97 L Carbon Dioxide 38 H Anion Gap 1 L BUN 24 H Creatinine 0.45 L Est GFR ( Amer) > 60 Est GFR (Non-Af Amer) > 60 Glucose 105 Calcium 8.7 Magnesium 1.8 Total Bilirubin 0.5 AST 17 ALT 33 Alkaline Phosphatase 47 Total Protein 4.6 L Albumin 2.3 L 12/18/18 12/18/18 12/19/18 07:59 07:59 11:03 Creatine Kinase CK-MB (CK-2) Troponin I 0.012 NT-Pro-B Natriuret Pep 6430 H 2470 H 12/20/18 12/21/18 12/22/18 03:09 04:04 04:10 Creatine Kinase CK-MB (CK-2) Troponin I NT-Pro-B Natriuret Pep 1130 H 409 517 12/24/18 12/24/18 23:20 23:20 Creatine Kinase 89 CK-MB (CK-2) 1.04 Troponin I < 0.012 NT-Pro-B Natriuret Pep Impressions: KUB X-Ray 12/19/18 00:00 IMPRESSION: Constipation. Abdomen/Pelvis CT 12/19/18 16:50 IMPRESSION: Sigmoid diverticulosis. Mesenteric inflammatory changes in the left lower quadrant. Small amount of free air and amount of free fluid. Cannot exclude sigmoid diverticulitis with perforation. Chest X-Ray 12/23/18 08:00 IMPRESSION: 1. Mild patchy bibasilar opacification which may be due to fibrosis and/or atelectasis. Underlying inflammatory changes and small effusions are not excluded. 2. Interval removal of the endotracheal tube and feeding tube. 3. Stable multi lead left subclavian AICD.
--- NOTE | 2018-12-27 10:10 | PDOC PROGRESS REPORT ---
Subjective Progress Note for:: 12/27/18 Subjective:: 73-year-old female admitted for acute respiratory failure status post intubation and extubation. Patient doing really well. Pulse ox is 98% comfortably in the bed communicating well. Physical therapy consult was requested. CODE STATUS is DNR/DNI. Patient has AICD is firing once in a while and patient is asymptomatic those episodes. 12/27/2018-patient is comfortably in the bed communicating well. Denies any complaints concerns. Afebrile. No acute events in the last 24 hours. Reason For Visit: ACUTE HYPERCAPNIC/ RESPIRATORY FAILURE Physical Exam Vital Signs: Temp Pulse Resp BP Pulse Ox 97.9 F 88 12 137/61 H 98 12/27/18 07:00 12/27/18 02:06 12/27/18 07:00 12/27/18 07:00 12/27/18 07:00 Intake & Output 12/26/18 12/27/18 12/28/18 06:59 06:59 06:59 Intake Total 1050 400 Output Total 1110 1380 Balance -60 -980 Weight 62.9 kg 59.6 kg General appearance: PRESENT: no acute distress, obese Head exam: PRESENT: atraumatic Eye exam: PRESENT: PERRLA Mouth exam: PRESENT: moist, tongue midline Neck exam: ABSENT: carotid bruit, JVD, lymphadenopathy, thyromegaly Respiratory exam: PRESENT: decreased breath sounds, wheezes Cardiovascular exam: PRESENT: other - Patient has AICD on the left side of the chest. GI/Abdominal exam: PRESENT: normal bowel sounds, soft, other - colostomy bag present.. ABSENT: distended, guarding, mass, organolmegaly, rebound, tenderness Rectal exam: PRESENT: deferred Extremities exam: PRESENT: full ROM. ABSENT: calf tenderness, clubbing, pedal edema Neurological exam: PRESENT: alert, awake, oriented to person, oriented to place, oriented to time, oriented to situation, CN II-XII grossly intact. ABSENT: motor sensory deficit Psychiatric exam: PRESENT: appropriate affect, normal mood. ABSENT: homicidal ideation, suicidal ideation Results Laboratory Results: 12/27/18 05:35 12/27/18 05:35 12/27/18 12/27/18 05:35 05:35 WBC 16.1 H RBC 3.58 L Hgb 10.0 L Hct 30.6 L MCV 85 MCH 27.9 MCHC 32.7 RDW 15.0 H Plt Count 226 Seg Neutrophils % Not Reportable Lymphocytes % Not Reportable Monocytes % Not Reportable Eosinophils % Not Reportable Basophils % Not Reportable Absolute Neutrophils Not Reportable Absolute Lymphocytes Not Reportable Absolute Monocytes Not Reportable Absolute Eosinophils Not Reportable Absolute Basophils Not Reportable Sodium 135.7 L Potassium 4.1 Chloride 97 L Carbon Dioxide 38 H Anion Gap 1 L BUN 24 H Creatinine 0.45 L Est GFR ( Amer) > 60 Est GFR (Non-Af Amer) > 60 Glucose 105 Calcium 8.7 Magnesium 1.8 Total Bilirubin 0.5 AST 17 ALT 33 Alkaline Phosphatase 47 Total Protein 4.6 L Albumin 2.3 L 12/18/18 12/18/18 12/19/18 07:59 07:59 11:03 Creatine Kinase CK-MB (CK-2) Troponin I 0.012 NT-Pro-B Natriuret Pep 6430 H 2470 H 12/20/18 12/21/18 12/22/18 03:09 04:04 04:10 Creatine Kinase CK-MB (CK-2) Troponin I NT-Pro-B Natriuret Pep 1130 H 409 517 12/24/18 12/24/18 23:20 23:20 Creatine Kinase 89 CK-MB (CK-2) 1.04 Troponin I < 0.012 NT-Pro-B Natriuret Pep Impressions: KUB X-Ray 12/19/18 00:00 IMPRESSION: Constipation. Abdomen/Pelvis CT 12/19/18 16:50 IMPRESSION: Sigmoid diverticulosis. Mesenteric inflammatory changes in the left lower quadrant. Small amount of free air and amount of free fluid. Cannot exclude sigmoid diverticulitis with perforation. Chest X-Ray 12/23/18 08:00 IMPRESSION: 1. Mild patchy bibasilar opacification which may be due to fibrosis and/or atelectasis. Underlying inflammatory changes and small effusions are not excluded. 2. Interval removal of the endotracheal tube and feeding tube. 3. Stable multi lead left subclavian AICD. Assessment and Plan - Diagnosis (1) Acute on chronic respiratory failure Qualifiers: Respiratory failure complication: hypoxia and hypercapnia Qualified Code(s): J96.21 - Acute and chronic respiratory failure with hypoxia; J96.22 - Acute and chronic respiratory failure with hypercapnia Is this a current diagnosis for this admission?: Yes Plan: Status post extubation and continuing to do well. Using BiPAP at night. Change Medrol to prednisone 20 mg daily. Consider discontinuing in the next couple of days if remains stable. 12/[id number]/[id number]-mynh-old female admitted for it and chronic respiratory failure. Status post intubation and extubation. Yesterday she is on BiPAP today she is on oxygen 2 L nasal cannula pulse ox is 98%. Receiving prednisone 20 mg p.o. daily. She is also on nebulizer treatments. Patient is going to be downgraded to the medical floor. 12/27/[id number]-frgf-old female with history of COPD admitted for acute on chronic respiratory failure. Status post intubation and extubation. Patient is doing extremely well. On examination today chest bilateral was decreased but slight wheezing is present all over the lung lopez. Pulse ox 98% on 2 L. Managed to discontinue IV antibiotic therapy today. (2) Abdominal pain, bilateral upper quadrant Is this a current diagnosis for this admission?: Yes Plan: Patient is quite tender and distended. Her pain is mostly across the upper abdomen. I did order a KUB film and this reveals heavy burden of stool. Will monitor closely. She has already received multiple doses of stool s ofteners/laxatives. If bowel movements do not relieve the abdominal discomfort then we may proceed to a CT scan. Will consult surgery if indicated. 12/20/2018-as noted above the patient had a perforation in the sigmoid colon requiring sigmoid colectomy and colostomy formation. Appreciate Dr. Trimble's intervention. The patient now has a colostomy. Currently on triple antibiotic therapy. 12/21/2018-still with some discomfort in the abdomen postoperatively. Now that perforated viscus has been removed abdominal pain should resolve. 12/22/2018-the patient reports minimal abdominal discomfort. She is, I feel a very stoic patient. Continue symptomatic care. 12/26/2018-patient is found to have a perforation of the sigmoid colon requiring sigmoid colectomy and colostomy. She is has a few liquidy bowel movements. On examination bowel sounds are sluggish. No abdominal tenderness no abdominal discomfort no guarding no rigidity. Patient is on oral diet. 12/27/2018-patient has abdominal pain during the hospital stay. Status post sigmoid colectomy for sigmoid colon perforation. Has colostomy bag right now. Patient having the bowel movements. Abdominal soft nontender obese. Surgical team is following the patient. (3) Acute kidney injury Is this a current diagnosis for this admission?: Yes Plan: Improved. Continue to monitor creatinine. 12/26/2018-patient's creatinine today is 0.54, on 12/18/2018 creatinine is 2.14. Acute kidney injury most likely secondary to poor oral intake. LAURO is resolved now. 12/27/2018-patient serum creatinine is 0.45. At the time of admission creatinine is 2.14. Acute kidney injury most likely secondary to poor oral intake is resolved. (4) Anemia following surgery Is this a current diagnosis for this admission?: Yes Plan: 12/26/2018-patient's hemoglobin is 9.9. Admission it was 14.1. Significant drop in hemoglobin most likely secondary to surgery and perioperative blood loss. 12/27/2018-patient hemoglobin is 10 is 14.1. Most likely blood loss secondary to surgery. Plan is to continue to monitor the hemoglobin on regular basis. (5) DNR (do not resuscitate) discussion Is this a current diagnosis for this admission?: Yes (6) Diverticulitis of colon with perforation Qualifiers: Diverticulitis bleeding: without bleeding Qualified Code(s): K57.20 - Diverticulitis of large intestine with perforation and abscess without bleeding Is this a current diagnosis for this admission?: Yes Plan: Status post perforated diverticulitis. She is status post Ernandez's procedure with colostomy. I have consulted [facility] ID and recommendation appreciated. Will discontinue all antibiotics per ID recommendation. Surgical follow-up appreciated. 12/26/2018-patient has perforation of the sigmoid colon status post colectomy. And with colostomy bag placement. All the antibiotics are discontinued as per the ID recommendations. WBC still 17,000. May be secondary to steroid therapy. pt is afebrile. 12/27/2018-patient has a perforation of the sigmoid colon status post colectomy and colostomy bag placement doing extremely well. WBC count is 16,000 patient is afebrile plan is to discontinue cefepime from today. - Time Time Spent with patient: 15-24 minutes Medications reviewed and adjusted accordingly: Yes Anticipated discharge: SNF
[2018-12-27] MEDS: FLUTICASONE/UMECLIDIN/VILANTER 100-62.5-25 MCG/DOSE IH SCH (10:23)
[2018-12-27] MEDS: HEPARIN SOD (PORCINE) 5,000 UNIT/ML 1 ML SYRINGE SUBCUT SCH ×2 (10:23→23:13)
[2018-12-27] MEDS: PREDNISONE 20 MG TABLET PO SCH (10:24)
[2018-12-27] MEDS: ASPIRIN 81 MG TABLET, ENT COATED PO SCH (10:24)
[2018-12-27] MEDS: METOPROLOL TARTRATE 25 MG TABLET PO SCH ×2 (10:24→23:16)
[2018-12-27] MEDS: CETIRIZINE 10 MG TABLET PO SCH (10:24)
[2018-12-27] MEDS: FUROSEMIDE 20 MG TABLET PO SCH (10:24)
[2018-12-27] MEDS: CALCIUM CARBONATE 500 MG TAB.CHEW PO PRN (19:23)
[2018-12-27] MEDS: SIMVASTATIN 10 MG TABLET NG SCH (23:15)
[2018-12-28] MEDS: IPRATROPIUM/ALBUTEROL 0.5-2.5 MG/3 ML AMPUL NEB SCH ×4 (02:46→19:49)
[2018-12-28] MEDS: CALCIUM CARBONATE 500 MG TAB.CHEW PO PRN (06:16)
[2018-12-28 06:23] LABS: HEMOGLOBIN 10.8 g/dL (12.0-15.5); MEAN CORPUSCULAR HEMOGLOBIN 28.2 pg (27.0-33.4); MEAN CORPUSCULAR HGB CONC 32.7 g/dL (32.0-36.0); MEAN CORPUSCULAR VOLUME 86 fl (80-97); PLATELET COUNT 235 10^3/uL (150-450); RED BLOOD COUNT 3.82 10^6/uL (3.72-5.28); RED CELL DISTRIBUTION WIDTH 15.4 % (11.5-14.0); WHITE BLOOD COUNT 23.9 10^3/uL (4.0-10.5)
[2018-12-28 06:43] LABS: ALANINE AMINOTRANSFERASE 28 U/L (9-52); ALBUMIN 2.6 g/dL (3.5-5.0); ALKALINE PHOSPHATASE 50 U/L (38-126); ASPARTATE AMINO TRANSFERASE 21 U/L (14-36); BILIRUBIN,DIRECT 0.4 mg/dL (0.0-0.4); BILIRUBIN,TOTAL 0.7 mg/dL (0.2-1.3); BLOOD UREA NITROGEN 31 mg/dL (7-20); CALCIUM 9.5 mg/dL (8.4-10.2); GLUCOSE 147 mg/dL (75-110); POTASSIUM 4.1 mmol/L (3.6-5.0); TOTAL PROTEIN 4.9 g/dL (6.3-8.2)
[2018-12-28 06:48] LABS: CARBON DIOXIDE 38 mmol/L (22-30); CHLORIDE 95 mmol/L (98-107); SODIUM 136.1 mmol/L (137-145)
[2018-12-28 06:53] LABS: ANION GAP 3 (5-19)
[2018-12-28 06:56] LABS: ABSOLUTE LYMPHOCYTES# (MANUAL) 2.4 10^3/uL (0.5-4.7); ABSOLUTE MONOCYTES # (MANUAL) 0.7 10^3/uL (0.1-1.4); ABSOLUTE NEUTROPHILS# (MANUAL) 20.8 10^3/uL (1.7-8.2); BAND NEUTROPHILS % (MANUAL) 1 % (3-5); BASOPHILS % (MANUAL) 0 % (0-2); EOSINOPHILS % (MANUAL) 0 % (0-6); LYMPHOCYTES % (MANUAL) 10 % (13-45); MONOCYTES % (MANUAL) 3 % (3-13); SEGMENTED NEUTROPHILS % (MAN) 86 % (42-78); TOTAL CELLS COUNTED 100
[2018-12-28 06:57] LABS: ANISOCYTOSIS SLIGHT; HYPOCHROMASIA 1+; PLATELET COMMENT ADEQUATE; ROULEAUX SLIGHT
[2018-12-28] MEDS: ONDANSETRON HCL INJ/PF 4 MG/2 ML SDV IV PRN (07:59)
[2018-12-28] MEDS: INSULIN LISPRO 100 UNIT/ML 3 ML VIAL SUBCUT SCH ×4 (08:00→21:57)
[2018-12-28] MEDS ORDERED: PROCHLORPERAZINE EDISYLATE INJ 10 MG/2 ML VIAL IM ONE (09:45)
[2018-12-28] MEDS ORDERED: GLUCAGON,HUMAN RECOMB 1 MG INJ SUBCUT PRN (10:18)
[2018-12-28] MEDS ORDERED: DEXTROSE 40% GEL 15 GM TUBE PO PRN ×2 (10:18)
[2018-12-28] MEDS ORDERED: DEXTROSE 50%-WATER 25 GM/50 ML DISP.SYRIN IV PRN ×2 (10:18)
--- NOTE | 2018-12-28 10:18 | PDOC PROGRESS REPORT ---
Subjective Progress Note for:: 12/28/18 Subjective:: Feels nauseous. Having small amounts of emesis. Some abdominal discomfort. Some shortness of breath as well. Reason For Visit: ACUTE HYPERCAPNIC/ RESPIRATORY FAILURE Physical Exam Vital Signs: Temp Pulse Resp BP Pulse Ox 99.4 F 70 15 142/48 H 93 12/28/18 08:14 12/28/18 08:14 12/28/18 08:14 12/28/18 08:14 12/28/18 08:14 Intake & Output 12/27/18 12/28/18 12/29/18 06:59 06:59 06:59 Intake Total 400 Output Total 1380 Balance -980 Weight 59.6 kg 57.3 kg General appearance: PRESENT: no acute distress, cooperative Respiratory exam: PRESENT: wheezes Cardiovascular exam: PRESENT: RRR GI/Abdominal exam: PRESENT: other - Soft, very mildly distended, mild diffuse abdominal tenderness without peritoneal signs. Ostomy bag has air. Stoma is mildly edematous. Results Laboratory Results: 12/28/18 05:20 12/28/18 05:20 12/28/18 12/28/18 05:20 05:20 WBC 23.9 H RBC 3.82 Hgb 10.8 L Hct 33.0 L MCV 86 MCH 28.2 MCHC 32.7 RDW 15.4 H Plt Count 235 Seg Neutrophils % Not Reportable Lymphocytes % Not Reportable Monocytes % Not Reportable Eosinophils % Not Reportable Basophils % Not Reportable Absolute Neutrophils Not Reportable Absolute Lymphocytes Not Reportable Absolute Monocytes Not Reportable Absolute Eosinophils Not Reportable Absolute Basophils Not Reportable Sodium 136.1 L Potassium 4.1 Chloride 95 L Carbon Dioxide 38 H Anion Gap 3 L BUN 31 H Creatinine 0.40 L Est GFR ( Amer) > 60 Est GFR (Non-Af Amer) > 60 Glucose 147 H Calcium 9.5 Magnesium 2.0 Total Bilirubin 0.7 AST 21 ALT 28 Alkaline Phosphatase 50 Total Protein 4.9 L Albumin 2.6 L 12/18/18 12/18/18 12/19/18 07:59 07:59 11:03 Creatine Kinase CK-MB (CK-2) Troponin I 0.012 NT-Pro-B Natriuret Pep 6430 H 2470 H 12/20/18 12/21/18 12/22/18 03:09 04:04 04:10 Creatine Kinase CK-MB (CK-2) Troponin I NT-Pro-B Natriuret Pep 1130 H 409 517 12/24/18 12/24/18 23:20 23:20 Creatine Kinase 89 CK-MB (CK-2) 1.04 Troponin I < 0.012 NT-Pro-B Natriuret Pep Impressions: KUB X-Ray 12/19/18 00:00 IMPRESSION: Constipation. Abdomen/Pelvis CT 12/19/18 16:50 IMPRESSION: Sigmoid diverticulosis. Mesenteric inflammatory changes in the left lower quadrant. Small amount of free air and amount of free fluid. Cannot exclude sigmoid diverticulitis with perforation. Chest X-Ray 12/23/18 08:00 IMPRESSION: 1. Mild patchy bibasilar opacification which may be due to fibrosis and/or atelectasis. Underlying inflammatory changes and small effusions are not excluded. 2. Interval removal of the endotracheal tube and feeding tube. 3. Stable multi lead left subclavian AICD. Assessment & Plan - Diagnosis (1) Diverticulitis of colon with perforation Qualifiers: Diverticulitis bleeding: without bleeding Qualified Code(s): K57.20 - Diverticulitis of large intestine with perforation and abscess without bleeding Is this a current diagnosis for this admission?: Yes Plan: Status post Ernandez's procedure. Patient with nausea and vomiting and some abdominal tenderness. Will obtain a abdominal pelvic CT scan with IV contrast. Will hydrate patient prior to the CT scan. We will make the patient n.p.o. (2) Acute exacerbation of COPD with asthma Is this a current diagnosis for this admission?: Yes Plan: Patient with wheezing this morning. Will start breathing treatments stat.
[2018-12-28] MEDS: ASPIRIN 81 MG TABLET, ENT COATED PO SCH (10:54)
[2018-12-28] MEDS: PREDNISONE 20 MG TABLET PO SCH (10:54)
[2018-12-28] MEDS: FUROSEMIDE 20 MG TABLET PO SCH (10:54)
[2018-12-28] MEDS: HEPARIN SOD (PORCINE) 5,000 UNIT/ML 1 ML SYRINGE SUBCUT SCH ×2 (10:54→22:10)
[2018-12-28] MEDS: METOPROLOL TARTRATE 25 MG TABLET PO SCH ×2 (10:54→22:11)
[2018-12-28] MEDS: PANTOPRAZOLE SODIUM 40 MG TABLET.DR PO SCH (10:55)
[2018-12-28] MEDS: CETIRIZINE 10 MG TABLET PO SCH (10:55)
[2018-12-28] MEDS: FLUTICASONE/UMECLIDIN/VILANTER 100-62.5-25 MCG/DOSE IH SCH (10:55)
[2018-12-28] MEDS ORDERED: IPRATROPIUM/ALBUTEROL 0.5-2.5 MG/3 ML AMPUL NEB ONE (11:00)
[2018-12-28] MEDS ORDERED: NORMAL SALINE 1000 ML 1,000 ML IV ONE ×2 (11:45→20:15)
--- NOTE | 2018-12-28 15:05 | RADIOLOGY REPORT (SQ) ---
EXAM DESCRIPTION: CHEST SINGLE VIEW COMPLETED DATE/TIME: 12/28/2018 2:48 pm REASON FOR STUDY: Hypoxemia COMPARISON: 12/23/2018, 12/20/[address] angio chest 11/27/2017 EXAM PARAMETERS: NUMBER OF VIEWS: One view. TECHNIQUE: Single frontal radiographic view of the chest acquired. RADIATION DOSE: NA LIMITATIONS: None. FINDINGS: LUNGS AND PLEURA: Upper lobes are hyperlucent from obstructive disease. There is crowding of bronchovascular markings at the lung bases without gross acute infiltrate, pleural effusion or pn eumothorax. MEDIASTINUM AND HILAR STRUCTURES: No masses. Contour normal. HEART AND VASCULAR STRUCTURES: No cardiomegaly BONES: No acute findings. HARDWARE: Left-sided pacemaker. OTHER: No other significant finding. IMPRESSION: Obstructive lung disease with crowding of the bronchovascular markings at the lung bases . No gross acute infiltrates. TECHNICAL DOCUMENTATION: JOB ID: [id number] [employer]- All Rights Reserved Reading location - IP/workstation name: [email or web address]
--- NOTE | 2018-12-28 17:21 | RADIOLOGY REPORT (SQ) ---
EXAM DESCRIPTION: CT ABD/PELVIS WITH IV ONLY COMPLETED DATE/TIME: 12/28/2018 5:01 pm REASON FOR STUDY: r/o abscess COMPARISON: None. TECHNIQUE: CT scan of the abdomen and pelvis performed using helical scanning technique with dynamic intravenous contrast injection. No oral contrast. Images reviewed with lung, soft tissue, and bone windows. Reconstructed coronal and sagittal MPR images reviewed. Delayed images for evaluation of the urinary system also acquired. All images stored on PACS. All CT scanners at this facility use dose modulation, iterative reconstruction, and/or weight based d osing when appropriate to reduce radiation dose to as low as reasonably achievable (ALARA). [facility]: Dose Right [facility]: CareDose [facility]: Dose Right [facility]: Teradose 4D [facility]: Smart [employer] CONTRAST TYPE AND DOSE: Not recorded RENAL FUNCTION: Creatinine 0.4 RADIATION DOSE: CT Rad equipment meets quality standard of care and radiation dose reduction techniq ues were employed. CTDIvol: 5.8 - 8.1 mGy. DLP: 702 mGy-cm.. LIMITATIONS: None. FINDINGS: LOWER CHEST: Bilateral pleural effusions. Parenchymal opacities at the lung bases. LIVER: Normal size. No masses. No dilated ducts. SPLEEN: Normal size. No focal lesions. PANCREAS: No masses. No significant calcifications. No adjacent inflammation or peripancreatic fluid collections. Pancreatic duct not dilated. GALLBLADDER: No identified stones by CT criteria. No inflammatory changes to suggest cholecystitis. ADRENAL GLANDS: No significant masses or asymmetry. RIGHT KIDNEY AND URETER: No solid masses. No significant calcifications. No hydronephrosis or hyd roureter. LEFT KIDNEY AND URETER: No solid masses. No significant calcifications. No hydronephrosis or hydr oureter. AORTA AND VESSELS: No aneurysm. No dissection. Renal arteries, SMA, celiac without stenosis. RETROPERITONEUM: No retroperitoneal adenopathy, hemorrhage or masses. BOWEL AND PERITONEAL CAVITY: Fluid in the left pericolic gutter. Left lower quadrant ostomy. Fluid extends from the left pericolic gutter into the pelvis. There is no focal drainable collection. . APPENDIX: Normal. PELVIS: Minimal free fluid. Bladder unremarkable. ABDOMINAL WALL: No masses. No hernias. 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 OTHER: No other significant finding. IMPRESSION: Minimal fluid along the left pericolic gutter and into the pelvis but there is no focal drainable collection. Moderate bilateral pleural effusions with pneumonia in both lung bases. TECHNICAL DOCUMENTATION: JOB ID: [id number] Quality ID # [id number]: Final reports with documentation of one or more dose reduction techniques (e.g., Au tomated exposure control, adjustment of the mA and/or kV according to patient size, use of iterative reconstruction technique) 2010 [employer]- All Rights Reserved Reading location - IP/workstation name: [email or web address]
--- NOTE | 2018-12-28 17:26 | PDOC PROGRESS REPORT ---
Subjective Progress Note for:: 12/28/18 Subjective:: Patient is seen resting in bed. She is awake, alert, oriented x3. She is denies chest pain, shortness of breath or dyspnea at rest. She did have some nausea and vomiting earlier this morning. She states she thinks is from reflux. She also had a low-grade fever. She denies any significant arthralgias or myalgias. She denies any significant abdominal pain. Her ostomy is putting out stool and gas. She denies any significant cough. She denies any other compl aints. Remaining review of systems are negative Reason For Visit: ACUTE HYPERCAPNIC/ RESPIRATORY FAILURE Physical Exam Vital Signs: Temp Pulse Resp BP Pulse Ox 97.6 F 80 17 128/52 H 97 12/28/18 11:42 12/28/18 14:11 12/28/18 14:11 12/28/18 11:42 12/28/18 14:11 Intake & Output 12/27/18 12/28/18 12/29/18 06:59 06:59 06:59 Intake Total 400 1000 Output Total 1380 Balance -980 1000 Weight 59.6 kg 57.3 kg General appearance: PRESENT: no acute distress, thin, well-developed, well- nourished Head exam: PRESENT: atraumatic, normocephalic Eye exam: PRESENT: conjunctiva pink, EOMI, PERRLA. ABSENT: scleral icterus Ear exam: PRESENT: normal external ear exam Mouth exam: PRESENT: moist, tongue midline Neck exam: ABSENT: carotid bruit, JVD, lymphadenopathy, thyromegaly Respiratory exam: PRESENT: decreased breath sounds - Throughout both lung lopez, symmetrical, unlabored Cardiovascular exam: PRESENT: RRR. ABSENT: diastolic murmur, rubs, systolic murmur Pulses: PRESENT: normal carotid pulses, normal radial pulses Vascular exam: PRESENT: normal capillary refill GI/Abdominal exam: PRESENT: normal bowel sounds - Along abdominal incision. Ostomy is patent in place with stool and gas in the bag, soft, tenderness, other Rectal exam: PRESENT: deferred Extremities exam: PRESENT: full ROM. ABSENT: calf tenderness, clubbing, pedal edema Musculoskeletal exam: PRESENT: ambulatory Neurological exam: PRESENT: alert, awake, oriented to person, oriented to place, oriented to time, oriented to situation, CN II-XII grossly intact. ABSENT: motor sensory deficit Psychiatric exam: PRESENT: appropriate affect, normal mood. ABSENT: homicidal ideation, suicidal ideation Skin exam: PRESENT: dry, intact, warm. ABSENT: cyanosis, rash Results Laboratory Results: 12/28/18 05:20 12/28/18 05:20 12/28/18 12/28/18 05:20 05:20 WBC 23.9 H RBC 3.82 Hgb 10.8 L Hct 33.0 L MCV 86 MCH 28.2 MCHC 32.7 RDW 15.4 H Plt Count 235 Seg Neutrophils % Not Reportable Lymphocytes % Not Reportable Monocytes % Not Reportable Eosinophils % Not Reportable Basophils % Not Reportable Absolute Neutrophils Not Reportable Absolute Lymphocytes Not Reportable Absolute Monocytes Not Reportable Absolute Eosinophils Not Reportable Absolute Basophils Not Reportable Sodium 136.1 L Potassium 4.1 Chloride 95 L Carbon Dioxide 38 H Anion Gap 3 L BUN 31 H Creatinine 0.40 L Est GFR ( Amer) > 60 Est GFR (Non-Af Amer) > 60 Glucose 147 H Calcium 9.5 Magnesium 2.0 Total Bilirubin 0.7 AST 21 ALT 28 Alkaline Phosphatase 50 Total Protein 4.9 L Albumin 2.6 L 12/18/18 12/18/18 12/19/18 07:59 07:59 11:03 Creatine Kinase CK-MB (CK-2) Troponin I 0.012 NT-Pro-B Natriuret Pep 6430 H 2470 H 12/20/18 12/21/18 12/22/18 03:09 04:04 04:10 Creatine Kinase CK-MB (CK-2) Troponin I NT-Pro-B Natriuret Pep 1130 H 409 517 12/24/18 12/24/18 23:20 23:20 Creatine Kinase 89 CK-MB (CK-2) 1.04 Troponin I < 0.012 NT-Pro-B Natriuret Pep Impressions: KUB X-Ray 12/19/18 00:00 IMPRESSION: Constipation. Abdomen/Pelvis CT 12/19/18 16:50 IMPRESSION: Sigmoid diverticulosis. Mesenteric inflammatory changes in the left lower quadrant. Small amount of free air and amount of free fluid. Cannot exclude sigmoid diverticulitis with perforation. Chest X-Ray 12/28/18 14:23 IMPRESSION: Obstructive lung disease with crowding of the bronchovascular markings at the lung bases. No gross acute infiltrates. Assessment and Plan - Diagnosis (1) Acute on chronic respiratory failure Qualifiers: Respiratory failure complication: hypoxia and hypercapnia Qualified Code(s): J96.21 - Acute and chronic respiratory failure with hypoxia; J96.22 - Acute and chronic respiratory failure with hypercapnia Is this a current diagnosis for this admission?: Yes Plan: Status post extubation and continuing to do well. Using BiPAP at night. She is on prednisone 20 mg daily. This has been weaning down. We will discontinue tomorrow. 73-year-old female with history of COPD admitted for acute on chronic respiratory failure. Status post intubation and extubation. Patient is doing extremely well. On examination today chest bilateral was decreased but slight wheezing is present all over the lung lopez. Pulse ox 98% on 2 L. Completed IV antibiotics yesterday. (2) Diverticulitis of colon with perforation Qualifiers: Diverticulitis bleeding: without bleeding Qualified Code(s): K57.20 - Diverticulitis of large intestine with perforation and abscess without bleeding Is this a current diagnosis for this admission?: Yes Plan: Status post perforated diverticulitis. She is status post Ernandez's procedure with colostomy. I have consulted [facility] ID and recommendation appreciated. Will discontinue all antibiotics per ID recommendation. She did have bump in her white count today to 23,000. We will continue to monitor. Also had some nausea and vomiting. CT scan is pending of the abdomen contrast per surgery. Surgery is following (3) Anemia following surgery Is this a current diagnosis for this admission?: Yes Plan: Hemoglobin is 10.1. 14.1 on admission. Most likely blood loss secondary to surgery. Plan is to continue to monitor the hemoglobin on regular basis. (4) Acute exacerbation of chronic obstructive pulmonary disease (COPD) Is this a current diagnosis for this admission?: Yes Plan: De-escalating steroids, continue nebulizers. (5) DVT prophylaxis Is this a current diagnosis for this admission?: Yes (6) Nonischemic cardiomyopathy Is this a current diagnosis for this admission?: Yes Plan: As noted above she has recovered ejection fraction. We will continue to monitor. She does have an AICD/pacemaker in place. (7) need for pacemaker defibrillator Is this a current diagnosis for this admission?: Yes (8) CHF (congestive heart failure) Qualifiers: Heart failure type: unspecified Heart failure chronicity: acute on chronic Qualified Code(s): I50.9 - Heart failure, unspecified Is this a current diagnosis for this admission?: Yes Plan: Presently appears euvolemic (9) Hyperlipidemia Is this a current diagnosis for this admission?: Yes Plan: Continue statin. (10) Hypertension Qualifiers: Hypertension type: essential hypertension Qualified Code(s): I10 - Essential (primary) hypertension Is this a current diagnosis for this admission?: Yes Plan: Presently normotensive on current medications. - Time Time Spent with patient: 25-34 minutes Total Critical Time (Minutes): 20 Medications reviewed and adjusted accordingly: Yes - Inpatient Certification Based on my medical assessment, after consideration of the patient's com orbidities, presenting symptoms, or acuity I expect that the services needed warrant INPATIENT care.: Yes I certify that my determination is in accordance with my understanding of Medicare's requirements for reasonable and necessary INPATIENT services [42 CFR 412.3e].: Yes Medical Necessity: Significant Comorbidiites Make Outpatient Treatment Too Risky, Need for Nebulizer Therapy and Monitoring of Response, Need for IV Antibiotics, Need for Surgery, Risk of Complication if Not Cared For in Hospital
[2018-12-28] MEDS ORDERED: NORMAL SALINE 1000 ML 1,000 ML IV PRN (18:00)
--- NOTE | 2018-12-28 18:14 | PDOC PROGRESS REPORT ---
Subjective Progress Note for:: 12/28/18 Reason For Visit: ACUTE HYPERCAPNIC/ RESPIRATORY FAILURE Physical Exam Vital Signs: Temp Pulse Resp BP Pulse Ox 98.0 F 104 H 17 111/56 L 94 12/28/18 15:30 12/28/18 15:30 12/28/18 17:21 12/28/18 15:30 12/28/18 17:21 Intake & Output 12/27/18 12/28/18 12/29/18 06:59 06:59 06:59 Intake Total 400 1000 Output Total 1380 Balance -980 1000 Weight 59.6 kg 57.3 kg GI/Abdominal exam: PRESENT: other - Soft, nondistended, mild diffuse tenderness but no peritoneal signs. Ostomy bag with solid stool. Results Laboratory Results: 12/28/18 05:20 12/28/18 05:20 12/28/18 12/28/18 05:20 05:20 WBC 23.9 H RBC 3.82 Hgb 10.8 L Hct 33.0 L MCV 86 MCH 28.2 MCHC 32.7 RDW 15.4 H Plt Count 235 Seg Neutrophils % Not Reportable Lymphocytes % Not Reportable Monocytes % Not Reportable Eosinophils % Not Reportable Basophils % Not Reportable Absolute Neutrophils Not Reportable Absolute Lymphocytes Not Reportable Absolute Monocytes Not Reportable Absolute Eosinophils Not Reportable Absolute Basophils Not Reportable Sodium 136.1 L Potassium 4.1 Chloride 95 L Carbon Dioxide 38 H Anion Gap 3 L BUN 31 H Creatinine 0.40 L Est GFR ( Amer) > 60 Est GFR (Non-Af Amer) > 60 Glucose 147 H Calcium 9.5 Magnesium 2.0 Total Bilirubin 0.7 AST 21 ALT 28 Alkaline Phosphatase 50 Total Protein 4.9 L Albumin 2.6 L 12/18/18 12/18/18 12/19/18 07:59 07:59 11:03 Creatine Kinase CK-MB (CK-2) Troponin I 0.012 NT-Pro-B Natriuret Pep 6430 H 2470 H 12/20/18 12/21/18 12/22/18 03:09 04:04 04:10 Creatine Kinase CK-MB (CK-2) Troponin I NT-Pro-B Natriuret Pep 1130 H 409 517 12/24/18 12/24/18 23:20 23:20 Creatine Kinase 89 CK-MB (CK-2) 1.04 Troponin I < 0.012 NT-Pro-B Natriuret Pep Impressions: KUB X-Ray 12/19/18 00:00 IMPRESSION: Constipation. Abdomen/Pelvis CT 12/28/18 13:00 IMPRESSION: Minimal fluid along the left pericolic gutter and into the pelvis but there is no focal drainable collection. Moderate bilateral pleural effusions with pneumonia in both lung bases. Chest X-Ray 12/28/18 14:23 IMPRESSION: Obstructive lung disease with crowding of the bronchovascular markings at the lung bases. No gross acute infiltrates. Assessment & Plan - Diagnosis (1) Diverticulitis of colon with perforation Qualifiers: Diverticulitis bleeding: without bleeding Qualified Code(s): K57.20 - Diverticulitis of large intestine with perforation and abscess without bleeding Is this a current diagnosis for this admission?: Yes Plan: Status post a Ernandez's procedure. I do not think she has abdominal sepsis. CT scan demonstrated some free fluid but no evidence abscess and no evidence of intestinal perforation or compromise. I believe that her leukocytosis and pulmonary deterioration secondary to pneumonia. She had her antibiotics discontinued and it appeared that soon after she had worsening. Will defer to medicine for appropriate treatment. Will check stool for C. difficile in light of her leukocytosis but unlikely with her having no diarrhea and no colonic inflammatory changes on CT. (2) Acute exacerbation of COPD with asthma Is this a current diagnosis for this admission?: Yes
[2018-12-28] MEDS ORDERED: VANCOMYCIN HCL 0 MG in DEXTROSE 5%-WATER 250 ML IV NR (18:15)
[2018-12-28 19:10] LABS: ARTERIAL BLOOD BASE EXCESS 15.2 mmol/L; ARTERIAL BLOOD H2CO3 1.67 mmol/L (1.05-1.35); ARTERIAL BLOOD HCO3 40.6 mmol/L (20-24); ARTERIAL BLOOD O2 SATURATION 95.3 % (94-98); ARTERIAL BLOOD PCO2 55.4 mmHg (35-45); ARTERIAL BLOOD PH 7.48 (7.35-7.45); ARTERIAL BLOOD PO2 72.8 mmHg (80-100); ARTERIAL BLOOD TOTAL CO2 42.3 mmol/L (21-25)
[2018-12-28 19:19] LABS: ARTERIAL BLOOD FIO2 40%
[2018-12-28] MEDS ORDERED: CEFEPIME 2 GM/D5W RTU 2 GM/50 ML RTUPB IV SCH (22:00)
[2018-12-28] MEDS: FAMOTIDINE INJ/PF 20 MG/2 ML SDV IV SCH (22:09)
[2018-12-28] MEDS: SIMVASTATIN 10 MG TABLET NG SCH (22:11)
[2018-12-28] MEDS: VANCOMYCIN HCL 750 MG in DEXTROSE 5%-WATER 250 ML IV SCH (22:12)
[2018-12-28] MEDS: CEFEPIME HCL 2 GM in DEXTROSE 5%-WATER 50 ML IV SCH (22:13)
[2018-12-28] MEDS ORDERED: MINERAL OIL ENEMA 133 ML PR ONE (23:08)
[2018-12-29] MEDS ORDERED: MINERAL OIL ENEMA 133 ML PR ONE (00:08)
[2018-12-29] MEDS ORDERED: NORMAL SALINE 1000 ML 1,000 ML IV PRN (01:00)
[2018-12-29] MEDS: ONDANSETRON HCL INJ/PF 4 MG/2 ML SDV IV PRN (01:49)
[2018-12-29] MEDS: CALCIUM CARBONATE 500 MG TAB.CHEW PO PRN (01:49)
[2018-12-29] MEDS: IPRATROPIUM/ALBUTEROL 0.5-2.5 MG/3 ML AMPUL NEB SCH ×4 (02:36→20:00)
[2018-12-29 03:53] LABS: HEMATOCRIT 28.2 % (36.0-47.0); HEMOGLOBIN 9.2 g/dL (12.0-15.5); MEAN CORPUSCULAR HGB CONC 32.5 g/dL (32.0-36.0); MEAN CORPUSCULAR VOLUME 86 fl (80-97); PLATELET COUNT 206 10^3/uL (150-450); RED BLOOD COUNT 3.28 10^6/uL (3.72-5.28); RED CELL DISTRIBUTION WIDTH 15.3 % (11.5-14.0); WHITE BLOOD COUNT 20.5 10^3/uL (4.0-10.5)
[2018-12-29 04:05] LABS: ALANINE AMINOTRANSFERASE 34 U/L (9-52); ALBUMIN 2.3 g/dL (3.5-5.0); ALKALINE PHOSPHATASE 45 U/L (38-126); ASPARTATE AMINO TRANSFERASE 19 U/L (14-36); BILIRUBIN,DIRECT 0.3 mg/dL (0.0-0.4); BILIRUBIN,TOTAL 0.6 mg/dL (0.2-1.3); BLOOD UREA NITROGEN 31 mg/dL (7-20); CALCIUM 8.8 mg/dL (8.4-10.2); GLUCOSE 154 mg/dL (75-110); POTASSIUM 3.8 mmol/L (3.6-5.0); TOTAL PROTEIN 4.7 g/dL (6.3-8.2)
[2018-12-29 04:10] LABS: CHLORIDE 98 mmol/L (98-107); SODIUM 140.9 mmol/L (137-145)
[2018-12-29 04:11] LABS: ANION GAP 3 (5-19)
[2018-12-29 04:15] LABS: ABSOLUTE LYMPHOCYTES# (MANUAL) 2.1 10^3/uL (0.5-4.7); ABSOLUTE MONOCYTES # (MANUAL) 0.6 10^3/uL (0.1-1.4); ABSOLUTE NEUTROPHILS# (MANUAL) 17.6 10^3/uL (1.7-8.2); BASOPHILS % (MANUAL) 0 % (0-2); EOSINOPHILS % (MANUAL) 1 % (0-6); LYMPHOCYTES % (MANUAL) 10 % (13-45); MONOCYTES % (MANUAL) 3 % (3-13); SEGMENTED NEUTROPHILS % (MAN) 86 % (42-78); TOTAL CELLS COUNTED 100
[2018-12-29 04:16] LABS: ANISOCYTOSIS 1+; PLATELET COMMENT ADEQUATE; POLYCHROMASIA SLIGHT; TOXIC GRANULATION 1+; TOXIC VACUOLATION PRESENT
[2018-12-29 04:30] LABS: CARBON DIOXIDE 40 mmol/L (22-30)
[2018-12-29] MEDS ORDERED: NORMAL SALINE 1000 ML 1,000 ML IV ONE (04:45)
[2018-12-29] MEDS: MORPHINE SULFATE 10 MG/ML INJ IV PRN ×2 (08:50→17:19)
[2018-12-29] MEDS: INSULIN LISPRO 100 UNIT/ML 3 ML VIAL SUBCUT SCH ×4 (08:55→21:22)
--- NOTE | 2018-12-29 09:00 | PDOC PROGRESS REPORT ---
Subjective Progress Note for:: 12/29/18 Subjective:: Patient is seen resting in bed. She is awake, alert, oriented x3. She is denies chest pain, shortness of breath or dyspnea at rest. She denies nausea, vomiting or abdominal pain. Her ostomy is putting out stool and small amounts of gas. Given an enema last night apparently had a good amount of stool out. Incisional dressing is dry and intact. She has mild tenderness along the abdominal incision. She denies any significant arthralgias or myalgias. Remaining review of systems are negative. Reason For Visit: ACUTE HYPERCAPNIC/ RESPIRATORY FAILURE Physical Exam Vital Signs: Temp Pulse Resp BP Pulse Ox 98.1 F 88 17 120/80 96 12/29/18 08:00 12/29/18 08:00 12/29/18 08:00 12/29/18 08:00 12/29/18 08:00 Intake & Output 12/28/18 12/29/18 12/30/18 06:59 06:59 06:59 Intake Total 2300 Output Total 100 0 Balance 2200 0 Weight 57.3 kg 59 kg General appearance: PRESENT: no acute distress, well-developed, well-nourished, other - on BIPAP Head exam: PRESENT: atraumatic, normocephalic Eye exam: PRESENT: conjunctiva pink, EOMI, PERRLA. ABSENT: scleral icterus Ear exam: PRESENT: normal external ear exam Mouth exam: PRESENT: moist, tongue midline Neck exam: ABSENT: carotid bruit, JVD, lymphadenopathy, thyromegaly Respiratory exam: PRESENT: crackles - Bilateral bases, symmetrical, unlabored. ABSENT: rales, rhonchi, wheezes Cardiovascular exam: PRESENT: RRR. ABSENT: diastolic murmur, rubs, systolic murmur Pulses: PRESENT: normal dorsalis pedis pul Vascular exam: PRESENT: normal capillary refill GI/Abdominal exam: PRESENT: normal bowel sounds, soft. ABSENT: distended, guarding, mass, organolmegaly, rebound, tenderness Rectal exam: PRESENT: deferred Extremities exam: PRESENT: full ROM. ABSENT: calf tenderness, clubbing, pedal edema Musculoskeletal exam: PRESENT: full ROM, normal inspection Neurological exam: PRESENT: alert, awake, oriented to person, oriented to place, oriented to time, oriented to situation, CN II-XII grossly intact. ABSENT: motor sensory deficit Psychiatric exam: PRESENT: appropriate affect, normal mood. ABSENT: homicidal ideation, suicidal ideation Skin exam: PRESENT: dry, intact, warm. ABSENT: cyanosis, rash Results Laboratory Results: 12/29/18 03:40 12/29/18 03:40 12/28/18 12/29/18 12/29/18 18:39 03:40 03:40 WBC 20.5 H RBC 3.28 L Hgb 9.2 L Hct 28.2 L MCV 86 MCH 28.0 MCHC 32.5 RDW 15.3 H Plt Count 206 Seg Neutrophils % Not Reportable Lymphocytes % Not Reportable Monocytes % Not Reportable Eosinophils % Not Reportable Basophils % Not Reportable Absolute Neutrophils Not Reportable Absolute Lymphocytes Not Reportable Absolute Monocytes Not Reportable Absolute Eosinophils Not Reportable Absolute Basophils Not Reportable Carbonic Acid 1.67 H HCO3/H2CO3 Ratio 24:1 ABG pH 7.48 H ABG pCO2 55.4 H ABG pO2 72.8 L ABG HCO3 40.6 H ABG O2 Saturation 95.3 ABG Base Excess 15.2 FiO2 40% Sodium 140.9 Potassium 3.8 Chloride 98 Carbon Dioxide 40 H* Anion Gap 3 L BUN 31 H Creatinine 0.43 L Est GFR ( Amer) > 60 Est GFR (Non-Af Amer) > 60 Glucose 154 H Calcium 8.8 Magnesium 1.9 Total Bilirubin 0.6 AST 19 ALT 34 Alkaline Phosphatase 45 Total Protein 4.7 L Albumin 2.3 L 12/18/18 12/18/18 12/19/18 07:59 07:59 11:03 Creatine Kinase CK-MB (CK-2) Troponin I 0.012 NT-Pro-B Natriuret Pep 6430 H 2470 H 12/20/18 12/21/18 12/22/18 03:09 04:04 04:10 Creatine Kinase CK-MB (CK-2) Troponin I NT-Pro-B Natriuret Pep 1130 H 409 517 12/24/18 12/24/18 23:20 23:20 Creatine Kinase 89 CK-MB (CK-2) 1.04 Troponin I < 0.012 NT-Pro-B Natriuret Pep Impressions: KUB X-Ray 12/19/18 00:00 IMPRESSION: Constipation. Abdomen/Pelvis CT 12/28/18 13:00 IMPRESSION: Minimal fluid along the left pericolic gutter and into the pelvis but there is no focal drainable collection. Moderate bilateral pleural effusions with pneumonia in both lung bases. Chest X-Ray 12/28/18 14:23 IMPRESSION: Obstructive lung disease with crowding of the bronchovascular markings at the lung bases. No gross acute infiltrates. Assessment and Plan - Diagnosis (1) Acute on chronic respiratory failure Qualifiers: Respiratory failure complication: hypoxia and hypercapnia Qualified Code(s): J96.21 - Acute and chronic respiratory failure with hypoxia; J96.22 - Acute and chronic respiratory failure with hypercapnia Is this a current diagnosis for this admission?: Yes Plan: Patient is presently on BiPAP. She apparently was short of breath overnight. Blood gas essentially was unchanged however. She was transferred to the CCU to have closer monitoring. She denies any shortness of breath or dyspnea this morning. She denies any cough. Chest x-ray show no infiltrates CT the abdomen did show bibasilar atelectasis versus pneumonia with small to moderate pleural effusions. She had increasing white count and low-grade fever. She was pancultured and placed back on IV broad-spectrum antibiotics. (2) Diverticulitis of colon with perforation Qualifiers: Diverticulitis bleeding: without bleeding Qualified Code(s): K57.20 - Diverticulitis of large intestine with perforation and abscess without bleeding Is this a current diagnosis for this admission?: Yes Plan: Status post perforated diverticulitis. She is status post Ernandez's procedure with colostomy. I have consulted [facility] ID and recommendation appreciated. Will discontinue all antibiotics per ID recommendation. She did have bump in her white count today t o 23,000. We will continue to monitor. Also had some nausea and vomiting. CT scan is pending of the abdomen contrast per surgery. Surgery is following (3) Anemia following surgery Is this a current diagnosis for this admission?: Yes Plan: Hemoglobin is 10.1. 14.1 on admission. Most likely blood loss secondary to surgery. Plan is to continue to monitor the hemoglobin on regular basis. (4) Acute exacerbation of chronic obstructive pulmonary disease (COPD) Is this a current diagnosis for this admission?: Yes Plan: De-escalating steroids, continue nebulizers. (5) DVT prophylaxis Is this a current diagnosis for this admission?: Yes (6) Nonischemic cardiomyopathy Is this a current diagnosis for this admission?: Yes Plan: As noted above she has recovered ejection fraction now 55 to 60% on last echo. She previously had a reported EF of 15% and had an AICD placed. We will continue to monitor. She does have an AICD/pacemaker in place. (7) need for pacemaker defibrillator Is this a current diagnosis for this admission?: Yes Plan: As above. (8) CHF (congestive heart failure) Qualifiers: Heart failure type: unspecified Heart failure chronicity: acute on chronic Qualified Code(s): I50.9 - Heart failure, unspecified Is this a current diagnosis for this admission?: Yes Plan: Presently appears euvolemic (9) Hyperlipidemia Is this a current diagnosis for this admission?: Yes Plan: Continue statin. (10) Hypertension Qualifiers: Hypertension type: essential hypertension Qualified Code(s): I10 - Essential (primary) hypertension Is this a current diagnosis for this admission?: Yes Plan: Presently normotensive on current medications. - Time Time Spent with patient: 25-34 minutes Total Critical Time (Minutes): 35 Medications reviewed and adjusted accordingly: Yes - Inpatient Certification Based on my medical assessment, after consideration of the patient's comorbidities, presenting symptoms, or acuity I expect that the services needed warrant INPATIENT care.: Yes I certify that my determination is in accordance with my understanding of Medicare's requirements for reasonable and necessary INPATIENT services [42 CFR 412.3e].: Yes Medical Necessity: Need For IV Fluids, Need for IV Antibiotics, Need for Surgery, Risk of Complication if Not Cared For in Hospital
--- NOTE | 2018-12-29 09:01 | PDOC PROGRESS REPORT ---
Subjective Progress Note for:: 12/29/18 Subjective:: patient not well oriented and not communicative. Daughter at bedside indicating no complaints Reason For Visit: ACUTE HYPERCAPNIC/ RESPIRATORY FAILURE Physical Exam Vital Signs: Temp Pulse Resp BP Pulse Ox 98.1 F 88 17 120/80 96 12/29/18 08:00 12/29/18 08:00 12/29/18 08:00 12/29/18 08:00 12/29/18 08:00 Intake & Output 12/28/18 12/29/18 12/30/18 06:59 06:59 06:59 Intake Total 2300 Output Total 100 0 Balance 2200 0 Weight 57.3 kg 59 kg Exam: Patient on BIPAP Abdomen is soft Colostomy Viable with small drainage Results Laboratory Results: 12/29/18 03:40 12/29/18 03:40 12/28/18 12/29/18 12/29/18 18:39 03:40 03:40 WBC 20.5 H RBC 3.28 L Hgb 9.2 L Hct 28.2 L MCV 86 MCH 28.0 MCHC 32.5 RDW 15.3 H Plt Count 206 Seg Neutrophils % Not Reportable Lymphocytes % Not Reportable Monocytes % Not Reportable Eosinophils % Not Reportable Basophils % Not Reportable Absolute Neutrophils Not Reportable Absolute Lymphocytes Not Reportable Absolute Monocytes Not Reportable Absolute Eosinophils Not Reportable Absolute Basophils Not Reportable Carbonic Acid 1.67 H HCO3/H2CO3 Ratio 24:1 ABG pH 7.48 H ABG pCO2 55.4 H ABG pO2 72.8 L ABG HCO3 40.6 H ABG O2 Saturation 95.3 ABG Base Excess 15.2 FiO2 40% Sodium 140.9 Potassium 3.8 Chloride 98 Carbon Dioxide 40 H* Anion Gap 3 L BUN 31 H Creatinine 0.43 L Est GFR ( Amer) > 60 Est GFR (Non-Af Amer) > 60 Glucose 154 H Calcium 8.8 Magnesium 1.9 Total Bilirubin 0.6 AST 19 ALT 34 Alkaline Phosphatase 45 Total Protein 4.7 L Albumin 2.3 L 12/18/18 12/18/18 12/19/18 07:59 07:59 11:03 Creatine Kinase CK-MB (CK-2) Troponin I 0.012 NT-Pro-B Natriuret Pep 6430 H 2470 H 12/20/18 12/21/18 12/22/18 03:09 04:04 04:10 Creatine Kinase CK-MB (CK-2) Troponin I NT-Pro-B Natriuret Pep 1130 H 409 517 12/24/18 12/24/18 23:20 23:20 Creatine Kinase 89 CK-MB (CK-2) 1.04 Troponin I < 0.012 NT-Pro-B Natriuret Pep Impressions: KUB X-Ray 12/19/18 00:00 IMPRESSION: Constipation. Abdomen/Pelvis CT 12/28/18 13:00 IMPRESSION: Minimal fluid along the left pericolic gutter and into the pelvis but there is no focal drainable collection. Moderate bilateral pleural effusions with pneumonia in both lung bases. Chest X-Ray 12/28/18 14:23 IMPRESSION: Obstructive lung disease with crowding of the bronchovascular markings at the lung bases. No gross acute infiltrates. Assessment & Plan - Time Time Spent with patient: 15-24 minutes - Inpatient Certification Medical Necessity: Need Close Monitoring Due to Risk of Patient Decompensation, Need for IV Antibiotics - Plan Summary Plan Summary: CT orantes abd/pelvis with no significant findings WBC trending down, Likely partly due to steroids Continue liquid diet
[2018-12-29] MEDS: PANTOPRAZOLE SODIUM 40 MG TABLET.DR PO SCH (09:37)
[2018-12-29] MEDS: METOPROLOL TARTRATE 25 MG TABLET PO SCH ×2 (09:37→21:19)
[2018-12-29] MEDS: ASPIRIN 81 MG TABLET, ENT COATED PO SCH (09:37)
[2018-12-29] MEDS: FUROSEMIDE 20 MG TABLET PO SCH (09:38)
[2018-12-29] MEDS: CEFEPIME HCL 2 GM in DEXTROSE 5%-WATER 50 ML IV SCH ×2 (09:39→21:21)
[2018-12-29] MEDS: HEPARIN SOD (PORCINE) 5,000 UNIT/ML 1 ML SYRINGE SUBCUT SCH ×2 (09:39→21:18)
[2018-12-29] MEDS: FAMOTIDINE INJ/PF 20 MG/2 ML SDV IV SCH ×2 (09:44→21:18)
[2018-12-29] MEDS: FLUTICASONE/UMECLIDIN/VILANTER 100-62.5-25 MCG/DOSE IH SCH (09:45)
[2018-12-29] MEDS: CETIRIZINE 10 MG TABLET PO SCH (09:46)
[2018-12-29] MEDS: VANCOMYCIN HCL 750 MG in DEXTROSE 5%-WATER 250 ML IV SCH ×2 (11:04→21:20)
[2018-12-29] MEDS: SIMVASTATIN 10 MG TABLET NG SCH (21:20)
[2018-12-30] MEDS: MORPHINE SULFATE 10 MG/ML INJ IV PRN ×2 (01:39→21:28)
[2018-12-30] MEDS: IPRATROPIUM/ALBUTEROL 0.5-2.5 MG/3 ML AMPUL NEB SCH ×4 (02:04→19:43)
[2018-12-30 03:35] LABS: ABSOLUTE EOSINOPHILS # (AUTO) 0.2 10^3/uL (0.0-0.6); ABSOLUTE LYMPHOCYTES (AUTO) 0.8 10^3/uL (0.5-4.7); HEMATOCRIT 24.2 % (36.0-47.0); LYMPHOCYTES % (AUTO) 5.5 % (13-45); MEAN CORPUSCULAR HEMOGLOBIN 28.1 pg (27.0-33.4); MEAN CORPUSCULAR HGB CONC 32.3 g/dL (32.0-36.0); MEAN CORPUSCULAR VOLUME 87 fl (80-97); MONOCYTES % (AUTO) 6.7 % (3-13); PLATELET COUNT 157 10^3/uL (150-450); RED BLOOD COUNT 2.78 10^6/uL (3.72-5.28); RED CELL DISTRIBUTION WIDTH 15.7 % (11.5-14.0); SEGMENTED NEUTROPHILS % (AUTO) 86.8 % (42-78); TOTAL CELLS COUNTED % (AUTO) 100 %
[2018-12-30 03:36] LABS: HEMOGLOBIN 7.8 g/dL (12.0-15.5)
[2018-12-30 03:45] LABS: BLOOD UREA NITROGEN 22 mg/dL (7-20); CALCIUM 8.5 mg/dL (8.4-10.2); GLUCOSE 144 mg/dL (75-110)
[2018-12-30 03:59] LABS: CARBON DIOXIDE 36 mmol/L (22-30); CHLORIDE 99 mmol/L (98-107); POTASSIUM 3.9 mmol/L (3.6-5.0)
[2018-12-30 04:00] LABS: ANION GAP 4 (5-19)
[2018-12-30 04:37] LABS: HEMATOCRIT 26.9 % (36.0-47.0); HEMOGLOBIN 8.7 g/dL (12.0-15.5); MEAN CORPUSCULAR HEMOGLOBIN 28.6 pg (27.0-33.4); MEAN CORPUSCULAR HGB CONC 32.5 g/dL (32.0-36.0); MEAN CORPUSCULAR VOLUME 88 fl (80-97); PLATELET COUNT 162 10^3/uL (150-450); RED BLOOD COUNT 3.06 10^6/uL (3.72-5.28); RED CELL DISTRIBUTION WIDTH 15.7 % (11.5-14.0); WHITE BLOOD COUNT 14.5 10^3/uL (4.0-10.5)
--- NOTE | 2018-12-30 09:07 | PDOC PROGRESS REPORT ---
Subjective Progress Note for:: 12/30/18 Subjective:: Patient is seen resting in bed. She is awake, alert, oriented x3. She is denies chest pain, shortness of breath or dyspnea at rest. She denies nausea, vomiting or abdominal pain. She is tolerating a clear liquid diet overnight. Her ostomy is putting out stool and small amounts of gas. Incisional dressing is dry and intact. She has mild tenderness along the abdominal incision. She denies any significant arthralgias or myalgias. Remaining review of systems are negative. Reason For Visit: ACUTE HYPERCAPNIC/ RESPIRATORY FAILURE Physical Exam Vital Signs: Temp Pulse Resp BP Pulse Ox 98.7 F 86 18 172/91 H 100 12/30/18 08:00 12/30/18 08:00 12/30/18 08:00 12/30/18 08:00 12/30/18 08:00 Intake & Output 12/29/18 12/30/18 12/31/18 06:59 06:59 06:59 Intake Total 2300 1553 Output Total 100 1000 Balance 2200 553 Weight 59 kg 60.3 kg General appearance: PRESENT: no acute distress, well-developed, well-nourished Head exam: PRESENT: atraumatic, normocephalic Eye exam: PRESENT: conjunctiva pink, EOMI, PERRLA. ABSENT: scleral icterus Ear exam: PRESENT: normal external ear exam Mouth exam: PRESENT: moist, tongue midline Neck exam: ABSENT: carotid bruit, JVD, lymphadenopathy, thyromegaly Respiratory exam: PRESENT: decreased breath sounds - bilateral bases, symmetrical, unlabored Cardiovascular exam: PRESENT: RRR. ABSENT: diastolic murmur, rubs, systolic murmur Pulses: PRESENT: normal carotid pulses, normal radial pulses Vascular exam: PRESENT: normal capillary refill GI/Abdominal exam: PRESENT: diminished bowel sounds - along abdominal incision, soft, tenderness Rectal exam: PRESENT: deferred Extremities exam: PRESENT: full ROM. ABSENT: calf tenderness, clubbing, pedal edema Musculoskeletal exam: PRESENT: full ROM, normal inspection Neurological exam: PRESENT: alert, awake, oriented to person, oriented to place, oriented to time, oriented to situation, CN II-XII grossly intact. ABSENT: motor sensory deficit Psychiatric exam: PRESENT: appropriate affect, normal mood. ABSENT: homicidal ideation, suicidal ideation Skin exam: PRESENT: dry, intact, warm. ABSENT: cyanosis, rash Results Laboratory Results: 12/30/18 04:20 12/30/18 03:00 12/30/18 12/30/18 12/30/18 03:00 03:00 04:20 WBC 15.0 H 14.5 H RBC 2.78 L 3.06 L Hgb 7.8 L 8.7 L Hct 24.2 L 26.9 L MCV 87 88 MCH 28.1 28.6 MCHC 32.3 32.5 RDW 15.7 H 15.7 H Plt Count 157 162 Seg Neutrophils % 86.8 H Lymphocytes % 5.5 L Monocytes % 6.7 Eosinophils % 1.0 Basophils % 0.0 Absolute Neutrophils 13.0 H Absolute Lymphocytes 0.8 Absolute Monocytes 1.0 Absolute Eosinophils 0.2 Absolute Basophils 0.0 Sodium 139.0 Potassium 3.9 Chloride 99 Carbon Dioxide 36 H Anion Gap 4 L BUN 22 H Creatinine 0.48 L Est GFR ( Amer) > 60 Est GFR (Non-Af Amer) > 60 Glucose 144 H Calcium 8.5 Magnesium 1.7 12/18/18 12/18/18 12/19/18 07:59 07:59 11:03 Creatine Kinase CK-MB (CK-2) Troponin I 0.012 NT-Pro-B Natriuret Pep 6430 H 2470 H 12/20/18 12/21/18 12/22/18 03:09 04:04 04:10 Creatine Kinase CK-MB (CK-2) Troponin I NT-Pro-B Natriuret Pep 1130 H 409 517 12/24/18 12/24/18 23:20 23:20 Creatine Kinase 89 CK-MB (CK-2) 1.04 Troponin I < 0.012 NT-Pro-B Natriuret Pep Impressions: KUB X-Ray 12/19/18 00:00 IMPRESSION: Constipation. Abdomen/Pelvis CT 12/28/18 13:00 IMPRESSION: Minimal fluid along the left pericolic gutter and into the pelvis but there is no focal drainable collection. Moderate bilateral pleural effusions with pneumonia in both lung bases. Chest X-Ray 12/28/18 14:23 IMPRESSION: Obstructive lung disease with crowding of the bronchovascular markings at the lung bases. No gross acute infiltrates. Assessment and Plan - Diagnosis (1) Acute on chronic respiratory failure Qualifiers: Respiratory failure complication: hypoxia and hypercapnia Qualified Code(s): J96.21 - Acute and chronic respiratory failure with hypoxia; J96.22 - Acute and chronic respiratory failure with hypercapnia Is this a current diagnosis for this admission?: Yes Plan: Patient is presently on 3l/min via n/c. She denies any cough. Chest x-ray show no infiltrates CT the abdomen did show bibasilar atelectasis versus pneumonia with small to moderate pleural effusions. (2) Diverticulitis of colon with perforation Qualifiers: Diverticulitis bleeding: without bleeding Qualified Code(s): K57.20 - Diverticulitis of large intestine with perforation and abscess without bleeding Is this a current diagnosis for this admission?: Yes Plan: Status post perforated diverticulitis. She is status post Ernandez's procedure with colostomy. I have consulted [facility] ID and recommendation appreciated. Will discontinue all antibiotics per ID recommendation. She did have bump in her white count today to 23,000. We will continue to monitor. Also had some nausea and vomiting. CT scan is pending of the abdomen contrast per surgery. Surgery is following (3) Anemia following surgery Is this a current diagnosis for this admission?: Yes Plan: Hemoglobin is 10.1. 14.1 on admission. Most likely blood loss secondary to surgery. Plan is to continue to monitor the hemoglobin on regular basis. (4) Acute exacerbation of chronic obstructive pulmonary disease (COPD) Is this a current diagnosis for this admission?: Yes Plan: De-escalating steroids, continue nebulizers. (5) DVT prophylaxis Is this a current diagnosis for this admission?: Yes (6) Nonischemic cardiomyopathy Is this a current diagnosis for this admission?: Yes Plan: As noted above she has recovered ejection fraction now 55 to 60% on last echo. She previously had a reported EF of 15% and had an AICD placed. We will continue to monitor. She does have an AICD/pacemaker in place. (7) need for pacemaker defibrillator Is this a current diagnosis for this admission?: Yes Plan: As above. (8) CHF (congestive heart failure) Qualifiers: Heart failure type: unspecified Heart failure chronicity: acute on chronic Qualified Code(s): I50.9 - Heart failure, unspecified Is this a current diagnosis for this admission?: Yes Plan: Presently appears euvolemic (9) Hyperlipidemia Is this a current diagnosis for this admission?: Yes Plan: Continue statin. (10) Hypertension Qualifiers: Hypertension type: essential hypertension Qualified Code(s): I10 - Essential (primary) hypertension Is this a current diagnosis for this admission?: Yes Plan: Presently normotensive on current medications. (11) DNR (do not resuscitate) discussion Is this a current diagnosis for this admission?: Yes Plan: Patient had discussion with Dr Mustafa regarding advanced directive. She is agreeable to short term intubation if necessary but no CPR - Time Time Spent with patient: 25-34 minutes Total Critical Time (Minutes): 30 Medications reviewed and adjusted accordingly: Yes Anticipated discharge: Acute Rehab - Inpatient Certification Based on my medical assessment, after consideration of the patient's comorbidities, presenting symptoms, or acuity I expect that the services needed warrant INPATIENT care.: Yes I certify that my determination is in accordance with my understanding of Medicare's requirements for reasonable and necessary INPATIENT services [42 CFR 412.3e].: Yes Medical Necessity: Need for IV Antibiotics, Need for Surgery, Risk of Complication if Not Cared For in Hospital
[2018-12-30] MEDS: INSULIN LISPRO 100 UNIT/ML 3 ML VIAL SUBCUT SCH ×4 (09:20→22:47)
[2018-12-30 10:17] LABS: VANCOMYCIN,TROUGH 14.1 ug/mL (5.0-20.0)
[2018-12-30] MEDS: ASPIRIN 81 MG TABLET, ENT COATED PO SCH (12:13)
[2018-12-30] MEDS: CETIRIZINE 10 MG TABLET PO SCH (12:13)
[2018-12-30] MEDS: METOPROLOL TARTRATE 25 MG TABLET PO SCH ×2 (12:14→22:41)
[2018-12-30] MEDS: PANTOPRAZOLE SODIUM 40 MG TABLET.DR PO SCH (12:14)
[2018-12-30] MEDS: VANCOMYCIN HCL 750 MG in DEXTROSE 5%-WATER 250 ML IV SCH ×2 (12:15→22:41)
[2018-12-30] MEDS: CEFEPIME HCL 2 GM in DEXTROSE 5%-WATER 50 ML IV SCH ×2 (12:16→22:40)
[2018-12-30] MEDS: HEPARIN SOD (PORCINE) 5,000 UNIT/ML 1 ML SYRINGE SUBCUT SCH ×2 (12:21→22:41)
[2018-12-30] MEDS: FLUTICASONE/UMECLIDIN/VILANTER 100-62.5-25 MCG/DOSE IH SCH (12:25)
[2018-12-30] MEDS: FAMOTIDINE INJ/PF 20 MG/2 ML SDV IV SCH ×2 (12:51→22:41)
--- NOTE | 2018-12-30 16:23 | PDOC PROGRESS REPORT ---
Subjective Progress Note for:: 12/30/18 Subjective:: comfortable Reason For Visit: ACUTE HYPERCAPNIC/ RESPIRATORY FAILURE Physical Exam Vital Signs: Temp Pulse Resp BP Pulse Ox 97.7 F 79 18 126/74 H 91 L 12/30/18 12:00 12/30/18 13:51 12/30/18 13:51 12/30/18 12:00 12/30/18 13:51 Intake & Output 12/29/18 12/30/18 12/31/18 06:59 06:59 06:59 Intake Total 2300 1553 Output Total 100 1000 200 Balance 2200 553 -200 Weight 59 kg 60.3 kg Exam: abdomen is soft non tender. Colostomy viable Results Laboratory Results: 12/30/18 04:20 12/30/18 03:00 12/30/18 12/30/18 12/30/18 03:00 03:00 04:20 WBC 15.0 H 14.5 H RBC 2.78 L 3.06 L Hgb 7.8 L 8.7 L Hct 24.2 L 26.9 L MCV 87 88 MCH 28.1 28.6 MCHC 32.3 32.5 RDW 15.7 H 15.7 H Plt Count 157 162 Seg Neutrophils % 86.8 H Lymphocytes % 5.5 L Monocytes % 6.7 Eosinophils % 1.0 Basophils % 0.0 Absolute Neutrophils 13.0 H Absolute Lymphocytes 0.8 Absolute Monocytes 1.0 Absolute Eosinophils 0.2 Absolute Basophils 0.0 Sodium 139.0 Potassium 3.9 Chloride 99 Carbon Dioxide 36 H Anion Gap 4 L BUN 22 H Creatinine 0.48 L Est GFR ( Amer) > 60 Est GFR (Non-Af Amer) > 60 Glucose 144 H Calcium 8.5 Magnesium 1.7 12/18/18 12/18/18 12/19/18 07:59 07:59 11:03 Creatine Kinase CK-MB (CK-2) Troponin I 0.012 NT-Pro-B Natriuret Pep 6430 H 2470 H 12/20/18 12/21/18 12/22/18 03:09 04:04 04:10 Creatine Kinase CK-MB (CK-2) Troponin I NT-Pro-B Natriuret Pep 1130 H 409 517 12/24/18 12/24/18 23:20 23:20 Creatine Kinase 89 CK-MB (CK-2) 1.04 Troponin I < 0.012 NT-Pro-B Natriuret Pep Impressions: KUB X-Ray 12/19/18 00:00 IMPRESSION: Constipation. Abdomen/Pelvis CT 12/28/18 13:00 IMPRESSION: Minimal fluid along the left pericolic gutter and into the pelvis but there is no focal drainable collection. Moderate bilateral pleural effusions with pneumonia in both lung bases. Chest X-Ray 12/28/18 14:23 IMPRESSION: Obstructive lung disease with crowding of the bronchovascular markings at the lung bases. No gross acute infiltrates. Assessment & Plan - Plan Summary Plan Summary: Continue to gradually increase diet Continue close monitoring Continue IV antibiotics
[2018-12-30] MEDS: DOCUSATE SODIUM 100 MG CAPSULE PO SCH (18:59)
[2018-12-30] MEDS ORDERED: METOPROLOL TARTRATE PF/INJ 5 MG/5 ML SDV IV ONE ×2 (21:33→22:00)
[2018-12-30] MEDS: SIMVASTATIN 10 MG TABLET NG SCH (22:42)
[2018-12-31] MEDS: IPRATROPIUM/ALBUTEROL 0.5-2.5 MG/3 ML AMPUL NEB SCH ×4 (02:12→21:15)
[2018-12-31 07:18] LABS: ABSOLUTE EOSINOPHILS # (AUTO) 0.2 10^3/uL (0.0-0.6); ABSOLUTE LYMPHOCYTES (AUTO) 0.9 10^3/uL (0.5-4.7); ABSOLUTE NEUT (AUTO) 10.2 10^3/uL (1.7-8.2); BASOPHILS % (AUTO) 0.3 % (0-2); EOSINOPHILS % (AUTO) 1.8 % (0-6); HEMATOCRIT 23.3 % (36.0-47.0); LYMPHOCYTES % (AUTO) 7.2 % (13-45); MEAN CORPUSCULAR HEMOGLOBIN 28.9 pg (27.0-33.4); MEAN CORPUSCULAR HGB CONC 33.4 g/dL (32.0-36.0); MEAN CORPUSCULAR VOLUME 87 fl (80-97); MONOCYTES % (AUTO) 7.7 % (3-13); PLATELET COUNT 151 10^3/uL (150-450); RED BLOOD COUNT 2.69 10^6/uL (3.72-5.28); RED CELL DISTRIBUTION WIDTH 15.8 % (11.5-14.0); TOTAL CELLS COUNTED % (AUTO) 100 %; WHITE BLOOD COUNT 12.3 10^3/uL (4.0-10.5)
[2018-12-31 07:21] LABS: HEMOGLOBIN 7.8 g/dL (12.0-15.5)
[2018-12-31 07:33] LABS: ALANINE AMINOTRANSFERASE 24 U/L (9-52); ALBUMIN 2.2 g/dL (3.5-5.0); ALKALINE PHOSPHATASE 42 U/L (38-126); ASPARTATE AMINO TRANSFERASE 18 U/L (14-36); BILIRUBIN,DIRECT 0.3 mg/dL (0.0-0.4); BILIRUBIN,TOTAL 0.6 mg/dL (0.2-1.3); BLOOD UREA NITROGEN 14 mg/dL (7-20); CALCIUM 8.1 mg/dL (8.4-10.2); GLUCOSE 95 mg/dL (75-110); POTASSIUM 3.2 mmol/L (3.6-5.0); TOTAL PROTEIN 4.3 g/dL (6.3-8.2)
[2018-12-31 07:37] LABS: ANION GAP 5 (5-19); CARBON DIOXIDE 38 mmol/L (22-30); CHLORIDE 93 mmol/L (98-107); SODIUM 136.2 mmol/L (137-145)
[2018-12-31] MEDS: INSULIN LISPRO 100 UNIT/ML 3 ML VIAL SUBCUT SCH ×4 (08:54→21:35)
[2018-12-31] MEDS ORDERED: POTASSIUM CHLORIDE 10 MEQ CAPSULE.ER PO ONE (09:00)
--- NOTE | 2018-12-31 09:32 | PDOC PROGRESS REPORT ---
Subjective Progress Note for:: 12/31/18 Subjective:: Patient is seen resting in bed. She is awake, alert, oriented x3. She is denies chest pain, shortness of breath or dyspnea at rest. She denies nausea or vomiting . She is having mild incisional discomfort. She has had little stool out of her colostomy over the last 2 days. She is tolerating a clear liquid diet overnight. Incisional dressing is dry and intact. She does have an incisional hernia She denies any headache or dizziness. She denies any significant a rthralgias or myalgias. Remaining review of systems are negative. Reason For Visit: ACUTE HYPERCAPNIC/ RESPIRATORY FAILURE Physical Exam Vital Signs: Temp Pulse Resp BP Pulse Ox 98.9 F 83 16 127/50 H 100 12/31/18 08:00 12/31/18 08:40 12/31/18 08:40 12/31/18 08:00 12/31/18 08:40 Intake & Output 12/30/18 12/31/18 01/01/19 06:59 06:59 06:59 Intake Total 1553 719 Output Total 1000 1300 Balance 553 -581 Weight 60.3 kg 60.9 kg General appearance: PRESENT: no acute distress, well-developed, well-nourished Head exam: PRESENT: atraumatic, normocephalic Eye exam: PRESENT: conjunctiva pale Ear exam: PRESENT: normal external ear exam Mouth exam: PRESENT: moist, tongue midline Neck exam: ABSENT: carotid bruit, JVD, lymphadenopathy, thyromegaly Respiratory exam: PRESENT: decreased breath sounds - Bilateral bases, symmetrical, unlabored Cardiovascular exam: PRESENT: RRR. ABSENT: diastolic murmur, rubs, systolic murmur Pulses: PRESENT: normal dorsalis pedis pul GI/Abdominal exam: PRESENT: hypoactive bowel sounds, soft, tenderness - along midline incisional. Incisional hernia noted on left side of incision Rectal exam: PRESENT: deferred Extremities exam: PRESENT: full ROM. ABSENT: calf tenderness, clubbing, pedal edema Musculoskeletal exam: PRESENT: full ROM, normal inspection Neurological exam: PRESENT: alert, awake, oriented to person, oriented to place, oriented to time, oriented to situation, CN II-XII grossly intact. ABSENT: motor sensory deficit Psychiatric exam: PRESENT: appropriate affect, normal mood. ABSENT: homicidal ideation, suicidal ideation Skin exam: PRESENT: dry, intact, warm. ABSENT: cyanosis, rash Results Laboratory Results: 12/31/18 06:38 12/31/18 06:38 12/31/18 12/31/18 06:38 06:38 WBC 12.3 H RBC 2.69 L Hgb 7.8 L Hct 23.3 L MCV 87 MCH 28.9 MCHC 33.4 RDW 15.8 H Plt Count 151 Seg Neutrophils % 83.0 H Lymphocytes % 7.2 L Monocytes % 7.7 Eosinophils % 1.8 Basophils % 0.3 Absolute Neutrophils 10.2 H Absolute Lymphocytes 0.9 Absolute Monocytes 1.0 Absolute Eosinophils 0.2 Absolute Basophils 0.0 Sodium 136.2 L Potassium 3.2 L Chloride 93 L Carbon Dioxide 38 H Anion Gap 5 BUN 14 Creatinine 0.44 L Est GFR ( Amer) > 60 Est GFR (Non-Af Amer) > 60 Glucose 95 Calcium 8.1 L Phosphorus 2.0 L Magnesium 1.7 Total Bilirubin 0.6 AST 18 ALT 24 Alkaline Phosphatase 42 Total Protein 4.3 L Albumin 2.2 L 12/18/18 12/18/18 12/19/18 07:59 07:59 11:03 Creatine Kinase CK-MB (CK-2) Troponin I 0.012 NT-Pro-B Natriuret Pep 6430 H 2470 H 12/20/18 12/21/18 12/22/18 03:09 04:04 04:10 Creatine Kinase CK-MB (CK-2) Troponin I NT-Pro-B Natriuret Pep 1130 H 409 517 12/24/18 12/24/18 23:20 23:20 Creatine Kinase 89 CK-MB (CK-2) 1.04 Troponin I < 0.012 NT-Pro-B Natriuret Pep Impressions: KUB X-Ray 12/19/18 00:00 IMPRESSION: Constipation. Abdomen/Pelvis CT 12/28/18 13:00 IMPRESSION: Minimal fluid along the left pericolic gutter and into the pelvis but there is no focal drainable collection. Moderate bilateral pleural effusions with pneumonia in both lung bases. Chest X-Ray 12/28/18 14:23 IMPRESSION: Obstructive lung disease with crowding of the bronchovascular markings at the lung bases. No gross acute infiltrates. Assessment and Plan - Diagnosis (1) Acute on chronic respiratory failure Qualifiers: Respiratory failure complication: hypoxia and hypercapnia Qualified Code(s): J96.21 - Acute and chronic respiratory failure with hypoxia; J96.22 - Acute and chronic respiratory failure with hypercapnia Is this a current diagnosis for this admission?: Yes Plan: Patient is presently on 3l/min via n/c. She denies any cough. Chest x-ray show no infiltrates CT the abdomen did show bibasilar atelectasis versus pneumonia with small to moderate pleural effusions. She has been treated with over 7 days of IV antibiotics. She has had improvement of her leucocytosis. Cultures did not grow any organisms. Antibiotics stopped. No further fevers (2) Diverticulitis of colon with perforation Qualifiers: Diverticulitis bleeding: without bleeding Qualified Code(s): K57.20 - Diverticulitis of large intestine with perforation and abscess without bleeding Is this a current diagnosis for this admission?: Yes Plan: Status post perforated diverticulitis. She is status post Ernandez's procedure with colostomy on 12/20/2018. She was on a regular diet until 12/28/2018, she developed nausea and vomiting. She was made n.p.o. that day by surgery. CT of the abdomen and pelvis was obtained with contrast. There were no abnormalities noted. She was given a fleets enema through her ostomy and had moderate amount of stool returned she was restarted on clear liquids on 12/29 and Colace. She has had little out the ostomy since that time. Surgery is following (3) Anemia following surgery Is this a current diagnosis for this admission?: Yes Plan: Hemoglobin is down to 7.8 today no signs of overt bleeding. She presently is asymptomatic. We will transfuse her if she does become symptomatic or if it trends downward anymore. Most likely blood loss secondary to surgery. Plan is to continue to monitor the hemoglobin on regular basis. (4) Acute exacerbation of chronic obstructive pulmonary disease (COPD) Is this a current diagnosis for this admission?: Yes Plan: De-escalating steroids, continue nebulizers. (5) DVT prophylaxis Is this a current diagnosis for this admission?: Yes (6) Nonischemic cardiomyopathy Is this a current diagnosis for this admission?: Yes Plan: As noted above she has recovered ejection fraction now 55 to 60% on last echo. She previously had a reported EF of 15% and had an AICD placed. We will continue to monitor. She does have an AICD/pacemaker in place. (7) need for pacemaker defibrillator Is this a current diagnosis for this admission?: Yes Plan: As above. (8) CHF (congestive heart failure) Qualifiers: Heart failure type: unspecified Heart failure chronicity: acute on chronic Qualified Code(s): I50.9 - Heart failure, unspecified Is this a current diagnosis for this admission?: Yes Plan: History of chronic systolic heart failure with prior EF of 15 to 20%. Echo done during this hospitalization shows her EF to be improved to 55 to 60%. Presently appears euvolemic (9) Hyperlipidemia Is this a current diagnosis for this admission?: Yes Plan: Continue statin. (10) Hypertension Qualifiers: Hypertension type: essential hypertension Qualified Code(s): I10 - Essential (primary) hypertension Is this a current diagnosis for this admission?: Yes Plan: Presently normotensive on current medications. (11) DNR (do not resuscitate) discussion Is this a current diagnosis for this admission?: Yes Plan: Patient had discussion with Dr Mustafa regarding advanced directive. She is agreeable to short term intubation if necessary but no CPR - Time Time Spent with patient: 35 or more minutes Total Critical Time (Minutes): 25 Medications reviewed and adjusted accordingly: Yes Anticipated discharge: Acute Rehab - Inpatient Certification Based on my medical assessment, after consideration of the patient's comorbiditi es, presenting symptoms, or acuity I expect that the services needed warrant INPATIENT care.: Yes I certify that my determination is in accordance with my understanding of [facility]'s requirements for reasonable and necessary INPATIENT services [42 CFR 412.3e].: Yes Medical Necessity: Need for IV Antibiotics, Need for Surgery, Risk of Co mplication if Not Cared For in Hospital
[2018-12-31] MEDS: CETIRIZINE 10 MG TABLET PO SCH (10:17)
[2018-12-31] MEDS: ASPIRIN 81 MG TABLET, ENT COATED PO SCH (10:18)
[2018-12-31] MEDS: METOPROLOL TARTRATE 25 MG TABLET PO SCH ×2 (10:18→21:19)
[2018-12-31] MEDS: PANTOPRAZOLE SODIUM 40 MG TABLET.DR PO SCH (10:18)
[2018-12-31] MEDS: DOCUSATE SODIUM 100 MG CAPSULE PO SCH ×2 (10:18→18:03)
[2018-12-31] MEDS: HEPARIN SOD (PORCINE) 5,000 UNIT/ML 1 ML SYRINGE SUBCUT SCH ×2 (10:19→21:35)
[2018-12-31] MEDS: FLUTICASONE/UMECLIDIN/VILANTER 100-62.5-25 MCG/DOSE IH SCH (10:19)
[2018-12-31] MEDS: POTASSI CL 20 MEQ/D5NS 1L 20 MEQ/1,000 ML RTUINJ IV PRN ×2 (10:26→23:31)
[2018-12-31] MEDS: FAMOTIDINE INJ/PF 20 MG/2 ML SDV IV SCH (10:26)
--- NOTE | 2018-12-31 19:59 | PDOC PROGRESS REPORT ---
Subjective Progress Note for:: 12/31/18 Subjective:: no complaints Reason For Visit: ACUTE HYPERCAPNIC/ RESPIRATORY FAILURE Physical Exam Vital Signs: Temp Pulse Resp BP Pulse Ox 99.5 F 78 20 135/63 H 90 L 12/31/18 17:38 12/31/18 17:38 12/31/18 17:53 12/31/18 18:01 12/31/18 17:53 Intake & Output 12/30/18 12/31/18 01/01/19 06:59 06:59 06:59 Intake Total 1553 719 516 Output Total 1000 1300 400 Balance 553 -581 116 Weight 60.3 kg 60.9 kg Exam: abdomen is soft and non tender. Colostomy viable and functioning Results Laboratory Results: 12/31/18 06:38 12/31/18 06:38 12/31/18 12/31/18 06:38 06:38 WBC 12.3 H RBC 2.69 L Hgb 7.8 L Hct 23.3 L MCV 87 MCH 28.9 MCHC 33.4 RDW 15.8 H Plt Count 151 Seg Neutrophils % 83.0 H Lymphocytes % 7.2 L Monocytes % 7.7 Eosinophils % 1.8 Basophils % 0.3 Absolute Neutrophils 10.2 H Absolute Lymphocytes 0.9 Absolute Monocytes 1.0 Absolute Eosinophils 0.2 Absolute Basophils 0.0 Sodium 136.2 L Potassium 3.2 L Chloride 93 L Carbon Dioxide 38 H Anion Gap 5 BUN 14 Creatinine 0.44 L Est GFR ( Amer) > 60 Est GFR (Non-Af Amer) > 60 Glucose 95 Calcium 8.1 L Phosphorus 2.0 L Magnesium 1.7 Total Bilirubin 0.6 AST 18 ALT 24 Alkaline Phosphatase 42 Total Protein 4.3 L Albumin 2.2 L 12/29/18 17:22 Clean Catch Midstream Urine Culture - Final NO GROWTH 2 DAYS 12/18/18 12/18/18 12/19/18 07:59 07:59 11:03 Creatine Kinase CK-MB (CK-2) Troponin I 0.012 NT-Pro-B Natriuret Pep 6430 H 2470 H 12/20/18 12/21/18 12/22/18 03:09 04:04 04:10 Creatine Kinase CK-MB (CK-2) Troponin I NT-Pro-B Natriuret Pep 1130 H 409 517 12/24/18 12/24/18 23:20 23:20 Creatine Kinase 89 CK-MB (CK-2) 1.04 Troponin I < 0.012 NT-Pro-B Natriuret Pep Impressions: KUB X-Ray 12/19/18 00:00 IMPRESSION: Constipation. Abdomen/Pelvis CT 12/28/18 13:00 IMPRESSION: Minimal fluid along the left pericolic gutter and into the pelvis but there is no focal drainable collection. Moderate bilateral pleural effusions with pneumonia in both lung bases. Chest X-Ray 12/28/18 14:23 IMPRESSION: Obstructive lung disease with crowding of the bronchovascular markings at the lung bases. No gross acute infiltrates. Assessment & Plan - Time Time Spent with patient: 15-24 minutes - Plan Summary Plan Summary: Her WBC is trending down Tolerating some clear liquids Continue IV antibiotics and gradually increase po intake
[2018-12-31] MEDS: SIMVASTATIN 10 MG TABLET NG SCH (21:19)
[2018-12-31] MEDS: MORPHINE SULFATE 10 MG/ML INJ IV PRN (21:33)
[2019-01-01] MEDS: MORPHINE SULFATE 10 MG/ML INJ IV PRN ×3 (02:00→19:51)
[2019-01-01] MEDS: IPRATROPIUM/ALBUTEROL 0.5-2.5 MG/3 ML AMPUL NEB SCH ×4 (02:12→20:35)
[2019-01-01 07:07] LABS: ARTERIAL BLOOD BASE EXCESS 13.1 mmol/L; ARTERIAL BLOOD FIO2 30; ARTERIAL BLOOD HCO3 38.1 mmol/L (20-24); ARTERIAL BLOOD O2 SATURATION 93.6 % (94-98); ARTERIAL BLOOD PCO2 53.1 mmHg (35-45); ARTERIAL BLOOD PH 7.47 (7.35-7.45); ARTERIAL BLOOD PO2 65.1 mmHg (80-100); ARTERIAL BLOOD TOTAL CO2 39.8 mmol/L (21-25)
[2019-01-01] MEDS: INSULIN LISPRO 100 UNIT/ML 3 ML VIAL SUBCUT SCH ×4 (08:13→21:22)
--- NOTE | 2019-01-01 09:39 | PDOC PROGRESS REPORT ---
Subjective Progress Note for:: 01/01/19 Subjective:: Patient feels weak, deconditioned. Is on full liquid diet tolerating well and having ostomy output. Reason For Visit: ACUTE HYPERCAPNIC/ RESPIRATORY FAILURE Physical Exam Vital Signs: Temp Pulse Resp BP Pulse Ox 98.7 F 77 18 128/55 H 95 01/01/19 03:05 01/01/19 07:00 01/01/19 03:05 01/01/19 03:05 01/01/19 03:05 Intake & Output 12/31/18 01/01/19 01/02/19 06:59 06:59 06:59 Intake Total 719 1497 Output Total 1300 400 Balance -581 1097 Weight 60.9 kg 58 kg General appearance: PRESENT: no acute distress GI/Abdominal exam: PRESENT: other - There is a mild amount of the liquid stool in the bag. The abdomen is soft nontender no peritoneal signs no rigidity. [place] still intact. There is no drainage. The ostomy appliance bag is removed, and the ostomy appreciated. There is still some edema to the colostomy, but down compared to last week. No evidence of ischemia. With a lubricated index finger, colostomy was digitalized and excepts the finger without significant resistance. I was able to traverse the fascia uneventfully. Small amount of the liquid stool in the bag. Results Laboratory Results: 12/31/18 06:38 12/31/18 06:38 01/01/19 06:20 Carbonic Acid 1.60 H HCO3/H2CO3 Ratio 23:1 ABG pH 7.47 H ABG pCO2 53.1 H ABG pO2 65.1 L ABG HCO3 38.1 H ABG O2 Saturation 93.6 L ABG Base Excess 13.1 FiO2 30 12/29/18 17:22 Clean Catch Midstream Urine Culture - Final NO GROWTH 2 DAYS 12/18/18 12/18/18 12/19/18 07:59 07:59 11:03 Creatine Kinase CK-MB (CK-2) Troponin I 0.012 NT-Pro-B Natriuret Pep 6430 H 2470 H 12/20/18 12/21/18 12/22/18 03:09 04:04 04:10 Creatine Kinase CK-MB (CK-2) Troponin I NT-Pro-B Natriuret Pep 1130 H 409 517 12/24/18 12/24/18 23:20 23:20 Creatine Kinase 89 CK-MB (CK-2) 1.04 Troponin I < 0.012 NT-Pro-B Natriuret Pep Impressions: KUB X-Ray 12/19/18 00:00 IMPRESSION: Constipation. Abdomen/Pelvis CT 12/28/18 13:00 IMPRESSION: Minimal fluid along the left pericolic gutter and into the pelvis but there is no focal drainable collection. Moderate bilateral pleural effusions with pneumonia in both lung bases. Chest X-Ray 12/28/18 14:23 IMPRESSION: Obstructive lung disease with crowding of the bronchovascular markings at the lung bases. No gross acute infiltrates. Assessment & Plan - Diagnosis (1) Diverticulitis of colon with perforation Qualifiers: Diverticulitis bleeding: without bleeding Qualified Code(s): K57.20 - Diverticulitis of large intestine with perforation and abscess without bleeding Is this a current diagnosis for this admission?: Yes Plan: Impression: Patent colostomy, tolerating a diet; midline healing satisfactorily. Recommendations: 1. Advance diet as tolerated 2. Patient will likely require strengthening prior to returning home; suggest PT OT consults with likelihood of custodial facility 3. Will discontinue half of the sherin. 4. We will sign off from a surgical standpoint; patient can return to [facility] in 1 week for removal of remaining sherin.
[2019-01-01] MEDS: HEPARIN SOD (PORCINE) 5,000 UNIT/ML 1 ML SYRINGE SUBCUT SCH ×2 (10:07→21:22)
[2019-01-01] MEDS: FLUTICASONE/UMECLIDIN/VILANTER 100-62.5-25 MCG/DOSE IH SCH (10:38)
[2019-01-01] MEDS: CETIRIZINE 10 MG TABLET PO SCH (10:39)
[2019-01-01] MEDS: ASPIRIN 81 MG TABLET, ENT COATED PO SCH (10:39)
[2019-01-01] MEDS: DOCUSATE SODIUM 100 MG CAPSULE PO SCH ×2 (10:39→17:39)
[2019-01-01] MEDS: METOPROLOL TARTRATE 25 MG TABLET PO SCH ×2 (10:39→21:24)
[2019-01-01] MEDS: PANTOPRAZOLE SODIUM 40 MG TABLET.DR PO SCH (10:39)
[2019-01-01] MEDS: POTASSI CL 20 MEQ/D5NS 1L 20 MEQ/1,000 ML RTUINJ IV PRN (12:39)
--- NOTE | 2019-01-01 17:18 | PDOC PROGRESS REPORT ---
Subjective Progress Note for:: 01/01/19 Subjective:: CHRISTOS MULTANI is a 73 year old female with a PMH of nonischemic cardiomyopathy, prior ACID placement, severe COPD and hypertension, recently admitted for COPD exacerbation and pneumonia who is presenting with recurrence of wheezing and SOB. This provider discharged this patient 2 days ago. She initially presented with wheezing and SOB and was started on IV steroids and breathing treatments. She had a chest CTA which ruled out a PE. She had a prolonged course here as attempt to switch solumedrol to prednisone during her stay resulted to recurrence of wheezing. She did eventually improve and was switched to prednisone and ambulated well on the hallways on day of discharge. She was seen by pulmonoogy and her Advair was switched to Trelegy. She was discharged on high dose prednisone and 3 more days of Levaquin. She says that when she was discharged home, she had mild increasing SOB again. Last night, this continued to worsen and she developed more wheezing and presented again to the ER thsi morning where she was noted to have bilateral wheezing. ABG also shows elevated PCO2 in the 60s. She also was initially hypoxic in the high 80s. She is currently saturating at 94-95% on BIPAP. 01/01/2019. Patient complaining of generalized weakness, was evaluated by physical therapy recommending rehab placement. Patient is tolerating p.o., ostomy is having sufficient output. Surgery has signed off. hemoglobin has dropped to 7.0. from 7.8 2 units PRBC transfused. Denies any fever, chills, nausea, vomiting, diarrhea, constipation or any urinary symptoms. Reason For Visit: ACUTE HYPERCAPNIC/ RESPIRATORY FAILURE Physical Exam Vital Signs: Temp Pulse Resp BP Pulse Ox 99.1 F 61 20 126/40 H 94 01/01/19 16:00 01/01/19 16:00 01/01/19 16:00 01/01/19 16:00 01/01/19 16:00 Intake & Output 12/31/18 01/01/19 01/02/19 06:59 06:59 06:59 Intake Total 719 1497 985 Output Total 1300 400 Balance -581 1097 985 Weight 60.9 kg 58 kg General appearance: PRESENT: no acute distress, well-developed, well-nourished Head exam: PRESENT: atraumatic, normocephalic Respiratory exam: PRESENT: clear to auscultation tyrone. ABSENT: rales, rhonchi, wheezes Cardiovascular exam: PRESENT: RRR. ABSENT: diastolic murmur, rubs, systolic murmur GI/Abdominal exam: PRESENT: normal bowel sounds, soft, other - Ostomy intact. Soft stool present, no sign of bleeding.. ABSENT: distended, guarding, mass, organolmegaly, rebound, tenderness Neurological exam: PRESENT: alert, awake, oriented to person, oriented to place, oriented to time, oriented to situation, CN II-XII grossly intact, motor sensory deficit Results Laboratory Results: 01/01/19 06:20 Carbonic Acid 1.60 H HCO3/H2CO3 Ratio 23:1 ABG pH 7.47 H ABG pCO2 53.1 H ABG pO2 65.1 L ABG HCO3 38.1 H ABG O2 Saturation 93.6 L ABG Base Excess 13.1 FiO2 30 12/18/18 12/18/18 12/19/18 07:59 07:59 11:03 Creatine Kinase CK-MB (CK-2) Troponin I 0.012 NT-Pro-B Natriuret Pep 6430 H 2470 H 12/20/18 12/21/18 12/22/18 03:09 04:04 04:10 Creatine Kinase CK-MB (CK-2) Troponin I NT-Pro-B Natriuret Pep 1130 H 409 517 12/24/18 12/24/18 23:20 23:20 Creatine Kinase 89 CK-MB (CK-2) 1.04 Troponin I < 0.012 NT-Pro-B Natriuret Pep Impressions: KUB X-Ray 12/19/18 00:00 IMPRESSION: Constipation. Abdomen/Pelvis CT 12/28/18 13:00 IMPRESSION: Minimal fluid along the left pericolic gutter and into the pelvis but there is no focal drainable collection. Moderate bilateral pleural effusions with pneumonia in both lung bases. Chest X-Ray 12/28/18 14:23 IMPRESSION: Obstructive lung disease with crowding of the bronchovascular markings at the lung bases. No gross acute infiltrates. Assessment and Plan - Diagnosis (1) Acute on chronic respiratory failure Qualifiers: Respiratory failure complication: hypoxia and hypercapnia Qualified Code(s): J96.21 - Acute and chronic respiratory failure with hypoxia; J96.22 - Acute and chronic respiratory failure with hypercapnia Is this a current diagnosis for this admission?: Yes Plan: Patient is presently on 2 l/min via n/c. Chest x-ray show no infiltrates CT the abdomen did show bibasilar atelectasis versus pneumonia with small to moderate pleural effusions. Received 7 days of IV antibiotics. Leukocytosis. Afebrile. Cultures negative. (2) Anemia following surgery Is this a current diagnosis for this admission?: Yes Plan: Hemoglobin is down to 7.0 today no signs of overt bleeding. Transfused 2 units. H&H tomorrow. (3) Diverticulitis of colon with perforation Qualifiers: Diverticulitis bleeding: without bleeding Qualified Code(s): K57.20 - Diverticulitis of large intestine with perforation and abscess without bleeding Is this a current diagnosis for this admission?: Yes Plan: Status post perforated diverticulitis. She is status post Ernandez's procedure with colostomy on 12/20/2018. She was on a regular diet until 12/28/2018, she developed nausea and vomiting. Currently on full liquid diet. Surgery has signed off. And can be transferred to rehab to follow up with surgery in 1 week. (4) CHF (congestive heart failure) Qualifiers: Heart failure type: unspecified Heart failure chronicity: acute on chronic Qualified Code(s): I50.9 - Heart failure, unspecified Is this a current diagnosis for this admission?: Yes Plan: History of chronic systolic heart failure with prior EF of 15 to 20%. Echo done during this hospitalization shows her EF to be improved to 55 to 60%. Presently appears euvolemic (5) Dyslipidemia Is this a current diagnosis for this admission?: No Plan: Continue statins. (6) Hypertension Qualifiers: Hypertension type: essential hypertension Qualified Code(s): I10 - Essential (primary) hypertension Is this a current diagnosis for this admission?: Yes Plan: Presently normotensive on current medications. (7) Nonischemic cardiomyopathy Is this a current diagnosis for this admission?: Yes Plan: Left ventricular ejection fraction now 55 to 60% on last echo post AICD/pacemaker placement. She previously had a reported EF of 15% and had an AICD placed. Continue monitoring vitals. (8) DNR (do not resuscitate) discussion Is this a current diagnosis for this admission?: Yes Plan: Patient had discussion with Dr Mustafa regarding advanced directive. She is agreeable to short term intubation if necessary but no CPR
[2019-01-01 17:32] LABS: ABSOLUTE BASOPHILS # (AUTO) 0.1 10^3/uL (0.0-0.2); ABSOLUTE EOSINOPHILS # (AUTO) 0.1 10^3/uL (0.0-0.6); ABSOLUTE LYMPHOCYTES (AUTO) 0.5 10^3/uL (0.5-4.7); ABSOLUTE MONOCYTES (AUTO) 0.6 10^3/uL (0.1-1.4); ABSOLUTE NEUT (AUTO) 6.2 10^3/uL (1.7-8.2); BASOPHILS % (AUTO) 0.8 % (0-2); HEMATOCRIT 21.3 % (36.0-47.0); LYMPHOCYTES % (AUTO) 6.7 % (13-45); MEAN CORPUSCULAR HEMOGLOBIN 28.6 pg (27.0-33.4); MEAN CORPUSCULAR HGB CONC 32.8 g/dL (32.0-36.0); MEAN CORPUSCULAR VOLUME 87 fl (80-97); MONOCYTES % (AUTO) 7.9 % (3-13); PLATELET COUNT 136 10^3/uL (150-450); RED BLOOD COUNT 2.44 10^6/uL (3.72-5.28); RED CELL DISTRIBUTION WIDTH 15.8 % (11.5-14.0); SEGMENTED NEUTROPHILS % (AUTO) 83.6 % (42-78); TOTAL CELLS COUNTED % (AUTO) 100 %; WHITE BLOOD COUNT 7.5 10^3/uL (4.0-10.5)
[2019-01-01 17:43] LABS: ALANINE AMINOTRANSFERASE 19 U/L (9-52); ALBUMIN 2.2 g/dL (3.5-5.0); ALKALINE PHOSPHATASE 48 U/L (38-126); ANION GAP 5 (5-19); ASPARTATE AMINO TRANSFERASE 17 U/L (14-36); BILIRUBIN,DIRECT 0.2 mg/dL (0.0-0.4); BILIRUBIN,TOTAL 0.3 mg/dL (0.2-1.3); BLOOD UREA NITROGEN 7 mg/dL (7-20); CALCIUM 8.3 mg/dL (8.4-10.2); CARBON DIOXIDE 34 mmol/L (22-30); CHLORIDE 100 mmol/L (98-107); GLUCOSE 174 mg/dL (75-110); SODIUM 138.8 mmol/L (137-145); TOTAL PROTEIN 4.3 g/dL (6.3-8.2)
[2019-01-01] MEDS: ONDANSETRON HCL INJ/PF 4 MG/2 ML SDV IV PRN (19:54)
[2019-01-01] MEDS: SIMVASTATIN 10 MG TABLET NG SCH (21:24)
[2019-01-02] MEDS: POTASSI CL 20 MEQ/D5NS 1L 20 MEQ/1,000 ML RTUINJ IV PRN ×3 (01:16→19:07)
[2019-01-02] MEDS: IPRATROPIUM/ALBUTEROL 0.5-2.5 MG/3 ML AMPUL NEB SCH ×4 (02:01→20:48)
[2019-01-02 04:46] LABS: ABSOLUTE EOSINOPHILS # (AUTO) 0.1 10^3/uL (0.0-0.6); ABSOLUTE LYMPHOCYTES (AUTO) 0.5 10^3/uL (0.5-4.7); ABSOLUTE MONOCYTES (AUTO) 0.6 10^3/uL (0.1-1.4); ABSOLUTE NEUT (AUTO) 5.7 10^3/uL (1.7-8.2); BASOPHILS % (AUTO) 0.4 % (0-2); EOSINOPHILS % (AUTO) 2.1 % (0-6); HEMATOCRIT 31.3 % (36.0-47.0); LYMPHOCYTES % (AUTO) 7.6 % (13-45); MEAN CORPUSCULAR HEMOGLOBIN 28.6 pg (27.0-33.4); MEAN CORPUSCULAR VOLUME 87 fl (80-97); MONOCYTES % (AUTO) 7.9 % (3-13); PLATELET COUNT 119 10^3/uL (150-450); RED BLOOD COUNT 3.61 10^6/uL (3.72-5.28); RED CELL DISTRIBUTION WIDTH 15.1 % (11.5-14.0); TOTAL CELLS COUNTED % (AUTO) 100 %; WHITE BLOOD COUNT 6.9 10^3/uL (4.0-10.5)
[2019-01-02 04:49] LABS: HEMOGLOBIN 10.3 g/dL (12.0-15.5)
[2019-01-02 05:14] LABS: ALANINE AMINOTRANSFERASE 19 U/L (9-52); ALBUMIN 2.1 g/dL (3.5-5.0); ALKALINE PHOSPHATASE 49 U/L (38-126); ASPARTATE AMINO TRANSFERASE 20 U/L (14-36); BILIRUBIN,DIRECT 0.2 mg/dL (0.0-0.4); BILIRUBIN,TOTAL 0.6 mg/dL (0.2-1.3); BLOOD UREA NITROGEN 7 mg/dL (7-20); CALCIUM 8.2 mg/dL (8.4-10.2); GLUCOSE 131 mg/dL (75-110); POTASSIUM 3.7 mmol/L (3.6-5.0); TOTAL PROTEIN 4.1 g/dL (6.3-8.2)
[2019-01-02] MEDS: MORPHINE SULFATE 10 MG/ML INJ IV PRN ×3 (05:15→22:12)
[2019-01-02] MEDS: ONDANSETRON HCL INJ/PF 4 MG/2 ML SDV IV PRN (05:18)
[2019-01-02 05:19] LABS: ANION GAP 5 (5-19); CARBON DIOXIDE 33 mmol/L (22-30); CHLORIDE 102 mmol/L (98-107); SODIUM 139.9 mmol/L (137-145)
[2019-01-02] MEDS: INSULIN LISPRO 100 UNIT/ML 3 ML VIAL SUBCUT SCH ×4 (08:13→21:26)
[2019-01-02] MEDS: HEPARIN SOD (PORCINE) 5,000 UNIT/ML 1 ML SYRINGE SUBCUT SCH ×2 (10:15→21:59)
[2019-01-02] MEDS: MAGNESIUM SULFATE/D5W 1 GM/100 ML RTUPB IV SCH ×2 (10:16→11:36)
[2019-01-02] MEDS: DOCUSATE SODIUM 100 MG CAPSULE PO SCH ×2 (10:16→18:41)
[2019-01-02] MEDS: ASPIRIN 81 MG TABLET, ENT COATED PO SCH (10:16)
[2019-01-02] MEDS: CETIRIZINE 10 MG TABLET PO SCH (10:17)
[2019-01-02] MEDS: PANTOPRAZOLE SODIUM 40 MG TABLET.DR PO SCH (10:17)
[2019-01-02] MEDS: PSYLLIUM SEED-SF 5.85 GM PACKET PO SCH ×2 (10:17→18:40)
[2019-01-02] MEDS: FLUTICASONE/UMECLIDIN/VILANTER 100-62.5-25 MCG/DOSE IH SCH (10:18)
[2019-01-02] MEDS: METOPROLOL TARTRATE 25 MG TABLET PO SCH ×2 (10:19→22:02)
--- NOTE | 2019-01-02 18:16 | PDOC PROGRESS REPORT ---
Subjective Progress Note for:: 01/02/19 Subjective:: No adverse events overnight. No new complaints. The patient is feeling good this morning. She says she feels better after getting the blood transfusion yesterday. She asked if her diet can be advanced because she wanted some mashed potatoes. Surgery had already put in order to advance her to a cardiac diet this morning so this was ordered for her. We were going to discharge her to [facility] today because this was the place her daughter wanted her to go in a bed became available, but when we notified her daughter that she was being discharged apparently her daughter voiced rather extraordinary opposition to the patient leaving, for undetermined reasons. Reason For Visit: ACUTE HYPERCAPNIC/ RESPIRATORY FAILURE Physical Exam Vital Signs: Temp Pulse Resp BP Pulse Ox 98.2 F 96 16 120/51 L 96 01/02/19 12:03 01/02/19 14:04 01/02/19 14:04 01/02/19 12:03 01/02/19 14:04 Intake & Output 01/01/19 01/02/19 01/03/19 06:59 06:59 06:59 Intake Total 1497 2890 350 Output Total 400 Balance 1097 2890 350 Weight 58 kg 58 kg General appearance: PRESENT: no acute distress, well-developed, well-nourished Head exam: PRESENT: atraumatic, normocephalic Respiratory exam: PRESENT: clear to auscultation tyrone. ABSENT: rales, rhonchi, wheezes Cardiovascular exam: PRESENT: RRR. ABSENT: diastolic murmur, rubs, systolic murmur GI/Abdominal exam: PRESENT: normal bowel sounds, soft, other - Ostomy intact. Soft stool present, no sign of bleeding.. ABSENT: distended, guarding, mass, organolmegaly, rebound, tenderness Neurological exam: PRESENT: alert, awake, oriented to person, oriented to place, oriented to time, oriented to situation Results Laboratory Results: 01/02/19 04:07 01/02/19 04:07 01/01/19 01/02/19 01/02/19 18:41 04:07 04:07 WBC 6.9 RBC 3.61 L Hgb 10.3 L D Hct 31.3 L MCV 87 MCH 28.6 MCHC 33.0 RDW 15.1 H Plt Count 119 L Seg Neutrophils % 82.0 H Lymphocytes % 7.6 L Monocytes % 7.9 Eosinophils % 2.1 Basophils % 0.4 Absolute Neutrophils 5.7 Absolute Lymphocytes 0.5 Absolute Monocytes 0.6 Absolute Eosinophils 0.1 Absolute Basophils 0.0 Sodium 139.9 Potassium 3.7 Chloride 102 Carbon Dioxide 33 H Anion Gap 5 BUN 7 Creatinine 0.35 L Est GFR ( Amer) > 60 Est GFR (Non-Af Amer) > 60 Glucose 131 H Calcium 8.2 L Magnesium 1.5 L Total Bilirubin 0.6 AST 20 ALT 19 Alkaline Phosphatase 49 Total Protein 4.1 L Albumin 2.1 L Blood Type O POSITIVE Antibody Screen NEGATIVE 12/18/18 12/18/18 12/19/18 07:59 07:59 11:03 Creatine Kinase CK-MB (CK-2) Troponin I 0.012 NT-Pro-B Natriuret Pep 6430 H 2470 H 12/20/18 12/21/18 12/22/18 03:09 04:04 04:10 Creatine Kinase CK-MB (CK-2) Troponin I NT-Pro-B Natriuret Pep 1130 H 409 517 12/24/18 12/24/18 23:20 23:20 Creatine Kinase 89 CK-MB (CK-2) 1.04 Troponin I < 0.012 NT-Pro-B Natriuret Pep Impressions: KUB X-Ray 12/19/18 00:00 IMPRESSION: Constipation. Abdomen/Pelvis CT 12/28/18 13:00 IMPRESSION: Minimal fluid along the left pericolic gutter and into the pelvis but there is no focal drainable collection. Moderate bilateral pleural effusions with pneumonia in both lung bases. Chest X-Ray 12/28/18 14:23 IMPRESSION: Obstructive lung disease with crowding of the bronchovascular m arkings at the lung bases. No gross acute infiltrates. Assessment and Plan - Diagnosis (1) Acute kidney injury Is this a current diagnosis for this admission?: Yes Plan: Resolved (2) Acute on chronic respiratory failure Qualifiers: Respiratory failure complication: hypoxia and hypercapnia Qualified Code(s): J96.21 - Acute and chronic respiratory failure with hypoxia; J96.22 - Acute and chronic respiratory failure with hypercapnia Is this a current diagnosis for this admission?: Yes Plan: Resolved, stable on 1 L per nasal cannula. (3) Anemia following surgery Is this a current diagnosis for this admission?: Yes Plan: Resolved. Due in part to poor p.o. intake combined with some mild postoperative anemia. Hemoglobin up to above 10 today. (4) Diverticulitis of colon with perforation Qualifiers: Diverticulitis bleeding: without bleeding Qualified Code(s): K57.20 - Diverticulitis of large intestine with perforation and abscess without bleeding Is this a current diagnosis for this admission?: Yes Plan: Status post perforated diverticulitis. She is status post Ernandez's procedure with colostomy on 12/20/2018. Diet was advanced today to a cardiac diet and she tolerated a solid meal without difficulty. Surgery has signed off, and they want her to follow-up with them in 1 week after discharge. (5) Acute on chronic diastolic CHF (congestive heart failure) Is this a current diagnosis for this admission?: Yes Plan: Resolved. Patient appears euvolemic. - Time Time Spent with patient: 35 or more minutes - Plan Summary Plan Summary: Her daughter managed to successfully hold the patient's discharge today, but we plan to send her to [facility] tomorrow. There is no medical reason for the patient to stay in the hospital at this point.
[2019-01-02] MEDS: SIMVASTATIN 10 MG TABLET NG SCH (22:02)
[2019-01-03] MEDS: IPRATROPIUM/ALBUTEROL 0.5-2.5 MG/3 ML AMPUL NEB SCH ×4 (01:43→21:00)
[2019-01-03] MEDS: ONDANSETRON HCL INJ/PF 4 MG/2 ML SDV IV PRN (07:02)
[2019-01-03] MEDS: INSULIN LISPRO 100 UNIT/ML 3 ML VIAL SUBCUT SCH ×4 (08:59→21:38)
[2019-01-03] MEDS: PANTOPRAZOLE SODIUM 40 MG TABLET.DR PO SCH (09:00)
[2019-01-03] MEDS: ASPIRIN 81 MG TABLET, ENT COATED PO SCH (09:00)
[2019-01-03] MEDS: METOPROLOL TARTRATE 25 MG TABLET PO SCH ×2 (09:00→21:40)
[2019-01-03] MEDS: CETIRIZINE 10 MG TABLET PO SCH (09:00)
[2019-01-03] MEDS: DOCUSATE SODIUM 100 MG CAPSULE PO SCH ×2 (09:00→17:47)
[2019-01-03] MEDS: HEPARIN SOD (PORCINE) 5,000 UNIT/ML 1 ML SYRINGE SUBCUT SCH ×2 (09:02→21:39)
[2019-01-03] MEDS: FLUTICASONE/UMECLIDIN/VILANTER 100-62.5-25 MCG/DOSE IH SCH (09:02)
[2019-01-03] MEDS: PSYLLIUM SEED-SF 5.85 GM PACKET PO SCH ×2 (09:03→17:47)
[2019-01-03] MEDS: POTASSI CL 20 MEQ/D5NS 1L 20 MEQ/1,000 ML RTUINJ IV PRN (09:05)
[2019-01-03] MEDS: CALCIUM CARBONATE 500 MG TAB.CHEW PO PRN ×2 (12:20→18:30)
--- NOTE | 2019-01-03 16:06 | PDOC PROGRESS REPORT ---
Subjective Progress Note for:: 01/03/19 Subjective:: No adverse events overnight. No new complaints. She ate some solid food yesterday, says she was eating about half of her meals and tolerated it well. She says she had a little bit of nausea this morning but no vomiting. Of the time I saw her she said the nausea had resolved. She actually apologized to me for the way her daughter had been handling her discharge planning. I told her that that is not something she should worry about, that it is likely because her daughter simply is concerned about her and has her best interest at heart. She is currently stable and comfortable on 2 L of oxygen at rest with an SPO2 in the upper 90s. When she sleeps she uses the BiPAP mask and is able to rest comfortably. She denies any chest pain or shortness of breath. She said that she was able to sit up on the edge of the bed with physical therapy yesterday, and that she was able to stand at the bedside with some assistance. Reason For Visit: ACUTE HYPERCAPNIC/ RESPIRATORY FAILURE Physical Exam Vital Signs: Temp Pulse Resp BP Pulse Ox 99.0 F 86 18 114/54 L 93 01/03/19 11:58 01/03/19 14:00 01/03/19 13:28 01/03/19 11:58 01/03/19 13:28 Intake & Output 01/02/19 01/03/19 01/04/19 06:59 06:59 06:59 Intake Total 2890 1482 1333 Output Total 250 300 Balance 2890 1232 1033 Weight 58 kg 59.2 kg General appearance: PRESENT: no acute distress, well-developed, well-nourished Head exam: PRESENT: atraumatic, normocephalic Respiratory exam: PRESENT: clear to auscultation tyrone. ABSENT: rales, rhonchi, wheezes Cardiovascular exam: PRESENT: RRR. ABSENT: diastolic murmur, rubs, systolic murmur GI/Abdominal exam: PRESENT: normal bowel sounds, soft, other - Ostomy intact. Soft stool present, no sign of bleeding.. ABSENT: distended, guarding, mass, organolmegaly, rebound, tenderness Neurological exam: PRESENT: alert, awake, oriented to person, oriented to place, oriented to time, oriented to situation Results Laboratory Results: 01/02/19 04:07 01/02/19 04:07 12/29/18 11:31 Blood Blood Culture - Final NO GROWTH IN 5 DAYS 12/29/18 09:35 Blood Blood Culture - Final NO GROWTH IN 5 DAYS 12/18/18 12/18/18 12/19/18 07:59 07:59 11:03 Creatine Kinase CK-MB (CK-2) Troponin I 0.012 NT-Pro-B Natriuret Pep 6430 H 2470 H 12/20/18 12/21/18 12/22/18 03:09 04:04 04:10 Creatine Kinase CK-MB (CK-2) Troponin I NT-Pro-B Natriuret Pep 1130 H 409 517 12/24/18 12/24/18 23:20 23:20 Creatine Kinase 89 CK-MB (CK-2) 1.04 Troponin I < 0.012 NT-Pro-B Natriuret Pep Impressions: KUB X-Ray 12/19/18 00:00 IMPRESSION: Constipation. Abdomen/Pelvis CT 12/28/18 13:00 IMPRESSION: Minimal fluid along the left pericolic gutter and into the pelvis but there is no focal drainable collection. Moderate bilateral pleural effusions with pneumonia in both lung bases. Chest X-Ray 12/28/18 14:23 IMPRESSION: Obstructive lung disease with crowding of the bronchovascular markings at the lung bases. No gross acute infiltrates. Assessment and Plan - Diagnosis (1) Acute kidney injury Is this a current diagnosis for this admission?: Yes Plan: Resolved (2) Acute on chronic respiratory failure Qualifiers: Respiratory failure complication: hypoxia and hypercapnia Qualified Code(s): J96.21 - Acute and chronic respiratory failure with hypoxia; J96.22 - Acute and chronic respiratory failure with hypercapnia Is this a current diagnosis for this admission?: Yes Plan: Resolved, stable on 1-2 L per nasal cannula. (3) Anemia following surgery Is this a current diagnosis for this admission?: Yes Plan: Resolved. Due in part to poor p.o. intake combined with some mild postoperative anemia. Hemoglobin up to above 10. (4) Diverticulitis of colon with perforation Qualifiers: Diverticulitis bleeding: without bleeding Qualified Code(s): K57.20 - Diverticulitis of large intestine with perforation and abscess without bleeding Is this a current diagnosis for this admission?: Yes Plan: Status post perforated diverticulitis. She is status post Ernandez's procedure with colostomy on 12/20/2018. Diet was advanced today to a cardiac diet and she tolerated a solid meal without difficulty. Surgery has signed off, and they want her to follow-up with them in 1 week after discharge. (5) Acute on chronic diastolic CHF (congestive heart failure) Is this a current diagnosis for this admission?: Yes Plan: Resolved. Patient appears euvolemic. - Time Time Spent with patient: 25-34 minutes - Plan Summary Plan Summary: Spoke with her daughter for about 25 minutes on the phone this morning. Her daughter Kitty wanted to know whether or not she was going to get a pulmonology consultation. Asked Kitty why she thought the patient needed a pulmonary consu ltation, and her response was that some previous provider had said that she could get one. I see no reason currently for the need for an inpatient pulmonology consultation, but we can arrange an outpatient consultation for the patient. Kitty also said that the patient had been vomiting yesterday and this morning, and the patient denied that. Kitty also said that the patient had no trunk strength and could not sit up by herself, but the patient sat up on the edge of the bed with physical therapy yesterday and even stood up with some assistance. At this point I believe that she has no acute inpatient issues that need to be managed in the hospital and she is appropriate for fdc facility placement for physical therapy. We tried to discharge her to [facility] yesterday and the patient's family were successful at getting that stopped. We continue to try to work to get this rather unfortunate situation resolved in a manner that is most beneficial for the patient.
[2019-01-03] MEDS: HYDROCODONE/ACETAMINOPHEN 5-325 MG TABLET PO PRN (20:18)
[2019-01-03] MEDS: SIMVASTATIN 10 MG TABLET PO SCH (21:40)
[2019-01-04] MEDS: IPRATROPIUM/ALBUTEROL 0.5-2.5 MG/3 ML AMPUL NEB SCH ×4 (02:09→20:35)
[2019-01-04] MEDS: ONDANSETRON HCL INJ/PF 4 MG/2 ML SDV IV PRN ×2 (08:04→14:08)
[2019-01-04] MEDS: INSULIN LISPRO 100 UNIT/ML 3 ML VIAL SUBCUT SCH ×4 (09:01→21:43)
[2019-01-04] MEDS: HEPARIN SOD (PORCINE) 5,000 UNIT/ML 1 ML SYRINGE SUBCUT SCH ×2 (10:07→21:43)
[2019-01-04] MEDS: FLUTICASONE/UMECLIDIN/VILANTER 100-62.5-25 MCG/DOSE IH SCH (10:23)
[2019-01-04] MEDS: DOCUSATE SODIUM 100 MG CAPSULE PO SCH ×2 (10:23→17:45)
[2019-01-04] MEDS: PSYLLIUM SEED-SF 5.85 GM PACKET PO SCH ×2 (10:23→17:46)
[2019-01-04] MEDS: ASPIRIN 81 MG TABLET, ENT COATED PO SCH (10:23)
[2019-01-04] MEDS: METOPROLOL TARTRATE 25 MG TABLET PO SCH ×2 (10:23→21:55)
[2019-01-04] MEDS: CETIRIZINE 10 MG TABLET PO SCH (10:23)
[2019-01-04] MEDS: PANTOPRAZOLE SODIUM 40 MG TABLET.DR PO SCH (10:23)
--- NOTE | 2019-01-04 16:35 | PDOC PROGRESS REPORT ---
Subjective Progress Note for:: 01/04/19 Subjective:: No adverse events overnight. No new complaints. Has been eating solids, eats a fair bit but has some nausea intermittently. Sat on edge of bed with PT yesterday, stood up as well. Reason For Visit: ACUTE HYPERCAPNIC/ RESPIRATORY FAILURE Physical Exam Vital Signs: Temp Pulse Resp BP Pulse Ox 99.4 F 94 20 141/82 H 93 01/04/19 12:40 01/04/19 14:08 01/04/19 14:08 01/04/19 12:40 01/04/19 14:08 Intake & Output 01/03/19 01/04/19 01/05/19 06:59 06:59 06:59 Intake Total 1482 1433 Output Total 250 875 Balance 1232 558 Weight 59.2 kg 59.6 kg General appearance: PRESENT: no acute distress, well-developed, well-nourished Head exam: PRESENT: atraumatic, normocephalic Respiratory exam: PRESENT: clear to auscultation tyrone. ABSENT: rales, rhonchi, wheezes Cardiovascular exam: PRESENT: RRR. ABSENT: diastolic murmur, rubs, systolic murmur GI/Abdominal exam: PRESENT: normal bowel sounds, soft, other - Ostomy intact. Soft stool present, no sign of bleeding.. ABSENT: distended, guarding, mass, organolmegaly, rebound, tenderness Neurological exam: PRESENT: alert, awake, oriented to person, oriented to place, oriented to time, oriented to situation Results Laboratory Results: 01/02/19 04:07 01/02/19 04:07 12/18/18 12/18/18 12/19/18 07:59 07:59 11:03 Creatine Kinase CK-MB (CK-2) Troponin I 0.012 NT-Pro-B Natriuret Pep 6430 H 2470 H 12/20/18 12/21/18 12/22/18 03:09 04:04 04:10 Creatine Kinase CK-MB (CK-2) Troponin I NT-Pro-B Natriuret Pep 1130 H 409 517 12/24/18 12/24/18 23:20 23:20 Creatine Kinase 89 CK-MB (CK-2) 1.04 Troponin I < 0.012 NT-Pro-B Natriuret Pep Impressions: KUB X-Ray 12/19/18 00:00 IMPRESSION: Constipation. Abdomen/Pelvis CT 12/28/18 13:00 IMPRESSION: Minimal fluid along the left pericolic gutter and into the pelvis but there is no focal drainable collection. Moderate bilateral pleural effusions with pneumonia in both lung bases. Chest X-Ray 12/28/18 14:23 IMPRESSION: Obstructive lung disease with crowding of the bronchovascular markings at the lung bases. No gross acute infiltrates. Assessment and Plan - Diagnosis (1) Acute kidney injury Is this a current diagnosis for this admission?: Yes Plan: Resolved (2) Acute on chronic respiratory failure Qualifiers: Respiratory failure complication: hypoxia and hypercapnia Qualified Code(s): J96.21 - Acute and chronic respiratory failure with hypoxia; J96.22 - Acute and chronic respiratory failure with hypercapnia Is this a current diagnosis for this admission?: Yes Plan: Resolved, stable on 1-2 L per nasal cannula. (3) Anemia following surgery Is this a current diagnosis for this admission?: Yes Plan: Resolved. Due in part to poor p.o. intake combined with some mild postoperative anemia. Hemoglobin up to above 10. (4) Diverticulitis of colon with perforation Qualifiers: Diverticulitis bleeding: without bleeding Qualified Code(s): K57.20 - Diverticulitis of large intestine with perforation and abscess without bleeding Is this a current diagnosis for this admission?: Yes Plan: Status post perforated diverticulitis. She is status post Ernandez's procedure with colostomy on 12/20/2018. Diet was advanced today to a cardiac diet and she tolerated a solid meal without difficulty. Surgery has signed off, and they want her to follow-up with them in 1 week after discharge. (5) Acute on chronic diastolic CHF (congestive heart failure) Is this a current diagnosis for this admission?: Yes Plan: Resolved. Patient appears euvolemic. - Time Time Spent with patient: 15-24 minutes - Plan Summary Plan Summary: appeal denied, discharge upheld, to [place] tomorrow.
[2019-01-04] MEDS: CALCIUM CARBONATE 500 MG TAB.CHEW PO PRN (17:43)
[2019-01-04] MEDS: HYDROCODONE/ACETAMINOPHEN 5-325 MG TABLET PO PRN (18:23)
[2019-01-04] MEDS ORDERED: METOCLOPRAMIDE HCL INJ/PF 10 MG/2 ML SDV IV ONE (19:00)
[2019-01-04] MEDS: SIMVASTATIN 10 MG TABLET PO SCH (21:56)
[2019-01-05] MEDS: IPRATROPIUM/ALBUTEROL 0.5-2.5 MG/3 ML AMPUL NEB SCH ×3 (02:23→13:43)
[2019-01-05] MEDS: HYDROCODONE/ACETAMINOPHEN 5-325 MG TABLET PO PRN ×2 (04:15→12:18)
[2019-01-05] MEDS: INSULIN LISPRO 100 UNIT/ML 3 ML VIAL SUBCUT SCH ×2 (08:17→12:18)
--- NOTE | 2019-01-05 08:56 | PDOC TRANSFER SUMMARY ---
General - Admit/Disc Date/PCP Admission Date/Primary Care Provider: 12/18/18 10:17 OMA MARCOS MD Discharge Date: 01/05/19 - Discharge Diagnosis (1) Acute kidney injury Is this a current diagnosis for this admission?: Yes Summary: Resolved with IV fluid administration (2) Acute on chronic respiratory failure Is this a current diagnosis for this admission?: Yes Summary: Stable on 1 to 2 L per nasal cannula while awake, uses BiPAP sometimes while she sleeps because it is more comfortable for her. This was doing some part of her prolonged COPD masturbation and a small amount of fluid overload which have both resolved (3) Anemia following surgery Is this a current diagnosis for this admission?: Yes Summary: Due to some mild blood loss and some poor nutrition, she got 2 units of packed red blood cells her hemoglobin bumped from 7 up to 10. (4) Diverticulitis of colon with perforation Is this a current diagnosis for this admission?: Yes Summary: Long-standing history of constipation, she required an exploratory laparotomy with Bipin procedure. She has had adequate gas and stool output. Antibiotics have been completed. She did require some stool softeners after the procedure because she was still constipated. (5) Acute on chronic diastolic CHF (congestive heart failure) Is this a current diagnosis for this admission?: Yes Summary: She was a little bit overloaded due to fluid needs from diverticulitis, but this resolved quickly with some mild IV diuresis. - Additional Information Resuscitation Status: DNR with intubation Discharge Diet: Cardiac, Diabetic Discharge Activity: Balance Activity w/Rest, No Driving, Slowly Increase Activity, Supervised Activity, No tub bath, Weigh Daily Prescriptions: Metoclopramide HCl [Reglan 10 mg Tablet] 10 mg PO ACHSP PRN #20 tablet PRN Reason: Ondansetron HCl 4 mg PO Q4HP PRN #10 tablet PRN Reason: For Nausea/Vomiting Home Medications: Albuterol Sulfate [Ventolin Hfa] 2 puff IH Q4HP PRN 11/27/17 Aspirin [Adult Low Dose Aspirin EC] 81 mg PO DAILY 11/27/17 Furosemide [Lasix 20 mg Tablet] 20 mg PO DAILYP PRN 11/27/17 Pravastatin Sodium [Pravachol] 10 mg PO QHS 11/27/17 Cetirizine HCl [Zyrtec 10 mg Tablet] 10 mg PO DAILY 12/11/18 Fluticasone/Umeclidin/Vilanter [Trelegy 100-62.5-25 Mcg Ellipta 14 Dose/Dpi] 1 inh IH DAILY #1 inhaler 12/16/18 Metoprolol Succinate [Toprol Xl 25 mg Tab.sr] 25 mg PO DAILY #30 tab.sr.24h 12/16/18 Ranitidine HCl [Zantac 150 mg Tablet] 300 mg PO BID 12/18/18 Metoclopramide HCl [Reglan 10 mg Tablet] 10 mg PO ACHSP PRN #20 tablet 01/05/19 Ondansetron HCl 4 mg PO Q4HP PRN #10 tablet 01/05/19 History of Present Illness Admission Date/PCP: 12/18/18 10:17 OMA MARCOS MD History of Present Illness: CHRISTOS MULTANI is a 74 year old female with a PMH of nonischemic cardiomyopathy, prior ACID placement, severe COPD and hypertension, recently admitted for COPD exacerbation and pneumonia who is presenting with recurrence of wheezing and SOB. This provider discharged this patient 2 days ago. She initially presented with wheezing and SOB and was started on IV steroids and breathing treatments. She had a chest CTA which ruled out a PE. She had a prolonged course here as attempt to switch solumedrol to prednisone during her stay resulted to recurrence of wheezing. She did eventually improve and was switched to prednisone and ambulated well on the hallways on day of discharge. She was seen by pulmonoogy and her Advair was switched to Trelegy. She was discharged on high dose prednisone and 3 more days of Levaquin. She says that when she was discharged home, she had mild increasing SOB again. Last night, this continued to worsen and she developed more wheezing and presented again to the ER thsi morning where she was noted to have bilateral wheezing. ABG also shows elevated PCO2 in the 60s. She also was initially hypoxic in the high 80s. She is currently saturating at 94-95% on BIPAP. Hospital Course Hospital Course: She had been home for a couple days before she came back in with increasing shortness of breath. She had been on steroids and antibiotics. Was on a couple of days of her initial presentation, she began to have abdominal pain and distention. CT of the abdomen was performed that showed a perforated diverticulitis. Surgery was consulted. They recommended an exploratory laparot codi. She wound up having to have a Ernandez's procedure. She has had a slow and prolonged course of recovery, due to her baseline poor health. After the procedure she did require a bowel regimen because she was still very constipated, and she began to have gas and stool output afterwards. She has good bowel function at this time. Her oral intake has not been very good but it has been increasing, and she has been tolerating solid foods. She said some intermittent periods of nausea which respond to medication. Her breathing has been comfortable on 1 to 2 L per nasal cannula at rest, and while she is sleeping she uses a BiPAP machine. She has been able to sit up on the edge of the bed with physical therapy and to stand up at the bedside with physical therapy assistance. She has been here for the last 4 days because her family was wanting to be extremely particular about [facility] facility [facility] for rehab, and at one point they had a bed at [facility] and since the patient was deemed medically ready for discharge at that time and they had agreed to her going there, we arranged to transfer. At that point her family resisted the discharge and said that they had not had time to adequately evaluate that facility, and so the discharge was appealed. Went through the appropriate appeal process and the discharge was upheld and the appeal was denied. Family ultimately elected to have her go to [facility], and the patient is being transferred there today in stable condition. Physical Exam Vital Signs: Temp Pulse Resp BP Pulse Ox 97.7 F 84 20 130/56 H 98 01/05/19 03:45 01/05/19 07:00 01/05/19 03:45 01/05/19 03:45 01/05/19 03:45 Intake & Output 01/04/19 01/05/19 01/06/19 06:59 06:59 06:59 Intake Total 1433 268 Output Total 875 825 Balance 558 -557 Weight 59.6 kg 57.4 kg General appearance: PRESENT: no acute distress, well-developed, well-nourished Head exam: PRESENT: atraumatic, normocephalic Respiratory exam: PRESENT: clear to auscultation tyrone. ABSENT: rales, rhonchi, wheezes Cardiovascular exam: PRESENT: RRR. ABSENT: diastolic murmur, rubs, systolic murmur GI/Abdominal exam: PRESENT: normal bowel sounds, soft, other - Ostomy intact. Soft stool present, no sign of bleeding.. ABSENT: distended, guarding, mass, organolmegaly, rebound, tenderness Neurological exam: PRESENT: alert, awake, oriented to person, oriented to place, oriented to time, oriented to situation Results Laboratory Results: 01/02/19 04:07 01/02/19 04:07 12/18/18 12/18/18 12/19/18 07:59 07:59 11:03 Creatine Kinase CK-MB (CK-2) Troponin I 0.012 NT-Pro-B Natriuret Pep 6430 H 2470 H 12/20/18 12/21/18 12/22/18 03:09 04:04 04:10 Creatine Kinase CK-MB (CK-2) Troponin I NT-Pro-B Natriuret Pep 1130 H 409 517 12/24/18 12/24/18 23:20 23:20 Creatine Kinase 89 CK-MB (CK-2) 1.04 Troponin I < 0.012 NT-Pro-B Natriuret Pep Impressions: KUB X-Ray 12/19/18 00:00 IMPRESSION: Constipation. Abdomen/Pelvis CT 12/28/18 13:00 IMPRESSION: Minimal fluid along the left pericolic gutter and into the pelvis but there is no focal drainable collection. Moderate bilateral pleural effusions with pneumonia in both lung bases. Chest X-Ray 12/28/18 14:23 IMPRESSION: Obstructive lung disease with crowding of the bronchovascular leander ings at the lung bases. No gross acute infiltrates. Transfer Plan - Time Spent with Patient Time spent with patient: Greater than 30 Minutes Qualifiers - * PATIENT BEING DISCHARGED WITH ANY OF THE FOLLOWING DIAGNOSIS: No Acute Heart Failure Is this a Heart Failure Patient?: Yes Documentation of LVEF assessment?: Yes 3. Anticoagulant therapy for permanect/persistent/paraoxysmal Afib or Aflutter: N/A
[2019-01-05] MEDS: HEPARIN SOD (PORCINE) 5,000 UNIT/ML 1 ML SYRINGE SUBCUT SCH (11:23)
[2019-01-05] MEDS: DOCUSATE SODIUM 100 MG CAPSULE PO SCH (11:42)
[2019-01-05] MEDS: ASPIRIN 81 MG TABLET, ENT COATED PO SCH (11:42)
[2019-01-05] MEDS: CETIRIZINE 10 MG TABLET PO SCH (11:42)
[2019-01-05] MEDS: METOPROLOL TARTRATE 25 MG TABLET PO SCH (11:42)
[2019-01-05] MEDS: PSYLLIUM SEED-SF 5.85 GM PACKET PO SCH (11:42)
[2019-01-05] MEDS: PANTOPRAZOLE SODIUM 40 MG TABLET.DR PO SCH (11:42)
[2019-01-05] MEDS: FLUTICASONE/UMECLIDIN/VILANTER 100-62.5-25 MCG/DOSE IH SCH (11:44)
[2019-01-05] MEDS: ONDANSETRON HCL INJ/PF 4 MG/2 ML SDV IV PRN (13:26)
[2019-01-05 13:31] VITALS: BP 115/52
== END 2019-01-05 14:50 | DRG 329 ==
LOC: ER 07:28 → EH 10:17 → 3N 16:04 → ICU 12-19 10:00 → 5 12-27 20:32 → ICU 12-29 01:20 → 3W 12-31 18:32
PROVIDERS: ADMIT Internal Medicine; ATTEND Internal Medicine
PROC: 3E0F73Z Introduction of Anti-inflammatory into Respiratory Tract, Via Natural or Artificial Opening (ICD-10-PCS; 2018-12-18)
PROC: 0D1N0Z4 Bypass Sigmoid Colon to Cutaneous, Open Approach (ICD-10-PCS; 2018-12-19)
PROC: 0DTN0ZZ Resection of Sigmoid Colon, Open Approach (ICD-10-PCS; principal; 2018-12-19 21:15)
PROC: 5A1945Z Respiratory Ventilation, 24-96 Consecutive Hours (ICD-10-PCS; 2018-12-20)
PROC: 0BH17EZ Insertion of Endotracheal Airway into Trachea, Via Natural or Artificial Opening (ICD-10-PCS; 2018-12-20)
PROC: 5A09357 Assistance with Respiratory Ventilation, Less than 24 Consecutive Hours, Continuous Positive Airway Pressure (ICD-10-PCS; 2018-12-21)
PROC: 30233N1 Transfusion of Nonautologous Red Blood Cells into Peripheral Vein, Percutaneous Approach (ICD-10-PCS; 2019-01-01)
DX: K57.20 Diverticulitis of large intestine with perforation and abscess without bleeding (principal); J96.22 Acute and chronic respiratory failure with hypercapnia; I50.33 Acute on chronic diastolic (congestive) heart failure; J96.21 Acute and chronic respiratory failure with hypoxia; J44.1 Chronic obstructive pulmonary disease with (acute) exacerbation; N17.9 Acute kidney failure, unspecified; I42.8 Other cardiomyopathies; D62 Acute posthemorrhagic anemia; Z66 Do not resuscitate; D64.9 Anemia, unspecified; I11.0 Hypertensive heart disease with heart failure; E78.5 Hyperlipidemia, unspecified; I49.3 Ventricular premature depolarization; Z78.1 Physical restraint status; Z79.899 Other long term (current) drug therapy; Z79.82 Long term (current) use of aspirin; Z95.810 Presence of automatic (implantable) cardiac defibrillator; Z87.891 Personal history of nicotine dependence; Z88.6 Allergy status to analgesic agent; Z88.1 Allergy status to other antibiotic agents; Z79.52 Long term (current) use of systemic steroids
CPT/HCPCS: 00790; 36415; 36430; 36600; 71045; 74018; 74176; 74177; 80048; 80053; 80202; 82550; 82553; 82607; 82728; 82746; 82803; 82962; 83540; 83550; 83605; 83735; 83880; 84100; 84484; 85025; 85027; 85045; 86850; 86900; 86901; 86920; 87040; 87086; 88307; 93005; 93010; 94002; 94003; 94640; 94660; 96365; 96375; 99291; J0131; J0330; J0692; J0780; J1100; J1160; J1644; J1815; J1940; J2250; J2270; J2370; J2405; J2704; J2765; J2920; J3010; J3370; J3475; J3480; J3490; J7030; J7040; J7060; J7512; J7620; P9016; S0028; S0164

== ENCOUNTER 2019-04-20 15:42 | Emergency (ER) | payer MEDICARE, MEDICAID ==
--- NOTE | 2019-04-20 18:49 | RADIOLOGY REPORT (SQ) ---
EXAM DESCRIPTION: CHEST SINGLE VIEW COMPLETED DATE/TIME: 04/20/2019 6:37 pm REASON FOR STUDY: pain COMPARISON: None. EXAM PARAMETERS: NUMBER OF VIEWS: One view. TECHNIQUE: Single frontal radiographic view of the chest acquired. RADIATION DOSE: NA LIMITATIONS: None. FINDINGS: LUNGS AND PLEURA: Chronic interstitial changes. Mild subsegmental atelectasis in the righ t base. No infiltrate, effusion, or mass. MEDIASTINUM AND HILAR STRUCTURES: No masses. Contour normal. HEART AND VASCULAR STRUCTURES: Heart normal in size. Normal vasculature. BONES: No acute findings. HARDWARE: Pacemaker/defibrillator. OTHER: No other significant finding. IMPRESSION: Chronic lung changes with no acute cardiopulmonary findings. TECHNICAL DOCUMENTATION: JOB ID: [id number] [facility]- All Rights Reserved Reading location - IP/workstation name: [email or web address]
--- NOTE | 2019-04-20 18:51 | RADIOLOGY REPORT (SQ) ---
EXAM DESCRIPTION: ABDOMEN 2 VIEWS COMPLETED DATE/TIME: 04/20/2019 6:37 pm REASON FOR STUDY: evaluate for obstruction COMPARISON: None. NUMBER OF VIEWS: Two views. TECHNIQUE: Supine and erect/decubitus radiographic images of the abdomen acquired. LIMITATIONS: None. FINDINGS: FREE AIR: None. No abnormal gas collections. LUNG BASES: Clear. BOWEL GAS PATTERN: Nonobstructive gas pattern. Retained stool. There appears to be an ostomy. CALCIFICATIONS: No suspicious calcifications. SOFT TISSUES: No gross mass or suggestion of organomegaly. HARDWARE: None in the abdomen. BONES: No acute fracture. No worrisome bone lesions. OTHER: No other significant finding. IMPRESSION: NO RADIOGRAPHIC EVIDENCE FOR ACUTE ABDOMINAL DISEASE. TECHNICAL DOCUMENTATION: JOB ID: [id number] [employer]- All Rights Reserved Reading location - IP/workstation name: [email or web address]
[2019-04-20 19:43] LABS: ABSOLUTE EOSINOPHILS # (AUTO) 0.4 10^3/uL (0.0-0.6); ABSOLUTE LYMPHOCYTES (AUTO) 2.9 10^3/uL (0.5-4.7); ABSOLUTE MONOCYTES (AUTO) 0.7 10^3/uL (0.1-1.4); ABSOLUTE NEUT (AUTO) 2.7 10^3/uL (1.7-8.2); BASOPHILS % (AUTO) 0.7 % (0-2); EOSINOPHILS % (AUTO) 5.5 % (0-6); HEMOGLOBIN 11.8 g/dL (12.0-15.5); LYMPHOCYTES % (AUTO) 42.9 % (13-45); MEAN CORPUSCULAR HGB CONC 32.7 g/dL (32.0-36.0); MEAN CORPUSCULAR VOLUME 92 fl (80-97); MONOCYTES % (AUTO) 10.2 % (3-13); PLATELET COUNT 176 10^3/uL (150-450); RED BLOOD COUNT 3.91 10^6/uL (3.72-5.28); RED CELL DISTRIBUTION WIDTH 14.5 % (11.5-14.0); SEGMENTED NEUTROPHILS % (AUTO) 40.7 % (42-78); TOTAL CELLS COUNTED % (AUTO) 100 %; WHITE BLOOD COUNT 6.7 10^3/uL (4.0-10.5)
[2019-04-20 20:06] LABS: ANION GAP 8 (5-19); BLOOD UREA NITROGEN 18 mg/dL (7-20); CALCIUM 9.3 mg/dL (8.4-10.2); CARBON DIOXIDE 31 mmol/L (22-30); CHLORIDE 101 mmol/L (98-107); GLUCOSE 115 mg/dL (75-110); POTASSIUM 4.2 mmol/L (3.6-5.0)
[2019-04-20 21:58] VITALS: BP 105/68
--- NOTE | 2019-04-21 16:46 | ER Document Report ---
Entered by CHARLINE SANTANA SCRIBE 04/20/192033 Acting as scribe for:JUSTUS PÉREZ DO ED GI/ - General Chief Complaint: Abdominal Problem Stated Complaint: ABDOMINAL PAIN Time Seen by Provider: 04/20/19 17:07 Primary Care Provider: ZANE CHI MD [Primary Care Provider] - Follow up as needed Mode of Arrival: Medic Information source: Patient Notes: Patient is a 74-year-old female who presents to the emergency department today for concerns regarding her colostomy stoma. According to the patient, nursing staff at [facility] where she resides was attempting to change the colostomy bag this morning at around 1000 and they were concerned with how the "stoma was protruding". Patient has no complaints and denies abdominal pain, vomiting, diarrhea, shortness of breath, or urinary symptoms. TRAVEL OUTSIDE OF THE [place] IN LAST 30 DAYS: No - Related Data Allergies/Adverse Reactions: amoxicillin trihydrate [From Augmentin] Allergy (Verified 12/11/18 14:10) meperidine HCl [From Demerol] Allergy (Verified 12/11/18 14:10) Potassium Clavulanate * [From Augmentin] Allergy (Verified 12/11/18 14:10) Past Medical History - General Information source: Patient - Social History Smoking Status: Unknown if Ever Smoked Cigarette use (# per day): No Frequency of alcohol use: None Drug Abuse: None Lives with: [facility] Family History: Reviewed & Not Pertinent Patient has suicidal ideation: No Patient has homicidal ideation: No - Past Medical History Cardiac Medical History: Reports: Hx Congestive Heart Failure, Hx Hyperchole sterolemia, Hx Hypertension Pulmonary Medical History: Reports: Hx COPD, Hx Pneumonia Neurological Medical History: Reports: Hx Seizures - WITH DEMEROL Past Surgical History: Reports: Hx Abdominal Surgery, Hx Cardiac Catheter ization, Hx Cardiac Surgery - Pacemaker/Defibrillator, Hx Section, Hx Open Heart Surgery - 1949, Hx Pacemaker - February - Immunizations Hx Diphtheria, Pertussis, Tetanus Vaccination: Yes Hx Pneumococcal Vaccination: 07/06/17 Review of Systems - Review of Systems Constitutional: No symptoms reported EENT: No symptoms reported Cardiovascular: No symptoms reported Respiratory: No symptoms reported. denies: Short of breath Gastrointestinal: See HPI, Other - "protrusion of stoma". denies: Abdominal pain, Diarrhea, Vomiting Genitourinary: No symptoms reported. denies: Dysuria Female Genitourinary: No symptoms reported Musculoskeletal: No symptoms reported Skin: No symptoms reported Hematologic/Lymphatic: No symptoms reported Neurological/Psychological: No symptoms reported -: Yes All other systems reviewed and negative Physical Exam - Vital signs Vitals: Temp Pulse Resp BP Pulse Ox 98.5 F 72 20 126/45 H 97 04/20/19 15:48 04/20/19 15:48 04/20/19 15:48 04/20/19 15:48 04/20/19 15:48 Interpretation: Normal - General General appearance: Appears well, Alert - HEENT Head: Normocephalic, Atraumatic Eyes: Normal Pupils: PERRL - Respiratory Respiratory status: No respiratory distress Chest status: Nontender Breath sounds: Normal Chest palpation: Normal - Cardiovascular Rhythm: Regular Heart sounds: Normal auscultation Murmur: No - Abdominal Inspection: Other - Patient with stoma that is pink but prolapse. No tenderness to palpation. No streaking redness, purulent discharge or induration. Distension: No distension Bowel sounds: Normal Tenderness: Nontender Organomegaly: No organomegaly - Back Back: Normal, Nontender - Extremities General upper extremity: Normal inspection, Nontender, Normal color, Normal ROM, Normal temperature General lower extremity: Normal inspection, Nontender, Normal color, Normal ROM, Normal temperature, Normal weight bearing. No: Sarai's sign - Neurological Neuro grossly intact: Yes Cognition: Normal Orientation: AAOx4 [place] Coma Scale Eye Opening: Spontaneous Lisa Coma Scale Verbal: Oriented [place] Coma Scale Motor: Obeys Commands [place] Coma Scale Total: 15 Speech: Normal Motor strength normal: LUE, RUE, LLE, RLE Sensory: Normal - Psychological Associated symptoms: Normal affect, Normal mood - Skin Skin Temperature: Warm Skin Moisture: Dry Skin Color: Normal Course - Re-evaluation Re-evalutation: 04/20/19 [address] Saldaña from surgery. He will come evaluate the patient and the stoma. 04/20/19 21:30 Patient is a 74-year-old female who came in with concern for her stoma protruding. It is pink. No erythema or surrounding edema. No evidence for infection or devascularization. Patient was evaluated by Dr. Saldaña from surgery. Recommended x-rays to rule out any further pathology. X-rays and blood work within normal limits. Patient is eating and drinking without any difficulty. She feels better and is comfortable going home. Stable for discharge. Return if any further concerns. - Vital Signs Vital signs: Temp Pulse Resp BP Pulse Ox 98.4 F 71 18 105/68 92 04/20/19 21:56 04/20/19 21:56 04/20/19 21:56 04/20/19 21:56 04/20/19 21:56 - Laboratory Result Diagrams: 04/20/19 19:30 04/20/19 19:30 Laboratory results interpreted by me: 04/20/19 04/20/19 19:30 19:30 Hgb 11.8 L RDW 14.5 H Seg Neutrophils % 40.7 L Carbon Dioxide 31 H Glucose 115 H - Diagnostic Test Radiology reviewed: Reports reviewed Discharge - Discharge Clinical Impression: Stoma malfunction Condition: Stable Disposition: HOME, SELF-CARE Referrals: ZANE CHI MD [Primary Care Provider] - Follow up as needed Scribe Attestation: 04/20/19 21:31 I personally performed the services described in the documentation, reviewed and edited the documentation which was dictated to the scribe in my presence, and it accurately records my words and actions. I personally performed the services described in the documentation, reviewed and edited the documentation which was dictated to the scribe in my presence, and it accurately records my words and actions.
== END 2019-04-20 22:10 | disposition home or self-care (01) ==
LOC: ER 15:42
DX: K94.03 Colostomy malfunction (principal); Y83.8 Other surgical procedures as the cause of abnormal reaction of the patient, or of later complication, without mention of misadventure at the time of the procedure; I50.9 Heart failure, unspecified; E78.00 Pure hypercholesterolemia, unspecified; I11.0 Hypertensive heart disease with heart failure; Z95.810 Presence of automatic (implantable) cardiac defibrillator
CPT/HCPCS: 36415; 71045; 74019; 80048; 85025; 99284

== ENCOUNTER 2019-05-03 23:01 | Inpatient (IN) | payer MEDICARE, MEDICAID ==
[2019-05-03] MEDS ORDERED: BUDESONIDE NEB 0.5 MG/2 ML AMPUL NEB ONE (23:28)
[2019-05-03] MEDS ORDERED: MAGNESIUM SULFATE/D5W 1 GM/100 ML RTUPB IV ONE (23:28)
[2019-05-03] MEDS ORDERED: METHYLPREDNISOLONE INJ 125 MG/2 ML SDV IV ONE (23:28)
--- NOTE | 2019-05-03 23:29 | ER Document Report ---
ED General - General Chief Complaint: Shortness Of Breath Stated Complaint: BREATHING PROBLEMS Time Seen by Provider: 05/03/19 23:17 Notes: Patient is a 74-year-old female with COPD, on oxygen that presents to the emergency department for chief complaint of shortness of breath, and fever. Patient is currently living at a assisted facility, she states that today she was more short of breath, and had a cough, and apparently had a fever at the shelter, they did give her a dose of Rocephin and Tylenol, and then called EMS, she was given breathing treatments by EMS, which seemingly improved her lung sounds to a degree, but she still having a wet cough, and states she still feels short of breath. She reports wearing 2 L nasal cannula, 24 hours a day for her COPD. She states that she is had a roommate that is been sick with a wet cough as well. Per EMS she was also given Lasix, and 2 g of Rocephin prior to transfer to the ED. Past Medical History: COPD, hypertension, CHF, sick sinus syndrome Past Surgical History: Pacemaker, colon resection Social History: Former smoker, denies alcohol or illicit drug use. Family History: Reviewed and noncontributory for presenting illness Allergies: Reviewed, see documented allergy list. REVIEW OF SYSTEMS: Other than noted above, the 12 point review of systems was reviewed with the patient and were negative, all pertinent findings are included in the HPI. PHYSICAL EXAMINATION: Vital signs reviewed, nursing noted reviewed. GENERAL: Elderly female, increased work of breathing, moderate respiratory distress HEAD: Atraumatic, normocephalic. EYES: Eyes appear normal, extraocular movements intact, sclera anicteric, conjunctiva are normal. ENT: nares patent, oropharynx clear without exudates. Moist mucous membranes. NECK: Normal range of motion, supple without lymphadenopathy, no JVD LUNGS: Diffuse expiratory wheezing noted throughout all lung lopez, wet cough noted, increased work of breathing, moderate respiratory distress. HEART: Regular rate and rhythm without murmurs, paced rhythm on telemetry ABDOMEN: Soft, nontender, normoactive bowel sounds. No rebound, guarding, or rigidity. No masses appreciated. EXTREMITIES: Nontender, good range of motion, no pitting or edema. NEUROLOGICAL: No focal neurological deficits. Moves all extremities spontan eously Motor and sensory grossly intact on exam. PSYCH: Appears mildly anxious on exam, but answering questions appropriately. SKIN: Warm, Dry, normal turgor, no rashes or lesions noted on exposed skin TRAVEL OUTSIDE OF THE [place] IN LAST 30 DAYS: No - Related Data Allergies/Adverse Reactions: amoxicillin trihydrate [From Augmentin] Allergy (Verified 12/11/18 14:10) meperidine HCl [From Demerol] Allergy (Verified 12/11/18 14:10) Potassium Clavulanate * [From Augmentin] Allergy (Verified 12/11/18 14:10) Past Medical History - Social History Smoking Status: Former Smoker Family History: Reviewed & Not Pertinent - Past Medical History Cardiac Medical History: Reports: Hx Congestive Heart Failure, Hx Hypercholesterolemia, Hx Hypertension Denies: Hx Heart Attack Pulmonary Medical History: Reports: Hx COPD, Hx Pneumonia Denies: Hx Asthma Neurological Medical History: Reports: Hx Seizures - WITH DEMEROL. Denies: Hx Cerebrovascular Accident Renal/ Medical History: Denies: Hx Peritoneal Dialysis GI Medical History: Denies: Hx Hepatitis, Hx Hiatal Hernia, Hx Ulcer Psychiatric Medical History: Denies: Hx Depression Infectious Medical History: Denies: Hx Hepatitis Past Surgical History: Reports: Hx Abdominal Surgery, Hx Cardiac Catheterization, Hx Cardiac Surgery - Pacemaker/Defibrillator, Hx Section, Hx Open Heart Surgery - 1949, Hx Pacemaker - February. Denies: Hx Mastectomy - Immunizations Hx Diphtheria, Pertussis, Tetanus Vaccination: Yes Hx Pneumococcal Vaccination: 07/06/17 Physical Exam - Vital signs Vitals: Temp Resp BP Pulse Ox 98.6 F 32 H 105/64 91 L 05/03/19 23:08 05/03/19 23:08 05/03/19 23:08 05/03/19 23:08 Course - Re-evaluation Re-evalutation: Patient seen and examined vital signs reviewed. Laboratory data and imaging were ordered as appropriate for the patient's presenting symptoms and complaint, with consideration of any critical or life threatening conditions that may be associated with their obtained history and exam as noted above. Patient was treated with BiPAP therapy, given budesonide inhaled, IV Solu- Medrol, and given a dose of azithromycin, had a received Rocephin prior to transfer to the ED, she is also given IV magnesium. Results were reviewed when available and demonstrated leukocytosis, with left shift, chest x-ray was negative however, blood work otherwise demonstrated, negative troponin only marginally elevated BNP. The patient was re-evaluated and was improved on the BiPAP, although she is anxious on it, she is tolerating it at this time. Evaluation was most consistent with acute on chronic respiratory failure with hypoxia, possible community-acquired pneumonia, not showing on chest x-ray yet, and acute exacerbation of COPD. Results were discussed with the patient at this point after careful considera tion I feel that that patient should be admitted to the hospital. This was discussed with the patient that it is in the best interest for their care to be admitted for further evaluation and management. Patient agreed with this plan of care. A call was placed to the admitting physician, Dr. Menezes who graciously accepted the patient onto their service. *Note is created using voice recognition software and may contain spelling, syntax or grammatical errors. Laboratory 05/03/19 05/03/19 05/03/19 23:12 23:12 23:12 WBC 17.5 H RBC 4.12 Hgb 12.2 Hct 36.9 MCV 90 MCH 29.5 MCHC 33.0 RDW 13.8 Plt Count 178 Lymph % (Auto) 8.4 L Cherry % (Auto) 5.0 Eos % (Auto) 0.4 Baso % (Auto) 0.5 Absolute Neuts (auto) 15.0 H Absolute Lymphs (auto) 1.5 Absolute Monos (auto) 0.9 Absolute Eos (auto) 0.1 Absolute Basos (auto) 0.1 Seg Neutrophils % 85.7 H PT 13.1 INR 0.99 VBG pH VBG pCO2 VBG HCO3 VBG Base Excess Sodium 138.0 Potassium 4.1 Chloride 98 Carbon Dioxide 28 Anion Gap 12 BUN 23 H Creatinine 0.67 Est GFR ( Amer) > 60 Est GFR (MDRD) Non-Af > 60 Glucose 215 H Lactic Acid Calcium 9.5 Total Bilirubin 0.2 Direct Bilirubin 0.2 Neonat Total Bilirubin Not Reportable Neonat Direct Bilirubin Not Reportable Neonat Indirect Bili Not Reportable AST 47 H ALT 38 Alkaline Phosphatase 124 Troponin I NT-Pro-B Natriuret Pep Total Protein 6.7 Albumin 4.2 05/03/19 05/03/19 05/03/19 23:12 23:12 23:12 WBC RBC Hgb Hct MCV MCH MCHC RDW Plt Count Lymph % (Auto) Cherry % (Auto) Eos % (Auto) Baso % (Auto) Absolute Neuts (auto) Absolute Lymphs (auto) Absolute Monos (auto) Absolute Eos (auto) Absolute Basos (auto) Seg Neutrophils % PT INR VBG pH 7.38 VBG pCO2 42.7 VBG HCO3 24.7 VBG Base Excess -0.5 Sodium Potassium Chloride Carbon Dioxide Anion Gap BUN Creatinine Est GFR ( Amer) Est GFR (MDRD) Non-Af Glucose Lactic Acid 1.7 Calcium Total Bilirubin Direct Bilirubin Neonat Total Bilirubin Neonat Direct Bilirubin Neonat Indirect Bili AST ALT Alkaline Phosphatase Troponin I < 0.012 NT-Pro-B Natriuret Pep 618 H Total Protein Albumin - Vital Signs Vital signs: Temp Pulse Resp BP Pulse Ox 98.5 F 88 24 H 91/53 L 94 05/04/19 02:59 05/04/19 02:59 05/04/19 02:59 05/04/19 02:59 05/04/19 02:59 - Laboratory Result Diagrams: 05/03/19 23:12 05/03/19 23:12 Laboratory results interpreted by me: 05/03/19 05/03/19 05/03/19 23:12 23:12 23:12 WBC 17.5 H Lymph % (Auto) 8.4 L Absolute Neuts (auto) 15.0 H Seg Neutrophils % 85.7 H BUN 23 H Glucose 215 H AST 47 H NT-Pro-B Natriuret Pep 618 H - EKG Interpretation by Me Additional EKG results interpreted by me: EKG demonstrates ventricular paced rhythm, with a ventricular rate of 90 bpm, left axis deviation, QTC 419 ms, no ST elevation, compared with prior EKG from 12/24/2018, at that time she was having inhibition, which is not seen today. Critical Care Note - Critical Care Note Total time excluding time spent on procedures (mins): 38 Comments: Critical care time 38 minutes exclusive from separate billable procedures for a patient requiring complex medical decision making, and high potential for clinic al deterioration. In a patient with acute on chronic respiratory failure requiring BiPAP therapy, and ultimately admission to the hospital. Time spent obtaining history from patient or surrogate, discussions with consultants, development of treatment plan with patient or surrogate, evaluation of patient's response to treatment, examination of patient, ordering and performing treatments and interventions, ordering and review of laboratory studies, re- evaluation of patient's condition, ordering and review of radiographic studies and review of old charts Discharge - Discharge Clinical Impression: Acute and chronic respiratory failure with hypoxia, Acute exacerbation of chronic obstructive pulmonary disease (COPD) Pneumonia Qualifiers: Pneumonia type: due to unspecified organism Laterality: unspecified laterality Lung location: unspecified part of lung Qualified Code(s): J18.9 - Pneumonia, unspecified organism Leukocytosis Qualifiers: Leukocytosis type: unspecified Qualified Code(s): D72.829 - Elevated white blood cell count, unspecified Condition: Serious Disposition: ADMITTED INPATIENT Admitting Provider: Clif (Hospitalist) Unit Admitted: Telemetry
[2019-05-03 23:32] LABS: ABSOLUTE BASOPHILS # (AUTO) 0.1 10^3/uL (0.0-0.2); ABSOLUTE EOSINOPHILS # (AUTO) 0.1 10^3/uL (0.0-0.6); ABSOLUTE LYMPHOCYTES (AUTO) 1.5 10^3/uL (0.5-4.7); ABSOLUTE MONOCYTES (AUTO) 0.9 10^3/uL (0.1-1.4); BASOPHILS % (AUTO) 0.5 % (0-2); EOSINOPHILS % (AUTO) 0.4 % (0-6); HEMATOCRIT 36.9 % (36.0-47.0); HEMOGLOBIN 12.2 g/dL (12.0-15.5); LYMPHOCYTES % (AUTO) 8.4 % (13-45); MEAN CORPUSCULAR HEMOGLOBIN 29.5 pg (27.0-33.4); MEAN CORPUSCULAR VOLUME 90 fl (80-97); PLATELET COUNT 178 10^3/uL (150-450); RED BLOOD COUNT 4.12 10^6/uL (3.72-5.28); RED CELL DISTRIBUTION WIDTH 13.8 % (11.5-14.0); SEGMENTED NEUTROPHILS % (AUTO) 85.7 % (42-78); TOTAL CELLS COUNTED % (AUTO) 100 %; WHITE BLOOD COUNT 17.5 10^3/uL (4.0-10.5)
[2019-05-03 23:38] LABS: INTERNATIONAL RATION (INR) 0.99; PROTHROMBIN TIME 13.1 SEC (11.4-15.4)
[2019-05-03] MEDS ORDERED: AZITHROMYCIN INJ 500 MG VIAL IV ONE (23:43)
[2019-05-03 23:48] LABS: VENOUS BLOOD BASE EXCESS -0.5 mmol/L; VENOUS BLOOD HCO3 24.7 mmol/L (20-32); VENOUS BLOOD PCO2 42.7 mmHg (35-63); VENOUS BLOOD PH 7.38 (7.30-7.42)
[2019-05-03 23:54] LABS: ALBUMIN 4.2 g/dL (3.5-5.0); ANION GAP 12 (5-19); BLOOD UREA NITROGEN 23 mg/dL (7-20); CALCIUM 9.5 mg/dL (8.4-10.2); CARBON DIOXIDE 28 mmol/L (22-30); CHLORIDE 98 mmol/L (98-107); GLUCOSE 215 mg/dL (75-110); POTASSIUM 4.1 mmol/L (3.6-5.0); TOTAL PROTEIN 6.7 g/dL (6.3-8.2)
--- NOTE | 2019-05-03 23:54 | RADIOLOGY REPORT (SQ) ---
XR CHEST 1 VIEW EXAM DATE: 05/03/2019 11:09 PM CDT HISTORY: fever. COMPARISON: 04/20/2019 FINDINGS: The heart size is within normal limits. No consolidation, pleural effusion, or pneumothorax is seen. The bony thorax is intact. Stable left chest wall pacemaker. IMPRESSION: No evidence of acute cardiopulmonary disease.
[2019-05-03 23:55] LABS: ALKALINE PHOSPHATASE 124 U/L (38-126); ASPARTATE AMINO TRANSFERASE 47 U/L (14-36); BILIRUBIN,DIRECT 0.2 mg/dL (0.0-0.4); BILIRUBIN,TOTAL 0.2 mg/dL (0.2-1.3)
[2019-05-04 00:09] LABS: NT PRO BNP 618 pg/mL (<450)
[2019-05-04 00:15] LABS: TROPONIN I < 0.012 ng/mL
[2019-05-04] MEDS ORDERED: IPRATROPIUM/ALBUTEROL 0.5-2.5 MG/3 ML AMPUL NEB PRN (00:48)
[2019-05-04] MEDS ORDERED: FLUTICASONE NASAL SPRAY 50 MCG/SPRY 120 SPRAY/16 GM NASL ONE (01:00)
[2019-05-04] MEDS ORDERED: CEFTRIAXONE INJ 1000 MG VIAL ONE (01:07)
[2019-05-04] MEDS ORDERED: FUROSEMIDE INJ/PF 40 MG/4 ML SDV IV ONE (01:07)
[2019-05-04] MEDS ORDERED: CEFTRIAXONE 1 GM/D5W RTU 1 GM/50 ML RTUPB IV ONE (02:00)
[2019-05-04] MEDS ORDERED: FUROSEMIDE INJ/PF 40 MG/4 ML SDV ONE (03:35)
[2019-05-04] MEDS: CHLORPHENIRAMINE MALEATE 4 MG TABLET PO SCH ×4 (03:42→18:08)
[2019-05-04 04:48] LABS: APPEARANCE,URINE CLEAR; BILIRUBIN,URINE NEGATIVE (NEGATIVE); COLOR,URINE YELLOW; GLUCOSE, URINE NEGATIVE (NEGATIVE); KETONES,URINE NEGATIVE (NEGATIVE); LEUKOCYTE ESTERASE,URINE NEGATIVE (NEGATIVE); NITRITE,URINE NEGATIVE (NEGATIVE); PROTEIN,URINE NEGATIVE (NEGATIVE); URINE SPECIFIC GRAVITY 1.009; UROBILINOGEN,URINE NEGATIVE mg/dL (<2.0)
[2019-05-04] MEDS: HEPARIN SOD (PORCINE) 5,000 UNIT/ML 1 ML VIAL SUBCUT SCH ×3 (06:16→21:19)
--- NOTE | 2019-05-04 07:00 | EKG REPORT ---
SEVERITY:- ABNORMAL ECG - ATRIAL-SENSED VENTRICULAR-PACED COMPLEXES : Confirmed by: Alex Alvarez MD 04-May-2019 06:59:51
[2019-05-04] MEDS: IPRATROPIUM/ALBUTEROL 0.5-2.5 MG/3 ML AMPUL NEB SCH ×2 (08:05→15:47)
[2019-05-04] MEDS ORDERED: FUROSEMIDE 20 MG TABLET PO PRN (08:23)
[2019-05-04] MEDS ORDERED: (PENDING PHARMACY ID) (Ranitidine Hcl [Zantac 150 Mg Tablet] 300 MG) PO SCH (10:00)
[2019-05-04] MEDS: METOPROLOL SUCCINATE 25 MG TAB.SR.24H PO SCH (11:27)
[2019-05-04] MEDS: ASPIRIN 81 MG TABLET, ENT COATED PO SCH (11:27)
[2019-05-04] MEDS: FLUTICASONE NASAL SPRAY 50 MCG/SPRY 120 SPRAY/16 GM NASL SCH ×2 (11:28→21:19)
[2019-05-04] MEDS: CETIRIZINE 10 MG TABLET PO SCH (11:28)
--- NOTE | 2019-05-04 17:23 | PDOC PROGRESS REPORT ---
Subjective Progress Note for:: 05/04/19 Subjective:: The patient is a 74-year-old female Guerda Ellsworth with a past medical history significant for COPD (on home O2) diastolic CHF, hyperlipidemia, hypertension, and pacemaker who was admitted 05/04/2019 for COPD exacerbation. Patient was seen on morning rounds. She is found resting in bed comfortably on supplemental oxygen via nasal cannula; she did use BiPAP overnight. She reports that she is feeling better this morning but does continue to have slight dyspnea and a productive cough. She denies fever chills, chest pain palpitations, abdominal pain, nausea vom iting diarrhea. She has no questions or concerns at this time. No concerns per nursing. Reason For Visit: COPD EXACERBATION PNEUMONIA Physical Exam Vital Signs: Temp Pulse Resp BP Pulse Ox 97.5 F 85 24 H 111/39 L 90 L 05/04/19 12:00 05/04/19 15:52 05/04/19 15:52 05/04/19 12:00 05/04/19 15:52 Intake & Output 05/03/19 05/04/19 05/05/19 06:59 06:59 06:59 Intake Total 50 240 Balance 50 240 Weight 55 kg General appearance: PRESENT: no acute distress, cooperative, thin, well- developed, well-nourished Head exam: PRESENT: atraumatic, normocephalic Eye exam: PRESENT: conjunctiva pink, EOMI, PERRLA. ABSENT: scleral icterus Ear exam: PRESENT: normal external ear exam Mouth exam: PRESENT: moist, tongue midline Neck exam: ABSENT: carotid bruit, JVD, lymphadenopathy, thyromegaly Respiratory exam: PRESENT: rhonchi - Patient briefly following cough, symmetrical, unlabored, wheezes - Occasional slight expiratory wheeze. ABSENT: rales Cardiovascular exam: PRESENT: RRR, +S1, +S2. ABSENT: diastolic murmur, rubs, systolic murmur Pulses: PRESENT: normal dorsalis pedis pul Vascular exam: PRESENT: normal capillary refill GI/Abdominal exam: PRESENT: normal bowel sounds, soft. ABSENT: distended, guarding, mass, organolmegaly, rebound, tenderness Rectal exam: PRESENT: deferred Extremities exam: PRESENT: full ROM. ABSENT: calf tenderness, clubbing, pedal edema Neurological exam: PRESENT: alert, awake, oriented to person, oriented to place, oriented to time, oriented to situation, CN II-XII grossly intact. ABSENT: motor sensory deficit Psychiatric exam: PRESENT: appropriate affect, normal mood. ABSENT: homicidal ideation, suicidal ideation Skin exam: PRESENT: dry, intact, warm. ABSENT: cyanosis, rash Results Laboratory Results: 05/03/19 23:12 05/03/19 23:12 05/03/19 05/03/19 05/03/19 23:12 23:12 23:12 WBC 17.5 H RBC 4.12 Hgb 12.2 Hct 36.9 MCV 90 MCH 29.5 MCHC 33.0 RDW 13.8 Plt Count 178 Seg Neutrophils % 85.7 H VBG pH VBG pCO2 VBG HCO3 VBG Base Excess Sodium 138.0 Potassium 4.1 Chloride 98 Carbon Dioxide 28 Anion Gap 12 BUN 23 H Creatinine 0.67 Est GFR ( Amer) > 60 Glucose 215 H Lactic Acid 1.7 Calcium 9.5 Total Bilirubin 0.2 AST 47 H Alkaline Phosphatase 124 Total Protein 6.7 Albumin 4.2 Urine Color Urine Appearance Urine pH Ur Specific [place] Urine Protein Urine Glucose (UA) Urine Ketones Urine Blood Urine Nitrite Ur Leukocyte Esterase Urine WBC (Auto) Urine RBC (Auto) 05/03/19 05/04/19 23:12 04:32 WBC RBC Hgb Hct MCV MCH MCHC RDW Plt Count Seg Neutrophils % VBG pH 7.38 VBG pCO2 42.7 VBG HCO3 24.7 VBG Base Excess -0.5 Sodium Potassium Chloride Carbon Dioxide Anion Gap BUN Creatinine Est GFR ( Amer) Glucose Lactic Acid Calcium Total Bilirubin AST Alkaline Phosphatase Total Protein Albumin Urine Color YELLOW Urine Appearance CLEAR Urine pH 5.0 Ur Specific [place] 1.009 Urine Protein NEGATIVE Urine Glucose (UA) NEGATIVE Urine Ketones NEGATIVE Urine Blood NEGATIVE Urine Nitrite NEGATIVE Ur Leukocyte Esterase NEGATIVE Urine WBC (Auto) 7 Urine RBC (Auto) 1 05/03/19 05/04/19 23:12 07:00 Troponin I < 0.012 < 0.012 NT-Pro-B Natriuret Pep 618 H Impressions: Chest X-Ray 05/03/19 23:09 IMPRESSION: No evidence of acute cardiopulmonary disease. Assessment and Plan - Diagnosis (1) Pneumonia Qualifiers: Pneumonia type: due to unspecified organism Laterality: unspecified laterality Lung location: unspecified part of lung Qualified Code(s): J18.9 - Pneumonia, unspecified organism Is this a current diagnosis for this admission?: Yes Plan: Patient presented with tachycardia, tachypnea, hypoxia on her baseline oxygen requirement, and leukocytosis with report of malaise, dyspnea, and productive cough. She is admitted to the medical floor on continuous cardiac telemetry. Chest x-ray was benign. Blood and sputum cultures are pending. She is provided supplemental oxygen, scheduled and as needed nebulizer treatments. BiPAP as needed. She is empirically been placed on IV azithromycin and Rocephin. Incentive spirometer. (2) Acute exacerbation of chronic obstructive pulmonary disease (COPD) Is this a current diagnosis for this admission?: Yes Plan: COPD exacerbation secondary to pneumonia. She is found to have diffuse wheezing and rhonchi on exam. Today she has scant wheezing and slight coarse rhonchi that improved following intentional cough. Supplemental oxygen and BiPAP. Schedule and as needed nebulizer treatments. P.o. prednisone. (3) CHF (congestive heart failure) Qualifiers: Is this a current diagnosis for this admission?: Yes Plan: Stable and without exacerbation at this time. Continue home dose of metoprolol, furosemide, aspirin and statin therapy. Cardiac diet. Daily weights. (4) Hypertension Qualifiers: Hypertension type: essential hypertension Is this a current diagnosis for this admission?: Yes Plan: Antihypertensives as above. Cardiac diet. (5) Hyperlipidemia Is this a current diagnosis for this admission?: Yes Plan: Continue home dose statin. Cardiac diet. - Time Time Spent with patient: 25-34 minutes Medications reviewed and adjusted accordingly: Yes Anticipated discharge: SNF Within: within 72 hours
--- NOTE | 2019-05-04 17:24 | Progress Note Acknowledgement ---
Progress Note Acknowledgement Progess Note Acknowledgement: I, the undersigned member of the medical staff with appropriate privileges and with supervisory authority over Ofelia Lopez, a [facility] practice allied health professional, acknowledge that I have reviewed the progress notes entered on this patient, and in my professional judgment believe that the assessment made and/or any care evidenced was appropriate
[2019-05-04] MEDS: PHENYTOIN SODIUM EXTENDED 100 MG CAPSULE PO SCH (18:08)
[2019-05-04] MEDS: PREDNISONE 20 MG TABLET PO SCH (18:08)
[2019-05-04] MEDS: ACETAMINOPHEN 325 MG TABLET PO PRN (20:24)
[2019-05-04] MEDS: CEFTRIAXONE 1 GM/D5W RTU 1 GM/50 ML RTUPB IV SCH (21:17)
[2019-05-04] MEDS: FAMOTIDINE 20 MG TABLET PO SCH (21:18)
[2019-05-04] MEDS: GUAIFENESIN 600 MG TABLET.SA PO SCH (21:18)
[2019-05-04] MEDS: AZITHROMYCIN 500 MG in DEXTROSE 5%-WATER 250 ML IV SCH (22:40)
[2019-05-05] MEDS: IPRATROPIUM/ALBUTEROL 0.5-2.5 MG/3 ML AMPUL NEB SCH ×4 (00:20→23:39)
[2019-05-05 04:53] LABS: ABSOLUTE MONOCYTES (AUTO) 0.5 10^3/uL (0.1-1.4); ABSOLUTE NEUT (AUTO) 13.9 10^3/uL (1.7-8.2); BASOPHILS % (AUTO) 0.1 % (0-2); HEMATOCRIT 34.1 % (36.0-47.0); HEMOGLOBIN 11.1 g/dL (12.0-15.5); LYMPHOCYTES % (AUTO) 12.2 % (13-45); MEAN CORPUSCULAR HEMOGLOBIN 29.6 pg (27.0-33.4); MEAN CORPUSCULAR HGB CONC 32.6 g/dL (32.0-36.0); MEAN CORPUSCULAR VOLUME 91 fl (80-97); MONOCYTES % (AUTO) 3.2 % (3-13); PLATELET COUNT 154 10^3/uL (150-450); RED BLOOD COUNT 3.76 10^6/uL (3.72-5.28); RED CELL DISTRIBUTION WIDTH 13.7 % (11.5-14.0); SEGMENTED NEUTROPHILS % (AUTO) 84.5 % (42-78); TOTAL CELLS COUNTED % (AUTO) 100 %; WHITE BLOOD COUNT 16.4 10^3/uL (4.0-10.5)
[2019-05-05] MEDS: HEPARIN SOD (PORCINE) 5,000 UNIT/ML 1 ML VIAL SUBCUT SCH ×3 (05:07→21:38)
[2019-05-05 05:15] LABS: ANION GAP 10 (5-19); BLOOD UREA NITROGEN 28 mg/dL (7-20); CALCIUM 9.4 mg/dL (8.4-10.2); CARBON DIOXIDE 32 mmol/L (22-30); CHLORIDE 97 mmol/L (98-107); GLUCOSE 173 mg/dL (75-110); POTASSIUM 4.3 mmol/L (3.6-5.0)
--- NOTE | 2019-05-05 05:57 | PDOC H&P ---
History of Present Illness Admission Date/PCP: 05/04/19 01:39 ZANE CHI MD Patient complains of: Shortness of breath History of Present Illness: CHRISTOS MULTANI is a 74 year old female with a past medical history of oxygen dependent COPD, allergic sinusitis, nonischemic cardiomyopathy and hypertension. She presents with 3 days of rhinorrhea, fever, shortness of breath and nonproductive cough prompting her to seek evaluation emergency room where she has respiratory distress with tachypnea, hypoxia and use of accessory muscles. She receives steroids, empiric antibiotics albuterol Atrovent, supplemental oxygen and referred to the hospitalist for admission. Patient admits to uncontrolled rhinorrhea with itchy throat and postnasal drip. Past Medical History Cardiac Medical History: Reports: Congestive Heart Failure, Hyperlipidema, Hypertension Denies: Myocardial Infarction Pulmonary Medical History: Reports: Chronic Obstructive Pulmonary Disease (COPD), Pneumonia Denies: Asthma Neurological Medical History: Reports: Seizures - WITH DEMEROL GI Medical History: Denies: Hepatitis, Hiatal Hernia Psychiatric Medical History: Denies: Depression Hematology: Denies: Anemia, Sickle Cell Disease Past Surgical History Past Surgical History: Reports: Cardiac Catheterization, Section, Pacemaker - February Denies: Amputation, Mastectomy Social History Information Source: Patient, [facility] Records Lives with: [facility] Smoking Status: Former Smoker Frequency of Alcohol Use: None Hx Recreational Drug Use: No Drugs: None Hx Prescription Drug Abuse: No - Advance Directive Resuscitation Status: Full Code Family History Family History: Hyperlipidemia Parental Family History Reviewed: Yes Children Family History Reviewed: Yes Sibling(s) Family History Reviewed.: Yes Medication/Allergy Home Medications: Albuterol Sulfate [Ventolin Hfa] 2 puff IH Q4HP PRN 11/27/17 Aspirin [Adult Low Dose Aspirin EC] 81 mg PO DAILY 11/27/17 Furosemide [Lasix 20 mg Tablet] 20 mg PO DAILYP PRN 11/27/17 Pravastatin Sodium [Pravachol] 10 mg PO QHS 11/27/17 Cetirizine HCl [Zyrtec 10 mg Tablet] 10 mg PO DAILY 12/11/18 Fluticasone/Umeclidin/Vilanter [Trelegy 100-62.5-25 Mcg Ellipta 14 Dose/Dpi] 1 inh IH DAILY #1 inhaler 12/16/18 Metoprolol Succinate [Toprol Xl 25 mg Tab.sr] 25 mg PO DAILY #30 tab.sr.24h 12/16/18 Docusate Sodium [Dok] 100 mg PO BID 05/04/19 Guaifenesin [Mucus ER] 600 mg PO Q12 05/04/19 Multivitamin [Tab-A-Venus (Multiple Vitamin) Tablet] 1 tab PO DAILY 05/04/19 Omeprazole 20 mg PO DAILY 05/04/19 Phenytoin Sodium Extended [Dilantin 100 mg Capsule.er] 100 mg PO DAILY 05/04/19 Phenytoin Sodium Extended [Dilantin 100 mg Capsule.er] 200 mg PO BID 05/04/19 Potassium Chloride [Klor-Con M20] 20 meq PO DAILY 05/04/19 Sennosides/Docusate 8.6-50 mg [Senna Plus Tablet] 1 tab PO BID 05/04/19 Allergies/Adverse Reactions: amoxicillin trihydrate [From Augmentin] Allergy (Verified 12/11/18 14:10) meperidine HCl [From Demerol] Allergy (Verified 12/11/18 14:10) Potassium Clavulanate * [From Augmentin] Allergy (Verified 12/11/18 14:10) Review of Systems Constitutional: ABSENT: chills, fever(s), headache(s), weight gain, weight loss Eyes: ABSENT: visual disturbances Ears: ABSENT: hearing changes Cardiovascular: ABSENT: chest pain, dyspnea on exertion, edema, orthropnea, palpitations Respiratory: ABSENT: cough, hemoptysis Gastrointestinal: ABSENT: abdominal pain, constipation, diarrhea, hematemesis, hematochezia, nausea, vomiting Genitourinary: ABSENT: dysuria, hematuria Musculoskeletal: ABSENT: joint swelling Integumentary: ABSENT: rash, wounds Neurological: ABSENT: abnormal gait, abnormal speech, confusion, dizziness, focal weakness, syncope Psychiatric: ABSENT: anxiety, depression, homidical ideation, suicidal ideation Endocrine: ABSENT: cold intolerance, heat intolerance, polydipsia, polyuria Hematologic/Lymphatic: ABSENT: easy bleeding, easy bruising Physical Exam Vital Signs: Temp Pulse Resp BP Pulse Ox 98.9 F 72 20 114/52 L 97 05/04/19 23:50 05/05/19 02:00 05/05/19 00:21 05/04/19 23:50 05/05/19 00:21 Intake & Output 05/03/19 05/04/19 05/05/19 11:59 11:59 11:59 Intake Total 50 660 Output Total 10 Balance 50 650 Weight 55 kg 54.8 kg General appearance: PRESENT: cooperative, mild distress, well-developed, well- nourished Head exam: PRESENT: atraumatic, normocephalic Eye exam: PRESENT: conjunctiva pink, EOMI, PERRLA. ABSENT: scleral icterus Ear exam: PRESENT: normal external ear exam Mouth exam: PRESENT: moist, tongue midline Throat exam: PRESENT: post pharyngeal erythema, tonsillar erythema. ABSENT: tonsillar exudate Neck exam: ABSENT: carotid bruit, JVD, lymphadenopathy, thyromegaly Respiratory exam: PRESENT: accessory muscle use, crackles, prolonged expiratory phas, symmetrical. ABSENT: rhonchi, stridor Cardiovascular exam: PRESENT: tachycardia. ABSENT: diastolic murmur, rubs, systolic murmur Pulses: PRESENT: normal dorsalis pedis pul Vascular exam: PRESENT: normal capillary refill GI/Abdominal exam: PRESENT: normal bowel sounds, soft. ABSENT: distended, guarding, mass, organolmegaly, rebound, tenderness Rectal exam: PRESENT: deferred Extremities exam: PRESENT: full ROM. ABSENT: calf tenderness, clubbing, pedal edema Neurological exam: PRESENT: alert, awake, oriented to person, oriented to place, oriented to time, oriented to situation, CN II-XII grossly intact. ABSENT: motor sensory deficit Psychiatric exam: PRESENT: appropriate affect, normal mood. ABSENT: homicidal ideation, suicidal ideation Skin exam: PRESENT: dry, intact, warm. ABSENT: cyanosis, rash Results Laboratory Results: 05/05/19 04:43 05/05/19 04:43 05/05/19 05/05/19 04:43 04:43 WBC 16.4 H RBC 3.76 Hgb 11.1 L Hct 34.1 L MCV 91 MCH 29.6 MCHC 32.6 RDW 13.7 Plt Count 154 Seg Neutrophils % 84.5 H Sodium 139.0 Potassium 4.3 Chloride 97 L Carbon Dioxide 32 H Anion Gap 10 BUN 28 H Creatinine 0.77 Est GFR ( Amer) > 60 Glucose 173 H Calcium 9.4 05/03/19 05/04/19 23:12 07:00 Troponin I < 0.012 < 0.012 NT-Pro-B Natriuret Pep 618 H Impressions: Chest X-Ray 05/03/19 23:09 IMPRESSION: No evidence of acute cardiopulmonary disease. Assessment and Plan - Diagnosis (1) Acute exacerbation of chronic obstructive pulmonary disease (COPD) Is this a current diagnosis for this admission?: Yes Plan: COPD exacerbation secondary to acute bronchitis versus early pneumonia. Empiric antibiotic Supplemental oxygen and BiPAP. Schedule and as needed nebulizer treatments. P.o. prednisone. (2) Allergic sinusitis Is this a current diagnosis for this admission?: Yes Plan: Flonase and chlorpheniramine (3) Acute and chronic respiratory failure with hypoxia Is this a current diagnosis for this admission?: Yes Plan: Secondary to #1, supplemental oxygen, incentive spirometry and flutter valve - Time Time Spent with patient: 25-34 minutes
[2019-05-05] MEDS: CETIRIZINE 10 MG TABLET PO SCH (09:56)
[2019-05-05] MEDS: PREDNISONE 20 MG TABLET PO SCH (09:56)
[2019-05-05] MEDS: FLUTICASONE NASAL SPRAY 50 MCG/SPRY 120 SPRAY/16 GM NASL SCH ×2 (09:56→21:38)
[2019-05-05] MEDS: GUAIFENESIN 600 MG TABLET.SA PO SCH ×2 (09:56→21:38)
[2019-05-05] MEDS: ASPIRIN 81 MG TABLET, ENT COATED PO SCH (09:56)
[2019-05-05] MEDS: FAMOTIDINE 20 MG TABLET PO SCH ×2 (09:57→21:39)
[2019-05-05] MEDS: MULTIVITAMIN TABLET PO SCH (09:57)
[2019-05-05] MEDS: METOPROLOL SUCCINATE 25 MG TAB.SR.24H PO SCH (09:57)
[2019-05-05] MEDS ORDERED: PHENYTOIN SODIUM EXTENDED 100 MG CAPSULE PO SCH (10:00)
[2019-05-05] MEDS: PHENYTOIN SODIUM EXTENDED 100 MG CAPSULE PO SCH ×3 (11:43→23:17)
--- NOTE | 2019-05-05 16:49 | PDOC PROGRESS REPORT ---
Subjective Progress Note for:: 05/05/19 Subjective:: The patient is a 74-year-old female Guerda Ellsworth with a past medical history significant for COPD (on home O2) diastolic CHF, hyperlipidemia, hypertension, and pacemaker who was admitted 05/04/2019 for COPD exacerbation. Patient was seen on morning rounds with her daughter present. She is found resting in bed comfortably on supplemental oxygen via nasal cannula; she did use BiPAP overnight. Patient confirms she is home O2 dependant at 2 lpm; currently on 3. She reports that she is feeling better this morning but does continue to have a productive cough. She denies fever chills, chest pain palpitations, abdominal pain, nausea vomiting diarrhea. She has no questions or concerns at this time. No concerns per nursing. Reason For Visit: COPD EXACERBATION PNEUMONIA Physical Exam Vital Signs: Temp Pulse Resp BP Pulse Ox 98.3 F 82 18 134/55 H 94 05/05/19 12:43 05/05/19 16:38 05/05/19 16:38 05/05/19 12:43 05/05/19 16:38 Intake & Output 05/04/19 05/05/19 05/06/19 06:59 06:59 06:59 Intake Total 50 660 Output Total 10 Balance 50 650 Weight 55 kg 54.8 kg General appearance: PRESENT: no acute distress, cooperative, well-developed, well-nourished Head exam: PRESENT: atraumatic, normocephalic Eye exam: PRESENT: conjunctiva pink, EOMI, PERRLA. ABSENT: scleral icterus Ear exam: PRESENT: normal external ear exam Mouth exam: PRESENT: moist, tongue midline Neck exam: ABSENT: carotid bruit, JVD, lymphadenopathy, thyromegaly Respiratory exam: PRESENT: rhonchi, symmetrical, unlabored, other - supplemental oxygen via NC. ABSENT: rales, wheezes Cardiovascular exam: PRESENT: RRR. ABSENT: diastolic murmur, rubs, systolic murmur Pulses: PRESENT: normal dorsalis pedis pul Vascular exam: PRESENT: normal capillary refill GI/Abdominal exam: PRESENT: normal bowel sounds, soft. ABSENT: distended, guarding, mass, organolmegaly, rebound, tenderness Rectal exam: PRESENT: deferred Extremities exam: PRESENT: full ROM. ABSENT: calf tenderness, clubbing, pedal edema Neurological exam: PRESENT: alert, awake, oriented to person, oriented to place, oriented to time, oriented to situation, CN II-XII grossly intact. ABSENT: motor sensory deficit Psychiatric exam: PRESENT: appropriate affect, normal mood. ABSENT: homicidal ideation, suicidal ideation Skin exam: PRESENT: dry, intact, warm. ABSENT: cyanosis, rash Results Laboratory Results: 05/05/19 04:43 05/05/19 04:43 05/05/19 05/05/19 04:43 04:43 WBC 16.4 H RBC 3.76 Hgb 11.1 L Hct 34.1 L MCV 91 MCH 29.6 MCHC 32.6 RDW 13.7 Plt Count 154 Seg Neutrophils % 84.5 H Sodium 139.0 Potassium 4.3 Chloride 97 L Carbon Dioxide 32 H Anion Gap 10 BUN 28 H Creatinine 0.77 Est GFR ( Amer) > 60 Glucose 173 H Calcium 9.4 05/03/19 05/04/19 23:12 07:00 Troponin I < 0.012 < 0.012 NT-Pro-B Natriuret Pep 618 H Impressions: Chest X-Ray 05/03/19 23:09 IMPRESSION: No evidence of acute cardiopulmonary disease. Assessment and Plan - Diagnosis (1) Pneumonia Qualifiers: Pneumonia type: due to unspecified organism Laterality: unspecified laterality Lung location: unspecified part of lung Qualified Code(s): J18.9 - Pneumonia, unspecified organism Is this a current diagnosis for this admission?: Yes Plan: Overall improved; though with fever 101.2 overnight. Patient presented with tachycardia, tachypnea, hypoxia on her baseline oxygen requirement, and leukocytosis with report of malaise, dyspnea, and productive cough. Chest x-ray was benign. Blood and sputum cultures are negative to date. She is admitted to the medical floor on continuous cardiac telemetry. She is provided supplemental oxygen, scheduled and as needed nebulizer treatments. BiPAP as needed. She is empirically been placed on IV azithromycin and Rocephin. Incentive spirometer. (2) Acute exacerbation of chronic obstructive pulmonary disease (COPD) Is this a current diagnosis for this admission?: Yes Plan: COPD exacerbation secondary to acute bronchitis versus early pneumonia. Empiric antibiotic Supplemental oxygen and BiPAP. Schedule and as needed nebulizer treatments. P.o. prednisone. (3) CHF (congestive heart failure) Qualifiers: Is this a current diagnosis for this admission?: Yes Plan: Stable and without exacerbation at this time. Continue home dose of metoprolol, furosemide, aspirin and statin therapy. Cardiac diet. Daily weights. (4) Hypertension Qualifiers: Hypertension type: essential hypertension Is this a current diagnosis for this admission?: Yes Plan: Antihypertensives as above. Cardiac diet. (5) Hyperlipidemia Is this a current diagnosis for this admission?: Yes Plan: Continue home dose statin. Cardiac diet. (6) Acute and chronic respiratory failure with hypoxia Is this a current diagnosis for this admission?: Yes Plan: Secondary to #1, supplemental oxygen, incentive spirometry and flutter valve (7) Allergic sinusitis Is this a current diagnosis for this admission?: Yes Plan: Flonase and chlorpheniramine - Time Time Spent with patient: 25-34 minutes Medications reviewed and adjusted accordingly: Yes Anticipated discharge: SNF - short term resident at [facility] Within: within 72 hours
[2019-05-05] MEDS: CEFTRIAXONE 1 GM/D5W RTU 1 GM/50 ML RTUPB IV SCH (21:35)
[2019-05-05] MEDS: AZITHROMYCIN 500 MG in DEXTROSE 5%-WATER 250 ML IV SCH (22:47)
[2019-05-06] MEDS: PHENYTOIN SODIUM EXTENDED 100 MG CAPSULE PO SCH ×4 (05:13→23:47)
[2019-05-06] MEDS: HEPARIN SOD (PORCINE) 5,000 UNIT/ML 1 ML VIAL SUBCUT SCH ×3 (05:18→22:51)
[2019-05-06 05:33] LABS: HEMATOCRIT 32.4 % (36.0-47.0); HEMOGLOBIN 10.7 g/dL (12.0-15.5); MEAN CORPUSCULAR HEMOGLOBIN 29.5 pg (27.0-33.4); MEAN CORPUSCULAR HGB CONC 32.9 g/dL (32.0-36.0); MEAN CORPUSCULAR VOLUME 90 fl (80-97); PLATELET COUNT 169 10^3/uL (150-450); RED BLOOD COUNT 3.62 10^6/uL (3.72-5.28); RED CELL DISTRIBUTION WIDTH 14.1 % (11.5-14.0); WHITE BLOOD COUNT 13.5 10^3/uL (4.0-10.5)
[2019-05-06 05:51] LABS: BLOOD UREA NITROGEN 28 mg/dL (7-20); CALCIUM 9.4 mg/dL (8.4-10.2); CARBON DIOXIDE 33 mmol/L (22-30); CHLORIDE 102 mmol/L (98-107); GLUCOSE 74 mg/dL (75-110); POTASSIUM 3.9 mmol/L (3.6-5.0)
[2019-05-06 05:54] LABS: ANION GAP 5 (5-19)
[2019-05-06] MEDS: IPRATROPIUM/ALBUTEROL 0.5-2.5 MG/3 ML AMPUL NEB SCH ×3 (09:26→23:57)
[2019-05-06] MEDS: FLUTICASONE NASAL SPRAY 50 MCG/SPRY 120 SPRAY/16 GM NASL SCH ×2 (10:41→22:53)
[2019-05-06] MEDS: GUAIFENESIN 600 MG TABLET.SA PO SCH ×2 (10:41→22:53)
[2019-05-06] MEDS: PREDNISONE 20 MG TABLET PO SCH (10:41)
[2019-05-06] MEDS: FAMOTIDINE 20 MG TABLET PO SCH ×2 (10:41→22:53)
[2019-05-06] MEDS: METOPROLOL SUCCINATE 25 MG TAB.SR.24H PO SCH (10:41)
[2019-05-06] MEDS: MULTIVITAMIN TABLET PO SCH (10:41)
[2019-05-06] MEDS: ASPIRIN 81 MG TABLET, ENT COATED PO SCH (10:41)
[2019-05-06] MEDS: CETIRIZINE 10 MG TABLET PO SCH (10:41)
--- NOTE | 2019-05-06 13:23 | PDOC PROGRESS REPORT ---
Subjective Progress Note for:: 05/06/19 Subjective:: The patient is a 74-year-old female Guerda Ellsworth with a past medical history significant for COPD (on home O2) diastolic CHF, hyperlipidemia, hypertension, and pacemaker who was admitted 05/04/2019 for COPD exacerbation. Patient was seen on morning rounds; spoke with her daughter by phone. She is found resting in bed comfortably on her baseline oxygen requirement. She reports that she is feeling well today. She denies fever chills, chest pain palpitations, dyspnea, orthopnea, cough, abdominal pain, nausea vomiting diarrhea. She has no questions or concerns at this time. No concerns per nursing. Reason For Visit: COPD EXACERBATION PNEUMONIA Physical Exam Vital Signs: Temp Pulse Resp BP Pulse Ox 99.6 F 84 17 105/53 L 92 05/06/19 11:53 05/06/19 11:53 05/06/19 11:53 05/06/19 11:53 05/06/19 11:53 Intake & Output 05/05/19 05/06/19 05/07/19 06:59 06:59 06:59 Intake Total 660 420 120 Output Total 10 200 Balance 650 220 120 Weight 54.8 kg 59.9 kg General appearance: PRESENT: no acute distress, cooperative, well-developed, well-nourished Head exam: PRESENT: atraumatic, normocephalic Eye exam: PRESENT: conjunctiva pink, EOMI, PERRLA. ABSENT: scleral icterus Ear exam: PRESENT: normal external ear exam Mouth exam: PRESENT: moist, tongue midline Neck exam: ABSENT: carotid bruit, JVD, lymphadenopathy, thyromegaly Respiratory exam: PRESENT: clear to auscultation tyrone, symmetrical, unlabored, other - Baseline oxygen requirement. ABSENT: rales, rhonchi, wheezes Cardiovascular exam: PRESENT: RRR. ABSENT: diastolic murmur, rubs, systolic murmur Pulses: PRESENT: normal dorsalis pedis pul Vascular exam: PRESENT: normal capillary refill GI/Abdominal exam: PRESENT: normal bowel sounds, soft. ABSENT: distended, guarding, mass, organolmegaly, rebound, tenderness Rectal exam: PRESENT: deferred Extremities exam: PRESENT: full ROM. ABSENT: calf tenderness, clubbing, pedal edema Neurological exam: PRESENT: alert, awake, oriented to person, oriented to place, oriented to time, oriented to situation, CN II-XII grossly intact. ABSENT: motor sensory deficit Psychiatric exam: PRESENT: appropriate affect, normal mood. ABSENT: homicidal ideation, suicidal ideation Skin exam: PRESENT: dry, intact, warm. ABSENT: cyanosis, rash Results Laboratory Results: 05/06/19 05:09 05/06/19 05:09 05/06/19 05/06/19 05:09 05:09 WBC 13.5 H RBC 3.62 L Hgb 10.7 L Hct 32.4 L MCV 90 MCH 29.5 MCHC 32.9 RDW 14.1 H Plt Count 169 Sodium 139.2 Potassium 3.9 Chloride 102 Carbon Dioxide 33 H Anion Gap 5 BUN 28 H Creatinine 0.68 Est GFR ( Amer) > 60 Glucose 74 L Calcium 9.4 05/03/19 05/04/19 23:12 07:00 Troponin I < 0.012 < 0.012 NT-Pro-B Natriuret Pep 618 H Impressions: Chest X-Ray 05/03/19 23:09 IMPRESSION: No evidence of acute cardiopulmonary disease. Assessment and Plan - Diagnosis (1) Pneumonia Qualifiers: Pneumonia type: due to unspecified organism Laterality: unspecified laterality Lung location: unspecified part of lung Qualified Code(s): J18.9 - Pneumonia, unspecified organism Is this a current diagnosis for this admission?: Yes Plan: Improved; On her baseline oxygen requirement, leukocytosis trending down, T-max last 24 hours 99.6, 101.2 last 48. Patient presented with tachycardia, tachypnea, hypoxia on her baseline oxygen requirement, and leukocytosis with report of malaise, dyspnea, and productive cough. Chest x-ray was benign. Blood and sputum cultures are negative to date. She is admitted to the medical floor on continuous cardiac telemetry. She is provided supplemental oxygen, scheduled and as needed nebulizer treatments. BiPAP as needed. She is empirically been placed on IV azithromycin and Rocephin. Incentive spirometer. (2) Acute exacerbation of chronic obstructive pulmonary disease (COPD) Is this a current diagnosis for this admission?: Yes Plan: Improved; now on her baseline oxygen requirement, asymptomatic, clear lung sounds. COPD exacerbation secondary to acute bronchitis versus early pneumonia. Empiric antibiotic Supplemental oxygen and BiPAP. Schedule and as needed nebulizer treatments. P.o. prednisone. (3) CHF (congestive heart failure) Qualifiers: Is this a current diagnosis for this admission?: Yes Plan: Stable and without exacerbation at this time. Continue home dose of metoprolol, furosemide, aspirin and statin therapy. Cardiac diet. Daily weights. (4) Hypertension Qualifiers: Hypertension type: essential hypertension Is this a current diagnosis for this admission?: Yes Plan: Antihypertensives as above. Cardiac diet. (5) Hyperlipidemia Is this a current diagnosis for this admission?: Yes Plan: Continue home dose statin. Cardiac diet. (6) Acute and chronic respiratory failure with hypoxia Is this a current diagnosis for this admission?: Yes Plan: Acute exacerbation is resolved; now on her baseline oxygen requirement. Secondary to #1, supplemental oxygen, incentive spirometry and flutter valve (7) Allergic sinusitis Is this a current diagnosis for this admission?: Yes Plan: Flonase and chlorpheniramine - Time Time Spent with patient: 25-34 minutes Medications reviewed and adjusted accordingly: Yes Anticipated discharge: SNF - Currently residing at [facility] for short- term rehab. Within: within 24 hours - If remains afebrile overnight.
[2019-05-06] MEDS: ACETAMINOPHEN 325 MG TABLET PO PRN (17:10)
[2019-05-06] MEDS: CEFTRIAXONE 1 GM/D5W RTU 1 GM/50 ML RTUPB IV SCH (22:52)
[2019-05-06] MEDS: AZITHROMYCIN 500 MG in DEXTROSE 5%-WATER 250 ML IV SCH (22:52)
[2019-05-07 05:39] LABS: HEMATOCRIT 33.5 % (36.0-47.0); HEMOGLOBIN 11.2 g/dL (12.0-15.5); MEAN CORPUSCULAR HEMOGLOBIN 30.1 pg (27.0-33.4); MEAN CORPUSCULAR HGB CONC 33.5 g/dL (32.0-36.0); MEAN CORPUSCULAR VOLUME 90 fl (80-97); PLATELET COUNT 194 10^3/uL (150-450); RED BLOOD COUNT 3.73 10^6/uL (3.72-5.28); RED CELL DISTRIBUTION WIDTH 13.6 % (11.5-14.0); WHITE BLOOD COUNT 10.7 10^3/uL (4.0-10.5)
[2019-05-07] MEDS: HEPARIN SOD (PORCINE) 5,000 UNIT/ML 1 ML VIAL SUBCUT SCH ×2 (05:40→14:50)
[2019-05-07] MEDS: PHENYTOIN SODIUM EXTENDED 100 MG CAPSULE PO SCH ×2 (05:56→11:01)
[2019-05-07] MEDS: IPRATROPIUM/ALBUTEROL 0.5-2.5 MG/3 ML AMPUL NEB SCH (07:59)
[2019-05-07] MEDS: CETIRIZINE 10 MG TABLET PO SCH (11:00)
[2019-05-07] MEDS: FLUTICASONE NASAL SPRAY 50 MCG/SPRY 120 SPRAY/16 GM NASL SCH (11:00)
[2019-05-07] MEDS: ASPIRIN 81 MG TABLET, ENT COATED PO SCH (11:01)
[2019-05-07] MEDS: PREDNISONE 20 MG TABLET PO SCH (11:01)
[2019-05-07] MEDS: FAMOTIDINE 20 MG TABLET PO SCH (11:01)
[2019-05-07] MEDS: METOPROLOL SUCCINATE 25 MG TAB.SR.24H PO SCH (11:01)
[2019-05-07] MEDS: MULTIVITAMIN TABLET PO SCH (11:01)
[2019-05-07] MEDS: GUAIFENESIN 600 MG TABLET.SA PO SCH (11:01)
--- NOTE | 2019-05-07 13:01 | PDOC TRANSFER SUMMARY ---
General - Admit/Disc Date/PCP Admission Date/Primary Care Provider: 05/04/19 01:39 ZANE CHI MD Discharge Date: 05/07/19 - Discharge Diagnosis (1) Pneumonia Is this a current diagnosis for this admission?: Yes Summary: Resolved; On her baseline oxygen requirement, leukocytosis trending down, afebrile >48 hours Patient presented with tachycardia, tachypnea, hypoxia on her baseline oxygen requirement, and leukocytosis with report of malaise, dyspnea, and productive cough. Chest x-ray was benign. Blood and sputum cultures are negative to date. She was admitted to the medical floor on continuous cardiac telemetry and supported with supplemental oxygen, scheduled and as needed nebulizer treatments, and BiPAP as needed. She was empirically been placed on IV azithromycin and Rocephin and completed full course of therapy. Incentive spirometer for pulmonary toilet. At time of discharge, patient is in stable condition and asymptomatic. She is discharged to [facility] where she is an established resident. (2) Acute exacerbation of chronic obstructive pulmonary disease (COPD) Is this a current diagnosis for this admission?: Yes Summary: Acute exacerbation has resolved; now on her baseline oxygen requirement, asymptomatic, clear lung sounds. COPD exacerbation secondary to acute bronchitis versus early pneumonia. Empiric antibiotics as above Patient was placed on p.o. prednisone; discharged with prescription for same. Remaining treatment as above. (3) CHF (congestive heart failure) Is this a current diagnosis for this admission?: Yes Summary: Stable and without exacerbation at this time. Continue home dose of metoprolol, furosemide, aspirin and statin therapy. Continue Cardiac diet and Daily weights. (4) Hypertension Is this a current diagnosis for this admission?: Yes Summary: Antihypertensives as above. (5) Hyperlipidemia Is this a current diagnosis for this admission?: Yes Summary: Continue home dose statin. (6) Acute and chronic respiratory failure with hypoxia Is this a current diagnosis for this admission?: Yes Summary: Acute exacerbation is resolved; now on her baseline oxygen requirement. Secondary to #1, supplemental oxygen, incentive spirometry and flutter valve (7) Allergic sinusitis Is this a current diagnosis for this admission?: Yes Summary: Flonase and chlorpheniramine - Additional Information Resuscitation Status: Full Code Discharge Diet: Cardiac Discharge Activity: Activity As Tolerated, Balance Activity w/Rest, Supervised Activity Prescriptions: Prednisone [Deltasone 20 mg Tablet] 60 mg PO DAILY #6 tablet Phenytoin Sodium Extended [Dilantin 100 mg Capsule.er] 100 mg PO Q6 #120 capsule Ipratropium/Albuterol Sulfate [Duoneb 3 ml Ampul] 3 ml NEB [id number] PRN #60 vial.neb PRN Reason: Fluticasone Propionate [Flonase Nasal [place] 50 Mcg/[place] 16 gm] 2 spray NASL Q12 #1 spray.pump Metoprolol Succinate [Toprol Xl 25 mg Tab.sr] 25 mg PO DAILY #30 tab.sr.24h Home Medications: Albuterol Sulfate [Ventolin Hfa] 2 puff IH Q4HP PRN 11/27/17 Aspirin [Adult Low Dose Aspirin EC] 81 mg PO DAILY 11/27/17 Furosemide [Lasix 20 mg Tablet] 20 mg PO DAILYP PRN 11/27/17 Pravastatin Sodium [Pravachol] 10 mg PO QHS 11/27/17 Cetirizine HCl [Zyrtec 10 mg Tablet] 10 mg PO DAILY 12/11/18 Fluticasone/Umeclidin/Vilanter [Trelegy 100-62.5-25 Mcg Ellipta 14 Dose/Dpi] 1 inh IH DAILY #1 inhaler 12/16/18 Docusate Sodium [Dok] 100 mg PO BID 05/04/19 Guaifenesin [Mucus ER] 600 mg PO Q12 05/04/19 Multivitamin [Tab-A-Venus (Multiple Vitamin) Tablet] 1 tab PO DAILY 05/04/19 Omeprazole 20 mg PO DAILY 05/04/19 Potassium Chloride [Klor-Con M20] 20 meq PO DAILY 05/04/19 Sennosides/Docusate 8.6-50 mg [Senna Plus Tablet] 1 tab PO BID 05/04/19 Acetaminophen [Tylenol 325 mg Tablet] 650 mg PO Q4HP PRN tablet 05/07/19 Fluticasone Propionate [Flonase Nasal [place] 50 Mcg/[place] 16 gm] 2 spray NASL Q12 #1 spray.pump 05/07/19 Ipratropium/Albuterol Sulfate [Duoneb 3 ml Ampul] 3 ml NEB [id number] PRN #60 vial.neb 05/07/19 Metoprolol Succinate [Toprol Xl 25 mg Tab.sr] 25 mg PO DAILY #30 tab.sr.24h 05/07/19 Normal Saline [Saline Flush 2.5 ml Monoject Prefil Syrin] 2.5 ml IV Q8 dis p.syrin 05/07/19 Phenytoin Sodium Extended [Dilantin 100 mg Capsule.er] 100 mg PO Q6 #120 capsule 05/07/19 Prednisone [Deltasone 20 mg Tablet] 60 mg PO DAILY #6 tablet 05/07/19 History of Present Illness Admission Date/PCP: 05/04/19 01:39 ZNAE CHI MD History of Present Illness: Per H&P by Dr. Multani: CHRISTOS MULTANI is a 74 year old female with a past medical history of oxygen dependent COPD, allergic sinusitis, nonischemic cardiomyopathy and hypertension. She presents with 3 days of rhinorrhea, fever, shortness of breath and nonproductive cough prompting her to seek evaluation emergency room where she has respiratory distress with tachypnea, hypoxia and use of accessory muscles. She receives steroids, empiric antibiotics albuterol Atrovent, supplemental oxygen and referred to the hospitalist for admission. Patient admits to uncontrolled rhinorrhea with itchy throat and postnasal drip. Physical Exam Vital Signs: Temp Pulse Resp BP Pulse Ox 98.0 F 80 18 149/63 H 92 05/07/19 07:47 05/07/19 07:59 05/07/19 07:59 05/07/19 07:47 05/07/19 07:59 Intake & Output 05/06/19 05/07/19 05/08/19 06:59 06:59 06:59 Intake Total 420 800 Output Total 200 375 Balance 220 425 Weight 59.9 kg 61 kg General appearance: PRESENT: no acute distress, cooperative, well-developed, well-nourished Head exam: PRESENT: atraumatic, normocephalic Eye exam: PRESENT: conjunctiva pink, EOMI, PERRLA. ABSENT: scleral icterus Ear exam: PRESENT: normal external ear exam Mouth exam: PRESENT: moist, tongue midline Neck exam: ABSENT: carotid bruit, JVD, lymphadenopathy, thyromegaly Respiratory exam: PRESENT: clear to auscultation tyrone, symmetrical, unlabored, other - supplemental oxygen via NC at 3 lpm. ABSENT: rales, rhonchi, wheezes Cardiovascular exam: PRESENT: RRR. ABSENT: diastolic murmur, rubs, systolic murmur Pulses: PRESENT: normal dorsalis pedis pul Vascular exam: PRESENT: normal capillary refill GI/Abdominal exam: PRESENT: normal bowel sounds, soft. ABSENT: distended, guarding, mass, organolmegaly, rebound, tenderness Rectal exam: PRESENT: deferred Extremities exam: PRESENT: full ROM. ABSENT: calf tenderness, clubbing, pedal edema Neurological exam: PRESENT: alert, awake, oriented to person, oriented to place, oriented to time, oriented to situation, CN II-XII grossly intact. ABSENT: motor sensory deficit Psychiatric exam: PRESENT: appropriate affect, normal mood. ABSENT: homicidal ideation, suicidal ideation Skin exam: PRESENT: dry, intact, warm. ABSENT: cyanosis, rash Results Laboratory Results: 05/07/19 05:23 05/06/19 05:09 05/07/19 05:23 WBC 10.7 H RBC 3.73 Hgb 11.2 L Hct 33.5 L MCV 90 MCH 30.1 MCHC 33.5 RDW 13.6 Plt Count 194 05/04/19 04:32 Clean Catch Midstream Urine Culture - Final 3,000 col/ml 05/03/19 05/04/19 23:12 07:00 Troponin I < 0.012 < 0.012 NT-Pro-B Natriuret Pep 618 H Impressions: Chest X-Ray 05/03/19 23:09 IMPRESSION: No evidence of acute cardiopulmonary disease. Transfer Plan - Disposition Transfer Plan: Discharge to SNF. - Time Spent with Patient Time spent with patient: Greater than 30 Minutes Qualifiers - * PATIENT BEING DISCHARGED WITH ANY OF THE FOLLOWING DIAGNOSIS: No Acute Heart Failure - Is this a Heart Failure Patient?: Yes Documentation of LVEF assessment?: Planned for after discharge LVEF < 40%?: No- if no continue to question #3 d) Discharged on evidence-based Beta guillermo(carvedilol, sustained release metoprolol succinate, or bisoprolol)?: Yes e) For LVEF <35%, discharged on Aldosterone antagonist?: N/A (LVEF > or = 35%) 3. Anticoagulant therapy for permanect/persistent/paraoxysmal Afib or Aflutter: N/A Plan Discharge Plan: Discharge to SNF to resume short term rehab. Follow up with primary care provider within 1 week. Follow up with radiology scheduler within 1 month. Follow-up with Dr. Marti, neurologist, within 1 to 2 months. Take your medications as prescribed. Return to the emergency department as needed for concerning symptoms. Time Spent: Greater than 30 Minutes
[2019-05-07 14:21] VITALS: BP 123/47
== END 2019-05-07 15:14 | DRG 193 ==
LOC: ER 23:01 → EH 05-04 01:39 → 5 05-04 04:10
PROVIDERS: ADMIT Internal Medicine; ATTEND Internal Medicine
PROC: 5A09457 Assistance with Respiratory Ventilation, 24-96 Consecutive Hours, Continuous Positive Airway Pressure (ICD-10-PCS; principal; 2019-05-04)
DX: J18.9 Pneumonia, unspecified organism (principal); J96.21 Acute and chronic respiratory failure with hypoxia; J44.0 Chronic obstructive pulmonary disease with (acute) lower respiratory infection; J44.1 Chronic obstructive pulmonary disease with (acute) exacerbation; I50.32 Chronic diastolic (congestive) heart failure; I42.8 Other cardiomyopathies; I11.0 Hypertensive heart disease with heart failure; Z99.81 Dependence on supplemental oxygen; J30.9 Allergic rhinitis, unspecified; E78.5 Hyperlipidemia, unspecified; Z87.891 Personal history of nicotine dependence; Z83.438 Family history of other disorder of lipoprotein metabolism and other lipidemia; Z79.899 Other long term (current) drug therapy; Z79.51 Long term (current) use of inhaled steroids; Z88.0 Allergy status to penicillin; Z88.8 Allergy status to other drugs, medicaments and biological substances
CPT/HCPCS: 36415; 71045; 80048; 80053; 81001; 82803; 82962; 83605; 83880; 84484; 85025; 85027; 85610; 87040; 87086; 93005; 93010; 94660; 94667; 94668; 94799; 96365; 96375; 99285; J0456; J0696; J1644; J1940; J2930; J3475; J3490; J7060; J7512; J7620

== ENCOUNTER 2019-05-23 15:58 | Inpatient (IN) | payer MEDICARE, MEDICAID ==
--- NOTE | 2019-05-23 16:06 | ER Document Report ---
ED General - General Stated Complaint: WEAKNESS Time Seen by Provider: 05/23/19 16:05 Primary Care Provider: ZANE CHI MD [Primary Care Provider] - Follow up as needed TRAVEL OUTSIDE OF THE [place] IN LAST 30 DAYS: No - HPI Patient complains to provider of: Weakness and fatigue Notes: 74-year-old female who is usually ambulatory presents with for 5-day history of increasing weakness and decreased excersie tolerancefrom her [facility]. Patient denies fever chills dysuria diarrhea nausea vomiting chest pain, cough. States she just gets up will eat breakfast and go back to bed sleep to lunch do the same thing in the afternoon. Has never felt like this before. Patient does have lengthy medical history including pacemaker history of coronary artery disease. But denies chest pain or other symptoms at this time Patient curretly on 3L nasal cannula, normal wears 2L - Related Data Allergies/Adverse Reactions: amoxicillin trihydrate [From Augmentin] Allergy (Verified 12/11/18 14:10) meperidine HCl [From Demerol] Allergy (Verified 12/11/18 14:10) Potassium Clavulanate * [From Augmentin] Allergy (Verified 12/11/18 14:10) Past Medical History - Social History Smoking Status: Unknown if Ever Smoked Family History: Hyperlipidemia - Past Medical History Cardiac Medical History: Reports: Hx Congestive Heart Failure, Hx Hypercholesterolemia, Hx Hypertension Denies: Hx Heart Attack Pulmonary Medical History: Reports: Hx COPD, Hx Pneumonia Denies: Hx Asthma Neurological Medical History: Reports: Hx Seizures - WITH DEMEROL. Denies: Hx Cerebrovascular Accident Renal/ Medical History: Denies: Hx Peritoneal Dialysis GI Medical History: Denies: Hx Hepatitis, Hx Hiatal Hernia, Hx Ulcer Psychiatric Medical History: Denies: Hx Depression Infectious Medical History: Denies: Hx Hepatitis Past Surgical History: Reports: Hx Abdominal Surgery, Hx Cardiac Catheterization, Hx Cardiac Surgery - Pacemaker/Defibrillator, Hx Section, Hx Open Heart Surgery - 1949, Hx Pacemaker - February. Denies: Hx Mastectomy - Immunizations Hx Diphtheria, Pertussis, Tetanus Vaccination: Yes Hx Pneumococcal Vaccination: 07/06/17 Review of Systems - Review of Systems Notes: REVIEW OF SYSTEMS: CONSTITUTIONAL: -fevers, -chills EENT: -eye pain, -difficulty swallowing, -nasal congestion CARDIOVASCULAR: -chest pain, -syncope. RESPIRATORY: -cough, -SOB GASTROINTESTINAL: -abdominal pain, -nausea, -vomiting, -diarrhea GENITOURINARY: -dysuria, -hematuria MUSCULOSKELETAL: -back pain, -neck pain SKIN: -rash or skin lesions. HEMATOLOGIC: -easy bruising or bleeding. LYMPHATIC: -swollen, enlarged glands. NEUROLOGICAL: -altered mental status or loss of consciousness, -headache, -neur ologic symptoms PSYCHIATRIC: -anxiety, -depression. ALL OTHER SYSTEMS REVIEWED AND NEGATIVE. Physical Exam - Notes Notes: PHYSICAL EXAMINATION: GENERAL: Well-appearing, well-nourished and in no acute distress. HEAD: Atraumatic, normocephalic. EYES: Pupils equal round and reactive to light, extraocular movements intact, sclera anicteric, conjunctiva are normal. ENT: nares patent, oropharynx clear without exudates. Moist mucous membranes. NECK: Normal range of motion, supple without lymphadenopathy LUNGS: BiLateral basilar crackles HEART: Regular rate and rhythm without murmurs ABDOMEN: Soft, nontender, normoactive bowel sounds. No guarding, no rebound. No masses appreciated. EXTREMITIES: Normal range of motion, no pitting or edema. No cyanosis. NEUROLOGICAL: Cranial nerves grossly intact. Normal speech, normal gait. Normal sensory and motor exams. PSYCH: Normal mood, normal affect. SKIN: Warm, Dry, normal turgor, no rashes or lesions noted. Course - Re-evaluation Re-evalutation: 05/23/19 17:34 And 74-year-old female presents with increasing weakness, decreased exercise tolerance. Patient has a new oxygen demand of 3 L nasal cannula versus her baseline of 2 L nasal cannula. Patient's EKG is no ischemic changes remainder of her labs find a profound elevation in proBNP. Given the decreased exercise tolerance, new increased oxygen demand will initiate diuresis in the emergency department with IV Lasix. Patient will be admitted to the hospital for further monitoring - Laboratory Result Diagrams: 05/23/19 16:15 05/23/19 16:15 Laboratory results interpreted by me: 05/23/19 05/23/19 05/23/19 16:15 16:15 16:15 RBC 3.53 L Hgb 10.6 L Hct 31.8 L RDW 14.2 H Carbon Dioxide 34 H BUN 21 H Est GFR (MDRD) Non-Af 52 L AST 56 H NT-Pro-B Natriuret Pep 3020 H Total Protein 6.0 L Albumin 3.4 L Discharge - Discharge Clinical Impression: CHF (congestive heart failure) Qualifiers: Heart failure type: unspecified Heart failure chronicity: acute on chronic Qualified Code(s): I50.9 - Heart failure, unspecified Condition: Stable Disposition: ADMITTED INPATIENT Admitting Provider: [facility] Admitted: Telemetry Referrals: ZANE CHI MD [Primary Care Provider] - Follow up as needed
[2019-05-23 16:36] LABS: ABSOLUTE BASOPHILS # (AUTO) 0.1 10^3/uL (0.0-0.2); ABSOLUTE EOSINOPHILS # (AUTO) 0.3 10^3/uL (0.0-0.6); ABSOLUTE LYMPHOCYTES (AUTO) 2.8 10^3/uL (0.5-4.7); ABSOLUTE NEUT (AUTO) 3.9 10^3/uL (1.7-8.2); BASOPHILS % (AUTO) 0.8 % (0-2); EOSINOPHILS % (AUTO) 3.4 % (0-6); HEMATOCRIT 31.8 % (36.0-47.0); HEMOGLOBIN 10.6 g/dL (12.0-15.5); LYMPHOCYTES % (AUTO) 34.7 % (13-45); MEAN CORPUSCULAR HEMOGLOBIN 29.9 pg (27.0-33.4); MEAN CORPUSCULAR HGB CONC 33.2 g/dL (32.0-36.0); MEAN CORPUSCULAR VOLUME 90 fl (80-97); MONOCYTES % (AUTO) 12.1 % (3-13); PLATELET COUNT 185 10^3/uL (150-450); RED BLOOD COUNT 3.53 10^6/uL (3.72-5.28); RED CELL DISTRIBUTION WIDTH 14.2 % (11.5-14.0); TOTAL CELLS COUNTED % (AUTO) 100 %
--- NOTE | 2019-05-23 16:39 | RADIOLOGY REPORT (SQ) ---
EXAM DESCRIPTION: CHEST SINGLE VIEW COMPLETED DATE/TIME: 05/23/2019 4:28 pm REASON FOR STUDY: weakness COMPARISON: 05/03/2019 EXAM PARAMETERS: NUMBER OF VIEWS: One view. TECHNIQUE: Single frontal radiographic view of the chest acquired. RADIATION DOSE: NA LIMITATIONS: None. FINDINGS: LUNGS AND PLEURA: Stable chronic bibasilar interstitial changes. No new airspace disease, pleural effusion or pneumothorax. MEDIASTINUM AND HILAR STRUCTURES: No masses. Contour normal. HEART AND VASCULAR STRUCTURES: Stable cardiac silhouette size. Aortic atherosclerosis. BONES: No acute findings. HARDWARE: Left-sided cardiac pacer/defibrillator, stable. Clips overlie the mediastinum. OTHER: No other significant finding. IMPRESSION: Stable chronic changes without evidence of acute cardiopulmonary process. TECHNICAL DOCUMENTATION: JOB ID: [id number] [employer]- All Rights Reserved Reading location - IP/workstation name: [email or web address]
[2019-05-23 16:49] LABS: ALBUMIN 3.4 g/dL (3.5-5.0); ALKALINE PHOSPHATASE 114 U/L (38-126); ASPARTATE AMINO TRANSFERASE 56 U/L (14-36); BILIRUBIN,DIRECT 0.2 mg/dL (0.0-0.4); BILIRUBIN,TOTAL 0.2 mg/dL (0.2-1.3); BLOOD UREA NITROGEN 21 mg/dL (7-20); CALCIUM 9.1 mg/dL (8.4-10.2); CARBON DIOXIDE 34 mmol/L (22-30); GLUCOSE 98 mg/dL (75-110); POTASSIUM 4.3 mmol/L (3.6-5.0)
[2019-05-23 16:54] LABS: CHLORIDE 100 mmol/L (98-107)
[2019-05-23 16:59] LABS: ANION GAP 6 (5-19)
[2019-05-23 17:01] LABS: NT PRO BNP 3020 pg/mL (<450)
[2019-05-23 17:02] LABS: TROPONIN I < 0.012 ng/mL
[2019-05-23 17:28] LABS: APPEARANCE,URINE SLIGHTLY-CLOUDY; BILIRUBIN,URINE NEGATIVE (NEGATIVE); COLOR,URINE YELLOW; GLUCOSE, URINE NEGATIVE (NEGATIVE); KETONES,URINE NEGATIVE (NEGATIVE); LEUKOCYTE ESTERASE,URINE LARGE (NEGATIVE); NITRITE,URINE NEGATIVE (NEGATIVE); PROTEIN,URINE NEGATIVE (NEGATIVE); URINE SPECIFIC GRAVITY 1.015; UROBILINOGEN,URINE NEGATIVE mg/dL (<2.0)
[2019-05-23] MEDS ORDERED: FUROSEMIDE INJ/PF 40 MG/4 ML SDV IV ONE (17:29)
[2019-05-23] MEDS ORDERED: MAGNESIUM HYDROXIDE SUSP 30 ML UDCUP PO PRN (18:15)
[2019-05-23] MEDS ORDERED: ACETAMINOPHEN 325 MG TABLET PO PRN (18:15)
[2019-05-23] MEDS ORDERED: ONDANSETRON HCL INJ/PF 4 MG/2 ML SDV IV PRN (18:15)
[2019-05-23] MEDS ORDERED: ONDANSETRON 4 MG TAB.RAPDIS PO PRN (18:15)
[2019-05-23] MEDS ORDERED: IPRATROPIUM/ALBUTEROL 0.5-2.5 MG/3 ML AMPUL NEB PRN (18:24)
--- NOTE | 2019-05-23 18:42 | PDOC H&P ---
History of Present Illness Admission Date/PCP: 05/23/19 17:47 ZANE CHI MD Patient is a 74-year-old female who comes in with a 2 to 3-day history of generalized weakness and shortness of breath. Patient was just discharged from the hospital about 2 weeks ago with a COPD exacerbation pneumonia as well as CHF History of Present Illness: CHRISTOS MULTANI is a 74 year old female admitted with a 2 to 3-day history of increased shortness of breath and generalized weakness. Patient was just discharged home from the hospital on 05/07/2019 with diagnosis of pneumonia ,COPD exacerbation ,CHF ,hypertension, hyperlipidemia, lives at [facility] She wishes to be a full code. Patient denies fever chills nausea vomiting she has also susceptible to UTIs. Patient had a pacemaker and a defibrillator placed [address] Akins [place] Past Medical History Cardiac Medical History: Reports: Congestive Heart Failure, Hyperlipidema, Hypertension Denies: Myocardial Infarction Pulmonary Medical History: Reports: Chronic Obstructive Pulmonary Disease (COPD), Pneumonia Denies: Asthma Neurological Medical History: Reports: Seizures - WITH DEMEROL GI Medical History: Denies: Hepatitis, Hiatal Hernia Psychiatric Medical History: Denies: Depression Hematology: Denies: Anemia, Sickle Cell Disease Past Surgical History Past Surgical History: Reports: Cardiac Catheterization, Section, Pacemaker - February Denies: Amputation, Mastectomy Social History Smoking Status: Unknown if Ever Smoked Frequency of Alcohol Use: None Hx Recreational Drug Use: No Drugs: None Hx Prescription Drug Abuse: No - Advance Directive Resuscitation Status: Full Code Family History Family History: Hyperlipidemia Parental Family History Reviewed: No Children Family History Reviewed: No Sibling(s) Family History Reviewed.: No Medication/Allergy Allergies/Adverse Reactions: amoxicillin trihydrate [From Augmentin] Allergy (Verified 12/11/18 14:10) meperidine HCl [From Demerol] Allergy (Verified 12/11/18 14:10) Potassium Clavulanate * [From Augmentin] Allergy (Verified 12/11/18 14:10) Review of Systems Constitutional: ABSENT: chills, fever(s), headache(s), weight gain, weight loss Cardiovascular: PRESENT: dyspnea on exertion Respiratory: PRESENT: dyspnea Gastrointestinal: ABSENT: abdominal pain, constipation, diarrhea, hematemesis, hematochezia, nausea, vomiting Neurological: ABSENT: abnormal gait, abnormal speech, confusion, dizziness, focal weakness, syncope Psychiatric: ABSENT: anxiety, depression, homidical ideation, suicidal ideation Physical Exam General appearance: PRESENT: mild distress Respiratory exam: PRESENT: crackles Cardiovascular exam: PRESENT: RRR, other - Paced them. ABSENT: diastolic murmur, rubs, systolic murmur Neurological exam: PRESENT: alert, awake, oriented to person, oriented to place, oriented to time, oriented to situation, CN II-XII grossly intact. ABSENT: motor sensory deficit Psychiatric exam: PRESENT: flat affect Results Laboratory Results: 05/23/19 16:15 05/23/19 16:15 05/23/19 05/23/19 05/23/19 16:15 16:15 16:55 WBC 8.0 RBC 3.53 L Hgb 10.6 L Hct 31.8 L MCV 90 MCH 29.9 MCHC 33.2 RDW 14.2 H Plt Count 185 Seg Neutrophils % 49.0 Sodium 139.9 Potassium 4.3 Chloride 100 Carbon Dioxide 34 H Anion Gap 6 BUN 21 H Creatinine 1.03 Est GFR ( Amer) > 60 Glucose 98 Calcium 9.1 Total Bilirubin 0.2 AST 56 H Alkaline Phosphatase 114 Total Protein 6.0 L Albumin 3.4 L Urine Color YELLOW Urine Appearance SLIGHTLY-CLOUDY Urine pH 7.0 Ur Specific [place] 1.015 Urine Protein NEGATIVE Urine Glucose (UA) NEGATIVE Urine Ketones NEGATIVE Urine Blood NEGATIVE Urine Nitrite NEGATIVE Ur Leukocyte Esterase LARGE H Urine WBC (Auto) 49 Urine RBC (Auto) 3 05/23/19 16:15 Troponin I < 0.012 NT-Pro-B Natriuret Pep 3020 H Impressions: Chest X-Ray 05/23/19 16:10 IMPRESSION: Stable chronic changes without evidence of acute cardiopulmonary process. Assessment and Plan - Diagnosis (1) CHF (congestive heart failure) Qualifiers: Heart failure type: unspecified Heart failure chronicity: acute on chronic Qualified Code(s): I50.9 - Heart failure, unspecified Is this a current diagnosis for this admission?: Yes Plan: Patient resides at [facility] and according to her and her son in the room they have just started Lasix on her because of "her weight fluctuating "evidently in the last several days she must to put on a few extra pounds in the so they have given her 20 of Lasix. She was discharged home from the hospital on 05 07 she was supposed to be taking Lasix daily scheduled basis . Chest x-ray in the ER shows no signs of acute cardiopulmonary disease. BNP on 829 was 618 then today on admission it was 3020 (3) Pacemaker Is this a current diagnosis for this admission?: Yes Plan: Patient had a pacemaker and defibrillator [address] Akins [place] (4) Hypertension Is this a current diagnosis for this admission?: Yes Plan: Patient is supposed to be taking metoprolol 25 mg daily. Blood pressure today in the ER is 106/33 (5) Hypoxia Is this a current diagnosis for this admission?: Yes Plan: Uses 3 L of oxygen by nasal cannula 28/03 his O2 sat she was discharged home from the hospital on 05/07/2019 was 93% on 2-1/2 L cannula. Today in the emergency room her O2 sat is 98% on 3 L - Time Time Spent with patient: 35 or more minutes
[2019-05-23 18:56] LABS: INTERNATIONAL RATION (INR) 1.05; PROTHROMBIN TIME 13.7 SEC (11.4-15.4)
[2019-05-23] MEDS ORDERED: POTASSIUM CHLORIDE 20 MEQ PACKET PO SCH ×2 (19:30→22:00)
[2019-05-23] MEDS: PHENYTOIN SODIUM EXTENDED 100 MG CAPSULE PO SCH (21:42)
[2019-05-23] MEDS: FAMOTIDINE 20 MG TABLET PO SCH (21:42)
[2019-05-23] MEDS: HEPARIN SOD (PORCINE) 5,000 UNIT/ML 1 ML VIAL SUBCUT SCH (21:43)
[2019-05-23] MEDS: FUROSEMIDE INJ/PF 40 MG/4 ML SDV IV SCH (21:45)
[2019-05-23] MEDS: FLUTICASONE NASAL SPRAY 50 MCG/SPRY 120 SPRAY/16 GM NASL SCH (23:56)
[2019-05-24] MEDS ORDERED: PHENYTOIN SODIUM EXTENDED 100 MG CAPSULE PO ONE (05:54)
[2019-05-24] MEDS: HEPARIN SOD (PORCINE) 5,000 UNIT/ML 1 ML VIAL SUBCUT SCH ×3 (06:13→21:43)
[2019-05-24] MEDS: PHENYTOIN SODIUM EXTENDED 100 MG CAPSULE PO SCH ×3 (06:14→21:43)
[2019-05-24 08:32] LABS: ABSOLUTE BASOPHILS # (AUTO) 0.1 10^3/uL (0.0-0.2); ABSOLUTE EOSINOPHILS # (AUTO) 0.3 10^3/uL (0.0-0.6); ABSOLUTE LYMPHOCYTES (AUTO) 2.8 10^3/uL (0.5-4.7); ABSOLUTE MONOCYTES (AUTO) 0.8 10^3/uL (0.1-1.4); ABSOLUTE NEUT (AUTO) 3.7 10^3/uL (1.7-8.2); BASOPHILS % (AUTO) 0.7 % (0-2); EOSINOPHILS % (AUTO) 3.9 % (0-6); HEMATOCRIT 31.8 % (36.0-47.0); HEMOGLOBIN 10.5 g/dL (12.0-15.5); LYMPHOCYTES % (AUTO) 36.3 % (13-45); MEAN CORPUSCULAR HEMOGLOBIN 29.8 pg (27.0-33.4); MEAN CORPUSCULAR HGB CONC 33.1 g/dL (32.0-36.0); MEAN CORPUSCULAR VOLUME 90 fl (80-97); MONOCYTES % (AUTO) 10.6 % (3-13); PLATELET COUNT 206 10^3/uL (150-450); RED BLOOD COUNT 3.54 10^6/uL (3.72-5.28); RED CELL DISTRIBUTION WIDTH 14.1 % (11.5-14.0); SEGMENTED NEUTROPHILS % (AUTO) 48.5 % (42-78); TOTAL CELLS COUNTED % (AUTO) 100 %; WHITE BLOOD COUNT 7.6 10^3/uL (4.0-10.5)
[2019-05-24 08:56] LABS: ANION GAP 7 (5-19); BLOOD UREA NITROGEN 25 mg/dL (7-20); CALCIUM 9.3 mg/dL (8.4-10.2); CARBON DIOXIDE 34 mmol/L (22-30); CHLORIDE 99 mmol/L (98-107); GLUCOSE 89 mg/dL (75-110); POTASSIUM 4.3 mmol/L (3.6-5.0)
[2019-05-24 09:03] LABS: NT PRO BNP 3150 pg/mL (<450)
[2019-05-24 09:06] LABS: TROPONIN I < 0.012 ng/mL
[2019-05-24] MEDS ORDERED: METOPROLOL SUCCINATE 25 MG TAB.SR.24H PO SCH (10:00)
[2019-05-24] MEDS: FLUTICASONE NASAL SPRAY 50 MCG/SPRY 120 SPRAY/16 GM NASL SCH ×3 (10:09→21:55)
[2019-05-24] MEDS: ASPIRIN 81 MG TABLET, ENT COATED PO SCH (10:10)
[2019-05-24] MEDS: FAMOTIDINE 20 MG TABLET PO SCH ×2 (10:10→21:44)
[2019-05-24] MEDS: DOCUSATE SODIUM 100 MG CAPSULE PO SCH (10:10)
[2019-05-24] MEDS: FUROSEMIDE INJ/PF 40 MG/4 ML SDV IV SCH (10:11)
--- NOTE | 2019-05-24 13:45 | EKG REPORT ---
SEVERITY:- ABNORMAL ECG - BIGEMINAL PVC. ATRIAL-SENSED VENTRICULAR-PACED COMPLEXES : Confirmed by: Alex Alvarez MD 24-May-2019 13:44:10
--- NOTE | 2019-05-24 16:10 | PDOC PROGRESS REPORT ---
Subjective Progress Note for:: 05/24/19 Subjective:: The patient feels very weak and tired. She is in bigeminy on the monitor. Her blood pressure and pulse of been low. Reason For Visit: CONGESTIVE HEART FAILURE,#1,#2 WEAKNESS,3SHORTNESS Physical Exam Vital Signs: Temp Pulse Resp BP Pulse Ox 98.5 F 85 22 H 94/35 L 93 05/24/19 13:00 05/24/19 14:00 05/24/19 13:00 05/24/19 13:00 05/24/19 13:00 Intake & Output 05/23/19 05/24/19 05/25/19 06:59 06:59 06:59 Intake Total 260 Output Total 400 Balance -140 Weight 98.5 kg General appearance: PRESENT: cooperative, mild distress, well-developed Head exam: PRESENT: atraumatic, normocephalic Eye exam: PRESENT: conjunctiva pink. ABSENT: scleral icterus Ear exam: PRESENT: normal external ear exam. ABSENT: bleeding, drainage Mouth exam: PRESENT: dry mucosa - Very dry, tongue midline Neck exam: ABSENT: carotid bruit, JVD, lymphadenopathy Respiratory exam: PRESENT: clear to auscultation tyrone, symmetrical, unlabored. ABSENT: accessory muscle use, rales, rhonchi, tachypnea, wheezes Cardiovascular exam: PRESENT: +S1, +S2, other - Clear distinction every other beat. Strong pulsatile beat followed by week beat. Louder heart sound followed by quieter heart sound.. ABSENT: RRR GI/Abdominal exam: PRESENT: normal bowel sounds, soft. ABSENT: distended, guarding, tenderness Extremities exam: ABSENT: joint swelling, pedal edema Neurological exam: PRESENT: alert, awake, oriented to person, oriented to place, oriented to time, oriented to situation, CN II-XII grossly intact Psychiatric exam: PRESENT: flat affect. ABSENT: agitated, anxious Focused psych exam: ABSENT: delusional, restlessness Skin exam: PRESENT: dry, warm. ABSENT: rash Results Laboratory Results: 05/24/19 07:59 05/24/19 07:59 05/23/19 05/23/19 05/23/19 16:15 16:15 16:55 WBC 8.0 RBC 3.53 L Hgb 10.6 L Hct 31.8 L MCV 90 MCH 29.9 MCHC 33.2 RDW 14.2 H Plt Count 185 Seg Neutrophils % 49.0 Sodium 139.9 Potassium 4.3 Chloride 100 Carbon Dioxide 34 H Anion Gap 6 BUN 21 H Creatinine 1.03 Est GFR ( Amer) > 60 Glucose 98 Calcium 9.1 Phosphorus Magnesium Total Bilirubin 0.2 AST 56 H Alkaline Phosphatase 114 Total Protein 6.0 L Albumin 3.4 L Urine Color YELLOW Urine Appearance SLIGHTLY-CLOUDY Urine pH 7.0 Ur Specific [place] 1.015 Urine Protein NEGATIVE Urine Glucose (UA) NEGATIVE Urine Ketones NEGATIVE Urine Blood NEGATIVE Urine Nitrite NEGATIVE Ur Leukocyte Esterase LARGE H Urine WBC (Auto) 49 Urine RBC (Auto) 3 05/24/19 05/24/19 07:59 07:59 WBC 7.6 RBC 3.54 L Hgb 10.5 L Hct 31.8 L MCV 90 MCH 29.8 MCHC 33.1 RDW 14.1 H Plt Count 206 Seg Neutrophils % 48.5 Sodium 139.7 Potassium 4.3 Chloride 99 Carbon Dioxide 34 H Anion Gap 7 BUN 25 H Creatinine 1.01 Est GFR ( Amer) > 60 Glucose 89 Calcium 9.3 Phosphorus 4.0 Magnesium 1.8 Total Bilirubin AST Alkaline Phosphatase Total Protein Albumin Urine Color Urine Appearance Urine pH Ur Specific [place] Urine Protein Urine Glucose (UA) Urine Ketones Urine Blood Urine Nitrite Ur Leukocyte Esterase Urine WBC (Auto) Urine RBC (Auto) 05/23/19 05/23/19 05/24/19 16:15 19:38 01:15 Troponin I < 0.012 < 0.012 < 0.012 NT-Pro-B Natriuret Pep 3020 H 05/24/19 07:59 Troponin I < 0.012 NT-Pro-B Natriuret Pep 3150 H Impressions: Chest X-Ray 05/23/19 16:10 IMPRESSION: Stable chronic changes without evidence of acute cardiopulmonary process. Assessment and Plan - Diagnosis (1) CHF (congestive heart failure) Qualifiers: Heart failure type: unspecified Heart failure chronicity: acute on chronic Qualified Code(s): I50.9 - Heart failure, unspecified Is this a current diagnosis for this admission?: Yes Plan: 05/24/2019-the patient's brain atretic peptide was 3500. She is on 40 mg of Lasix IV twice daily. She does appear dry at today's encounter. I will de crease her furosemide and still strive for an overall negative fluid balance. Her symptoms currently are more due to low blood pressure and low pulse rate. She did have an echocardiogram in December of this year that showed an ejection fraction of 55 to 60% with no diastolic dysfunction. She did have pulmonary hypertension. (2) Ventricular bigeminy Is this a current diagnosis for this admission?: Yes Plan: 05/24/2019-the patient is in consistent bigeminy. He can certainly feel a discrepancy in her pulse. This is likely contributing to the low pressure with good perfusion on every other beat. We are going to interrogate her pacemaker and there may be an adjustment in settings. We will continue to monitor on telemetry and monitor electrolytes. (3) Pacemaker Is this a current diagnosis for this admission?: Yes Plan: 05/24/2019-as noted above we are going to interrogate her pacemaker. We will see if the settings need to be adjusted. Await results and suggestions. (4) Hypertension Qualifiers: Hypertension type: essential hypertension Qualified Code(s): I10 - Essential (primary) hypertension Is this a current diagnosis for this admission?: Yes Plan: 05/24/2019-as noted above the blood pressure has been low. I will decrease her furosemide as noted above. We will continue to try to maintain a slight negative fluid balance. We will continue her on metoprolol and await pacemaker interrogation. (5) Hypoxia Is this a current diagnosis for this admission?: Yes Plan: 05/24/2019-she is on 4 L nasal cannula. We will continue supplemental oxygen. We will try to taper as tolerated. (6) Pulmonary hypertension Is this a current diagnosis for this admission?: Yes Plan: 05/24/2019-echocardiogram performed in December of this year showed normal systolic and diastolic function. It did however identified moderate pulmonary hypertension. This certainly could be contributing to her clinical picture. Will investigate further to see what treatment options might be appropriate. - Time Time Spent with patient: 15-24 minutes Medications reviewed and adjusted accordingly: Yes Anticipated discharge: Other - Return to [facility] when stable
[2019-05-24] MEDS: METOPROLOL SUCCINATE 25 MG TAB.SR.24H PO SCH (21:43)
[2019-05-25 04:44] LABS: ABSOLUTE BASOPHILS # (AUTO) 0.1 10^3/uL (0.0-0.2); ABSOLUTE EOSINOPHILS # (AUTO) 0.3 10^3/uL (0.0-0.6); ABSOLUTE LYMPHOCYTES (AUTO) 2.9 10^3/uL (0.5-4.7); ABSOLUTE MONOCYTES (AUTO) 0.7 10^3/uL (0.1-1.4); ABSOLUTE NEUT (AUTO) 2.7 10^3/uL (1.7-8.2); BASOPHILS % (AUTO) 0.9 % (0-2); EOSINOPHILS % (AUTO) 4.8 % (0-6); HEMOGLOBIN 10.9 g/dL (12.0-15.5); LYMPHOCYTES % (AUTO) 43.4 % (13-45); MEAN CORPUSCULAR HEMOGLOBIN 29.4 pg (27.0-33.4); MEAN CORPUSCULAR VOLUME 89 fl (80-97); MONOCYTES % (AUTO) 10.7 % (3-13); PLATELET COUNT 217 10^3/uL (150-450); RED BLOOD COUNT 3.71 10^6/uL (3.72-5.28); RED CELL DISTRIBUTION WIDTH 14.1 % (11.5-14.0); SEGMENTED NEUTROPHILS % (AUTO) 40.2 % (42-78); TOTAL CELLS COUNTED % (AUTO) 100 %; WHITE BLOOD COUNT 6.7 10^3/uL (4.0-10.5)
[2019-05-25 05:14] LABS: ANION GAP 5 (5-19); BLOOD UREA NITROGEN 26 mg/dL (7-20); CALCIUM 9.5 mg/dL (8.4-10.2); CARBON DIOXIDE 35 mmol/L (22-30); CHLORIDE 100 mmol/L (98-107); GLUCOSE 92 mg/dL (75-110); POTASSIUM 4.1 mmol/L (3.6-5.0)
[2019-05-25] MEDS: PHENYTOIN SODIUM EXTENDED 100 MG CAPSULE PO SCH ×3 (06:10→22:52)
[2019-05-25] MEDS: HEPARIN SOD (PORCINE) 5,000 UNIT/ML 1 ML VIAL SUBCUT SCH ×4 (06:10→22:58)
[2019-05-25] MEDS: METOPROLOL SUCCINATE 25 MG TAB.SR.24H PO SCH ×3 (09:29→23:21)
[2019-05-25] MEDS: FLUTICASONE NASAL SPRAY 50 MCG/SPRY 120 SPRAY/16 GM NASL SCH ×3 (09:30→22:58)
[2019-05-25] MEDS: ASPIRIN 81 MG TABLET, ENT COATED PO SCH (09:30)
[2019-05-25] MEDS: FAMOTIDINE 20 MG TABLET PO SCH ×2 (09:30→22:52)
[2019-05-25] MEDS: FUROSEMIDE INJ/PF 40 MG/4 ML SDV IV SCH (09:30)
[2019-05-25] MEDS: DOCUSATE SODIUM 100 MG CAPSULE PO SCH (09:31)
--- NOTE | 2019-05-25 21:48 | PDOC PROGRESS REPORT ---
Subjective Progress Note for:: 05/25/19 Subjective:: The patient is feeling better today since her pacemaker was adjusted. Reason For Visit: CONGESTIVE HEART FAILURE,#1,#2 WEAKNESS,3SHORTNESS Physical Exam Vital Signs: Temp Pulse Resp BP Pulse Ox 97.8 F 42 L 16 104/50 L 93 05/25/19 20:26 05/25/19 20:28 05/25/19 20:26 05/25/19 20:26 05/25/19 20:26 Intake & Output 05/24/19 05/25/19 05/26/19 06:59 06:59 06:59 Intake Total 260 480 Output Total 400 970 Balance -140 -970 480 Weight 98.5 kg 51.3 kg General appearance: PRESENT: no acute distress, cooperative, well-developed Head exam: PRESENT: atraumatic, normocephalic Eye exam: PRESENT: conjunctiva pink. ABSENT: scleral icterus Mouth exam: PRESENT: moist, tongue midline Respiratory exam: PRESENT: clear to auscultation tyrone, symmetrical, unlabored. ABSENT: rales, rhonchi, tachypnea, wheezes Cardiovascular exam: PRESENT: RRR, +S1, +S2, systolic murmur GI/Abdominal exam: PRESENT: normal bowel sounds, soft. ABSENT: distended, guarding, tenderness Extremities exam: ABSENT: calf tenderness, joint swelling, pedal edema Musculoskeletal exam: PRESENT: ambulatory, normal inspection Neurological exam: PRESENT: alert, awake, oriented to person, oriented to place, oriented to time, oriented to situation, CN II-XII grossly intact Psychiatric exam: PRESENT: appropriate affect. ABSENT: agitated, anxious Focused psych exam: ABSENT: delusional, restlessness Results Laboratory Results: 05/25/19 03:27 05/25/19 03:27 05/25/19 05/25/19 03:27 03:27 WBC 6.7 RBC 3.71 L Hgb 10.9 L Hct 33.0 L MCV 89 MCH 29.4 MCHC 33.0 RDW 14.1 H Plt Count 217 Seg Neutrophils % 40.2 L Sodium 139.8 Potassium 4.1 Chloride 100 Carbon Dioxide 35 H Anion Gap 5 BUN 26 H Creatinine 0.87 Est GFR ( Amer) > 60 Glucose 92 Calcium 9.5 05/23/19 05/23/19 05/24/19 16:15 19:38 01:15 Troponin I < 0.012 < 0.012 < 0.012 NT-Pro-B Natriuret Pep 3020 H 05/24/19 05/25/19 07:59 03:27 Troponin I < 0.012 NT-Pro-B Natriuret Pep 3150 H 1180 H Impressions: Chest X-Ray 05/23/19 16:10 IMPRESSION: Stable chronic changes without evidence of acute cardiopulmonary process. Assessment and Plan - Diagnosis (1) CHF (congestive heart failure) Qualifiers: Heart failure type: unspecified Heart failure chronicity: acute on chronic Qualified Code(s): I50.9 - Heart failure, unspecified Is this a current diagnosis for this admission?: Yes Plan: 05/24/2019-the patient's brain atretic peptide was 3500. She is on 40 mg of Lasix IV twice daily. She does appear dry at today's encounter. I will decrease her furosemide and still strive for an overall negative fluid balance. Her symptoms currently are more due to low blood pressure and low pulse rate. She did have an echocardiogram in December of this year that showed an ejection fraction of 55 to 60% with no diastolic dysfunction. She did have pulmonary hypertension. 05/25/2019-her furosemide was decreased slightly as I think she was over diuresed. She is stable. Continue daily furosemide dosing and monitor electrolytes. (2) Ventricular bigeminy Is this a current diagnosis for this admission?: Yes Plan: 05/24/2019-the patient is in consistent bigeminy. He can certainly feel a discrepancy in her pulse. This is likely contributing to the low pressure with good perfusion on every other beat. We are going to interrogate her pacemaker and there may be an adjustment in settings. We will continue to monitor on telemetry and monitor electrolytes. 05/25/2019-the [email or web address] authorization representative adjusted her pacemaker. Her current rat e is 80. We are going to slowly increase the metoprolol to see if we can suppress the bigeminy. Also monitor electrolytes. (3) Pacemaker Is this a current diagnosis for this admission?: Yes Plan: 05/24/2019-as noted above we are going to interrogate her pacemaker. We will see if the settings need to be adjusted. Await results and suggestions. 05/25/2019-the [employer] rep increase the pacemaker rate to 80. We are going to monitor her on this rate. She does feel better with the increased rate. Her blood pressure is better as well. We will try and suppress bigeminy with metoprolol. (4) Hypertension Qualifiers: Hypertension type: essential hypertension Qualified Code(s): I10 - Essential (primary) hypertension Is this a current diagnosis for this admission?: Yes Plan: 05/24/2019-as noted above the blood pressure has been low. I will decrease her furosemide as noted above. We will continue to try to maintain a slight negative fluid balance. We will continue her on metoprolol and await pacemaker interrogation. 05/25/2019-blood pressure still on the low side. Furosemide has been decreased. We will continue to monitor closely. (5) Hypoxia Is this a current diagnosis for this admission?: Yes Plan: 05/24/2019-she is on 4 L nasal cannula. We will continue supplemental oxygen. We will try to taper as tolerated. 05/25/2019-the patient is on oxygen but reports that she is on oxygen at home chronically. We will continue to try and wean oxygen if possible. (6) Pulmonary hypertension Is this a current diagnosis for this admission?: Yes - Time Time Spent with patient: Less than 15 minutes Medications reviewed and adjusted accordingly: Yes Anticipated discharge: Home
[2019-05-26] MEDS: HEPARIN SOD (PORCINE) 5,000 UNIT/ML 1 ML VIAL SUBCUT SCH ×3 (05:19→22:24)
[2019-05-26] MEDS: PHENYTOIN SODIUM EXTENDED 100 MG CAPSULE PO SCH ×3 (05:19→22:25)
[2019-05-26 06:31] LABS: ABSOLUTE EOSINOPHILS # (AUTO) 0.4 10^3/uL (0.0-0.6); ABSOLUTE LYMPHOCYTES (AUTO) 2.7 10^3/uL (0.5-4.7); ABSOLUTE MONOCYTES (AUTO) 0.7 10^3/uL (0.1-1.4); ABSOLUTE NEUT (AUTO) 2.6 10^3/uL (1.7-8.2); BASOPHILS % (AUTO) 0.6 % (0-2); EOSINOPHILS % (AUTO) 5.9 % (0-6); HEMATOCRIT 33.1 % (36.0-47.0); HEMOGLOBIN 11.2 g/dL (12.0-15.5); LYMPHOCYTES % (AUTO) 42.7 % (13-45); MEAN CORPUSCULAR HEMOGLOBIN 30.1 pg (27.0-33.4); MEAN CORPUSCULAR HGB CONC 33.9 g/dL (32.0-36.0); MEAN CORPUSCULAR VOLUME 89 fl (80-97); MONOCYTES % (AUTO) 10.2 % (3-13); PLATELET COUNT 225 10^3/uL (150-450); RED BLOOD COUNT 3.72 10^6/uL (3.72-5.28); RED CELL DISTRIBUTION WIDTH 14.2 % (11.5-14.0); SEGMENTED NEUTROPHILS % (AUTO) 40.6 % (42-78); TOTAL CELLS COUNTED % (AUTO) 100 %; WHITE BLOOD COUNT 6.4 10^3/uL (4.0-10.5)
[2019-05-26 06:48] LABS: ANION GAP 7 (5-19); BLOOD UREA NITROGEN 32 mg/dL (7-20); CALCIUM 9.6 mg/dL (8.4-10.2); CARBON DIOXIDE 34 mmol/L (22-30); CHLORIDE 99 mmol/L (98-107); GLUCOSE 100 mg/dL (75-110)
[2019-05-26] MEDS: ASPIRIN 81 MG TABLET, ENT COATED PO SCH (09:34)
[2019-05-26] MEDS: METOPROLOL SUCCINATE 25 MG TAB.SR.24H PO SCH ×2 (09:34→22:24)
[2019-05-26] MEDS: DOCUSATE SODIUM 100 MG CAPSULE PO SCH (09:34)
[2019-05-26] MEDS: FAMOTIDINE 20 MG TABLET PO SCH ×2 (09:34→22:25)
[2019-05-26] MEDS: FUROSEMIDE INJ/PF 40 MG/4 ML SDV IV SCH (09:35)
--- NOTE | 2019-05-26 10:54 | PDOC PROGRESS REPORT ---
Subjective Progress Note for:: 05/26/19 Subjective:: CHRISTOS MULTANI is a 74 year old female admitted with a 2 to 3-day history of increased shortness of breath and generalized weakness. Patient was just discharged home from the hospital on 05/07/2019 with diagnosis of pneumonia ,COPD exacerbation ,CHF ,hypertension, hyperlipidemia, lives at [facility] She wishes to be a full code. Patient denies fever chills nausea vomiting she has also susceptible to UTIs. Patient had a pacemaker and a defibrillator placed [address] Akins in [place] 05/26/2019. No acute events overnight. SPO2 92% on 3 L NC, comfortably resting in bed in no apparent distress, denies any fever, chills, nausea, vomiting, diarrhea, constipation or any urinary symptoms. P.o. tolerant, having normal bowel and bladder movements. Patient pacemaker was adjusted yesterday by [employer] with a heart rate of 80 however patient is still has bigeminy and heart rate of 40s. Has any lightheadedness, dizziness, syncope, or presyncope. Reason For Visit: CONGESTIVE HEART FAILURE,#1,#2 WEAKNESS,3SHORTNESS Physical Exam Vital Signs: Temp Pulse Resp BP Pulse Ox 98.3 F 79 18 123/57 L 92 05/26/19 08:00 05/26/19 08:00 05/26/19 08:00 05/26/19 08:00 05/26/19 08:00 Intake & Output 05/25/19 05/26/19 05/27/19 06:59 06:59 06:59 Intake Total 580 Output Total 970 Balance -970 580 Weight 51.3 kg 51.6 kg General appearance: PRESENT: no acute distress, well-developed, well-nourished Respiratory exam: PRESENT: clear to auscultation tyrone. ABSENT: rales, rhonchi, wheezes Cardiovascular exam: PRESENT: RRR. ABSENT: diastolic murmur, rubs, systolic murmur GI/Abdominal exam: PRESENT: normal bowel sounds, soft, other - Ostomy bag in place.. ABSENT: distended, guarding, mass, organolmegaly, rebound, tenderness Neurological exam: PRESENT: alert, awake, oriented to person, oriented to place, oriented to time, oriented to situation, CN II-XII grossly intact. ABSENT: motor sensory deficit Results Laboratory Results: 05/26/19 06:07 05/26/19 06:07 05/26/19 05/26/19 06:07 06:07 WBC 6.4 RBC 3.72 Hgb 11.2 L Hct 33.1 L MCV 89 MCH 30.1 MCHC 33.9 RDW 14.2 H Plt Count 225 Seg Neutrophils % 40.6 L Sodium 139.8 Potassium 4.0 Chloride 99 Carbon Dioxide 34 H Anion Gap 7 BUN 32 H Creatinine 0.79 Est GFR ( Amer) > 60 Glucose 100 Calcium 9.6 05/23/19 05/23/19 05/24/19 16:15 19:38 01:15 Troponin I < 0.012 < 0.012 < 0.012 NT-Pro-B Natriuret Pep 3020 H 05/24/19 05/25/19 05/26/19 07:59 03:27 06:07 Troponin I < 0.012 NT-Pro-B Natriuret Pep 3150 H 1180 H 706 H Impressions: Chest X-Ray 05/23/19 16:10 IMPRESSION: Stable chronic changes without evidence of acute cardiopulmonary process. Assessment and Plan - Diagnosis (1) Acute respiratory failure with hypoxia Is this a current diagnosis for this admission?: Yes Plan: Likely due to CHF exacerbation and COPD exacerbation. SPO2 WNL on 2-3 L nasal cannula. Patient looks euvolemic clinically however BNP was elevated on admission. BNP 3020, 3150, 1180, 706 respectively. Baseline [id number] within the last year. Weight 51.6 kg down from 55.9 kg on admission. Continue cardiac diet, p.o. diuretics, duo nebs, trelogy, incentive spirometer, flutter valve. (2) Acute exacerbation of chronic obstructive pulmonary disease (COPD) Is this a current diagnosis for this admission?: Yes Plan: Plan as per #1. (3) CHF (congestive heart failure) Qualifiers: Heart failure type: unspecified Heart failure chronicity: acute on chronic Qualified Code(s): I50.9 - Heart failure, unspecified Is this a current diagnosis for this admission?: Yes Plan: Acute systolic heart failure. 12/14/2018. 2D echo LVEF 55 to 60%. Normal left ventricular diastolic function. Clinically patient looks euvolemic. We will switch IV Lasix to p.o. Lasix as BUN is trending up. Continue cardiac diet, p.o. diuretics, monitor volume status. (4) Pacemaker Is this a current diagnosis for this admission?: Yes Plan: 05/25/2019. Pacemaker was interrogated by [employer]. Rate adjusted to 80. Still having bigeminy, with labile heart rate of 40-80. Denies any chest pain, lightheadedness, syncope or presyncope. (5) Ventricular bigeminy Is this a current diagnosis for this admission?: Yes Plan: Patient still having persistent bigeminy. 05/25/2019. [employer] refill adjusted pacemaker still having left heart rate running between 40-88 beats per minute. Continue beta-blockers uptitrate as tolerated. Monitor and replace electroly rosa m. We will consult cardiology for further recommendation. (6) Hypertension Qualifiers: Hypertension type: essential hypertension Qualified Code(s): I10 - Essential (primary) hypertension Is this a current diagnosis for this admission?: Yes Plan: SBP WNL. Continue diuretics, beta-blockers. Monitor vitals, adjust meds as needed.
[2019-05-26] MEDS: FLUTICASONE NASAL SPRAY 50 MCG/SPRY 120 SPRAY/16 GM NASL SCH ×2 (12:47→22:12)
[2019-05-26] MEDS ORDERED: (PENDING PHARMACY ID) (Sennosides [Senna] 8.6 MG) PO SCH (18:00)
--- NOTE | 2019-05-26 22:17 | PDOC CONSULTATION ---
Consultation-Blank Consultation: CARDIOLOGY CONSULTATION by Dr. Yessi Ugalde on 05/26/2019. Patient seen at 8 AM on 05/26/2019. 60 minutes spent on this patient more than 50% of time spent in direct patient care. REASON FOR CONSULTATION: PATIENT WITH A HISTORY OF CARDIOMYOPATHY AND AICD PLACEMENT WITH THE BRADYCARDIA AND FREQUENT BIGEMINAL PVCS. CONSULT REQUESTING PHYSICIAN: Dr[facility] ALVAREZ, [facility]. HISTORY PRESENT ILLNESS: Patient is a 74-year-old female with known history of cardiomyopathy, history of AICD placement admitted with the shortness of breath and generalized weakness. The patient seems to have symptoms of acute exacerbation of COPD. She also complains of wheezing and cough which is nonproductive of any sputum. She also complains of generalized fatigue and weakness. Initially she was found to have a heart rate in the high 40s to 50s. Her interrogation for AICD shows that the low rate was set at 50 beats per minute. This rate is now been increased. The lower heart rate below 50 is probably secondary to his cirrhosis. The patient denies any rapid beating of her heart but does complain of palpitations, which she describes as skipped beats. This is probably secondary to symptomatic PVCs. There is no firing of his AICD. Review of the pacemaker by the financial service representative shows that there is some episodes of antitachycardia pacing but no shocks were delivered. She also seem to have frequent bigeminal unifocal PVCs, with the PVCs non-perfusing. This could result or explain the patient's weakness. The patient has no chest pain or discomfort. She denies any PND orthopnea or leg edema. She states she has no prior history of coronary artery disease or myocardial infarction. There is no TIA CVA symptoms. There is no syncope. Past Medical History Cardiac Medical History: Reports: Congestive Heart Failure, Hyperlipidema, Hy pertension Denies: Myocardial Infarction Pulmonary Medical History: Reports: Chronic Obstructive Pulmonary Disease (COPD), Pneumonia Denies: Asthma Neurological Medical History: Reports: Seizures - WITH DEMEROL GI Medical History: Denies: Hepatitis, Hiatal Hernia Psychiatric Medical History: Denies: Depression Hematology: Denies: Anemia, Sickle Cell Disease ENDOCRINE: No history of diabetes mellitus or thyroid disease. LINER REROLL TENDER: No history of TIA CVA. No history of migraines. RENAL: Denies any history of chronic kidney disease or recurrent UTIs Selected Entries 05/26/19 08:00 Temperature 98.3 F Temperature Oral Source Pulse Rate 79 Respiratory 18 Rate Blood Pressure 123/57 L [Right Upper Arm] Blood Pressure 79 Mean [Right Upper Arm] Blood Pressure Supine Position [Right Upper Arm] O2 Sat by Pulse 92 Oximetry Oxygen Delivery Nasal Cannula Method ( includes room air) Oxygen Flow 2.5 Rate . Past Surgical History Past Surgical History: Reports: Cardiac Catheterization, Section, Pacemaker - February Denies: Amputation, Mastectomy Social History Smoking Status: Unknown if Ever Smoked Frequency of Alcohol Use: None Hx Recreational Drug Use: No Drugs: None Hx Prescription Drug Abuse: No - Advance Directive Resuscitation Status: Full Code. Her daughter is a surrogate healthcare decision maker. Family History Family History: Hyperlipidemia Parental Family History Reviewed: No Children Family History Reviewed: No Sibling(s) Family History Reviewed.: No Medication/Allergy Allergies/Adverse Reactions: amoxicillin trihydrate [From Augmentin] Allergy (Verified 12/11/18 14:10) meperidine HCl [From Demerol] Allergy (Verified 12/11/18 14:10) Potassium Clavulanate * [From Augmentin] Allergy (Verified 12/11/18 14:10) Review of Systems Constitutional: ABSENT: chills, fever(s), headache(s), weight gain, weight loss Cardiovascular: PRESENT: dyspnea on exertion chest pain. She has palpitations no firing of AICD. Respiratory: PRESENT: dyspnea Gastrointestinal: ABSENT: abdominal pain, constipation, diarrhea, hematemesis, hematochezia, nausea, vomiting Neurological: ABSENT: abnormal gait, abnormal speech, confusion, dizziness, focal weakness, syncope Psychiatric: ABSENT: anxiety, depression, homidical ideation, suicidal ideation Current Medications Acetaminophen (Tylenol 325 Mg Tablet) 650 mg PO Q4HP PRN PRN Reason: FOR HEADACHE OR PAIN Stop: 06/22/19 18:14 Albuterol/Ipratropium (Duoneb 3 Ml Ampul) 3 ml NEB RTQ4HP PRN PRN Reason: SHORTNESS OF BREATH Stop: 06/22/19 18:23 Last Admin: 05/24/19 11:26 Dose: 3 ml Documented by: Aspirin (Ecotrin 81 Mg Ec Tablet) 81 mg PO DAILY [facility] Stop: 06/23/19 09:59 Last Admin: 05/26/19 09:34 Dose: 81 mg Documented by: Docusate Sodium (Colace 100 Mg Capsule) 100 mg PO DAILY [facility] Stop: 06/23/19 09:59 Last Admin: 05/26/19 09:34 Dose: 100 mg Documented by: Famotidine (Pepcid 20 Mg Tablet) 20 mg PO Q12 [facility] Stop: 06/22/19 21:59 Last Admin: 05/26/19 22:25 Dose: 20 mg Documented by: Fluticasone Propionate (Flonase Nasal [place] 50 Mcg/[place] 16 Gm) 1 spray NASL Q12 ARVIND Stop: 06/22/19 21:59 Last Admin: 05/26/19 22:12 Dose: Not Given Documented by: Fluticasone/Vilanterol (Trelegy 100-62.5-25 Mcg Ellipta 14 Dose/Dpi) 1 inh IH DAILY [facility] Stop: 06/26/19 12:59 Furosemide (Lasix 20 Mg Tablet) 20 mg PO DAILY [facility] Stop: 06/26/19 09:59 Heparin Sodium (Porcine) (Heparin Inj 5,000 Units/Ml 1 Ml Vial) 5,000 unit SUBCUT Q8 ARVIND Stop: 06/22/19 21:59 Last Admin: 05/26/19 22:24 Dose: 5,000 unit Documented by: Magnesium Hydroxide (Milk Of Magnesia 30 Ml Udcup) 30 ml PO HSP PRN PRN Reason: FOR CONSTIPATION Stop: 06/22/19 18:14 Last Admin: 05/25/19 06:51 Dose: 30 ml Documented by: Metoprolol Succinate (Toprol Xl 25 Mg Tab.Sr) 25 mg PO Q12 [facility] Stop: 06/23/19 21:59 Last Admin: 05/26/19 22:24 Dose: 25 mg Documented by: Ondansetron HCl (Zofran Odt 4 Mg Tablet) 4 mg PO Q6HP PRN PRN Reason: FOR NAUSEA/VOMITING Stop: 06/22/19 18:14 Ondansetron HCl (Zofran Inj/Pf 4 Mg/2 Ml Sdv) 4 mg IV Q6HP PRN PRN Reason: FOR NAUSEA/VOMITING Stop: 06/22/19 18:14 Patient Own Medication (Pravastatin Sodium [Pravachol]) 10 mg PO .QHS [facility] Stop: 06/25/19 21:59 Patient Own Medication (Sennosides [Senna]) 8.6 mg PO .BID [facility] Stop: 06/25/19 17:59 Phenytoin Sodium (Dilantin 100 Mg Capsule.Er) 100 mg PO Q8 [facility] Stop: 06/22/19 21:59 Last Admin: 05/26/19 22:25 Dose: 100 mg Documented by: Discontinued Medications Furosemide (Lasix Inj/Pf 40 Mg/4 Ml Sdv) 40 mg IV NOW ONE Stop: 05/23/19 17:30 Last Admin: 05/23/19 19:30 Dose: Not Given Documented by: Furosemide (Lasix Inj/Pf 40 Mg/4 Ml Sdv) 40 mg IV Q12 [facility]IND Stop: 06/22/19 21:59 Last Admin: 05/24/19 10:11 Dose: 40 mg Documented by: Furosemide (Lasix Inj/Pf 40 Mg/4 Ml Sdv) 40 mg IV DAILY ARVIND Stop: 06/24/19 09:59 Last Admin: 05/26/19 09:35 Dose: 40 mg Documented by: Metoprolol Succinate (Toprol Xl 25 Mg Tab.Sr) 25 mg PO DAILY [facility] Stop: 06/23/19 09:59 Last Admin: 05/24/19 11:31 Dose: Not Given Documented by: Phenytoin Sodium (Dilantin 100 Mg Capsule.Er) Confirm Administered Dose 100 mg PO .STK-MED ONE Stop: 05/24/19 05:55 Last Admin: 05/24/19 06:05 Dose: Not Given Documented by: Potassium Chloride (Potassium Chloride 20 Meq Packet) 20 meq PO DAILY [facility] Stop: 06/22/19 19:29 Last Admin: 05/23/19 23:57 Dose: Not Given Documented by: Potassium Chloride (Potassium Chloride 20 Meq Packet) 20 meq PO QHS [facility] Stop: 06/22/19 21:59 Last Admin: 05/23/19 21:56 Dose: 20 meq Documented by: PHYSICAL EXAMINATION: The patient is a frail build and appears to be chronically ill. At present in no acute distress Selected Entries 05/26/19 08:00 Temperature 98.3 F Temperature Oral Source Pulse Rate 79 Respiratory 18 Rate Blood Pressure 123/57 L [Right Upper Arm] Blood Pressure 79 Mean [Right Upper Arm] Blood Pressure Supine Position [Right Upper Arm] O2 Sat by Pulse 92 Oximetry Oxygen Delivery Nasal Cannula Method ( includes room air) Oxygen Flow 2.5 Rate HEAD: Is atraumatic normocephalic EYES: Pupils equal round reactive to light and accommodation. Extraocular movements are normal. There is no conjunctival pallor. There is no scleral icterus. ENT IS NEGATIVE. NECK: IS SUPPLE. THERE IS NO JVD. CAROTIDS ARE EQUAL THERE IS NO BRUITS. THERE IS NO LYMPHADENOPATHY. THERE IS NO GOITER. There is no accessory muscle respiration use. Trachea central. LUNGS: Shows diminished air entry and prolonged expiration. There is scattered rhonchi present. There is no wheezing. There is no rales of CHF. On percussion there is hyperresonance throughout. On palpation there is no chest wall tenderness. HEART: S1-S2 is heard. There is no S3 gallop. There is no S4 gallop. There is systolic murmur left sternal border and the apex there is no rub. ABDOMEN: Soft. Nontender. There is no hepatospleno megaly. Bowel sounds are well heard. There is no tender areas of masses. EXTREMITIES: Femorals are diminished. Leg pulses are diminished. There is no pedal edema. There is no DVT or cellulitis. There is no cyanosis or clubbing. There is no calf tenderness. LINER REROLL TENDER patient is a Patient is conscious awake alert oriented x3 with no focal deficits. PSYCHIATRIC: Patient judgment insight are intact her affect is normal. Labs- Entire Visit 05/23/19 05/23/19 05/23/19 16:15 16:15 16:15 WBC 8.0 RBC 3.53 L Hgb 10.6 L Hct 31.8 L MCV 90 MCH 29.9 MCHC 33.2 RDW 14.2 H Plt Count 185 Lymph % (Auto) 34.7 [place] % (Auto) 12.1 Eos % (Auto) 3.4 Baso % (Auto) 0.8 Absolute Neuts (auto) 3.9 Absolute Lymphs (auto) 2.8 Absolute Monos (auto) 1.0 Absolute Eos (auto) 0.3 Absolute Basos (auto) 0.1 Seg Neutrophils % 49.0 PT INR APTT Sodium 139.9 Potassium 4.3 Chloride 100 Carbon Dioxide 34 H Anion Gap 6 BUN 21 H Creatinine 1.03 Est GFR ( Amer) > 60 Est GFR (MDRD) Non-Af 52 L Glucose 98 Calcium 9.1 Phosphorus Magnesium Total Bilirubin 0.2 Direct Bilirubin 0.2 Neonat Total Bilirubin Not Reportable Neonat Direct Bilirubin Not Reportable Neonat Indirect Bili Not Reportable AST 56 H ALT 54 Alkaline Phosphatase 114 Troponin I < 0.012 NT-Pro-B Natriuret Pep 3020 H Total Protein 6.0 L Albumin 3.4 L Urine Color Urine Appearance Urine pH Ur Specific [place] Urine Protein Urine Glucose (UA) Urine Ketones Urine Blood Urine Nitrite Urine Bilirubin Urine Urobilinogen Ur Leukocyte Esterase Urine WBC (Auto) Urine RBC (Auto) Urine Bacteria (Auto) Squamous Epi Cells Auto Urine Ascorbic Acid Phenytoin 05/23/19 05/23/19 05/23/19 16:15 16:55 19:38 WBC RBC Hgb Hct MCV MCH MCHC RDW Plt Count Lymph % (Auto) [place] % (Auto) Eos % (Auto) Baso % (Auto) Absolute Neuts (auto) Absolute Lymphs (auto) Absolute Monos (auto) Absolute Eos (auto) Absolute Basos (auto) Seg Neutrophils % PT 13.7 INR 1.05 APTT Sodium Potassium Chloride Carbon Dioxide Anion Gap BUN Creatinine Est GFR ( Amer) Est GFR (MDRD) Non-Af Glucose Calcium Phosphorus Magnesium Total Bilirubin Direct Bilirubin Neonat Total Bilirubin Neonat Direct Bilirubin Neonat Indirect Bili AST ALT Alkaline Phosphatase Troponin I < 0.012 NT-Pro-B Natriuret Pep Total Protein Albumin Urine Color YELLOW Urine Appearance SLIGHTLY-CLOUDY Urine pH 7.0 Ur Specific [place] 1.015 Urine Protein NEGATIVE Urine Glucose (UA) NEGATIVE Urine Ketones NEGATIVE Urine Blood NEGATIVE Urine Nitrite NEGATIVE Urine Bilirubin NEGATIVE Urine Urobilinogen NEGATIVE Ur Leukocyte Esterase LARGE H Urine WBC (Auto) 49 Urine RBC (Auto) 3 Urine Bacteria (Auto) TRACE Squamous Epi Cells Auto 1 Urine Ascorbic Acid NEGATIVE Phenytoin 05/23/19 05/24/19 05/24/19 19:38 01:15 07:59 WBC 7.6 RBC 3.54 L Hgb 10.5 L Hct 31.8 L MCV 90 MCH 29.8 MCHC 33.1 RDW 14.1 H Plt Count 206 Lymph % (Auto) 36.3 [place] % (Auto) 10.6 Eos % (Auto) 3.9 Baso % (Auto) 0.7 Absolute Neuts (auto) 3.7 Absolute Lymphs (auto) 2.8 Absolute Monos (auto) 0.8 Absolute Eos (auto) 0.3 Absolute Basos (auto) 0.1 Seg Neutrophils % 48.5 PT INR APTT Sodium Potassium Chloride Carbon Dioxide Anion Gap BUN Creatinine Est GFR ( Amer) Est GFR (MDRD) Non-Af Glucose Calcium Phosphorus Magnesium Total Bilirubin Direct Bilirubin Neonat Total Bilirubin Neonat Direct Bilirubin Neonat Indirect Bili AST ALT Alkaline Phosphatase Troponin I < 0.012 NT-Pro-B Natriuret Pep Total Protein Albumin Urine Color Urine Appearance Urine pH Ur Specific [place] Urine Protein Urine Glucose (UA) Urine Ketones Urine Blood Urine Nitrite Urine Bilirubin Urine Urobilinogen Ur Leukocyte Esterase Urine WBC (Auto) Urine RBC (Auto) Urine Bacteria (Auto) Squamous Epi Cells Auto Urine Ascorbic Acid Phenytoin 18.6 05/24/19 05/24/19 05/24/19 07:59 07:59 07:59 WBC RBC Hgb Hct MCV MCH MCHC RDW Plt Count Lymph % (Auto) [place] % (Auto) Eos % (Auto) Baso % (Auto) Absolute Neuts (auto) Absolute Lymphs (auto) Absolute Monos (auto) Absolute Eos (auto) Absolute Basos (auto) Seg Neutrophils % PT INR APTT 46.7 H Sodium 139.7 Potassium 4.3 Chloride 99 Carbon Dioxide 34 H Anion Gap 7 BUN 25 H Creatinine 1.01 Est GFR ( Amer) > 60 Est GFR (MDRD) Non-Af 53 L Glucose 89 Calcium 9.3 Phosphorus 4.0 Magnesium 1.8 Total Bilirubin Direct Bilirubin Neonat Total Bilirubin Neonat Direct Bilirubin Neonat Indirect Bili AST ALT Alkaline Phosphatase Troponin I < 0.012 NT-Pro-B Natriuret Pep 3150 H Total Protein Albumin Urine Color Urine Appearance Urine pH Ur Specific [place] Urine Protein Urine Glucose (UA) Urine Ketones Urine Blood Urine Nitrite Urine Bilirubin Urine Urobilinogen Ur Leukocyte Esterase Urine WBC (Auto) Urine RBC (Auto) Urine Bacteria (Auto) Squamous Epi Cells Auto Urine Ascorbic Acid Phenytoin 05/25/19 05/25/19 05/25/19 03:27 03:27 03:27 WBC 6.7 RBC 3.71 L Hgb 10.9 L Hct 33.0 L MCV 89 MCH 29.4 MCHC 33.0 RDW 14.1 H Plt Count 217 Lymph % (Auto) 43.4 [place] % (Auto) 10.7 Eos % (Auto) 4.8 Baso % (Auto) 0.9 Absolute Neuts (auto) 2.7 Absolute Lymphs (auto) 2.9 Absolute Monos (auto) 0.7 Absolute Eos (auto) 0.3 Absolute Basos (auto) 0.1 Seg Neutrophils % 40.2 L PT INR APTT Sodium 139.8 Potassium 4.1 Chloride 100 Carbon Dioxide 35 H Anion Gap 5 BUN 26 H Creatinine 0.87 Est GFR ( Amer) > 60 Est GFR (MDRD) Non-Af > 60 Glucose 92 Calcium 9.5 Phosphorus Magnesium Total Bilirubin Direct Bilirubin Neonat Total Bilirubin Neonat Direct Bilirubin Neonat Indirect Bili AST ALT Alkaline Phosphatase Troponin I NT-Pro-B Natriuret Pep 1180 H Total Protein Albumin Urine Color Urine Appearance Urine pH Ur Specific [place] Urine Protein Urine Glucose (UA) Urine Ketones Urine Blood Urine Nitrite Urine Bilirubin Urine Urobilinogen Ur Leukocyte Esterase Urine WBC (Auto) Urine RBC (Auto) Urine Bacteria (Auto) Squamous Epi Cells Auto Urine Ascorbic Acid Phenytoin 05/26/19 05/26/19 05/26/19 06:07 06:07 06:07 WBC 6.4 RBC 3.72 Hgb 11.2 L Hct 33.1 L MCV 89 MCH 30.1 MCHC 33.9 RDW 14.2 H Plt Count 225 Lymph % (Auto) 42.7 [place] % (Auto) 10.2 Eos % (Auto) 5.9 Baso % (Auto) 0.6 Absolute Neuts (auto) 2.6 Absolute Lymphs (auto) 2.7 Absolute Monos (auto) 0.7 Absolute Eos (auto) 0.4 Absolute Basos (auto) 0.0 Seg Neutrophils % 40.6 L PT INR APTT Sodium 139.8 Potassium 4.0 Chloride 99 Carbon Dioxide 34 H Anion Gap 7 BUN 32 H Creatinine 0.79 Est GFR ( Amer) > 60 Est GFR (MDRD) Non-Af > 60 Glucose 100 Calcium 9.6 Phosphorus Magnesium Total Bilirubin Direct Bilirubin Neonat Total Bilirubin Neonat Direct Bilirubin Neonat Indirect Bili AST ALT Alkaline Phosphatase Troponin I NT-Pro-B Natriuret Pep 706 H Total Protein Albumin Urine Color Urine Appearance Urine pH Ur Specific [place] Urine Protein Urine Glucose (UA) Urine Ketones Urine Blood Urine Nitrite Urine Bilirubin Urine Urobilinogen Ur Leukocyte Esterase Urine WBC (Auto) Urine RBC (Auto) Urine Bacteria (Auto) Squamous Epi Cells Auto Urine Ascorbic Acid Phenytoin Chest X-Ray 09/18/19 16:10 IMPRESSION: Stable chronic changes without evidence of acute cardiopulmonary process. EKG: A sensed and V paced rhythm with bigeminal ventricular PVCs which are unifocal IMPRESSION/RECOMMENDATION: 1. Shortness of breath most likely secondary to acute exacerbation of COPD. Continue oxygen, continue bronchodilators and antibiotics. 2. Generalized weakness most likely secondary to non-perfusing PVCs. The PVCs seem to be unifocal. Hence would recommend increase the patient's beta-guillermo. The patient may benefit from a EP consultation to see if they could ablate the focus of the PVCs. Will discuss with Dr. 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 3. Bradycardia: This is secondary to the patient's set lower heart rate on the AICD. 4. Cardiomyopathy continue beta-blockers and afterload reducing agents. 5. History of hypertension: Blood pressure is low normal suspect resolution of the PVCs would bring the patient's blood pressure up 6. History of AICD: Device functioning properly as per recent interrogation Medications reviewed. Medication adjustment and management plan discussed with attending physician on the case. Medical decision making is of high complexity. 60 minutes spent on this patient more than 50% of time spent in direct patient care. Will follow
[2019-05-27] MEDS: HEPARIN SOD (PORCINE) 5,000 UNIT/ML 1 ML VIAL SUBCUT SCH ×2 (05:01→13:31)
[2019-05-27] MEDS: PHENYTOIN SODIUM EXTENDED 100 MG CAPSULE PO SCH ×2 (05:02→13:30)
[2019-05-27 05:30] LABS: ANION GAP 8 (5-19); BLOOD UREA NITROGEN 34 mg/dL (7-20); CALCIUM 9.8 mg/dL (8.4-10.2); CARBON DIOXIDE 34 mmol/L (22-30); CHLORIDE 98 mmol/L (98-107); GLUCOSE 97 mg/dL (75-110); POTASSIUM 4.1 mmol/L (3.6-5.0)
[2019-05-27] MEDS ORDERED: FUROSEMIDE 20 MG TABLET PO SCH (10:00)
[2019-05-27] MEDS: ASPIRIN 81 MG TABLET, ENT COATED PO SCH (11:02)
[2019-05-27] MEDS: DOCUSATE SODIUM 100 MG CAPSULE PO SCH (11:02)
[2019-05-27] MEDS: METOPROLOL SUCCINATE 25 MG TAB.SR.24H PO SCH (11:03)
[2019-05-27] MEDS: FAMOTIDINE 20 MG TABLET PO SCH (11:03)
[2019-05-27] MEDS: FLUTICASONE NASAL SPRAY 50 MCG/SPRY 120 SPRAY/16 GM NASL SCH (11:03)
[2019-05-27] MEDS ORDERED: PROMETHAZINE HCL INJ 25 MG/1 ML VIAL IV PRN (12:05)
[2019-05-27] MEDS ORDERED: PREDNISONE 20 MG TABLET PO SCH (12:30)
--- NOTE | 2019-05-27 12:37 | PDOC PROGRESS REPORT ---
Subjective Progress Note for:: 05/27/19 Subjective:: CHRISTOS MULTANI is a 74 year old female admitted with a 2 to 3-day history of increased shortness of breath and generalized weakness. Patient was just discharged home from the hospital on 05/07/2019 with diagnosis of pneumonia ,COPD exacerbation ,CHF ,hypertension, hyperlipidemia, lives at [facility] She wishes to be a full code. Patient denies fever chills nausea vomiting she has also susceptible to UTIs. Patient had a pacemaker and a defibrillator placed [address] Akins in [place] 05/26/2019. No acute events overnight. SPO2 92% on 3 L NC, comfortably resting in bed in no apparent distress, denies any fever, chills, nausea, vomiting, diarrhea, constipation or any urinary symptoms. P.o. tolerant, having normal bowel and bladder movements. Patient pacemaker was adjusted yesterday by [employer] with a heart rate of 80 however patient is still has bigeminy and heart rate of 40s. Denies any lightheadedness, dizziness, syncope, or presyncope. 05/27/2019. No acute events overnight. SPO2 92% on 3 L nasal cannula, heart rate running between 40 to 80s, patient is stating that she is feeling better than yesterday, denies any fever, chills, nausea, vomiting, diarrhea, constipation or any urinary symptoms. Reason For Visit: CONGESTIVE HEART FAILURE,#1,#2 WEAKNESS,3SHORTNESS Physical Exam Vital Signs: Temp Pulse Resp BP Pulse Ox 97.6 F 40 L 20 115/52 L 92 05/27/19 07:42 05/27/19 07:42 05/27/19 07:42 05/27/19 07:42 05/27/19 07:42 Intake & Output 05/26/19 05/27/19 05/28/19 06:59 06:59 06:59 Intake Total 580 720 Output Total 100 Balance 580 620 Weight 51.6 kg 49 kg General appearance: PRESENT: no acute distress, well-developed, well-nourished Respiratory exam: PRESENT: clear to auscultation tyrone. ABSENT: rales, rhonchi, w heezes Cardiovascular exam: PRESENT: RRR. ABSENT: diastolic murmur, rubs, systolic murmur GI/Abdominal exam: PRESENT: normal bowel sounds, soft. ABSENT: distended, guarding, mass, organolmegaly, rebound, tenderness Neurological exam: PRESENT: alert, awake, oriented to person, oriented to place, oriented to time, oriented to situation, CN II-XII grossly intact. ABSENT: motor sensory deficit Results Laboratory Results: 05/26/19 06:07 05/27/19 03:42 05/27/19 03:42 Sodium 139.9 Potassium 4.1 Chloride 98 Carbon Dioxide 34 H Anion Gap 8 BUN 34 H Creatinine 0.90 Est GFR ( Amer) > 60 Glucose 97 Calcium 9.8 05/23/19 05/23/19 05/24/19 16:15 19:38 01:15 Troponin I < 0.012 < 0.012 < 0.012 NT-Pro-B Natriuret Pep 3020 H 05/24/19 05/25/19 05/26/19 07:59 03:27 06:07 Troponin I < 0.012 NT-Pro-B Natriuret Pep 3150 H 1180 H 706 H Impressions: Chest X-Ray 05/23/19 16:10 IMPRESSION: Stable chronic changes without evidence of acute cardiopulmonary process. Assessment and Plan - Diagnosis (1) Acute respiratory failure with hypoxia Is this a current diagnosis for this admission?: Yes Plan: Likely due to CHF exacerbation and COPD exacerbation. SPO2 WNL on 2-3 L nasal cannula. Patient looks euvolemic clinically however BNP was elevated on admission. BNP 3020, 3150, 1180, 706 respectively. Baseline [id number] within the last year. Weight 51.6 kg down from 55.9 kg on admission. Continue cardiac diet, p.o., duo nebs, trelogy, incentive spirometer, flutter valve. (2) Acute exacerbation of chronic obstructive pulmonary disease (COPD) Is this a current diagnosis for this admission?: Yes Plan: Plan as per #1. (3) CHF (congestive heart failure) Qualifiers: Heart failure type: unspecified Heart failure chronicity: acute on chronic Qualified Code(s): I50.9 - Heart failure, unspecified Is this a current diagnosis for this admission?: Yes Plan: Acute systolic heart failure. 12/14/2018. 2D echo LVEF 55 to 60%. Normal left ventricular diastolic function. Clinically patient looks euvolemic. SBP running in the 100s. We will hold Lasix p.o. Continue cardiac diet, monitor volume status. (4) Pacemaker Is this a current diagnosis for this admission?: Yes Plan: 05/25/2019. Pacemaker was interrogated by [employer]. Rate adjusted to 80. Labile heart rate of 40-80. Denies any chest pain, lightheadedness, syncope or presyncope. Cardiology consulted. Recommendations noted. Please refer to note. (5) Ventricular bigeminy Is this a current diagnosis for this admission?: Yes Plan: Less frequent bigeminy. Any palpitation, lightheadedness, syncope or presync ope. 05/25/2019. [employer] refill adjusted pacemaker still having left heart rate running between 40-88 beats per minute. Continue beta-blockers uptitrate as tolerated. Monitor and replace electrol ytes. Cardiology consulted. Recommendations noted. Please refer to note. Patient cardiology is at [place] but wants to transfer care to Dr. Ugalde here at [place]. (6) Hypertension Qualifiers: Hypertension type: essential hypertension Qualified Code(s): I10 - Essential (primary) hypertension Is this a current diagnosis for this admission?: Yes Plan: SBP [id number]. Continue beta-blockers. Hold diuretics. (7) UTI (urinary tract infection) Is this a current diagnosis for this admission?: Yes Plan: Likely due to gram-negative rods including E. coli. UTI could partly explain her weakness. UA positive on admission. Initiated on ciprofloxacin 500 mg p.o. twice daily. Urine culture. Follow empiric antibiotics, follow-up urine cultures.
[2019-05-27] MEDS ORDERED: FLUTICASONE/UMECLIDIN/VILANTER 100-62.5-25 MCG/DOSE IH SCH (13:00)
[2019-05-27] MEDS ORDERED: CIPROFLOXACIN HCL 500 MG TABLET PO SCH (13:00)
[2019-05-27] MEDS: IPRATROPIUM/ALBUTEROL 0.5-2.5 MG/3 ML AMPUL NEB SCH ×2 (13:46→19:38)
--- NOTE | 2019-05-27 13:55 | PDOC TRANSFER SUMMARY ---
General Admission Date/PCP: 05/23/19 17:47 ZANE CHI MD Resuscitation Status: Full Code - Transfer Diagnosis (1) Acute respiratory failure with hypoxia Is this a current diagnosis for this admission?: Yes (2) Acute exacerbation of chronic obstructive pulmonary disease (COPD) Is this a current diagnosis for this admission?: Yes (3) CHF (congestive heart failure) Is this a current diagnosis for this admission?: Yes (4) Pacemaker Is this a current diagnosis for this admission?: Yes (5) Ventricular bigeminy Is this a current diagnosis for this admission?: Yes (6) Hypertension Is this a current diagnosis for this admission?: Yes (7) UTI (urinary tract infection) Is this a current diagnosis for this admission?: Yes - Transfer Medications Home Medications: Acetaminophen [Tylenol 325 mg Tablet] 650 mg PO Q4HP PRN 05/23/19 Albuterol Sulfate [Proair HFA Inhalation Aerosol 8.5 gm MDI] 2 puff IH Q4HP PRN 05/23/19 Aspirin [Ecotrin 81 mg EC Tablet] 81 mg PO QAM 05/23/19 Cetirizine HCl [Zyrtec 10 mg Tablet] 10 mg PO QAM 05/23/19 Docusate Sodium [Colace 100 mg Capsule] 100 mg PO BID 05/23/19 Fluticasone Propionate [Flonase Nasal [place] 50 Mcg/[place] 16 gm] 2 spray NASL BID 05/23/19 Fluticasone/Umeclidin/Vilanter [Trelegy 100-62.5-25 Mcg Ellipta 14 Dose/Dpi] 1 puff IH QAM 05/23/19 Furosemide [Lasix 20 mg Tablet] 20 mg PO DAILY 05/23/19 Ipratropium/Albuterol Sulfate [Duoneb 3 ml Ampul] 3 ml NEB Q6 05/23/19 Metoprolol Succinate [Toprol Xl 25 mg Tab.sr] 25 mg PO QAM 05/23/19 Multivitamin [Multiple Vitamins] 1 tab PO DAILY 05/23/19 Omeprazole 20 mg PO QAM 05/23/19 Potassium Chloride [Klor-Con M20] 20 meq PO QAM 05/23/19 Pravastatin Sodium [Pravachol] 10 mg PO QHS 05/23/19 Sennosides [Senna] 8.6 mg PO BID 05/23/19 Phenytoin Sodium Extended [Dilantin 100 mg Capsule.er] 100 mg PO NOON 05/24/19 Phenytoin Sodium Extended [Dilantin 100 mg Capsule.er] 200 mg PO QAM 05/24/19 Phenytoin Sodium Extended [Dilantin 100 mg Capsule.er] 200 mg PO QHS 05/24/19 Transfer Medications: Current Medications Acetaminophen (Tylenol 325 Mg Tablet) 650 mg PO Q4HP PRN PRN Reason: FOR HEADACHE OR PAIN Stop: 06/22/19 18:14 Albuterol/Ipratropium (Duoneb 3 Ml Ampul) 3 ml NEB [id number] ARVIND Stop: 06/26/19 13:59 Last Admin: 05/27/19 13:46 Dose: 3 ml Documented by: Aspirin (Ecotrin 81 Mg Ec Tablet) 81 mg PO DAILY ARVIND Stop: 06/23/19 09:59 Last Admin: 05/27/19 11:02 Dose: 81 mg Documented by: Ciprofloxacin (Cipro 500 Mg Tablet) 500 mg PO Q12 ARVIND Stop: 06/03/19 12:59 Last Admin: 05/27/19 13:30 Dose: 500 mg Documented by: Docusate Sodium (Colace 100 Mg Capsule) 100 mg PO DAILY ARVIND Stop: 06/23/19 09:59 Last Admin: 05/27/19 11:02 Dose: 100 mg Documented by: Famotidine (Pepcid 20 Mg Tablet) 20 mg PO Q12 ARVIND Stop: 06/22/19 21:59 Last Admin: 05/27/19 11:03 Dose: 20 mg Documented by: Fluticasone Propionate (Flonase Nasal [place] 50 Mcg/[place] 16 Gm) 1 spray NASL Q12 ARVIND Stop: 06/22/19 21:59 Last Admin: 05/27/19 11:03 Dose: 1 spr Documented by: Fluticasone/Vilanterol (Trelegy 100-62.5-25 Mcg Ellipta 14 Dose/Dpi) 1 inh IH DAILY ARVIND Stop: 06/26/19 12:59 Last Admin: 05/27/19 13:30 Dose: 1 inhaler Documented by: Furosemide (Lasix 20 Mg Tablet) 20 mg PO DAILY ARVIND Stop: 06/26/19 09:59 Heparin Sodium (Porcine) (Heparin Inj 5,000 Units/Ml 1 Ml Vial) 5,000 unit S UBCUT Q8 ARVIND Stop: 06/22/19 21:59 Last Admin: 05/27/19 13:31 Dose: 5,000 unit Documented by: Magnesium Hydroxide (Milk Of Magnesia 30 Ml Udcup) 30 ml PO HSP PRN PRN Reason: FOR CONSTIPATION Stop: 06/22/19 18:14 Last Admin: 05/25/19 06:51 Dose: 30 ml Documented by: Metoprolol Succinate (Toprol Xl 25 Mg Tab.Sr) 25 mg PO Q12 ARVIND Stop: 06/23/19 21:59 Last Admin: 05/27/19 11:03 Dose: 25 mg Documented by: Patient Own Medication (Pravastatin Sodium [Pravachol]) 10 mg PO .QHS ARVIND Stop: 06/25/19 21:59 Patient Own Medication (Sennosides [Senna]) 8.6 mg PO .BID ARVIND Stop: 06/25/19 17:59 Phenytoin Sodium (Dilantin 100 Mg Capsule.Er) 100 mg PO Q8 ARVIND Stop: 06/22/19 21:59 Last Admin: 05/27/19 13:30 Dose: 100 mg Documented by: Prednisone (Deltasone 20 Mg Tablet) 40 mg PO DAILY ARVIND Stop: 05/31/19 10:01 Last Admin: 05/27/19 13:30 Dose: 40 mg Documented by: Promethazine HCl (Phenergan Inj 25 Mg/1 Ml Vial) 6.25 mg IV Q4HP PRN PRN Reason: UNRESOLVED NAUSEA/VOMITING Stop: 06/26/19 12:04 - Allergies Allergies/Adverse Reactions: amoxicillin trihydrate [From Augmentin] Allergy (Verified 12/11/18 14:10) meperidine HCl [From Demerol] Allergy (Verified 12/11/18 14:10) Potassium Clavulanate * [From Augmentin] Allergy (Verified 12/11/18 14:10) Hospital Course Hospital Course: CHRISTOS MULTANI is a 74 year old female admitted with a 2 to 3-day history of increased shortness of breath and generalized weakness. Patient was just discharged home from the hospital on 05/07/2019 with diagnosis of pneumonia ,COPD exacerbation ,CHF ,hypertension, hyperlipidemia, lives at [facility] She wishes to be a full code. Patient denies fever chills nausea vomiting she has also susceptible to UTIs. Patient had a pacemaker and a defibrillator placed [address] Akins in [place] (1) Acute respiratory failure with hypoxia Significant improvement since admission. This was most likely due to CHF exacerbation and COPD exacerbation. Patient looks euvolemic clinically however BNP was elevated on admission. BNP 3020, 3150, 1180, 706 respectively. Baseline [id number] within the last year. SPO2 WNL on 2 nasal cannula Was a started on cardiac diet, IV diuretics, duo nebs, trelogy, incentive spirometer, flutter valve. IV Lasix was switched to p.o. Lasix on 05/26/2019 as patient looks dry clinically and BUN was trending up. Weight 51.6 kg down from 55.9 kg on admission. Continue cardiac diet, trelegy, supplemental oxygen. Hold Lasix for another 2 days. (2) Acute exacerbation of chronic obstructive pulmonary disease (COPD) Plan as per #1. (3) CHF (congestive heart failure) Acute systolic heart failure. 12/14/2018. 2D echo LVEF 55 to 60%. Normal left ventricular diastolic function. Clinically patient looks euvolemic. Continue cardiac diet, beta-blockers. (4) Pacemaker Noted to be bradycardic. 05/25/2019. Pacemaker was interrogated by [employer]. No firing of AICD. Pacemaker rate readjusted. Denies any chest pain, lightheadedness, syncope or presyncope. Cardiology consulted. Recommendations noted. Please refer to note. (5) Ventricular bigeminy Resolved. Denies any palpitation, lightheadedness, syncope or presyncope. Was started on beta-blockers and uptitrated. Currently on 25 mg p.o. twice daily. Cardiology consulted. Recommendation is to follow-up with with blood bank credit clerk at [place] for an EP consultation. Patient would like to follow-up with Dr. Ugalde at [place] instead. As per my conversation with Dr. Ugalde he has given inhaler her card and have asked her to follow-up with her as outpatient. (6) Hypertension SBP [id number]. Continue beta-blockers. Hold diuretics for 2 days. (7) UTI (urinary tract infection) Likely due to gram-negative rods including E. coli. UTI could partly explain her weakness. UA positive on admission. Initiated on ciprofloxacin 500 mg p.o. twice daily. Urine culture obtained. Continue ciprofloxacin 500 mg p.o. twice daily for 3 days. We will follow-up urine culture and make proper adjustment to antibiotics if needed. Physical Exam Vital Signs: Temp Pulse Resp BP Pulse Ox 97.6 F 60 16 115/52 L 95 05/27/19 07:42 05/27/19 13:46 05/27/19 13:46 05/27/19 07:42 05/27/19 13:46 Intake & Output 05/26/19 05/27/19 05/28/19 06:59 06:59 06:59 Intake Total 580 720 Output Total 100 Balance 580 620 Weight 51.6 kg 49 kg General appearance: PRESENT: no acute distress, well-developed, well-nourished Neck exam: ABSENT: carotid bruit, JVD, lymphadenopathy, thyromegaly Respiratory exam: PRESENT: clear to auscultation tyrone. ABSENT: rales, rhonchi, wheezes Cardiovascular exam: PRESENT: RRR. ABSENT: diastolic murmur, rubs, systolic murmur GI/Abdominal exam: PRESENT: normal bowel sounds, soft. ABSENT: distended, guarding, mass, organolmegaly, rebound, tenderness Extremities exam: PRESENT: full ROM. ABSENT: calf tenderness, clubbing, pedal edema Neurological exam: PRESENT: alert, awake, oriented to person, oriented to place, oriented to time, oriented to situation, CN II-XII grossly intact. ABSENT: motor sensory deficit Results Laboratory Results: 05/26/19 06:07 05/27/19 03:42 05/27/19 03:42 Sodium 139.9 Potassium 4.1 Chloride 98 Carbon Dioxide 34 H Anion Gap 8 BUN 34 H Creatinine 0.90 Est GFR ( Amer) > 60 Glucose 97 Calcium 9.8 05/23/19 05/23/19 05/24/19 16:15 19:38 01:15 Troponin I < 0.012 < 0.012 < 0.012 NT-Pro-B Natriuret Pep 3020 H 05/24/19 05/25/19 05/26/19 07:59 03:27 06:07 Troponin I < 0.012 NT-Pro-B Natriuret Pep 3150 H 1180 H 706 H Impressions: Chest X-Ray 05/23/19 16:10 IMPRESSION: Stable chronic changes without evidence of acute cardiopulmonary process.
[2019-05-27 19:46] VITALS: BP 113/45
--- NOTE | 2019-05-27 20:24 | Progress Note ---
Provider Note Provider Note: CARDIOLOGY PROGRESS NOTE by Dr. Yessi Ugalde on 05/27/2019. Subjective: The patient denies any chest pain or discomfort. There is no further PVCs seen on the monitor. The patient states she does not feel weak anymore. The beta-guillermo seems to work. She denies any chest pain or discomfort. There is no PND orthopnea or leg edema. There is no firing of the AICD. The patient's urine analysis suggest that the patient has a urinary tract infection and she is going to be started on treatment for that. The patient and the family wished to switch to [place] as the cardiology provider. PHYSICAL EXAMINATION: The patient is a frail build and appears to be chronically ill. In no acute distress. Selected Entries 05/27/19 05/27/19 11:28 13:46 Temperature 98.5 F Temperature Oral Source Pulse Rate 60 Respiratory 16 Rate Blood Pressure 105/53 L Blood Pressure 70 Mean O2 Sat by Pulse 95 Oximetry Fraction of 28 Inspired Oxygen (FIO2) Oxygen Flow 2 Rate HEAD: Is atraumatic normocephalic EYES: Pupils equal round reactive to light and accommodation. Extraocular movements are normal. There is no conjunctival pallor. There is no scleral icterus. ENT IS NEGATIVE. NECK: IS SUPPLE. THERE IS NO JVD. CAROTIDS ARE EQUAL THERE IS NO BRUITS. THERE IS NO LYMPHADENOPATHY. THERE IS NO GOITER. There is no accessory muscle respiration use. Trachea central. LUNGS: Shows diminished air entry and prolonged expiration. There is scattered rhonchi present. There is no wheezing. There is no rales of CHF. On percussion there is hyperresonance throughout. On palpation there is no chest wall tenderness. HEART: S1-S2 is heard. There is no S3 gallop. There is no S4 gallop. There is systolic murmur left sternal border and the apex there is no rub. ABDOMEN: Soft. Nontender. There is no hepatospleno megaly. Bowel sounds are well heard. There is no tender areas of masses. EXTREMITIES: Femorals are diminished. Leg pulses are diminished. There is no pedal edema. There is no DVT or cellulitis. There is no cyanosis or clubbing. There is no calf tenderness. 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 PSYCHIATRIC: Patient judgment insight are intact her affect is normal. Labs- All tests 24 hr 05/27/19 03:42 Sodium 139.9 Potassium 4.1 Chloride 98 Carbon Dioxide 34 H Anion Gap 8 BUN 34 H Creatinine 0.90 Est GFR ( Amer) > 60 Est GFR (MDRD) Non-Af > 60 Glucose 97 Calcium 9.8 Chest X-Ray 05/23/19 16:10 IMPRESSION: Stable chronic changes without evidence of acute cardiopulmonary process. IMPRESSION/RECOMMENDATION: 1. Shortness of breath most likely secondary to acute exacerbation of COPD. Continue oxygen, continue bronchodilators and antibiotics. 2. Generalized weakness most likely secondary to non-perfusing PVCs. The PVCs seem to be unifocal. Hence would recommend increase the patient's beta-guillermo. This has resulted in the above physicians/resolution of the PVCs. Hence patient does not need to see EP for possible ablation of PVC focus. 3. Bradycardia: This is secondary to the patient's set lower heart rate on the AICD. 4. Cardiomyopathy continue beta-blockers and afterload reducing agents. 5. History of hypertension: Blood pressure is low normal suspect resolution of the PVCs would bring the patient's blood pressure up 6. History of AICD: Device functioning properly as per recent interrogation. Medications reviewed medication changes and management plan discussed with the attending provider on the case. Medical decision making is of moderate to high complexity. 40 minutes spent on this patient with more than 50% of time spent direct patient care. Patient cardiac status is stable will sign off. Will f ollow the patient in the office as desired by the patient and the patient's family.
== END 2019-05-27 19:50 | DRG 190 ==
LOC: ER 15:58 → EH 17:47 → 5 22:35
PROVIDERS: ADMIT Hospitalist; ATTEND Hospitalist
DX: J44.1 Chronic obstructive pulmonary disease with (acute) exacerbation (principal); J96.21 Acute and chronic respiratory failure with hypoxia; I50.23 Acute on chronic systolic (congestive) heart failure; N39.0 Urinary tract infection, site not specified; I42.9 Cardiomyopathy, unspecified; I11.0 Hypertensive heart disease with heart failure; E78.5 Hyperlipidemia, unspecified; R00.8 Other abnormalities of heart beat; R00.1 Bradycardia, unspecified; I49.3 Ventricular premature depolarization; B96.20 Unspecified Escherichia coli [E. coli] as the cause of diseases classified elsewhere; Z99.81 Dependence on supplemental oxygen; I27.20 Pulmonary hypertension, unspecified; Z95.810 Presence of automatic (implantable) cardiac defibrillator; Z88.0 Allergy status to penicillin; Z88.8 Allergy status to other drugs, medicaments and biological substances; Z79.51 Long term (current) use of inhaled steroids; Z79.82 Long term (current) use of aspirin; Z79.899 Other long term (current) drug therapy
CPT/HCPCS: 36415; 71045; 80048; 80076; 80185; 81001; 83735; 83880; 84100; 84484; 85025; 85610; 85730; 87086; 93005; 93010; 94640; 99285; J1644; J1940; J3490; J7512; J7620

== ENCOUNTER 2019-07-05 15:17 | Inpatient (IN) | payer MEDICARE, MEDICAID ==
--- NOTE | 2019-07-05 16:23 | RADIOLOGY REPORT (SQ) ---
EXAM DESCRIPTION: CHEST SINGLE VIEW COMPLETED DATE/TIME: 07/05/2019 4:14 pm REASON FOR STUDY: sob COMPARISON: 05/23/2019 NUMBER OF VIEWS: One view. TECHNIQUE: Single frontal radiographic view of the chest acquired. LIMITATIONS: None. FINDINGS: LUNGS AND PLEURA: Chronic interstitial changes in the lung bases. No consolidation or eff usions. No pneumothorax. MEDIASTINUM AND HILAR STRUCTURES: No masses. Contour normal. HEART AND VASCULAR STRUCTURES: Heart normal in size. Normal vasculature. BONES: No acute findings. HARDWARE: Unchanged. OTHER: No other significant finding. IMPRESSION: Stable chronic changes in the lung bases. No acute findings. TECHNICAL DOCUMENTATION: JOB ID: [id number]- All Rights Reserved Reading location - IP/workstation name: [email or web address]
[2019-07-05] MEDS ORDERED: METHYLPREDNISOLONE INJ 125 MG/2 ML SDV IV ONE (16:37)
[2019-07-05] MEDS ORDERED: IPRATROPIUM/ALBUTEROL 0.5-2.5 MG/3 ML AMPUL NEB ONE ×3 (16:37→17:37)
[2019-07-05 16:40] LABS: APPEARANCE,URINE CLEAR; BILIRUBIN,URINE NEGATIVE (NEGATIVE); COLOR,URINE YELLOW; GLUCOSE, URINE NEGATIVE (NEGATIVE); KETONES,URINE NEGATIVE (NEGATIVE); PROTEIN,URINE NEGATIVE (NEGATIVE); URINE SPECIFIC GRAVITY 1.015; UROBILINOGEN,URINE NEGATIVE mg/dL (<2.0)
[2019-07-05] MEDS: MAGNESIUM SULFATE/D5W 1 GM/100 ML RTUPB IV SCH ×2 (16:53→19:26)
[2019-07-05 16:58] LABS: ABSOLUTE BASOPHILS # (AUTO) 0.1 10^3/uL (0.0-0.2); ABSOLUTE MONOCYTES (AUTO) 0.8 10^3/uL (0.1-1.4); ABSOLUTE NEUT (AUTO) 14.2 10^3/uL (1.7-8.2); BASOPHILS % (AUTO) 0.4 % (0-2); EOSINOPHILS % (AUTO) 0.3 % (0-6); HEMATOCRIT 36.1 % (36.0-47.0); LYMPHOCYTES % (AUTO) 11.7 % (13-45); MEAN CORPUSCULAR HEMOGLOBIN 29.9 pg (27.0-33.4); MEAN CORPUSCULAR HGB CONC 33.2 g/dL (32.0-36.0); MEAN CORPUSCULAR VOLUME 90 fl (80-97); MONOCYTES % (AUTO) 4.5 % (3-13); PLATELET COUNT 191 10^3/uL (150-450); RED CELL DISTRIBUTION WIDTH 15.3 % (11.5-14.0); SEGMENTED NEUTROPHILS % (AUTO) 83.1 % (42-78); TOTAL CELLS COUNTED % (AUTO) 100 %; WHITE BLOOD COUNT 17.1 10^3/uL (4.0-10.5)
[2019-07-05 16:59] LABS: VENOUS BLOOD BASE EXCESS 2.1 mmol/L; VENOUS BLOOD HCO3 28.7 mmol/L (20-32); VENOUS BLOOD PH 7.34 (7.30-7.42)
--- NOTE | 2019-07-05 16:59 | EKG REPORT ---
SEVERITY:- ABNORMAL ECG - ATRIAL-SENSED VENTRICULAR-PACED COMPLEXES : Confirmed by: Alex Alvarez MD 05-Jul-2019 16:58:49
[2019-07-05] MEDS ORDERED: CEFEPIME 1 GM/D5W RTU 1 GM/50 ML RTUPB IV ONE (17:01)
[2019-07-05] MEDS ORDERED: LEVOFLOXACIN 750 MG/D5W RTU 750 MG/150 ML RTUPB IV ONE (17:01)
[2019-07-05 17:03] LABS: PROTHROMBIN TIME 13.2 SEC (11.4-15.4)
[2019-07-05 17:23] LABS: ALBUMIN 4.5 g/dL (3.5-5.0); ALKALINE PHOSPHATASE 118 U/L (38-126); ANION GAP 12 (5-19); ASPARTATE AMINO TRANSFERASE 30 U/L (14-36); BILIRUBIN,DIRECT 0.2 mg/dL (0.0-0.4); BILIRUBIN,TOTAL 0.3 mg/dL (0.2-1.3); BLOOD UREA NITROGEN 28 mg/dL (7-20); CALCIUM 9.8 mg/dL (8.4-10.2); CARBON DIOXIDE 32 mmol/L (22-30); CHLORIDE 99 mmol/L (98-107); CREATINE KINASE 32 U/L (30-135); GLUCOSE 130 mg/dL (75-110); POTASSIUM 4.5 mmol/L (3.6-5.0); TOTAL PROTEIN 7.6 g/dL (6.3-8.2)
[2019-07-05 17:32] LABS: CREATINE KINASE MB 0.75 ng/mL (<4.55)
[2019-07-05] MEDS ORDERED: ONDANSETRON HCL INJ/PF 4 MG/2 ML SDV IV ONE (17:41)
[2019-07-05 17:49] LABS: A TYPE INFLUENZA AG NEGATIVE (NEGATIVE)
[2019-07-05 17:50] LABS: B INFLUENZA AG NEGATIVE (NEGATIVE)
[2019-07-05] MEDS ORDERED: ZOLPIDEM TARTRATE 5 MG TABLET PO PRN (18:01)
[2019-07-05] MEDS ORDERED: ONDANSETRON HCL INJ/PF 4 MG/2 ML SDV IV PRN (18:01)
[2019-07-05] MEDS ORDERED: MAG HYDROX/AL HYDROX/SIMETH SUSP 30 ML UDCUP PO PRN (18:01)
[2019-07-05] MEDS ORDERED: OXYCODONE-ACETAMINOPHEN 5-325 MG TABLET PO PRN (18:01)
[2019-07-05] MEDS ORDERED: NORMAL SALINE 1000 ML 1,000 ML IV PRN (18:01)
[2019-07-05] MEDS ORDERED: VANCOMYCIN HCL INJ 1000 MG VIAL IV ONE (18:02)
[2019-07-05] MEDS ORDERED: NORMAL SALINE 1000 ML 1,000 ML IV ONE (18:10)
[2019-07-05] MEDS ORDERED: GLUCAGON,HUMAN RECOMB 1 MG INJ IM PRN (18:12)
[2019-07-05] MEDS ORDERED: DEXTROSE 50%-WATER 25 GM/50 ML DISP.SYRIN IV PRN ×2 (18:12)
[2019-07-05] MEDS ORDERED: DEXTROSE 40% GEL 15 GM TUBE PO PRN ×2 (18:12)
[2019-07-05] MEDS ORDERED: LORAZEPAM INJ 2 MG/1 ML VIAL IV PRN (18:12)
[2019-07-05] MEDS ORDERED: AZTREONAM INJ 1 GM VIAL IV SCH (18:15)
[2019-07-05] MEDS ORDERED: VANCOMYCIN HCL 0 MG in DEXTROSE 5%-WATER 250 ML IV NR (18:15)
--- NOTE | 2019-07-05 18:23 | PDOC H&P ---
History of Present Illness Admission Date/PCP: 07/05/2019 ZANE CHI MD Patient complains of: Shortness of breath, cough, wheeze History of Present Illness: CHRISTOS MULTANI is a 74 year old female who presents the ER with a long history of COPD oxygen dependent on 3 L at home. Patient states for the last several days she has been having an increased cough with inability to cough anything out. Patient was found to have a leukocytosis with a white count of 17,000, lactic acid 2.2 she is tachycardic and tachypneic at this time. Patient has been taking Levaquin at home without good result. Patient had no other treatment prior to arrival all active is aggravating factor for her shortness of breath. Past Medical History Cardiac Medical History: Reports: Congestive Heart Failure, Hyperlipidema, Hypertension Denies: Myocardial Infarction Pulmonary Medical History: Reports: Chronic Obstructive Pulmonary Disease (COPD), Pneumonia Denies: Asthma Neurological Medical History: Reports: Seizures - WITH DEMEROL GI Medical History: Denies: Hepatitis, Hiatal Hernia Psychiatric Medical History: Denies: Depression Hematology: Denies: Anemia, Sickle Cell Disease Past Surgical History Past Surgical History: Reports: Cardiac Catheterization, Section, Pacemaker - February Denies: Amputation, Mastectomy Social History Information Source: Patient Lives with: Family Smoking Status: Former Smoker Electronic Cigarette use?: No Frequency of Alcohol Use: Rare Hx Recreational Drug Use: No Drugs: None Hx Prescription Drug Abuse: No - Advance Directive Resuscitation Status: Full Code Family History Family History: CAD, Hyperlipidemia Parental Family History Reviewed: Yes Children Family History Reviewed: Yes Sibling(s) Family History Reviewed.: Yes Medication/Allergy Home Medications: Acetaminophen [Tylenol 325 mg Tablet] 650 mg PO Q4HP PRN 05/23/19 Albuterol Sulfate [Proair HFA Inhalation Aerosol 8.5 gm MDI] 2 puff IH Q4HP PRN 05/23/19 Aspirin [Ecotrin 81 mg EC Tablet] 81 mg PO QAM 05/23/19 Cetirizine HCl [Zyrtec 10 mg Tablet] 10 mg PO QAM 05/23/19 Docusate Sodium [Colace 100 mg Capsule] 100 mg PO BID 05/23/19 Fluticasone Propionate [Flonase Nasal [place] 50 Mcg/[place] 16 gm] 2 spray NASL BID 05/23/19 Fluticasone/Umeclidin/Vilanter [Trelegy 100-62.5-25 Mcg Ellipta 14 Dose/Dpi] 1 puff IH QAM 05/23/19 Furosemide [Lasix 20 mg Tablet] 20 mg PO DAILY 05/23/19 Ipratropium/Albuterol Sulfate [Duoneb 3 ml Ampul] 3 ml NEB Q6 05/23/19 Metoprolol Succinate [Toprol Xl 25 mg Tab.sr] 25 mg PO QAM 05/23/19 Multivitamin [Multiple Vitamins] 1 tab PO DAILY 05/23/19 Omeprazole 20 mg PO QAM 05/23/19 Potassium Chloride [Klor-Con M20] 20 meq PO QAM 05/23/19 Pravastatin Sodium [Pravachol] 10 mg PO QHS 05/23/19 Sennosides [Senna] 8.6 mg PO BID 05/23/19 Phenytoin Sodium Extended [Dilantin 100 mg Capsule.er] 100 mg PO NOON 05/24/19 Phenytoin Sodium Extended [Dilantin 100 mg Capsule.er] 200 mg PO QAM 05/24/19 Phenytoin Sodium Extended [Dilantin 100 mg Capsule.er] 200 mg PO QHS 05/24/19 Levofloxacin [Levaquin 500 mg Tablet] 500 mg PO DAILY 3 Days #10 tablet 05/27/19 Allergies/Adverse Reactions: amoxicillin trihydrate [From Augmentin] Allergy (Verified 12/11/18 14:10) meperidine HCl [From Demerol] Allergy (Verified 12/11/18 14:10) Potassium Clavulanate * [From Augmentin] Allergy (Verified 12/11/18 14:10) Review of Systems Constitutional: PRESENT: fatigue, fever(s). ABSENT: chills, headache(s), weight gain, weight loss Eyes: ABSENT: visual disturbances Ears: ABSENT: hearing changes Cardiovascular: ABSENT: chest pain, dyspnea on exertion, edema, orthropnea, palpitations Respiratory: PRESENT: cough, dyspnea, other - Wheeze. ABSENT: hemoptysis Gastrointestinal: ABSENT: abdominal pain, constipation, diarrhea, hematemesis, hematochezia, nausea, vomiting Genitourinary: ABSENT: dysuria, hematuria Musculoskeletal: ABSENT: joint swelling Integumentary: ABSENT: rash, wounds Neurological: ABSENT: abnormal gait, abnormal speech, confusion, dizziness, focal weakness, syncope Psychiatric: ABSENT: anxiety, depression, homidical ideation, suicidal ideation Endocrine: ABSENT: cold intolerance, heat intolerance, polydipsia, polyuria Hematologic/Lymphatic: ABSENT: easy bleeding, easy bruising Physical Exam Vital Signs: Temp Pulse Resp BP Pulse Ox 99.5 F 32 H 109/69 91 L 07/05/19 18:01 07/05/19 18:01 07/05/19 18:01 07/05/19 18:01 Intake & Output 07/04/19 07/05/19 07/06/19 06:59 06:59 06:59 Intake Total 100 Balance 100 General appearance: PRESENT: no acute distress, well-developed, well-nourished Head exam: PRESENT: atraumatic, normocephalic Eye exam: PRESENT: conjunctiva pink, EOMI, PERRLA. ABSENT: scleral icterus Ear exam: PRESENT: normal external ear exam Mouth exam: PRESENT: moist, tongue midline Neck exam: ABSENT: carotid bruit, JVD, lymphadenopathy, thyromegaly Respiratory exam: PRESENT: accessory muscle use, decreased breath sounds, rhonchi, symmetrical, tachypnea, other - Labored. ABSENT: rales, wheezes Cardiovascular exam: PRESENT: RRR, tachycardia. ABSENT: diastolic murmur, rubs, systolic murmur Pulses: PRESENT: normal dorsalis pedis pul Vascular exam: PRESENT: normal capillary refill GI/Abdominal exam: PRESENT: normal bowel sounds, soft. ABSENT: distended, guarding, mass, organolmegaly, rebound, tenderness Rectal exam: PRESENT: deferred Extremities exam: PRESENT: full ROM. ABSENT: calf tenderness, clubbing, pedal edema Neurological exam: PRESENT: alert, awake, oriented to person, oriented to place, oriented to time, oriented to situation, CN II-XII grossly intact. ABSENT: motor sensory deficit Psychiatric exam: PRESENT: appropriate affect, normal mood. ABSENT: homicidal ideation, suicidal ideation Skin exam: PRESENT: dry, intact, warm. ABSENT: cyanosis, rash Results Laboratory Results: 07/05/19 16:30 07/05/19 16:30 07/05/19 07/05/19 07/05/19 16:26 16:30 16:30 WBC 17.1 H RBC 4.00 Hgb 12.0 Hct 36.1 MCV 90 MCH 29.9 MCHC 33.2 RDW 15.3 H Plt Count 191 Seg Neutrophils % 83.1 H VBG pH VBG pCO2 VBG HCO3 VBG Base Excess Sodium 142.9 Potassium 4.5 Chloride 99 Carbon Dioxide 32 H Anion Gap 12 BUN 28 H Creatinine 0.84 Est GFR ( Amer) > 60 Glucose 130 H Lactic Acid Calcium 9.8 Total Bilirubin 0.3 AST 30 Alkaline Phosphatase 118 Total Protein 7.6 Albumin 4.5 Urine Color YELLOW Urine Appearance CLEAR Urine pH 5.0 Ur Specific [place] 1.015 Urine Protein NEGATIVE Urine Glucose (UA) NEGATIVE Urine Ketones NEGATIVE Urine Blood SMALL H Urine RBC (Auto) 1 07/05/19 07/05/19 16:30 16:42 WBC RBC Hgb Hct MCV MCH MCHC RDW Plt Count Seg Neutrophils % VBG pH 7.34 VBG pCO2 54.0 VBG HCO3 28.7 VBG Base Excess 2.1 Sodium Potassium Chloride Carbon Dioxide Anion Gap BUN Creatinine Est GFR ( Amer) Glucose Lactic Acid 2.2 H Calcium Total Bilirubin AST Alkaline Phosphatase Total Protein Albumin Urine Color Urine Appearance Urine pH Ur Specific [place] Urine Protein Urine Glucose (UA) Urine Ketones Urine Blood Urine RBC (Auto) 07/05/19 07/05/19 16:30 16:30 Creatine Kinase 32 CK-MB (CK-2) 0.75 NT-Pro-B Natriuret Pep 1050 H Impressions: Chest X-Ray 07/05/19 15:39 IMPRESSION: Stable chronic changes in the lung bases. No acute findings. Assessment and Plan - Diagnosis (1) Sepsis Is this a current diagnosis for this admission?: Yes Plan: 07/05/2019-patient was recent hospital 1 month ago. As patient has a white count and a fever I will treat for healthcare associated pneumonia. Patient does have a penicillin allergy. Will place patient on vancomycin per pharmacy dosing, as he had TRAM 2 g IV every 8 and a azithromycin 500 mg IV daily. We will bolus patient with 2 L of normal saline and follow with normal saline at 125 mL an hour repeat lactic acid at 10 PM. Albuterol nebs every 4. BiPAP. Continue to follow (2) Healthcare-associated pneumonia Is this a current diagnosis for this admission?: Yes Plan: -see #1 (3) Tachycardia Is this a current diagnosis for this admission?: Yes Plan: 07/05/2019-most likely secondary to sepsis. Sepsis protocol with IV fluids we will continue to follow with telemetry. (4) Chronic diastolic (congestive) heart failure Is this a current diagnosis for this admission?: Yes Plan: 07/05/2019-patient has a preserved LV function of 55 to 60%. At this time I am not concerned about congestive heart failure as patient is septic I will bolus with fluids and continue saline for sepsis protocol. Once patient is improved sufficiently I will diurese. (5) Hyperglycemia Is this a current diagnosis for this admission?: Yes Plan: 07/05/2019-A1c. Sliding scale insulin before meals and at bedtime - Time Time Spent with patient: 35 or more minutes - Inpatient Certification Based on my medical assessment, after consideration of the patient's comorbidities, presenting symptoms, or acuity I expect that the services needed warrant INPATIENT care.: Yes I certify that my determination is in accordance with my understanding of Medicare's requirements for reasonable and necessary INPATIENT services [42 CFR 412.3e].: Yes Medical Necessity: Significant Comorbidiites Make Outpatient Treatment Too Risky, Need Close Monitoring Due to Risk of Patient Decompensation, Need For IV Fluids, Need for IV Antibiotics
[2019-07-05] MEDS ORDERED: AZITHROMYCIN INJ 500 MG VIAL IV SCH (19:00)
[2019-07-05] MEDS: ALBUTEROL SULFATE 0.083% NEB 2.5 MG/3 ML AMPUL NEB SCH (19:30)
[2019-07-05] MEDS ORDERED: AZTREONAM 2 GM in DEXTROSE 5%-WATER 100 ML IV SCH (22:00)
[2019-07-05] MEDS ORDERED: AZITHROMYCIN INJ 500 MG VIAL IV ONE (22:03)
[2019-07-05] MEDS ORDERED: AZTREONAM INJ 1 GM VIAL INJ PRN (22:23)
[2019-07-05] MEDS: AZITHROMYCIN 500 MG in DEXTROSE 5%-WATER 250 ML IV SCH (22:32)
[2019-07-05] MEDS: INSULIN REG, HUMAN 100 UNIT/ML 3 ML VIAL (PYX) SUBCUT SCH (22:33)
[2019-07-05] MEDS: METHYLPREDNISOLONE INJ 40 MG/1 ML SDV IV SCH (22:33)
[2019-07-05] MEDS: HEPARIN SOD (PORCINE) 5,000 UNIT/ML 1 ML VIAL SUBCUT SCH (22:33)
[2019-07-06] MEDS: AZTREONAM 2 GM in DEXTROSE 5%-WATER 100 ML IV SCH ×4 (00:19→23:47)
--- NOTE | 2019-07-06 00:43 | ER Document Report ---
Entered by CHARLINE SANTANA SCRIBE 07/05/19 [id number] Acting as scribe for:JUSTUS PÉREZ DO ED Respiratory Problem - General Chief Complaint: General Weakness Stated Complaint: WEAKNESS Time Seen by Provider: 07/05/19 16:01 Mode of Arrival: Medic Information source: Patient, Relative Notes: Patient is a 74-year-old female who presents to the emergency department today with complaints of a non-productive cough and shortness of breath. Patient has a history of COPD and is on 3L of oxygen at home 24 hours a day. Patient states she "feels like she just cannot get anything up with this cough". Patient states she tried one nebulizer treatment last night and one today around lunch time with no real change. Patient states she was last on steroids about a month ago. Patient also complains of being febrile as well as feeling like her heart is racing. Patient denies any vomiting, abdominal pain, diarrhea, urinary symptoms, or rash. Patient states she has gotten a flu shot this year but has not gotten a pneumonia vaccine. TRAVEL OUTSIDE OF THE [place] IN LAST 30 DAYS: No - Related Data Allergies/Adverse Reactions: amoxicillin trihydrate [From Augmentin] Allergy (Verified 12/11/18 14:10) meperidine HCl [From Demerol] Allergy (Verified 12/11/18 14:10) Potassium Clavulanate * [From Augmentin] Allergy (Verified 12/11/18 14:10) Past Medical History - General Information source: Patient, [facility] Records - Social History Smoking Status: Former Smoker Cigarette use (# per day): No Frequency of alcohol use: None Drug Abuse: None Lives with: Family Family History: Reviewed & Not Pertinent, Hyperlipidemia - Past Medical History Cardiac Medical History: Reports: Hx Congestive Heart Failure, Hx Hypercholesterolemia, Hx Hypertension Pulmonary Medical History: Reports: Hx COPD, Hx Pneumonia Neurological Medical History: Reports: Hx Seizures - WITH DEMEROL Past Surgical History: Reports: Hx Abdominal Surgery, Hx Cardiac Catheterization, Hx Section, Hx Open Heart Surgery - 1949, Hx Pacemaker - and defib, February - Immunizations Hx Diphtheria, Pertussis, Tetanus Vaccination: Yes Hx Pneumococcal Vaccination: 07/06/17 Review of Systems - Review of Systems Constitutional: See HPI, Fever EENT: No symptoms reported Cardiovascular: See HPI, Heart racing Respiratory: See HPI, Cough, Short of breath Gastrointestinal: denies: Abdominal pain, Diarrhea, Vomiting Genitourinary: denies: Dysuria Female Genitourinary: No symptoms reported Musculoskeletal: No symptoms reported Skin: denies: Rash Hematologic/Lymphatic: No symptoms reported Neurological/Psychological: No symptoms reported -: Yes All other systems reviewed and negative Physical Exam - Vital signs Vitals: Resp Pulse Ox 24 H 93 07/05/19 15:39 07/05/19 15:39 Interpretation: Tachycardic, Hypoxic, Tachypneic, Febrile - General General appearance: Alert In distress: Mild - HEENT Head: Normocephalic, Atraumatic Conjunctiva: Normal Cornea: Normal Mucous membranes: Dry - Respiratory Respiratory status: Respiratory distress Chest status: Accessory muscle use Breath sounds: Rhonchi, Wheezing - Cardiovascular Rhythm: Regular, Tachycardia - Abdominal Inspection: Normal Tenderness: Nontender - Back Back: Normal - Extremities General upper extremity: Normal inspection, Normal ROM, Normal strength General lower extremity: Normal inspection, Normal ROM, Normal strength - Neurological Neuro grossly intact: Yes Cognition: Normal Orientation: AAOx4 Lisa Coma Scale Eye Opening: Spontaneous Lisa Coma Scale Verbal: Oriented Lisa Coma Scale Motor: Obeys Commands Horatio Coma Scale Total: 15 Speech: Normal Cranial nerves: Normal Motor strength normal: LUE, RUE, LLE, RLE - Psychological Associated symptoms: Anxious - Skin Skin Temperature: Hot Skin Moisture: Dry Course - Re-evaluation Re-evalutation: 07/05/19 17:39 Hospitalist accepts patient for admission 07/05/19 17:42 Patient updated, complains of nausea but agreeable to admission. 9 patient is a 74-year-old female who comes in with difficulty breathing and a productive cough. Patient is also febrile. Elevated white blood cell count no recent steroid use in the last month. Patient had an admission about a month ago. Fever and difficulty breathing with hypoxia with movement despite her baseline oxygen of 3 L concerning for pneumonia. Blood culture sent. Influenza negative. Patient initiated on antibiotics for healthcare acquired pneumonia. Discussed with the hospitalist service who will admit the patient. Stable at the time of admission. Of note, patient has been given DuoNeb, magnesium, Solu- Medrol, and fluids. She is not given full 30 mg/kg bolus due to history of heart failure. Tachycardia initially improving with fluids, likely refractory due to albuterol given. No hypotension. - Vital Signs Vital signs: Temp Pulse Resp BP Pulse Ox 98.3 F 91 18 103/53 L 97 07/05/19 22:38 07/06/19 00:00 07/06/19 00:00 07/06/19 00:00 07/06/19 00:00 - Laboratory Result Diagrams: 07/05/19 16:30 07/05/19 16:30 Laboratory results interpreted by me: 07/05/19 07/05/19 07/05/19 16:26 16:30 16:30 WBC 17.1 H RDW 15.3 H Lymph % (Auto) 11.7 L Absolute Neuts (auto) 14.2 H Seg Neutrophils % 83.1 H Carbon Dioxide 32 H BUN 28 H Glucose 130 H Lactic Acid NT-Pro-B Natriuret Pep Urine Blood SMALL H 07/05/19 07/05/19 16:30 16:30 WBC RDW Lymph % (Auto) Absolute Neuts (auto) Seg Neutrophils % Carbon Dioxide BUN Glucose Lactic Acid 2.2 H NT-Pro-B Natriuret Pep 1050 H Urine Blood Critical Care Note - Critical Care Note Total time excluding time spent on procedures (mins): 40 - Evaluation and management of respiratory distress, sepsis, multiple re-evaluations, coordination of admission, counseling of patient and family Discharge - Discharge Clinical Impression: Acute exacerbation of COPD with asthma Pneumonia Qualifiers: Pneumonia type: due to unspecified organism Laterality: unspecified laterality Lung location: unspecified part of lung Qualified Code(s): J18.9 - Pneumonia, unspecified organism Condition: Stable Disposition: ADMITTED INPATIENT Admitting Provider: Ramsey (Hospitalist) - [facility] Unit Admitted: [facility] I personally performed the services described in the documentation, reviewed and edited the documentation which was dictated to the scribe in my presence, and it accurately records my words and actions.
[2019-07-06] MEDS: ALBUTEROL SULFATE 0.083% NEB 2.5 MG/3 ML AMPUL NEB SCH ×7 (00:47→23:54)
[2019-07-06] MEDS: ACETAMINOPHEN 325 MG TABLET PO PRN (00:49)
[2019-07-06] MEDS: HEPARIN SOD (PORCINE) 5,000 UNIT/ML 1 ML VIAL SUBCUT SCH ×3 (05:08→21:15)
[2019-07-06] MEDS: METHYLPREDNISOLONE INJ 40 MG/1 ML SDV IV SCH ×3 (05:08→21:15)
[2019-07-06 06:54] LABS: HEMATOCRIT 28.5 % (36.0-47.0); MEAN CORPUSCULAR HEMOGLOBIN 30.6 pg (27.0-33.4); MEAN CORPUSCULAR HGB CONC 33.9 g/dL (32.0-36.0); MEAN CORPUSCULAR VOLUME 90 fl (80-97); PLATELET COUNT 132 10^3/uL (150-450); RED BLOOD COUNT 3.15 10^6/uL (3.72-5.28); WHITE BLOOD COUNT 19.6 10^3/uL (4.0-10.5)
[2019-07-06 06:55] LABS: HEMOGLOBIN 9.7 g/dL (12.0-15.5)
[2019-07-06 07:59] LABS: PHOSPHORUS 3.1 mg/dL (2.5-4.5)
--- NOTE | 2019-07-06 08:20 | PDOC PROGRESS REPORT ---
Subjective Progress Note for:: 07/06/19 Subjective:: 07/06/2019-no complaints this a.m. Reason For Visit: HEALTHCARE ASSOCIATED PNEUMONIA,ACUTE ON CHRONIC Physical Exam Vital Signs: Temp Pulse Resp BP Pulse Ox 97.5 F 82 14 95/45 L 94 07/06/19 03:45 07/06/19 07:00 07/06/19 04:00 07/06/19 03:45 07/06/19 04:00 Intake & Output 07/05/19 07/06/19 07/07/19 06:59 06:59 06:59 Intake Total 2850 Output Total 300 Balance 2550 Weight 56.6 kg General appearance: PRESENT: no acute distress, well-developed, well-nourished Neck exam: ABSENT: carotid bruit, JVD, lymphadenopathy, thyromegaly Respiratory exam: PRESENT: clear to auscultation tyrone, decreased breath sounds, rhonchi, symmetrical, unlabored Cardiovascular exam: PRESENT: RRR. ABSENT: diastolic murmur, rubs, systolic murmur Pulses: PRESENT: +1 pedal pulses bilateral Vascular exam: PRESENT: normal capillary refill GI/Abdominal exam: PRESENT: normal bowel sounds, soft. ABSENT: distended, guarding, mass, organolmegaly, rebound, tenderness Extremities exam: PRESENT: full ROM. ABSENT: calf tenderness, clubbing, pedal edema Neurological exam: PRESENT: alert, awake, oriented to person, oriented to place, oriented to time, oriented to situation, CN II-XII grossly intact. ABSENT: motor sensory deficit Psychiatric exam: PRESENT: appropriate affect, normal mood. ABSENT: homicidal ideation, suicidal ideation Skin exam: PRESENT: dry, intact, warm. ABSENT: cyanosis, rash Results Laboratory Results: 07/06/19 06:20 07/05/19 16:30 07/05/19 07/05/19 07/05/19 16:26 16:30 16:30 WBC 17.1 H RBC 4.00 Hgb 12.0 Hct 36.1 MCV 90 MCH 29.9 MCHC 33.2 RDW 15.3 H Plt Count 191 Seg Neutrophils % 83.1 H VBG pH VBG pCO2 VBG HCO3 VBG Base Excess Sodium 142.9 Potassium 4.5 Chloride 99 Carbon Dioxide 32 H Anion Gap 12 BUN 28 H Creatinine 0.84 Est GFR ( Amer) > 60 Glucose 130 H Lactic Acid Calcium 9.8 Phosphorus Magnesium Total Bilirubin 0.3 AST 30 Alkaline Phosphatase 118 Total Protein 7.6 Albumin 4.5 Urine Color YELLOW Urine Appearance CLEAR Urine pH 5.0 Ur Specific [place] 1.015 Urine Protein NEGATIVE Urine Glucose (UA) NEGATIVE Urine Ketones NEGATIVE Urine Blood SMALL H Urine RBC (Auto) 1 07/05/19 07/05/19 07/05/19 16:30 16:42 19:13 WBC RBC Hgb Hct MCV MCH MCHC RDW Plt Count Seg Neutrophils % VBG pH 7.34 VBG pCO2 54.0 VBG HCO3 28.7 VBG Base Excess 2.1 Sodium Potassium Chloride Carbon Dioxide Anion Gap BUN Creatinine Est GFR ( Amer) Glucose Lactic Acid 2.2 H 2.7 H Calcium Phosphorus Magnesium Total Bilirubin AST Alkaline Phosphatase Total Protein Albumin Urine Color Urine Appearance Urine pH Ur Specific [place] Urine Protein Urine Glucose (UA) Urine Ketones Urine Blood Urine RBC (Auto) 07/06/19 07/06/19 06:20 06:20 WBC 19.6 H RBC 3.15 L Hgb 9.7 L D Hct 28.5 L MCV 90 MCH 30.6 MCHC 33.9 RDW 15.0 H Plt Count 132 L Seg Neutrophils % VBG pH VBG pCO2 VBG HCO3 VBG Base Excess Sodium Potassium Chloride Carbon Dioxide Anion Gap BUN Creatinine Est GFR ( Amer) Glucose Lactic Acid Calcium Phosphorus 3.1 Magnesium 2.0 Total Bilirubin AST Alkaline Phosphatase Total Protein Albumin Urine Color Urine Appearance Urine pH Ur Specific [place] Urine Protein Urine Glucose (UA) Urine Ketones Urine Blood Urine RBC (Auto) 07/05/19 07/05/19 16:30 16:30 Creatine Kinase 32 CK-MB (CK-2) 0.75 NT-Pro-B Natriuret Pep 1050 H Impressions: Chest X-Ray 07/05/19 15:39 IMPRESSION: Stable chronic changes in the lung bases. No acute findings. Assessment and Plan - Diagnosis (1) Sepsis Is this a current diagnosis for this admission?: Yes Plan: 07/05/2019-patient was recent hospital 1 month ago. As patient has a white count and a fever I will treat for healthcare associated pneumonia. Patient does have a penicillin allergy. Will place patient on vancomycin per pharmacy dosing, as he had TRAM 2 g IV every 8 and a azithromycin 500 mg IV daily. We will bolus patient with 2 L of normal saline and follow with normal saline at 125 mL an hour repeat lactic acid at 10 PM. Albuterol nebs every 4. BiPAP. Continue to follow 07/06/2019-much improved. Repeat lactic acid done last night exhibited a lactic acid 2.7. This was at 10 PM. Patient's lungs are diminished but clear at this time patient is sitting in the bed much perkier than yesterday. We will continue to follow (2) Healthcare-associated pneumonia Is this a current diagnosis for this admission?: Yes Plan: -see #1 07/06/2019-continue current antibiotic therapy await cultures. (3) Tachycardia Is this a current diagnosis for this admission?: Yes Plan: 07/05/2019-most likely secondary to sepsis. Sepsis protocol with IV fluids we will continue to follow with telemetry. 07/06/2019-stable continue to follow (4) Chronic diastolic (congestive) heart failure Is this a current diagnosis for this admission?: Yes Plan: 07/05/2019-patient has a preserved LV function of 55 to 60%. At this time I am not concerned about congestive heart failure as patient is septic I will bolus with fluids and continue saline for sepsis protocol. Once patient is improved sufficiently I will diurese. 07/06/2019-no acute exacerbation at this time. I decreased patient's IV fluids to 75 mL an hour continue to follow (5) Hyperglycemia Is this a current diagnosis for this admission?: Yes Plan: 07/05/2019-A1c. Sliding scale insulin before meals and at bedtime 07/06/2019-A1c 5.5. Hyperglycemia most likely stress response from her sepsis. - Time Time Spent with patient: 15-24 minutes - Inpatient Certification Based on my medical assessment, after consideration of the patient's comorbidities, presenting symptoms, or acuity I expect that the services needed warrant INPATIENT care.: Yes I certify that my determination is in accordance with my understanding of Medicare's requirements for reasonable and necessary INPATIENT services [42 CFR 412.3e].: Yes Medical Necessity: Significant Comorbidiites Make Outpatient Treatment Too Risky, Need Close Monitoring Due to Risk of Patient Decompensation, Need For IV Fluids, Need for IV Antibiotics
[2019-07-06] MEDS: INSULIN REG, HUMAN 100 UNIT/ML 3 ML VIAL (PYX) SUBCUT SCH ×4 (08:51→21:40)
[2019-07-06] MEDS ORDERED: LEVETIRACETAM 1000 MG/NACL-ISO 1,000 MG/100 ML RTUPB IV ONE (13:00)
[2019-07-06] MEDS: PHENYTOIN SODIUM EXTENDED 100 MG CAPSULE PO SCH ×2 (13:26→21:15)
[2019-07-06] MEDS: NORMAL SALINE 1000 ML 1,000 ML IV PRN (14:14)
[2019-07-06] MEDS: VANCOMYCIN HCL 1,000 MG in DEXTROSE 5%-WATER 250 ML IV SCH (18:13)
[2019-07-06 18:33] LABS: ANION GAP 6 (5-19); BLOOD UREA NITROGEN 19 mg/dL (7-20); CALCIUM 8.6 mg/dL (8.4-10.2); CARBON DIOXIDE 28 mmol/L (22-30); CHLORIDE 106 mmol/L (98-107); GLUCOSE 202 mg/dL (75-110); POTASSIUM 4.1 mmol/L (3.6-5.0)
[2019-07-06 18:56] LABS: APPEARANCE,URINE CLEAR; BILIRUBIN,URINE NEGATIVE (NEGATIVE); COLOR,URINE STRAW; GLUCOSE, URINE NEGATIVE (NEGATIVE); KETONES,URINE NEGATIVE (NEGATIVE); LEUKOCYTE ESTERASE,URINE NEGATIVE (NEGATIVE); NITRITE,URINE NEGATIVE (NEGATIVE); PROTEIN,URINE NEGATIVE (NEGATIVE); URINE SPECIFIC GRAVITY 1.008; UROBILINOGEN,URINE NEGATIVE mg/dL (<2.0)
[2019-07-06] MEDS: LEVETIRACETAM 500 MG TABLET PO SCH (21:15)
[2019-07-06] MEDS ORDERED: LEVETIRACETAM 500 MG/NACL-ISO 500 MG/100 ML RTUPB IV SCH (22:00)
[2019-07-06] MEDS: AZITHROMYCIN 500 MG in DEXTROSE 5%-WATER 250 ML IV SCH (22:46)
[2019-07-07] MEDS: ALBUTEROL SULFATE 0.083% NEB 2.5 MG/3 ML AMPUL NEB SCH ×5 (04:28→20:38)
[2019-07-07 05:12] LABS: HEMOGLOBIN 9.8 g/dL (12.0-15.5); MEAN CORPUSCULAR HEMOGLOBIN 30.7 pg (27.0-33.4); MEAN CORPUSCULAR HGB CONC 33.9 g/dL (32.0-36.0); MEAN CORPUSCULAR VOLUME 91 fl (80-97); PLATELET COUNT 142 10^3/uL (150-450); RED BLOOD COUNT 3.21 10^6/uL (3.72-5.28); RED CELL DISTRIBUTION WIDTH 15.6 % (11.5-14.0); WHITE BLOOD COUNT 15.5 10^3/uL (4.0-10.5)
[2019-07-07] MEDS: HEPARIN SOD (PORCINE) 5,000 UNIT/ML 1 ML VIAL SUBCUT SCH ×3 (06:04→21:59)
[2019-07-07] MEDS: PHENYTOIN SODIUM EXTENDED 100 MG CAPSULE PO SCH ×3 (06:06→22:19)
[2019-07-07] MEDS: METHYLPREDNISOLONE INJ 40 MG/1 ML SDV IV SCH ×3 (06:06→22:19)
[2019-07-07] MEDS: NORMAL SALINE 1000 ML 1,000 ML IV PRN (06:13)
[2019-07-07] MEDS: INSULIN REG, HUMAN 100 UNIT/ML 3 ML VIAL (PYX) SUBCUT SCH ×4 (08:24→22:20)
[2019-07-07] MEDS: AZTREONAM 2 GM in DEXTROSE 5%-WATER 100 ML IV SCH ×3 (08:24→23:44)
--- NOTE | 2019-07-07 08:35 | PDOC PROGRESS REPORT ---
Subjective Progress Note for:: 07/07/19 Subjective:: 07/06/2019-no complaints this a.m. 07/07/2019-no complaints Reason For Visit: HEALTHCARE ASSOCIATED PNEUMONIA,ACUTE ON CHRONIC Physical Exam Vital Signs: Temp Pulse Resp BP Pulse Ox 97.4 F 82 16 119/41 L 94 07/07/19 04:42 07/07/19 07:00 07/07/19 04:42 07/07/19 04:42 07/07/19 04:42 Intake & Output 07/06/19 07/07/19 07/08/19 06:59 06:59 05:59 Intake Total 2850 2180 Output Total 300 1300 Balance 2550 880 Weight 56.6 kg 58.6 kg General appearance: PRESENT: no acute distress, well-developed, well-nourished Neck exam: ABSENT: carotid bruit, JVD, lymphadenopathy, thyromegaly Respiratory exam: PRESENT: clear to auscultation tyrone, decreased breath sounds, symmetrical, unlabored. ABSENT: rales, rhonchi, wheezes Cardiovascular exam: PRESENT: RRR. ABSENT: diastolic murmur, rubs, systolic murmur Pulses: PRESENT: +1 pedal pulses bilateral Vascular exam: PRESENT: normal capillary refill GI/Abdominal exam: PRESENT: normal bowel sounds, soft. ABSENT: distended, guarding, mass, organolmegaly, rebound, tenderness Extremities exam: PRESENT: full ROM. ABSENT: calf tenderness, clubbing, pedal edema Neurological exam: PRESENT: alert, awake, oriented to person, oriented to place, oriented to time, oriented to situation, CN II-XII grossly intact. ABSENT: motor sensory deficit Psychiatric exam: PRESENT: appropriate affect, normal mood. ABSENT: homicidal ideation, suicidal ideation Skin exam: PRESENT: dry, intact, warm. ABSENT: cyanosis, rash Results Laboratory Results: 07/07/19 04:54 07/06/19 18:00 07/06/19 07/06/19 07/07/19 18:00 18:17 04:54 WBC 15.5 H RBC 3.21 L Hgb 9.8 L Hct 29.0 L MCV 91 MCH 30.7 MCHC 33.9 RDW 15.6 H Plt Count 142 L Sodium 139.6 Potassium 4.1 Chloride 106 Carbon Dioxide 28 Anion Gap 6 BUN 19 Creatinine 0.64 Est GFR ( Amer) > 60 Glucose 202 H Calcium 8.6 Urine Color STRAW Urine Appearance CLEAR Urine pH 5.0 Ur Specific [place] 1.008 Urine Protein NEGATIVE Urine Glucose (UA) NEGATIVE Urine Ketones NEGATIVE Urine Blood SMALL H Urine Nitrite NEGATIVE Ur Leukocyte Esterase NEGATIVE Urine WBC (Auto) 1 Urine RBC (Auto) 0 07/05/19 07/05/19 16:30 16:30 Creatine Kinase 32 CK-MB (CK-2) 0.75 NT-Pro-B Natriuret Pep 1050 H Impressions: Chest X-Ray 07/05/19 15:39 IMPRESSION: Stable chronic changes in the lung bases. No acute findings. Assessment and Plan - Diagnosis (1) Sepsis Is this a current diagnosis for this admission?: Yes Plan: 07/05/2019-patient was recent hospital 1 month ago. As patient has a white count and a fever I will treat for healthcare associated pneumonia. Patient does have a penicillin allergy. Will place patient on vancomycin per pharmacy dosing, as he had TRAM 2 g IV every 8 and a azithromycin 500 mg IV daily. We will bolus patient with 2 L of normal saline and follow with normal saline at 12 5 mL an hour repeat lactic acid at 10 PM. Albuterol nebs every 4. BiPAP. Continue to follow 07/06/2019-much improved. Repeat lactic acid done last night exhibited a lactic acid 2.7. This was at 10 PM. Patient's lungs are diminished but clear at this time patient is sitting in the bed much perkier than yesterday. We will continue to follow 07/07/2019-improved stable. Patient continues on antibiotic therapy lungs are diminished but clear at this time patient looks and feels better than on admission per patient. (2) Healthcare-associated pneumonia Is this a current diagnosis for this admission?: Yes Plan: -see #1 07/06/2019-continue current antibiotic therapy await cultures. 07/07/2019-current antibiotics continue await cultures. (3) Tachycardia Is this a current diagnosis for this admission?: Yes Plan: 07/05/2019-most likely secondary to sepsis. Sepsis protocol with IV fluids we will continue to follow with telemetry. 07/06/2019-stable continue to follow 07/07/2019-stable (4) Chronic diastolic (congestive) heart failure Is this a current diagnosis for this admission?: Yes Plan: 07/05/2019-patient has a preserved LV function of 55 to 60%. At this time I am not concerned about congestive heart failure as patient is septic I will bolus with fluids and continue saline for sepsis protocol. Once patient is improved sufficiently I will diurese. 07/06/2019-no acute exacerbation at this time. I decreased patient's IV fluids to 75 mL an hour continue to follow 07/07/2019-stable I will DC IV fluids at this time. (5) Hyperglycemia Is this a current diagnosis for this admission?: Yes Plan: 07/05/2019-A1c. Sliding scale insulin before meals and at bedtime 07/06/2019-A1c 5.5. Hyperglycemia most likely stress response from her sepsis. 07/07/2019-remains hyperglycemic most likely from critical event and steroids. We will continue sliding scale insulin - Time Time Spent with patient: 15-24 minutes - Inpatient Certification Based on my medical assessment, after consideration of the patient's comorbidities, presenting symptoms, or acuity I expect that the services needed warrant INPATIENT care.: Yes I certify that my determination is in accordance with my understanding of Medicare's requirements for reasonable and necessary INPATIENT services [42 CFR 412.3e].: Yes Medical Necessity: Need for IV Antibiotics
[2019-07-07] MEDS: METOPROLOL SUCCINATE 25 MG TAB.SR.24H PO SCH (10:45)
[2019-07-07] MEDS: LEVETIRACETAM 500 MG TABLET PO SCH ×2 (10:45→22:19)
[2019-07-07] MEDS: VANCOMYCIN HCL 1,000 MG in DEXTROSE 5%-WATER 250 ML IV SCH (18:40)
[2019-07-07 20:35] LABS: ANION GAP 6 (5-19); BLOOD UREA NITROGEN 23 mg/dL (7-20); CALCIUM 8.7 mg/dL (8.4-10.2); CARBON DIOXIDE 29 mmol/L (22-30); CHLORIDE 107 mmol/L (98-107); GLUCOSE 259 mg/dL (75-110); POTASSIUM 4.7 mmol/L (3.6-5.0)
[2019-07-07] MEDS: AZITHROMYCIN 500 MG in DEXTROSE 5%-WATER 250 ML IV SCH (22:19)
[2019-07-08] MEDS: ALBUTEROL SULFATE 0.083% NEB 2.5 MG/3 ML AMPUL NEB SCH ×6 (00:22→20:10)
[2019-07-08 04:39] LABS: MEAN CORPUSCULAR HEMOGLOBIN 30.2 pg (27.0-33.4); MEAN CORPUSCULAR HGB CONC 33.4 g/dL (32.0-36.0); MEAN CORPUSCULAR VOLUME 91 fl (80-97); PLATELET COUNT 157 10^3/uL (150-450); RED BLOOD COUNT 3.31 10^6/uL (3.72-5.28); RED CELL DISTRIBUTION WIDTH 15.8 % (11.5-14.0)
[2019-07-08] MEDS: HEPARIN SOD (PORCINE) 5,000 UNIT/ML 1 ML VIAL SUBCUT SCH ×3 (05:00→22:53)
[2019-07-08] MEDS: PHENYTOIN SODIUM EXTENDED 100 MG CAPSULE PO SCH ×3 (06:29→22:53)
[2019-07-08] MEDS: METHYLPREDNISOLONE INJ 40 MG/1 ML SDV IV SCH ×3 (06:29→22:53)
[2019-07-08] MEDS: AZTREONAM 2 GM in DEXTROSE 5%-WATER 100 ML IV SCH (07:54)
[2019-07-08] MEDS: INSULIN REG, HUMAN 100 UNIT/ML 3 ML VIAL (PYX) SUBCUT SCH ×4 (07:55→22:54)
--- NOTE | 2019-07-08 07:56 | PDOC PROGRESS REPORT ---
Subjective Progress Note for:: 07/08/19 Subjective:: 07/06/2019-no complaints this a.m. 07/07/2019-no complaints 07/08/2019-no complaints this a.m. Reason For Visit: HEALTHCARE ASSOCIATED PNEUMONIA,ACUTE ON CHRONIC Physical Exam Vital Signs: Temp Pulse Resp BP Pulse Ox 97.5 F 84 18 110/49 L 96 07/08/19 04:08 07/08/19 07:00 07/08/19 04:24 07/08/19 04:08 07/08/19 04:24 Intake & Output 07/07/19 07/08/19 07/09/19 07:59 06:59 06:59 Intake Total Output Total Balance Weight General appearance: PRESENT: no acute distress, well-developed, well-nourished Neck exam: ABSENT: carotid bruit, JVD, lymphadenopathy, thyromegaly Respiratory exam: PRESENT: clear to auscultation tyrone, decreased breath sounds, symmetrical, unlabored. ABSENT: rales, rhonchi, wheezes Cardiovascular exam: PRESENT: RRR. ABSENT: diastolic murmur, rubs, systolic murmur Vascular exam: PRESENT: normal capillary refill GI/Abdominal exam: PRESENT: normal bowel sounds, soft. ABSENT: distended, guarding, mass, organolmegaly, rebound, tenderness Extremities exam: PRESENT: full ROM. ABSENT: calf tenderness, clubbing, pedal edema Neurological exam: PRESENT: alert, awake, oriented to person, oriented to place, oriented to time, oriented to situation, CN II-XII grossly intact. ABSENT: motor sensory deficit Psychiatric exam: PRESENT: appropriate affect, normal mood. ABSENT: homicidal ideation, suicidal ideation Skin exam: PRESENT: dry, intact, warm. ABSENT: cyanosis, rash Results Laboratory Results: 07/08/19 04:23 07/07/19 20:00 07/07/19 07/07/19 07/08/19 18:15 20:00 04:23 WBC 14.0 H RBC 3.31 L Hgb 10.0 L Hct 30.0 L MCV 91 MCH 30.2 MCHC 33.4 RDW 15.8 H Plt Count 157 Sodium Cancelled 141.7 Potassium Cancelled 4.7 Chloride Cancelled 107 Carbon Dioxide Cancelled 29 Anion Gap Cancelled 6 BUN Cancelled 23 H Creatinine Cancelled 0.83 Est GFR ( Amer) Cancelled > 60 Est GFR (Non-Af Amer) Cancelled Glucose Cancelled 259 H Calcium Cancelled 8.7 07/05/19 07/05/19 16:30 16:30 Creatine Kinase 32 CK-MB (CK-2) 0.75 NT-Pro-B Natriuret Pep 1050 H Impressions: Chest X-Ray 07/05/19 15:39 IMPRESSION: Stable chronic changes in the lung bases. No acute findings. Assessment and Plan - Diagnosis (1) Sepsis Is this a current diagnosis for this admission?: Yes Plan: 07/05/2019-patient was recent hospital 1 month ago. As patient has a white count and a fever I will treat for healthcare associated pneumonia. Patient does have a penicillin allergy. Will place patient on vancomycin per pharmacy dosing, as he had TRAM 2 g IV every 8 and a azithromycin 500 mg IV daily. We will bolus patient with 2 L of normal saline and follow with normal saline at 125 mL an hour repeat lactic acid at 10 PM. Albuterol nebs every 4. BiPAP. Continue to follow 07/06/2019-much improved. Repeat lactic acid done last night exhibited a lactic acid 2.7. This was at 10 PM. Patient's lungs are diminished but clear at this time patient is sitting in the bed much perkier than yesterday. We will continue to follow 07/07/2019-improved stable. Patient continues on antibiotic therapy lungs are diminished but clear at this time patient looks and feels better than on admission per patient. 07/08/2019-continues improvement. Patient's oxygen movement decreased however are clear. I have DC'd vancomycin and azeotram and will continue patient on azithromycin. (2) Healthcare-associated pneumonia Is this a current diagnosis for this admission?: Yes Plan: -see #1 07/06/2019-continue current antibiotic therapy await cultures. 07/07/2019-current antibiotics continue await cultures. 07/08/2019-cultures are negative thus far. We will continue azithromycin IV DC all other IV antibiotics at this time. (3) Tachycardia Is this a current diagnosis for this admission?: Yes Plan: 07/05/2019-most likely secondary to sepsis. Sepsis protocol with IV fluids we will continue to follow with telemetry. 07/06/2019-stable continue to follow 07/07/2019-stable 07/08/2019-stable (4) Chronic diastolic (congestive) heart failure Is this a current diagnosis for this admission?: Yes Plan: 07/05/2019-patient has a preserved LV function of 55 to 60%. At this time I am not concerned about congestive heart failure as patient is septic I will bolus with fluids and continue saline for sepsis protocol. Once patient is improved sufficiently I will diurese. 07/06/2019-no acute exacerbation at this time. I decreased patient's IV fluids to 75 mL an hour continue to follow 07/07/2019-stable I will DC IV fluids at this time. 07/08/2019-not in acute exacerbation at this time continue to follow. (5) Hyperglycemia Is this a current diagnosis for this admission?: Yes Plan: 07/05/2019-A1c. Sliding scale insulin before meals and at bedtime 07/06/2019-A1c 5.5. Hyperglycemia most likely stress response from her sepsis. 07/07/2019-remains hyperglycemic most likely from critical event and steroids. We will continue sliding scale insulin 07/08/2019-remains slightly elevated. We will continue sliding scale insulin as needed. - Time Time Spent with patient: 15-24 minutes - Inpatient Certification Based on my medical assessment, after consideration of the patient's comorbidities, presenting symptoms, or acuity I expect that the services needed warrant INPATIENT care.: Yes I certify that my determination is in accordance with my understanding of Medicare's requirements for reasonable and necessary INPATIENT services [42 CFR 412.3e].: Yes Medical Necessity: Need for IV Antibiotics
[2019-07-08] MEDS: LEVETIRACETAM 500 MG TABLET PO SCH ×2 (09:34→22:53)
[2019-07-08] MEDS: DOCUSATE SODIUM 100 MG CAPSULE PO SCH (09:34)
[2019-07-08] MEDS: METOPROLOL SUCCINATE 25 MG TAB.SR.24H PO SCH (09:35)
[2019-07-08 18:14] LABS: ANION GAP 6 (5-19); BLOOD UREA NITROGEN 22 mg/dL (7-20); CALCIUM 9.5 mg/dL (8.4-10.2); CARBON DIOXIDE 33 mmol/L (22-30); CHLORIDE 106 mmol/L (98-107); GLUCOSE 125 mg/dL (75-110); POTASSIUM 4.4 mmol/L (3.6-5.0)
[2019-07-08] MEDS: ACETAMINOPHEN 325 MG TABLET PO PRN (18:51)
[2019-07-08] MEDS: AZITHROMYCIN 500 MG in DEXTROSE 5%-WATER 250 ML IV SCH (22:57)
[2019-07-09] MEDS: ALBUTEROL SULFATE 0.083% NEB 2.5 MG/3 ML AMPUL NEB SCH ×4 (00:09→12:01)
[2019-07-09] MEDS: PHENYTOIN SODIUM EXTENDED 100 MG CAPSULE PO SCH (05:21)
[2019-07-09] MEDS: HEPARIN SOD (PORCINE) 5,000 UNIT/ML 1 ML VIAL SUBCUT SCH (05:21)
[2019-07-09] MEDS: METHYLPREDNISOLONE INJ 40 MG/1 ML SDV IV SCH (05:49)
[2019-07-09] MEDS: INSULIN REG, HUMAN 100 UNIT/ML 3 ML VIAL (PYX) SUBCUT SCH (08:03)
--- NOTE | 2019-07-09 09:08 | PDOC DISCHARGE SUMMARY ---
Impression - Admit/DC Date/PCP Admission Date/Primary Care Provider: 07/05/19 18:15 ZANE CHI MD Discharge Date: 07/09/19 - Discharge Diagnosis (1) Sepsis Is this a current diagnosis for this admission?: Yes (2) Healthcare-associated pneumonia Is this a current diagnosis for this admission?: Yes (3) Tachycardia Is this a current diagnosis for this admission?: Yes (4) Chronic diastolic (congestive) heart failure Is this a current diagnosis for this admission?: Yes (5) Hyperglycemia Is this a current diagnosis for this admission?: Yes - Additional Information Resuscitation Status: Full Code Discharge Diet: As Tolerated Discharge Activity: Activity As Tolerated Referrals: ZANE CHI MD [Primary Care Provider] - Follow up as needed Prescriptions: Azithromycin 500 mg PO DAILY #3 tablet Levetiracetam [Keppra 500 mg Tablet] 500 mg PO Q12 #60 tablet Home Medications: Albuterol Sulfate [Albuterol Sulfate Hfa] 2 puff IH Q4HP PRN 07/05/19 Albuterol Sulfate [Proair Respiclick] 2 puff IH Q4HP PRN 07/05/19 Albuterol Sulfate [Ventolin 0.083% Neb 2.5 mg/3 mL Ampul] 3 ml NEB Q4HP PRN 07/05/19 Aspirin [Ecotrin 81 mg EC Tablet] 81 mg PO DAILY 07/05/19 Cetirizine HCl [Zyrtec 10 mg Tablet] 10 mg PO DAILY 07/05/19 Docusate Sodium [Colace 100 mg Capsule] 100 mg PO BID 07/05/19 Fluticasone/Umeclidin/Vilanter [Trelegy 100-62.5-25 Mcg Ellipta 14 Dose/Dpi] 1 puff IH DAILY 07/05/19 Furosemide [Lasix 20 mg Tablet] 20 mg PO DAILY 07/05/19 Metoprolol Succinate [Toprol Xl 25 mg Tab.sr] 25 mg PO DAILY 07/05/19 Multivitamin [Tab-A-Venus (Multiple Vitamin) Tablet] 1 tab PO DAILY 07/05/19 Omeprazole 20 mg PO QAM 07/05/19 Phenytoin Sodium Extended [Dilantin 100 mg Capsule.er] 100 mg PO Q8 07/05/19 Potassium Chloride [Klor-Con M20] 20 meq PO DAILY 07/05/19 Pravastatin Sodium [Pravachol] 10 mg PO QHS 07/05/19 Sennosides [Senna] 17.2 mg PO HSP PRN 07/05/19 Azithromycin 500 mg PO DAILY #3 tablet 07/09/19 Levetiracetam [Keppra 500 mg Tablet] 500 mg PO Q12 #60 tablet 07/09/19 History of Present Illiness History of Present Illness: CHRISTOS MULTANI is a 74 year old female who presents the ER with a long history of COPD oxygen dependent on 3 L at home. Patient states for the last several days she has been having an increased cough with inability to cough anything out. Patient was found to have a leukocytosis with a white count of 17,000, lactic acid 2.2 she is tachycardic and tachypneic at this time. Patient has been taking Levaquin at home without good result. Patient had no other treatment prior to arrival all active is aggravating factor for her shortness of breath. Hospital Course Hospital Course: Patient presented to the ER with a long history of COPD requiring oxygen at home 3 L nasal cannula. She is found to have a lactic acid of 2.2 and a white count of 17,000. She was tachycardic and tachypneic at that time. Patient admitted to medical surgical floor treated with IV antibiotics. Over the course patient is a she has gradually improved and can return to [facility] at this time. We will continue patient on azithromycin 5 mg p.o. daily x3 days. I also discussed patient's care with her neurologist Dr. Haynes. I loaded patient with 1000 mg of Keppra and placed her on Keppra 500 mg p.o. daily which I will continue at this time. We will continue patient's Dilantin so that Dr. Haynes may wean it off. Patient will follow primary care in 1 week. Physical Exam Vital Signs: Temp Pulse Resp BP Pulse Ox 98.2 F 68 14 144/74 H 94 07/09/19 07:39 07/09/19 08:45 07/09/19 08:45 07/09/19 07:39 07/09/19 08:45 Intake & Output 07/08/19 07/09/19 07/10/19 06:59 06:59 06:59 Intake Total 800 Output Total 1150 Balance -350 Weight 55.6 kg General appearance: PRESENT: no acute distress, well-developed, well-nourished Neck exam: ABSENT: carotid bruit, JVD, lymphadenopathy, thyromegaly Respiratory exam: PRESENT: clear to auscultation tyrone, decreased breath sounds, symmetrical, unlabored. ABSENT: rales, rhonchi, wheezes Cardiovascular exam: PRESENT: RRR. ABSENT: diastolic murmur, rubs, systolic murmur Pulses: PRESENT: +1 pedal pulses bilateral Vascular exam: PRESENT: normal capillary refill GI/Abdominal exam: PRESENT: normal bowel sounds, soft. ABSENT: distended, guarding, mass, organolmegaly, rebound, tenderness Rectal exam: PRESENT: deferred Extremities exam: PRESENT: full ROM. ABSENT: calf tenderness, clubbing, pedal edema Neurological exam: PRESENT: alert, awake, oriented to person, oriented to place, oriented to time, oriented to situation, CN II-XII grossly intact. ABSENT: motor sensory deficit Skin exam: PRESENT: dry, intact, warm. ABSENT: cyanosis, rash Results Laboratory Results: WBC 14.0 10^3/uL (4.0-10.5) H 07/08/19 04:23 RBC 3.31 10^6/uL (3.72-5.28) L 07/08/19 04:23 Hgb 10.0 g/dL (12.0-15.5) L 07/08/19 04:23 Hct 30.0 % (36.0-47.0) L 07/08/19 04:23 MCV 91 fl (80-97) 07/08/19 04:23 MCH 30.2 pg (27.0-33.4) 07/08/19 04:23 MCHC 33.4 g/dL (32.0-36.0) 07/08/19 04:23 RDW 15.8 % (11.5-14.0) H 07/08/19 04:23 Plt Count 157 10^3/uL (150-450) 07/08/19 04:23 Lymph % (Auto) 11.7 % (13-45) L 07/05/19 16:30 [place] % (Auto) 4.5 % (3-13) 07/05/19 16:30 Eos % (Auto) 0.3 % (0-6) 07/05/19 16:30 Baso % (Auto) 0.4 % (0-2) 07/05/19 16:30 Absolute Neuts (auto) 14.2 10^3/uL (1.7-8.2) H 07/05/19 16:30 Absolute Lymphs (auto) 2.0 10^3/uL (0.5-4.7) 07/05/19 16:30 Absolute Monos (auto) 0.8 10^3/uL (0.1-1.4) 07/05/19 16:30 Absolute Eos (auto) 0.0 10^3/uL (0.0-0.6) 07/05/19 16:30 Absolute Basos (auto) 0.1 10^3/uL (0.0-0.2) 07/05/19 16:30 Seg Neutrophils % 83.1 % (42-78) H 07/05/19 16:30 PT 13.2 SEC (11.4-15.4) 07/05/19 16:30 INR 1.00 07/05/19 16:30 VBG pH 7.34 (7.30-7.42) 07/05/19 16:42 VBG pCO2 54.0 mmHg (35-63) 07/05/19 16:42 VBG HCO3 28.7 mmol/L (20-32) 07/05/19 16:42 VBG Base Excess 2.1 mmol/L 07/05/19 16:42 Sodium 145.0 mmol/L (137-145) 07/08/19 17:25 Potassium 4.4 mmol/L (3.6-5.0) 07/08/19 17:25 Chloride 106 mmol/L (98-107) 07/08/19 17:25 Carbon Dioxide 33 mmol/L (22-30) H 07/08/19 17:25 Anion Gap 6 (5-19) 07/08/19 17:25 BUN 22 mg/dL (7-20) H 07/08/19 17:25 Creatinine 0.87 mg/dL (0.52-1.25) 07/08/19 17:25 Est GFR ( Amer) > 60 (>60) 07/08/19 17:25 Est GFR (Non-Af Amer) Cancelled 07/07/19 18:15 Est GFR (MDRD) Non-Af > 60 (>60) 07/08/19 17:25 Glucose 125 mg/dL (75-110) H 07/08/19 17:25 POC Glucose 138 mg/dL (70-110) H 07/09/19 07:41 Hemoglobin A1c % 5.9 % (4.7-6.0) 07/06/19 06:20 Lactic Acid 2.7 mmol/L (0.7-2.1) H 07/05/19 19:13 Calcium 9.5 mg/dL (8.4-10.2) 07/08/19 17:25 Phosphorus 3.1 mg/dL (2.5-4.5) 07/06/19 06:20 Magnesium 2.0 mg/dL (1.6-2.3) 07/06/19 06:20 Total Bilirubin 0.3 mg/dL (0.2-1.3) 07/05/19 16:30 Direct Bilirubin 0.2 mg/dL (0.0-0.4) 07/05/19 16:30 Neonat Total Bilirubin Not Reportable 07/05/19 16:30 Neonat Direct Bilirubin Not Reportable 07/05/19 16:30 Neonat Indirect Bili Not Reportable 07/05/19 16:30 AST 30 U/L (14-36) 07/05/19 16:30 ALT 18 U/L (<35) 07/05/19 16:30 Alkaline Phosphatase 118 U/L (38-126) 07/05/19 16:30 Creatine Kinase 32 U/L (30-135) 07/05/19 16:30 CK-MB (CK-2) 0.75 ng/mL (<4.55) 07/05/19 16:30 NT-Pro-B Natriuret Pep 1050 pg/mL (<450) H 07/05/19 16:30 Total Protein 7.6 g/dL (6.3-8.2) 07/05/19 16:30 Albumin 4.5 g/dL (3.5-5.0) 07/05/19 16:30 EGFR Cancelled 07/07/19 18:15 Urine Color STRAW 07/06/19 18:17 Urine Appearance CLEAR 07/06/19 18:17 Urine pH 5.0 (5.0-9.0) 07/06/19 18:17 Ur Specific Donalds 1.008 07/06/19 18:17 Urine Protein NEGATIVE mg/dL (NEGATIVE) 07/06/19 18:17 Urine Glucose (UA) NEGATIVE mg/dL (NEGATIVE) 07/06/19 18:17 Urine Ketones NEGATIVE mg/dL (NEGATIVE) 07/06/19 18:17 Urine Blood SMALL (NEGATIVE) H 07/06/19 18:17 Urine Nitrite NEGATIVE (NEGATIVE) 07/06/19 18:17 Urine Nitrite (Reflex) NEGATIVE (NEGATIVE) 07/05/19 16:26 Urine Bilirubin NEGATIVE (NEGATIVE) 07/06/19 18:17 Urine Urobilinogen NEGATIVE mg/dL (<2.0) 07/06/19 18:17 Ur Leukocyte Esterase NEGATIVE (NEGATIVE) 07/06/19 18:17 Leukocyte Esterase Rfl NEGATIVE (NEGATIVE) 07/05/19 16:26 Urine WBC (Auto) 1 /HPF 07/06/19 18:17 Urine RBC (Auto) 0 /HPF 07/06/19 18:17 Urine WBC (Reflex) 1 /HPF 07/05/19 16:26 Squamous Epi Cells Auto <1 /HPF 07/06/19 18:17 Urine Mucus (Auto) RARE /LPF 07/06/19 18:17 Urine Ascorbic Acid NEGATIVE (NEGATIVE) 07/06/19 18:17 Phenytoin < 3.0 ug/mL (10.0-20.0) L 07/06/19 13:45 Influenza A (Rapid) NEGATIVE (NEGATIVE) 07/05/19 17:10 Influenza B (Rapid) NEGATIVE (NEGATIVE) 07/05/19 17:10 07/05/19 16:30 CK-MB (CK-2) 0.75 NT-Pro-B Natriuret Pep 1050 H Impressions: Chest X-Ray 07/05/19 15:39 IMPRESSION: Stable chronic changes in the lung bases. No acute findings. Plan Time Spent: Greater than 30 Minutes Stroke Is this a Stroke Patient?: No Acute Heart Failure - Is this a Heart Failure Patient?: No
[2019-07-09] MEDS: LEVETIRACETAM 500 MG TABLET PO SCH (09:47)
[2019-07-09] MEDS: DOCUSATE SODIUM 100 MG CAPSULE PO SCH (09:47)
[2019-07-09] MEDS: METOPROLOL SUCCINATE 25 MG TAB.SR.24H PO SCH (09:47)
[2019-07-09 13:19] VITALS: BP 121/51
== END 2019-07-09 12:58 | DRG 871 ==
LOC: ER 15:17 → EH 18:15 → 3S 07-06 00:05
PROVIDERS: ADMIT Hospitalist; ATTEND Hospitalist
DX: A41.9 Sepsis, unspecified organism (principal); J18.9 Pneumonia, unspecified organism; J96.21 Acute and chronic respiratory failure with hypoxia; I50.32 Chronic diastolic (congestive) heart failure; J44.0 Chronic obstructive pulmonary disease with (acute) lower respiratory infection; I11.0 Hypertensive heart disease with heart failure; J44.9 Chronic obstructive pulmonary disease, unspecified; R73.9 Hyperglycemia, unspecified; Z99.81 Dependence on supplemental oxygen; Z87.891 Personal history of nicotine dependence; Z79.82 Long term (current) use of aspirin; Z79.899 Other long term (current) drug therapy; Z88.1 Allergy status to other antibiotic agents; Z88.8 Allergy status to other drugs, medicaments and biological substances; Z82.49 Family history of ischemic heart disease and other diseases of the circulatory system; Z83.438 Family history of other disorder of lipoprotein metabolism and other lipidemia
CPT/HCPCS: 36415; 71045; 80048; 80053; 80185; 81001; 82550; 82553; 82803; 82962; 83036; 83605; 83735; 83880; 84100; 85025; 85027; 85610; 87040; 87804; 93005; 93010; 94640; 94667; 94668; 96365; 96375; 99291; J0456; J1644; J1815; J1953; J2405; J2920; J2930; J3370; J3475; J3490; J7030; J7060; J7620

== ENCOUNTER 2019-10-23 09:02 | Emergency (ER) | payer MEDICARE, MEDICAID ==
[2019-10-23] MEDS ORDERED: IPRATROPIUM/ALBUTEROL 0.5-2.5 MG/3 ML AMPUL NEB ONE (10:01)
--- NOTE | 2019-10-23 10:04 | ER Document Report ---
ED Medical Screen (RME) - General Chief Complaint: Shortness Of Breath Stated Complaint: BLOOD PRESSURE ISSUES Time Seen by Provider: 10/23/19 09:55 Primary Care Provider: ZANE CHI MD [Primary Care Provider] - Follow up as needed Notes: Patient is a 74-year-old female who presents to the emergency department from [facility] with a history of CHF, COPD, emphysema, epilepsy, reflux, hypertension and AICD who presents with generalized weakness. Daughter states that since the patient has increased weakness. Has had cough runny nose for about 2 weeks. She states she is on breathing treatments every 4 hours. Reports that she does have a colostomy with normal output and denies blood or dark stools. Decreased urine output. TRAVEL OUTSIDE OF THE [place] IN LAST 30 DAYS: No - Related Data Allergies/Adverse Reactions: amoxicillin trihydrate [From Augmentin] Allergy (Verified 10/23/19 09:54) meperidine HCl [From Demerol] Allergy (Verified 10/23/19 09:54) Potassium Clavulanate * [From Augmentin] Allergy (Verified 10/23/19 09:54) Home Medications: see list on chart Past Medical History - Social History Chew tobacco use (# tins/day): No Frequency of alcohol use: Rare Drug Abuse: None - Past Medical History Cardiac Medical History: Reports: Hx Congestive Heart Failure, Hx Hypercholesterolemia, Hx Hypertension Denies: Hx Heart Attack Pulmonary Medical History: Reports: Hx COPD, Hx Pneumonia Denies: Hx Asthma Neurological Medical History: Reports: Hx Seizures - WITH DEMEROL. Denies: Hx Cerebrovascular Accident Renal/ Medical History: Denies: Hx Peritoneal Dialysis GI Medical History: Denies: Hx Hepatitis, Hx Hiatal Hernia, Hx Ulcer Psychiatric Medical History: Denies: Hx Depression Infectious Medical History: Denies: Hx Hepatitis Past Surgical History: Reports: Hx Abdominal Surgery, Hx Cardiac Catheterization, Hx Cardiac Surgery - Pacemaker/Defibrillator, Hx Section, Hx Open Heart Surgery - 1949, Hx Pacemaker - and defib, February. Denies: Hx Mastectomy - Immunizations Hx Diphtheria, Pertussis, Tetanus Vaccination: Yes Physical Exam - Vital signs Vitals: Temp Pulse Resp BP Pulse Ox 98.5 F 85 28 H 105/55 L 91 L 10/23/19 09:18 10/23/19 09:18 10/23/19 09:18 10/23/19 09:18 10/23/19 09:18 Course - Re-evaluation Re-evalutation: 10/23/19 10:03 Patient has diffuse expiratory wheezing noted throughout all lung lopez. Will order a DuoNeb and basic labs. Will place patient on hall monitor. I have greeted and performed a rapid initial assessment of this patient. A comprehensive ED assessment and evaluation of the patient, analysis of test results and completion of the medical decision making process will be conducted by additional ED providers. - Vital Signs Vital signs: Temp Pulse Resp BP Pulse Ox 98.5 F 85 28 H 105/55 L 91 L 10/23/19 09:18 10/23/19 09:18 10/23/19 09:18 10/23/19 09:18 10/23/19 09:18 Doctor's Discharge - Discharge Referrals: ZANE CHI MD [Primary Care Provider] - Follow up as needed
--- NOTE | 2019-10-23 11:11 | RADIOLOGY REPORT (SQ) ---
EXAM DESCRIPTION: CHEST 2 VIEWS COMPLETED DATE/TIME: 10/23/2019 10:52 am REASON FOR STUDY: Productive cough x 2 weeks COMPARISON: Chest films 07/05/2019, 05/23/2019, 05/03/2019, 04/20/2019 CT chest 11/27/2017 EXAM PARAMETERS: NUMBER OF VIEWS: two views TECHNIQUE: Digital Frontal and Lateral radiographic views of the chest acquired. RADIATION DOSE: NA LIMITATIONS: none FINDINGS: LUNGS AND PLEURA: Lungs are hyperlucent from obstructive disease. Minimal bibasilar atele ctasis or scarring. No acute infiltrates. No pleural effusion or pneumothorax. MEDIASTINUM AND HILAR STRUCTURES: No masses or contour abnormalities. HEART AND VASCULAR STRUCTURES: Heart normal size. No evidence for failure. BONES: No acute findings. HARDWARE: Left-sided dual lead pacemaker. OTHER: No other significant finding. IMPRESSION: Obstructive lung disease. No acute findings. TECHNICAL DOCUMENTATION: JOB ID: [id number] 2010 [employer]- All Rights Reserved Reading location - IP/workstation name: [email or web address]
[2019-10-23 11:39] LABS: ABSOLUTE BASOPHILS # (AUTO) 0.1 10^3/uL (0.0-0.2); ABSOLUTE EOSINOPHILS # (AUTO) 0.5 10^3/uL (0.0-0.6); ABSOLUTE LYMPHOCYTES (AUTO) 1.6 10^3/uL (0.5-4.7); ABSOLUTE MONOCYTES (AUTO) 0.8 10^3/uL (0.1-1.4); ABSOLUTE NEUT (AUTO) 6.6 10^3/uL (1.7-8.2); BASOPHILS % (AUTO) 0.6 % (0-2); EOSINOPHILS % (AUTO) 5.6 % (0-6); HEMATOCRIT 34.8 % (36.0-47.0); HEMOGLOBIN 11.5 g/dL (12.0-15.5); LYMPHOCYTES % (AUTO) 16.3 % (13-45); MEAN CORPUSCULAR HEMOGLOBIN 28.4 pg (27.0-33.4); MEAN CORPUSCULAR HGB CONC 33.1 g/dL (32.0-36.0); MEAN CORPUSCULAR VOLUME 86 fl (80-97); MONOCYTES % (AUTO) 8.3 % (3-13); PLATELET COUNT 228 10^3/uL (150-450); RED BLOOD COUNT 4.06 10^6/uL (3.72-5.28); RED CELL DISTRIBUTION WIDTH 14.4 % (11.5-14.0); SEGMENTED NEUTROPHILS % (AUTO) 69.2 % (42-78); TOTAL CELLS COUNTED % (AUTO) 100 %; WHITE BLOOD COUNT 9.6 10^3/uL (4.0-10.5)
[2019-10-23 11:59] LABS: ALBUMIN 3.6 g/dL (3.5-5.0); ALKALINE PHOSPHATASE 85 U/L (38-126); ANION GAP 6 (5-19); ASPARTATE AMINO TRANSFERASE 32 U/L (14-36); BILIRUBIN,TOTAL 0.4 mg/dL (0.2-1.3); BLOOD UREA NITROGEN 24 mg/dL (7-20); CALCIUM 9.4 mg/dL (8.4-10.2); CARBON DIOXIDE 37 mmol/L (22-30); CHLORIDE 96 mmol/L (98-107); GLUCOSE 98 mg/dL (75-110); POTASSIUM 4.4 mmol/L (3.6-5.0); TOTAL PROTEIN 6.7 g/dL (6.3-8.2)
[2019-10-23 12:04] LABS: A TYPE INFLUENZA AG NEGATIVE (NEGATIVE); B INFLUENZA AG NEGATIVE (NEGATIVE)
[2019-10-23 12:11] LABS: NT PRO BNP 290 pg/mL (<450)
[2019-10-23 12:12] LABS: TROPONIN I < 0.012 ng/mL
[2019-10-23 12:22] VITALS: BP 113/60
[2019-10-23] MEDS ORDERED: KETOROLAC TROMETHAMINE INJ/PF 30 MG/1 ML SDV IV ONE (12:27)
[2019-10-23 13:11] LABS: APPEARANCE,URINE CLEAR; BILIRUBIN,URINE NEGATIVE (NEGATIVE); COLOR,URINE YELLOW; GLUCOSE, URINE NEGATIVE (NEGATIVE); KETONES,URINE TRACE mg/dL (NEGATIVE); LEUKOCYTE ESTERASE,URINE NEGATIVE (NEGATIVE); NITRITE,URINE NEGATIVE (NEGATIVE); PROTEIN,URINE NEGATIVE (NEGATIVE); URINE SPECIFIC GRAVITY 1.021; UROBILINOGEN,URINE NEGATIVE mg/dL (<2.0)
--- NOTE | 2019-10-23 15:06 | RADIOLOGY REPORT (SQ) ---
EXAM DESCRIPTION: L SPINE 2 VIEWS COMPLETED DATE/TIME: 10/23/2019 2:11 pm REASON FOR STUDY: low back pain COMPARISON: CT abdomen and pelvis 12/28/2018 NUMBER OF VIEWS: Two views. TECHNIQUE: AP and lateral radiographic images acquired of the lumbar spine. LIMITATIONS: None. FINDINGS: MINERALIZATION: Osteopenic SEGMENTATION: Normal. No transitional anatomy. ALIGNMENT: Mild convex leftward curvature, grade 1 anterolisthesis of L5 over S1 from bilateral spond ylolysis VERTEBRAE: Stable compression deformities at L1, L3, L4, and L5. DISCS: Disc space loss of height at L5-S1 POSTERIOR ELEMENTS: Bilateral L5 spondylolysis with grade 1 listhesis. Lower lumbar facet arthropath y HARDWARE: None in the spine. PARASPINAL SOFT TISSUES: Normal. PELVIS: SI joints intact OTHER: No other significant finding. IMPRESSION: Bones are osteopenic. Multiple stable lumbar compression deformities compared to CT 12/05 TECHNICAL DOCUMENTATION: JOB ID: [id number] 2010 [employer]- All Rights Reserved Reading location - IP/workstation name: [email or web address]
[2019-10-23] MEDS ORDERED: LEVETIRACETAM 500 MG TABLET PO ONE (15:11)
--- NOTE | 2019-10-23 15:20 | ER Document Report ---
ED General - General Chief Complaint: Shortness Of Breath Stated Complaint: BLOOD PRESSURE ISSUES Time Seen by Provider: 10/23/19 09:55 Primary Care Provider: ZANE CHI MD [Primary Care Provider] - Follow up as needed Information source: Patient TRAVEL OUTSIDE OF THE [place] IN LAST 30 DAYS: No - HPI Notes: Patient presents from [facility] with family. They state they are concerned because she has been having increasing weakness over the last several weeks. She is also been having low back pain. They state that she has chronic back pain but it seems to be limiting her more than usual. They also state that the patient is occasionally having hallucinations or becomes delirious. Patient denies any problems currently with confusion. She does have some low back pain. It is worse with movement and better with rest. It is moderate in intensity. It is sharp. She states that she has a history of osteo-porosis with some frac tures in her back. No problems with urination or bowel movements. The pain in her back is mostly constant. It is moderate in intensity. - Related Data Allergies/Adverse Reactions: amoxicillin trihydrate [From Augmentin] Allergy (Verified 10/23/19 09:54) meperidine HCl [From Demerol] Allergy (Verified 10/23/19 09:54) Potassium Clavulanate * [From Augmentin] Allergy (Verified 10/23/19 09:54) Home Medications: see list on chart Past Medical History - General Information source: Patient, Relative - Social History Smoking Status: Former Smoker Chew tobacco use (# tins/day): No Frequency of alcohol use: Rare Drug Abuse: None Family History: Reviewed & Not Pertinent, Hyperlipidemia Patient has suicidal ideation: No Patient has homicidal ideation: No - Past Medical History Cardiac Medical History: Reports: Hx Congestive Heart Failure, Hx Hypercholesterolemia, Hx Hypertension Denies: Hx Heart Attack Pulmonary Medical History: Reports: Hx COPD, Hx Pneumonia Denies: Hx Asthma Neurological Medical History: Reports: Hx Seizures - WITH DEMEROL. Denies: Hx Cerebrovascular Accident Renal/ Medical History: Denies: Hx Peritoneal Dialysis GI Medical History: Denies: Hx Hepatitis, Hx Hiatal Hernia, Hx Ulcer Psychiatric Medical History: Denies: Hx Depression Infectious Medical History: Denies: Hx Hepatitis Past Surgical History: Reports: Hx Abdominal Surgery, Hx Cardiac Catheterization, Hx Cardiac Surgery - Pacemaker/Defibrillator, Hx Section, Hx Open Heart Surgery - 1949, Hx Pacemaker - and defib, February. Denies: Hx Mastectomy - Immunizations Hx Diphtheria, Pertussis, Tetanus Vaccination: Yes Hx Pneumococcal Vaccination: 07/06/17 Review of Systems - Review of Systems Constitutional: Malaise, Weakness. denies: Chills Cardiovascular: denies: Chest pain, Palpitations Respiratory: Cough Gastrointestinal: denies: Abdominal pain -: Yes All other systems reviewed and negative Physical Exam - Vital signs Vitals: Temp Pulse Resp BP Pulse Ox 98.5 F 85 28 H 105/55 L 91 L 10/23/19 09:18 10/23/19 09:18 10/23/19 09:18 10/23/19 09:18 10/23/19 09:18 Interpretation: Normal - General General appearance: Alert, Other - Appears frail and chronically ill - HEENT Head: Normocephalic, Atraumatic Eyes: Normal Pupils: PERRL - Respiratory Respiratory status: No respiratory distress Chest status: Nontender Breath sounds: Decreased air movement, Rhonchi Chest palpation: Normal - Cardiovascular Rhythm: Regular Heart sounds: Normal auscultation Murmur: No - Abdominal Inspection: Other - Colostomy is present Distension: No distension Bowel sounds: Normal Tenderness: Nontender Organomegaly: No organomegaly - Back Back: Normal, Tender - Lumbar spine is diffusely tender to palpation. - Extremities General upper extremity: Normal inspection, Nontender, Normal color, Normal ROM, Normal temperature General lower extremity: Normal inspection, Nontender, Normal color, Normal ROM, Normal temperature, Normal weight bearing. No: Sarai's sign - Neurological Cognition: Confused Orientation: Disoriented to time Lisa Coma Scale Eye Opening: Spontaneous Lisa Coma Scale Verbal: Confused Lisa Coma Scale Motor: Obeys Commands Lisa Coma Scale Total: 14 Speech: Normal Motor strength normal: LUE, RUE, LLE, RLE Sensory: Normal - Psychological Associated symptoms: Normal affect, Normal mood - Skin Skin Temperature: Warm Skin Moisture: Dry Skin Color: Normal Course - Re-evaluation Re-evalutation: 10/23/19 15:24 Patient is brought in by family for weakness. She does not have any obvious infection. There is no anemia. There is no new fractures in her lower back. She does not have any evidence of urinary tract infection. She has a cough but no new infiltrate on x-ray. She does not have a fever or elevated white count. She is not tachycardic. Blood pressure is stable. I cannot find evidence of any treatable condition that I feel patient would benefit from in-hospital treatment for at this time. The most prudent thing seems to have the patient follow-up as outpatient. - Vital Signs Vital signs: Temp Pulse Resp BP Pulse Ox 98.5 F 85 24 H 113/60 90 L 10/23/19 09:18 10/23/19 09:18 10/23/19 13:00 10/23/19 12:01 10/23/19 14:08 - Laboratory Result Diagrams: 10/23/19 11:28 10/23/19 11:28 Laboratory results interpreted by me: 10/23/19 10/23/19 10/23/19 11:28 11:28 12:50 Hgb 11.5 L Hct 34.8 L RDW 14.4 H Chloride 96 L Carbon Dioxide 37 H BUN 24 H Urine Ketones TRACE H - Diagnostic Test Radiology reviewed: Image reviewed, Reports reviewed - EKG Interpretation by Me Rate: Normal - 80 Rhythm: Other - Paced rhythm Hope/QRS: IVCD Discharge - Discharge Clinical Impression: Weakness Low back pain Qualifiers: Chronicity: acute Back pain laterality: bilateral Sciatica presence: without sciatica Qualified Code(s): M54.5 - Low back pain Condition: Stable Disposition: HOME, SELF-CARE Instructions: Low Back Pain ([facility]) Additional Instructions: Please pursue physical therapy as soon as possible. Please call Dr. Schulz as soon as possible to arrange an appointment for an evaluation. Referrals: ZANE CHI MD [Primary Care Provider] - Follow up as needed EULALIA SCHULZ MD [ACTIVE STAFF] - Follow up in 1 week
--- NOTE | 2019-10-23 18:52 | EKG REPORT ---
SEVERITY:- ABNORMAL ECG - ATRIAL-VENTRICULAR DUAL-PACED RHYTHM : Confirmed by: Leyla Grossman 23-Oct-2019 18:52:18
== END 2019-10-23 16:22 | disposition home or self-care (01) ==
LOC: ER 09:02
DX: R53.1 Weakness (principal); M54.5 Low back pain; R06.02 Shortness of breath; G89.29 Other chronic pain; M54.9 Dorsalgia, unspecified; I50.9 Heart failure, unspecified; E78.00 Pure hypercholesterolemia, unspecified; I11.0 Hypertensive heart disease with heart failure; Z95.810 Presence of automatic (implantable) cardiac defibrillator
CPT/HCPCS: 99285; 36415; 85025; 80053; 81001; 84484; 87804; 83880; 71046; 72100; 93005; 93010; J1885; A9270 ×2; J7620

== ENCOUNTER 2019-12-13 23:38 | Emergency (ER) | payer MEDICARE, MEDICAID ==
[2019-12-14] MEDS ORDERED: ACETAMINOPHEN 325 MG TABLET PO ONE (01:24)
--- NOTE | 2019-12-14 01:26 | ER Document Report ---
ED Fall - General Chief Complaint: Fall Stated Complaint: FALL Time Seen by Provider: 12/14/19 01:14 Primary Care Provider: RACHEL ZURITA JR, DO [ACTIVE PROVISIONAL STAFF] - Follow up tomorrow Notes: Patient is a 74-year-old female that comes to the emergency department for chief complaint of fall. She states that she was trying to picket [employer] an item off of the floor, she leaned forward, fell forward, and attempted to catch herself with her right arm. She reports pain in her right hand, forearm, and elbow. She also struck her face on the ground. She denies loss of consciousness. She denies vomiting or headache. She is not on a blood thinner. She denies any other areas of pain. Patient ambulates to a limited degree, she is deconditioned from recent partial bowel resection, she is mainly in a wheelchair. She comes by EMS from [facility]. TRAVEL OUTSIDE OF THE [place] IN LAST 30 DAYS: No - Related data Allergies/Adverse Reactions: amoxicillin trihydrate [From Augmentin] Allergy (Verified 10/23/19 09:54) meperidine HCl [From Demerol] Allergy (Verified 10/23/19 09:54) Potassium Clavulanate * [From Augmentin] Allergy (Verified 10/23/19 09:54) Past Medical History - General Information source: Patient, Emergency Med Personnel - Social History Smoking Status: Former Smoker Chew tobacco use (# tins/day): No Frequency of alcohol use: None Drug Abuse: None Lives with: [facility] Family History: Reviewed & Not Pertinent, Hyperlipidemia Patient has suicidal ideation: No Patient has homicidal ideation: No - Past Medical History Cardiac Medical History: Reports: Hx Atrial Fibrillation, Hx Congestive Heart Failure, Hx Hypercholesterolemia, Hx Hypertension Denies: Hx Heart Attack Pulmonary Medical History: Reports: Hx COPD, Hx Pneumonia Denies: Hx Asthma Neurological Medical History: Reports: Hx Seizures - WITH DEMEROL. Denies: Hx Cerebrovascular Accident Renal/ Medical History: Denies: Hx Peritoneal Dialysis GI Medical History: Denies: Hx Hepatitis, Hx Hiatal Hernia, Hx Ulcer Psychiatric Medical History: Denies: Hx Depression Infectious Medical History: Denies: Hx Hepatitis Past Surgical History: Reports: Hx Abdominal Surgery, Hx Cardiac Catheterization, Hx Cardiac Surgery - Pacemaker/Defibrillator, Hx Section, Hx Open Heart Surgery - 1949, Hx Pacemaker - and defib, February. Denies: Hx Mastectomy - Immunizations Hx Diphtheria, Pertussis, Tetanus Vaccination: Yes Hx Pneumococcal Vaccination: 07/06/17 Review of Systems - Review of Systems Constitutional: No symptoms reported EENT: No symptoms reported Cardiovascular: No symptoms reported Respiratory: No symptoms reported Gastrointestinal: No symptoms reported Genitourinary: No symptoms reported Female Genitourinary: No symptoms reported Musculoskeletal: See HPI Skin: No symptoms reported Hematologic/Lymphatic: No symptoms reported Neurological/Psychological: See HPI Physical Exam - Vital signs Vitals: Temp Pulse Resp BP Pulse Ox 97.7 F 80 18 109/63 99 12/14/19 00:24 12/14/19 00:24 12/14/19 00:24 12/14/19 00:12/14/19 00:24 - Notes Notes: GENERAL: Alert, interacts well. No acute distress. HEAD: Normocephalic. There is a faint ecchymosis to the top of the bridge of the nose consistent with trauma but there is no significant swelling, no bleeding, no wounds, no signs of trauma otherwise. EYES: Pupils equal, round, and reactive to light. Extraocular movements intact. ENT: Oral mucosa moist, tongue midline. Oropharynx unremarkable. Airway patent. Nares patent without epistaxis, no septal hematoma, sinuses non-tender, ear canals unremarkable, TM's intact. NECK: Full range of motion. Supple. Trachea midline. No lymphadenopathy. LUNGS: Clear to auscultation bilaterally, no wheezes, rales, or rhonchi. No respiratory distress. Non-tender chest wall. HEART: Regular rate and rhythm. No murmur ABDOMEN: Soft, non-tender. Non-distended. Colostomy bag in place. EXTREMITIES: Patient tender at the base of the right elbow and all the way up the forearm towards the wrist. There is swelling of the wrist and patient has difficulty moving this. Range of motion of the fingers intact, capillary refill and sensation intact, radial pulse intact. Extremities otherwise unremarkable. BACK: No signs of trauma. No cervical, thoracic, lumbar midline tenderness. No saddle anesthesia, normal distal neurovascular exam. Moves all extremities in full range of motion. NEUROLOGICAL: Alert and oriented x3. Normal speech. Cranial nerves II through XII grossly intact. Strength 5/5 in all extremities. PSYCH: Normal affect, normal mood. SKIN: Warm, dry, normal turgor. No rashes or lesions noted. Course - Re-evaluation Re-evalutation: Patient with tenderness and swelling to the right wrist concerning for fracture, I offered pain medication, patient refused. I offered a variety of different pain medications but patient still refused. She states that she has had terrible experiences with pain medication and bad side effects along with delirium and hospitalization. Patient does have a contusion to her nasal bridge, no septal hematoma, no other noted trauma. No other reported trauma. Patient is neurologically intact, alert, oriented. CT of the head and neck with no acute findings, on evaluation patient unchanged. X-ray of the elbow unremarkable, x-ray of the wrist showing comminuted displaced fracture of the distal radius and also the tip of the ulna. There is some angulation to this. Neurovascular exam is intact. I discussed with patient. I did discuss sedation and reduction, patient immediately declined. Discussed different options, patient states she would prefer to have this simply splinted and she will follow-up with orthopedics. I did discuss with Dr. Plata, he reviewed the images, patient can be splinted and follow-up with orthopedics. Patient states appreciation and agreement with plan. Stable and well-appearing at time of discharge. Patient tolerated splinting without pain medication very well. - Vital Signs Vital signs: Temp Pulse Resp BP Pulse Ox 98.6 F 48 L 19 101/47 L 95 12/14/19 03:50 12/14/19 03:50 12/14/19 03:50 12/14/19 03:50 12/14/19 03:50 Procedures - Immobilization right wrist Pre-Proc Neuro Vasc Exam: Normal Immobilizer type: Sugar tong Performed by: PCT Post-Proc Neuro Vasc Exam: Normal Alignment checked and good: Yes Discharge - Discharge Clinical Impression: Head injury Qualifiers: Encounter type: initial encounter Qualified Code(s): S09.90XA - Unspecified injury of head, initial encounter Right wrist fracture Qualifiers: Encounter type: initial encounter Fracture type: closed Qualified Code(s): S62.101A - Fracture of unspecified carpal bone, right wrist, initial encounter for closed fracture Facial contusion Qualifiers: Encounter type: initial encounter Qualified Code(s): S00.83XA - Contusion of other part of head, initial encounter Fall Qualifiers: Encounter type: initial encounter Qualified Code(s): W19.XXXA - Unspecified fall, initial encounter Condition: Stable Disposition: HOME, SELF-CARE Additional Instructions: You have a comminuted fracture of the right wrist. Wear the splint. Please call for orthopedics referral for close follow-up and additional management. The imaging of your arm, face, brain, head, neck do not show any concerning findings. Return for any concerning symptoms including severe worsening swelling or pain. See additional head injury precautions listed below. Head Injury Precautions At this point, there is no evidence that your head injury is serious. Observation is necessary, however. If no pain medication was prescribed, you may take acetaminophen according to the directions on the bottle. Do not take any medication that may alter your level of alertness (unless you've discussed it with the doctor first). Limit activity for the first 24 hours. During the first 24 hours, check to see approximately every two to three hours that the patient is easily arousable, responds normally, and can perform common tasks such as walking without difficulty. Contact your doctor or go to the hospital if any of the following things occur: Persistent vomiting, difficulty in arousing the patient, worsening or continued headache, or failure to improve as expected. Head injuries can cause symptoms that persist for a few days or even a few weeks. Referrals: RACHEL ZURITA JR, [ACTIVE PROVISIONAL STAFF] - Follow up tomorrow
--- NOTE | 2019-12-14 02:40 | RADIOLOGY REPORT (SQ) ---
INDICATION: fall, bruising, pain. COMPARISON: None CORRELATION: None TECHNIQUE: Noncontrast spiral axial CT images were obtained from the skull base to vertex. Noncontrast spiral axial CT imaging through the cervical spine with multiplanar reconstructions. This exam was performed according to our departmental dose-optimization program, which includes automated exposure control, adjustment of the mA and/or kV according to patient size and/or use of iterative reconstruction techniques. FINDINGS: BRAIN: There is no evidence of acute intracranial hemorrhage, midline shift, mass effect or mass lesion. Castro-white differentiation is normal. There is no evidence of acute large territory infarct. Age-related involutional changes are identified. Presumed old small vessel ischemic changes are seen predominantly in a periventricular distribution.. Encephalomalacia right posterior parietal. The visualized paranasal sinuses demonstrate mucosal disease within the left sphenoid sinus and a few left ethmoid air cells.. The orbits and eyeballs are unremarkable. Right mastoid effusion. Vascular calcification. Skull base and calvarium appear intact. CERVICAL SPINE: No acute displaced fracture is identified of the cervical spine. Mild grade 1 anterior spondylolisthesis of C4 and C5 due to facet degenerative change.. No focal alignment abnormality is identified. Gentle reversal the normal cervical lordosis likely due to positioning or spasm The uncovertebral joints and facets are within normal limits, for age. Surrounding soft tissues of the neck are unremarkable. Right changes lung apices. Carotid calcification. IMPRESSION: Imaging is degraded by patient motion, with resultant artifact. The best possible images were obtained. No acute intracranial process is identified. Right mastoid effusion. Age-related involutional changes are identified. Presumed old small vessel ischemic changes are seen predominantly in a periventricular distribution. No acute bony injury is seen to the cervical spine. Osteoarthritis. Carotid calcification.
--- NOTE | 2019-12-14 02:44 | RADIOLOGY REPORT (SQ) ---
EXAM DESCRIPTION: XR WRIST 3 OR MORE VIEWS, XR HAND 3 OR MORE VIEWS COMPLETED DATE/TME: 12/14/2019 01:24 CLINICAL HISTORY: 74 years Female, fall, pain COMPARISON: None. Limitation: Position. Findings: Acute comminuted fracture of the distal radial diametaphysis with moderate impaction and moderate dorsal angulation. Acute transverse fracture at the right ulnar styloid base. 0.4 cm fragment at the anterior aspect of the right wrist joint demonstrated on oblique lateral view only. Bones, joints, and soft tissues of the RIGHT XR WRIST/HAND 3 OR MORE VIEWS appear otherwise unremarkable. IMPRESSION: 1. Acute comminuted fracture of the distal radial diametaphysis with moderate impaction and moderate dorsal angulation. 2. Acute transverse fracture at the right ulnar styloid base.
--- NOTE | 2019-12-14 02:51 | RADIOLOGY REPORT (SQ) ---
Right elbow three view on 12/14/2019 CLINICAL INDICATION: Right elbow pain after fall COMPARISON: None FINDINGS: There is mild diffuse osteopenia. There are no fractures. Visualized joints are well aligned. No joint effusion to suggest an occult fracture is noted. No bony abnormality is noted. IMPRESSION: No acute abnormality.
[2019-12-14 03:52] VITALS: BP 101/47
== END 2019-12-14 04:40 | disposition home or self-care (01) ==
LOC: ER 23:38
PROC: 2W3CX1Z Immobilization of Right Lower Arm using Splint (ICD-10-PCS; principal; 2019-12-13)
DX: S09.90XA Unspecified injury of head, initial encounter (principal); S62.101A Fracture of unspecified carpal bone, right wrist, initial encounter for closed fracture; S00.83XA Contusion of other part of head, initial encounter; M79.641 Pain in right hand; M79.631 Pain in right forearm; M25.521 Pain in right elbow; W19.XXXA Unspecified fall, initial encounter; Z88.1 Allergy status to other antibiotic agents; Z88.8 Allergy status to other drugs, medicaments and biological substances; Z87.891 Personal history of nicotine dependence; I50.9 Heart failure, unspecified; I11.0 Hypertensive heart disease with heart failure; J44.9 Chronic obstructive pulmonary disease, unspecified
CPT/HCPCS: 99284; 73080; 73130; 73110; 70450; 72125; 29125; A9270